=== PATIENT | female | born 1935 | race Caucasian/White ===

== ENCOUNTER → 2017-11-15 18:09 | Outpatient (CLI) | payer MEDICARE, SELFPAY | PROVIDERS: Visit Provider Nurse Practitioner Adult Health | DX: N39.0 Urinary tract infection, site not specified (principal) | CPT/HCPCS: 87086; 87088 ==

== ENCOUNTER → 2017-11-28 16:32 | Outpatient (CLI) | payer MEDICARE, SELFPAY ==
--- NOTE | 2017-11-28 16:32 | DT_ITS ---
This patient was seen during an EMR downtime November 21, 2017 - November 28, 2017. This patient may have a combination of paper and electronic documentation or all paper documentation. All documentation is viewable within the e-chart portion of [facility] for each patient visit.
== END ==
PROVIDERS: Family Provider Internal Medicine; PCP Internal Medicine; Visit Provider Nurse Practitioner Adult Health
DX: R30.0 Dysuria (principal)
CPT/HCPCS: 87077; 87086; 87088; 87186

== ENCOUNTER 2017-12-31 08:44 | Observation (INO) | payer MEDICARE, SELFPAY ==
[2017-12-31] VITALS (10 sets, daily range): BP systolic 133–172; BP diastolic 64–113; PULSE 60–77; RESP 16–18; TEMP 36.5–37.3; O2SAT 89–99; BMI 32.5; BMI 34.0
--- NOTE | 2017-12-31 08:53 | ED.RN ---
TENDERNESS UPON PALPATION OF RUQ.
--- NOTE | 2017-12-31 08:54 | EKG12_ITS ---
Test Reason : ABD PAIN Blood Pressure : / mmHG Vent. Rate : 068 BPM Atrial Rate : 068 BPM P-R Int : 216 ms QRS Dur : 090 ms QT Int : 412 ms P-R-T Axes : 061 067 088 degrees QTc Int : 438 ms Sinus rhythm with 1st degree A-V block with occasional Premature ventricular complexes Otherwise normal ECG Confirmed by JL CEDILLO, ARIK ([id number]), newspaper managing editor RISHABH SCHUSTER ([id number]) on 01/03/2018 1:40:47 PM Referred By: RONI Confirmed By:ARIK PARIKH MD
--- NOTE | 2017-12-31 08:54 | CT_ITS ---
STUDY: CT ABDOMEN AND PELVIS WITH CONTRAST REASON FOR EXAM: Female, 82 years old. Abdominal pain. History of appendectomy RADIATION DOSAGE (If Supplied By Facility): CTDIvol = ( 19.93 ) mGy, DLP = ( 1303.77 ) mGycm TECHNIQUE: Transaxial images were obtained from the dome of the diaphragm to the symphysis pubis with oral contrast. 100ML ml of Isovue 300 contrast was administered. Sagittal and coronal images were reconstructed. Individualized dose optimization techniques were used for this CT. COMPARISON: None. FINDINGS: The visualized lung bases are unremarkable. The visualized portions of the heart are within normal limits. Normal liver. Normal gallbladder and extrahepatic biliary system. Normal spleen. Normal pancreas. Normal bilateral adrenal glands. Bilateral extrarenal pelvis of the kidneys. Otherwise, kidneys are within normal limits. There is a small hiatal hernia. Normal small intestine. There are multiple colonic diverticula consistent with diverticulosis. Postsurgical changes of the sigmoid colon. Status post appendectomy. Normal abdominal aorta. Normal inferior vena cava. Normal retroperitoneum. Normal urinary bladder. There is atrophy of the uterus. Normal abdominal wall. There are diffuse degenerative changes of the visualized lumbar spine. CT/Abdomen/Pelvis WITH Contrast IMPRESSION: No acute findings. Extrarenal pelvis of both kidneys without obstruction. Significant diverticulosis without acute diverticulitis Electronically Signed: Jaret Guevara DO at 11:46 EDT Tel , Service support ,
[2017-12-31 09:26] LABS: Mucous, Urine 0 SEEN /hpf (<or=2+)
[2017-12-31] MEDS: 0.9% Normal Saline 1,000 ML 125 ML IV (09:27)
[2017-12-31 09:28] LABS: Color, Urine Yellow (Yellow); Glucose, Dipstick Normal (Normal); Ketone-Dipstick Negative (Negative); Leukocyte Esterase-Dipstick 25 /ul (Negative); Nitrite-Dipstick Negative (Negative); Occult Blood-Urine 10 /ul (Negative); Protein-Dipstick 100 mg/dl (Negative); Specific Gravity, Urine 1.015 (1.002-1.030); Urine Bilirubin Dipstick Negative (Negative); Urine Clarity Sl. Cloudy (Clear); Urine Urobilinogen Normal (Normal)
[2017-12-31] MEDS: Ondansetron 4 MG/2 ML Vial IV (09:28)
[2017-12-31 09:31] LABS: Absolute Lymphocyte Count 0.93 X10^3/ul (0.83-4.51); Absolute Neutrophil Count 9.5 X10^3/uL (2.0-7.7); Basophil# 0.03 X10^3/uL; Basophil% 0.3 % (0-1); Eosinophil# 0.01 X10^3/uL; Eosinophils% 0.1 % (0-5); Hematocrit 39.8 % (37-47); Hemoglobin 13.1 g/dl (12.0-15.0); Lymphocyte # 0.93 X10^3/ul (4.0); Lymphocyte % 8.6 % (19-41); Mean Corp Hgb Conc 32.9 g/gl (32-36); Mean Corpuscular Hgb 29.4 pg (27.0-32.0); Mean Corpuscular Volume 89.4 fL (81-99); Mean Platelet Vol. 10.3 fl (6.2-12.0); Monocyte# 0.28 X10^3/uL; Monocyte% 2.6 % (0-10); Neutrophil # 9.53 X10^3/uL (2.7-7.7); Neutrophil % 88.1 % (47-70); POSITIVE COUNT NO; POSITIVE DIFFERENTIAL NO; POSITIVE MORPHOLOGY NO; Platelet Count 404 K/mm3 (150-450); RBC Distribution Width CV 14.3 % (11.6-14.6); RBC Distribution Width SD 45.5 fl (35.1-43.9); Red Blood Count 4.45 M/mm3 (4.2-5.4); White Blood Count 10.8 K/mm3 (4.4-11.0)
[2017-12-31 09:34] LABS: Amorphous Sediment 2+; Bacteria 2+ /hpf (None Seen); Red Blood Cells-Urine 0-5 SEEN /hpf (0-5); Squamous Epithelial Cells - UA 0-5 SEEN /hpf (5-10); White Blood Cells 0-5 SEEN /hpf (0-5)
[2017-12-31 09:46] LABS: ALB/GLOB Ratio 0.9 RATIO (0.9-2.4); AST(SGOT) 27 U/L (15-37); Alanine Aminotransfer ALT/SGPT 35 U/L (13-56); Albumin, Serum 3.5 g/dL (3.2-5.0); Alkaline Phosphatase 55 U/L (45-117); Anion Gap 9 (5-15); BUN 20 mg/dL (7-18); BUN/Creat Ratio 25.1 RATIO (10-20); Calcium,Total 8.8 mg/dL (8.5-10.1); Chloride 106 mmol/L (98-107); EST Glomerular Filtration Rate 74 mL/min (>60); Est Glom Filt Rate - Afr Amer 89 mL/min (>60); Estimated Creatinine Clearance 48.43 ml/min; Globulin 3.8 g/dL (2.2-4.2); Glucose 141 mg/dL (74-106); Lipase 172 U/L (73-393); Potassium 3.9 mmol/L (3.5-5.1); Protein, Total 7.3 g/dL (6.4-8.2); Sodium Level 140 mmol/L (136-145)
[2017-12-31 09:49] LABS: Lactic Acid 1.8 mmol/L (0.4-2.0)
[2017-12-31] MEDS: proMETHazine 25 MG/ML Syringe 6.25 MG IV (10:42)
[2017-12-31] MEDS: Morphine 4 MG/ML Syringe IV ×2 (10:43→13:14)
--- NOTE | 2017-12-31 11:49 | US_ITS ---
STUDY: ABDOMINAL ULTRASOUND - RIGHT UPPER QUADRANT REASON FOR VISIT: Female, 82 years old. Right abdominal pain. TECHNIQUE: Ultrasound evaluation of the right upper quadrant was performed with real-time and static eugene-scale imaging. TECHNICAL QUALITY: Adequate. COMPARISON: None. FINDINGS: Liver: The liver measures 16.4 cm. There is normal echogenicity of the liver. The bile ducts are within normal limits. There is hepatic color flow. The direction of portal flow is hepatopetal. There is no demonstrated mass lesion. Gallbladder: Normal distended gallbladder. The gallbladder wall measures 3 mm. There is a negative sonographic Pradhan's sign. There is no pericholecystic fluid. There are no shadowing gallstones. There is echogenic sludge in the gallbladder. Common Bile Duct (C.B.D.): The common bile duct measures 5 mm. Pancreas: Normal size of the head, body and tail of the pancreas. There is normal echogenicity of the pancreas. There is no demonstrated pancreatic mass or cyst. Right Kidney: Normal size of the right kidney. The right kidney measures 11.9 cm. Normal renal cortex. The right cortex measures 1.4 cm. There are parapelvic cysts measuring 1.7 and 2.4 cm. There is no right hydronephrosis. US/Gallbladder IMPRESSION: No gallstones or biliary dilatation. There is sludge in the gallbladder. Electronically Signed: Jb Garza MD at 14:11 EDT , Service support ,
--- NOTE | 2017-12-31 14:52 | PCM.HP.STD ---
Problem List (1) Abdominal pain Status: Acute (2) GERD (gastroesophageal reflux disease) Status: Chronic (3) History of anxiety disorder Status: Chronic (4) Dyslipidemia Status: Chronic History of Present Illness Date of Admission: 12/31/17 Chief Complaint: Abdominal pain The patient is a 82 year old F with past medical history of hypertension, diverticulosis who presents with sudden onset of right upper quadrant pain, dull in nature, that radiates across the abdomen associated with nausea. Denies fever or chills. No vomiting. No diarrhea. Pain does not subside. It has improved with 2 doses of IV 4 mg morphine. Patient's vitals in the ED shows temperature 97.8 F, heart rate of 60, blood pressure 145/64, respiratory rate of 16, saturating 96% on room air. Past Medical History Past Medical History (Chronic Problems): Chronic Problems (Last Reviewed 12/17/17 @ 09:34 by Leslie Lauren) Left arm pain (Chronic) History of GERD (gastroesophageal reflux disease) (Chronic) History of anxiety disorder (Chronic) Dyslipidemia (Chronic) Medical History: Medical History (Last Reviewed 12/17/17 @ 09:34 by Leslie Lauren) Incontinence R32 Shortness of breath R06.02 Hypertension I10 Allergies No Known Allergies Allergy (Verified 12/31/17 08:46) Home Medications: Ambulatory Orders Medication Instructions Recorded amlodipine 2.5 mg tablet 2.5 mg PO DAILY 30 Days #30 09/24/17 cholecalciferol (vitamin D3) 1,000 1,000 unit PO QDAY 09/24/17 unit capsule fluoxetine 20 mg tablet 20 mg PO DAILY 30 Days #30 09/24/17 Calcium Carbonate [Calcium] 500 mg PO DAILY 12/31/17 Fenofibrate Nanocrystallized 48 mg PO DAILY 12/31/17 [Tricor] Surgical History: appendectomy, - - Hemorrhoidectomy 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 Lives: Spouse/ Significant Other Smoking Status: Never smoker Tobacco Use: Non-smoker Alcohol: None Drugs: None - *Family History Maternal History Items: Cancer - Ovarian Paternal History Items: Cancer Review of Systems Constitutional: Denies: Anorexia, Chills, Fever, Malaise, Weakness, Weight Change Eyes: Denies: Blurred vision, Cataracts, Conjunctivae Inflammation, Pain, Redness, Vision Change HEENT: Denies: Difficulty Hearing, Difficulty Swallowing, Head Aches, Hearing Changes, Sinus Congestion, Sinus Drainage Cardiovascular: Denies: Chest Pain, Claudication, Orthopnea, Palpitations Respiratory: Denies: Cough, Hemoptysis, Shortness of breath at rest, Shortness of breath upon exertion, Sputum production Gastrointestinal: Reports: Abdominal Pain, Nausea. Denies: Constipation, Diarrhea, Dyspepsia, Hematemesis, Hematochezia, Melena, Vomiting Genitourinary: Denies: Dysuria, Frequency, Incontinence, Nocturia Musculoskeletal: Denies: Joint Pain, Joint stiffness, Joint swelling, Joint Tenderness Skin: Denies: Pruritis, Rash, Wounds Neurological: Denies: Balance problems, Difficulty swallowing, Focal weakness, Numbness, Tingling Psychiatric: Denies: Anxiety, Depression, Homicidal Ideations, Suicidal Ideations Hematologic/ Lymphatic: Denies: Easy Bruising, Easy Bleeding VTE Information - Inpt Only VTE Present on Admission: No VTE Pharm Prophylaxis ordered?: Yes Patient Problems: Active and Suspected Problems (Last Reviewed 12/17/17 @ 09:34 by Leslie Lauren) Abdominal pain (Acute) - Physical Exam General: Alert, Oriented x3, Cooperative, No apparent distress HEENT: Atraumatic, PERRLA, EOMI, Normocephalic Oral: Moist Mucosa Neck: Supple Lungs: Clear to auscultation, Normal air movement Cardiovascular: Regular rate, Regular Rhythm, Normal S1, Normal S2, No murmurs Abdomen: Bowel Sounds Present, Soft, Non-Distended, No Hepato-splenomegaly, Obese, Tender - RUQ tenderness, with mild guarding on deep palpation and a positive pradhan's sign. Extremities: No edema Skin: No rashes, No breakdown Musculoskeletal: No Tenderness to Palpation of Joints or Extremities Lymphatic: No Cervical, Supraclavicular, or Inguinal Adenopathy Neurological: Cranial nerves II-XII grossly intact, Neuro grossly intact Psych/Mental Status: Normal Affect, Appropriate Vital Signs Temp Pulse Resp BP Pulse Ox 97.8 F 60 16 145/64 H 96 12/31/17 08:45 12/31/17 13:02 12/31/17 13:02 12/31/17 13:02 12/31/17 13:02 Oxygen Delivery Method Room Air Weight: 86.183 kg Body Mass Index (BMI) 32.5 Laboratory Tests Past 24 Hrs 12/31/17 12/31/17 12/31/17 09:00 09:15 09:15 WBC 10.8 RBC 4.45 Hgb 13.1 Hct 39.8 MCV 89.4 MCH 29.4 MCHC 32.9 RDW 14.3 RDW Differential 45.5 H Plt Count 404 MPV 10.3 Immature Gran % (Auto) 0.300 Neut % (Auto) 88.1 H Lymph % (Auto) 8.6 L [place] % (Auto) 2.6 Eos % (Auto) 0.1 Baso % (Auto) 0.3 Absolute Neuts (auto) 9.5 H Absolute Lymphs (auto) 0.93 Total Counted Not Reportable Sodium 140 Potassium 3.9 Chloride 106 Carbon Dioxide 25.0 Anion Gap 9 BUN 20 H Creatinine 0.80 Estim Creat Clear Calc 48.43 Est GFR (MDRD) Af Amer 89 Est GFR (MDRD) Non-Af 74 BUN/Creatinine Ratio 25.1 H Glucose 141 H Lactic Acid Calcium 8.8 Total Bilirubin 0.30 AST 27 ALT 35 Alkaline Phosphatase 55 Troponin I < 0.015 Total Protein 7.3 Albumin 3.5 Globulin 3.8 Albumin/Globulin Ratio 0.9 Lipase 172 Urine Color Yellow Urine Clarity Sl. Cloudy Urine pH 8.0 Ur Specific [place] 1.015 Urine Protein 100 H Urine Glucose (UA) Normal Urine Ketones Negative Urine Occult Blood 10 H Urine Nitrite Negative Urine Bilirubin Negative Urine Urobilinogen Normal Ur Leukocyte Esterase 25 H Urine RBC 0-5 SEEN Urine WBC 0-5 SEEN Ur Squamous Epith Cells 0-5 SEEN Amorphous Sediment 2+ Urine Bacteria 2+ Urine Mucus 0 SEEN 12/31/17 09:15 WBC RBC Hgb Hct MCV MCH MCHC RDW RDW Differential Plt Count MPV Immature Gran % (Auto) Neut % (Auto) Lymph % (Auto) [place] % (Auto) Eos % (Auto) Baso % (Auto) Absolute Neuts (auto) Absolute Lymphs (auto) Total Counted Sodium Potassium Chloride Carbon Dioxide Anion Gap BUN Creatinine Estim Creat Clear Calc Est GFR (MDRD) Af Amer Est GFR (MDRD) Non-Af BUN/Creatinine Ratio Glucose Lactic Acid 1.8 Calcium Total Bilirubin AST ALT Alkaline Phosphatase Troponin I Total Protein Albumin Globulin Albumin/Globulin Ratio Lipase Urine Color Urine Clarity Urine pH Ur Specific [place] Urine Protein Urine Glucose (UA) Urine Ketones Urine Occult Blood Urine Nitrite Urine Bilirubin Urine Urobilinogen Ur Leukocyte Esterase Urine RBC Urine WBC Ur Squamous Epith Cells Amorphous Sediment Urine Bacteria Urine Mucus Assessment/Plan All Active Problems (Last Reviewed 12/17/17 @ 09:34 by Leslie Lauren) Abdominal pain (Acute) 82 year old F with past medical history of hypertension, diverticulosis who presents with sudden onset of right upper quadrant pain, dull in nature, that radiates across the abdomen associated with nausea. 1. Acute right upper quadrant pain, suggestive of biliary colic vs acute cholecystitis. Patient has no fever, no leukocytosis, but positive Pradhan's sign on physical examination. CT scan of the abdomen and pelvis was unremarkable. Gallstone ultrasound shows normal liver, normal distended gallbladder with negative sonographic pradhan's sign and no pericholecystic fluid or shadowing gallstones but there is echogenic sludge in the gallbladder. Plan: Admit to MedSurg floor, pain control with IV morphine, IV fluids, general surgery consult, HIDA scan, PPI bid, labs in a.m. 2. Hypertension, continue on home blood pressure medication 3. Anxiety, continue on home medication 4. DVT prophylaxis with Lovenox SC Code Visit Inpatient E&M: 16775 Init Hosp L2
--- NOTE | 2017-12-31 14:53 | ED.DCSUM_ITS ---
- ER Visit Summary Date of Service: 12/31/17 Chief Complaint: [Abdominal pain] History of Present Illness: The patient is a 82 F [presents to the emergency department with complaint of abdominal pain that started last evening around 9 PM. Patient rates her pain as a 10 out of 10. Patient feels like she is bloated and distended. Patient states her last bowel movement was yesterday and was normal. Patient denies any blood in her stool or black tarry stools. Patient denies any fever. She denies urinary symptoms. Patient has had nausea but no vomiting. Patient has not had abdominal pain like this before.] Physical Examination: [HEENT-PERRLA, EOMI. Cranial nerves II through XII grossly intact. TMs clear. Mucous membranes moist. No adenopathy. Cardiovascular-regular rate and rhythm without murmur or ectopy Lungs-clear to auscultation, chest wall stable without crepitus or subcu emphysema Abdomen-normoactive bowel sounds, soft. Patient has tenderness to the right upper quadrant with guarding. Patient has a positive Pradhan sign. There is no rebound, rigidity, or perineal signs. Extremities-intact ?4, normal range of motion, normal pulses, atraumatic] Test Results: [CBC with differential obtained showed a white count of 10.8, hemoglobin 13, hematocrit 39.8, platelets 404. Chemistries unremarkable. LFTs unremarkable. Urinalysis unremarkable. Troponin is less than 0.05. Lipase was normal. EKG obtained on arrival showed a sinus rhythm with a first-degree AV block and a ventricular rate of [address] scan of the abdomen and pelvis showed essentially nothing acute. Patient did have some diverticulosis but no diverticulitis. Ultrasound of the right upper quadrant obtained showed sludge in the gallbladder no gallstones or biliary dilatation noted. No pericholecystic fluid noted.] Emergency Department Course and Treatment: [Initially was medicated with morphine and Zofran. Patient's pain did return and had to be remedicated with morphine and Phenergan.] Patient case was discussed with Dr. Celena Smith. I was asked to admit the hospitalist group and spoke with Dr. Quintero who will admit patient for intractable abdominal pain. Patient will likely require further evaluation such as possibly HIDA scan to evaluate further. Treatment Plan: [Admit] Disposition: [Admit] Impression: [Abdominal pain Biliary colic] This note was generated with [employer] dictation software. It may contain incorrect words, spelling, and punctuation that were not noted in review of the chart prior to signing ED Disposition - Plan for ED Patient: Chief Complaint: Abd Pain Referrals: Brenda Palmer DO [Primary Care Provider] -
[2017-12-31] MEDS: 0.9% Normal Saline 1,000 ML 75 ML IV (16:26)
[2017-12-31] MEDS: amLODIPine 2.5 MG Tablet PO (20:25)
[2017-12-31] MEDS: Morphine 2 MG/ML Syringe 1 MG IV (21:19)
[2018-01-01 02:31] VITALS: BP 176/73; PULSE 74; RESP 18; TEMP 37.1; O2SAT 93
[2018-01-01 02:33] VITALS: PULSE 75
[2018-01-01] MEDS: 0.9% Normal Saline 1,000 ML 75 ML IV (05:12)
[2018-01-01 05:59] LABS: Absolute Lymphocyte Count 1.94 X10^3/ul (0.83-4.51); Absolute Neutrophil Count 6.9 X10^3/uL (2.0-7.7); Basophil# 0.02 X10^3/uL; Basophil% 0.2 % (0-1); Eosinophil# 0.14 X10^3/uL; Eosinophils% 1.4 % (0-5); Hematocrit 36.6 % (37-47); Hemoglobin 11.7 g/dl (12.0-15.0); Lymphocyte # 1.94 X10^3/ul (4.0); Lymphocyte % 19.3 % (19-41); Mean Corpuscular Volume 90.6 fL (81-99); Mean Platelet Vol. 10.4 fl (6.2-12.0); Monocyte# 1.06 X10^3/uL; Monocyte% 10.5 % (0-10); Neutrophil # 6.89 X10^3/uL (2.7-7.7); Neutrophil % 68.5 % (47-70); Platelet Count 339 K/mm3 (150-450); RBC Distribution Width CV 14.4 % (11.6-14.6); RBC Distribution Width SD 47.2 fl (35.1-43.9); Red Blood Count 4.04 M/mm3 (4.2-5.4); White Blood Count 10.1 K/mm3 (4.4-11.0)
[2018-01-01 06:01] LABS: POSITIVE COUNT NO; POSITIVE DIFFERENTIAL NO; POSITIVE MORPHOLOGY NO
[2018-01-01 06:15] LABS: Anion Gap 8 (5-15); BUN 15 mg/dL (7-18); BUN/Creat Ratio 22.8 RATIO (10-20); Calcium,Total 8.1 mg/dL (8.5-10.1); Chloride 109 mmol/L (98-107); Creatinine, Serum 0.66 mg/dL (0.55-1.02); EST Glomerular Filtration Rate 92 mL/min (>60); Est Glom Filt Rate - Afr Amer 111 mL/min (>60); Estimated Creatinine Clearance 38.75 ml/min; Glucose 117 mg/dL (74-106); Potassium 3.9 mmol/L (3.5-5.1); Sodium Level 144 mmol/L (136-145)
[2018-01-01 07:02] VITALS: PULSE 72
--- NOTE | 2018-01-01 07:32 | PCM.PN.HOSP ---
Patient Problems: Active and Suspected Problems (Last Reviewed 12/17/17 @ 09:34 by Leslie Lauren) Abdominal pain (Acute) Subjective: Patient was seen and examined. Denies any nausea or vomiting. Feels well. Had episode of elevated blood pressure because she did not take her medication yesterday. Denies any dizziness or palpitations or chest pain. Seen by general surgery today and will be discharged. Objective: Physical Exam General: Alert, Oriented x3, Cooperative, No apparent distress HEENT: Atraumatic, PERRLA, EOMI, Normocephalic Oral: Moist Mucosa Neck: Supple Lungs: Clear to auscultation, Normal air movement Cardiovascular: Regular rate, Regular Rhythm, Normal S1, Normal S2, No murmurs Abdomen: Bowel Sounds Present, Soft, Non-Distended, No Hepato-splenomegaly, Obese, Tender - RUQ tenderness, with mild guarding on deep palpation and a positive mariano's sign. Extremities: No edema Skin: No rashes, No breakdown Musculoskeletal: No Tenderness to Palpation of Joints or Extremities Lymphatic: No Cervical, Supraclavicular, or Inguinal Adenopathy Neurological: Cranial nerves II-XII grossly intact, Neuro grossly intact Psych/Mental Status: Normal Affect, Appropriate Vitals/I&O's: Vital Signs Temp Pulse Resp BP Pulse Ox 98.8 F 75 18 176/73 H 93 01/01/18 02:31 01/01/18 02:33 01/01/18 02:31 01/01/18 02:31 01/01/18 02:31 Oxygen Flow Rate (L/min) 2 Oxygen Delivery Method Room Air Weight: 90.1 kg Body Mass Index (BMI) 34.0 Intake and Output for Last 24 Hours 12/30/17 12/31/17 01/01/18 23:59 23:59 23:59 Intake Total 1330 / 1330 407 / 407 Balance 1330 / 1330 407 / 407 Laboratory Results 01/01/18 05:30: WBC 10.1, RBC 4.04 L, Hgb 11.7 L, Hct 36.6 L, MCV 90.6, MCH 29.0, MCHC 32.0, RDW 14.4, RDW Differential 47.2 H, Plt Count 339, MPV 10.4, Immature Gran % (Auto) 0.100, Neut % (Auto) 68.5, Lymph % (Auto) 19.3, [place] % (Auto) 10.5 H, Eos % (Auto) 1.4, Baso % (Auto) 0.2, Absolute Neuts (auto) 6.9, Absolute Lymphs (auto) 1.94, Total Counted Not Reportable 01/01/18 05:30: Sodium 144, Potassium 3.9, Chloride 109 H, Carbon Dioxide 27.0, Anion Gap 8, BUN 15, Creatinine 0.66, Estim Creat Clear Calc 38.75, Est GFR (MDRD) Af Amer 111, Est GFR (MDRD) Non-Af 92, BUN/Creatinine Ratio 22.8 H, Glucose 117 H, Calcium 8.1 L Current Medications Amlodipine Besylate (Norvasc) 2.5 mg PO DAILY [facility] Last Admin: 12/31/17 20:25 Dose: 2.5 mg Bisacodyl (Dulcolax) 5 mg PO DAILY PRN PRN PRN Reason: Constipation [facility]Ge [facility]) [facility] Cholecalciferol (Vitamin D) 1,000 unit PO DAILY [facility] Enoxaparin Sodium (Lovenox) 40 mg SC DAILY@1000 [facility] Fenofibrate (Tricor) 48 mg PO DAILYCM [facility] Fluoxetine HCl (Prozac) 20 mg PO DAILY [facility] Sodium Chloride () 1,000 mls @ 75 mls/hr IV .[id number] [facility] Last Admin: 01/01/18 05:12 Dose: 75 mls/hr Pantoprazole Sodium 40 mg/ (Sodium Chloride) 110 mls @ 330 mls/hr IV Q12 [facility] Last Admin: 12/31/17 21:18 Dose: 330 mls/hr Magnesium Hydroxide (Milk Of Magnesia) 30 ml PO DAILY PRN PRN PRN Reason: Constipation Morphine Sulfate () 1 mg IV Q4H PRN PRN PRN Reason: SEVERE PAIN (6-10/10) Last Admin: 12/31/17 21:19 Dose: 1 mg Ondansetron HCl (Zofran) 4 mg IV Q8H PRN PRN PRN Reason: NAUSEA Psyllium Hydrophilic Mucilloid (Metamucil) 1 packet PO DAILY PRN PRN PRN Reason: CONSTIPATION Sodium Chloride () 5 - 30 ml IV UD PRN PRN Reason: SALINE FLUSH Medical Necessity - Tobacco Use Smoking Status: Never smoker Tobacco Use: Non-smoker Assessment/Plan All Active Problems (Last Reviewed 12/17/17 @ 09:34 by Leslie Lauren) Abdominal pain (Acute) 82 year old F with past medical history of hypertension, diverticulosis who presents with sudden onset of right upper quadrant pain, dull in nature, that radiates across the abdomen associated with nausea. 1. Acute right upper quadrant pain, suggestive of biliary colic vs acute cholecystitis vs GERD, appears improved, will be discharged to follow-up in the outpatient with general surgery 2. Hypertension, uncontrolled secondary to missed medications, will continue with home medications 3. Anxiety, continue on home medication 4. DVT prophylaxis with Lovenox SC
[2018-01-01 08:23] VITALS: BP 176/65; PULSE 75; RESP 18; TEMP 36.5; O2SAT 96
[2018-01-01] MEDS: Calcium (Elemental) 500 MG Tablet PO (08:29)
[2018-01-01] MEDS: Fenofibrate 48 MG Tablet PO (08:29)
[2018-01-01] MEDS: FLUoxetine 20 MG Capsule PO (08:29)
[2018-01-01] MEDS: amLODIPine 2.5 MG Tablet PO (08:29)
[2018-01-01] MEDS: Enoxaparin 40 MG/0.4 ML Syringe SC (08:29)
--- NOTE | 2018-01-01 08:47 | PCM.CONS.GEN ---
Reason for Consult Date of Consultation: 01/01/18 Reason for Consultation: Right upper quadrant, epigastric, left upper quadrant abdominal pain, gallbladder sludge History of Present Illness: The patient is a 82 year old F presented to ER due to RUQ/epigastric/LUQ pain and nausea starting Tuesday at 9pm. Pt last ate at 5PM-hamburger, pt states the pain continue to get worse and was a 10/10 when she came to ER. CT a/p showed no acute findings and U/S showed wall 3mm, CBD 5mm, no pericholecystic fluid and GB sludge. Pt was admitted for pain control and also started on protonix IV. Pt states she has had GERD for years and has been on OTC generic prevacid for about 20 years and denies ever having an EGD. Pt was able to richmond diet yesterday and this AM she was able to eat a 1/2 bagel with cream cheese and denies any abdominal pain or N or V. Pt states her last colonoscopy was by Dr. Grover before sigmoidectomy due to diverticular disease about 8-10 years ago per pt. Past Medical History Past Medical History (Chronic Problems): Chronic Problems (Last Reviewed 12/17/17 @ 09:34 by Leslie Lauren) Left arm pain (Chronic) History of GERD (gastroesophageal reflux disease) (Chronic) History of anxiety disorder (Chronic) Dyslipidemia (Chronic) Medical History: Medical History (Last Reviewed 12/17/17 @ 09:34 by Leslie Lauren) Incontinence R32 Shortness of breath R06.02 Hypertension I10 Allergies No Known Allergies Allergy (Verified 12/31/17 08:46) Home Medications: Ambulatory Orders Medication Instructions Recorded amlodipine 2.5 mg tablet 2.5 mg PO DAILY 30 Days #30 09/24/17 cholecalciferol (vitamin D3) 1,000 1,000 unit PO QDAY 09/24/17 unit capsule fluoxetine 20 mg tablet 20 mg PO DAILY 30 Days #30 09/24/17 Aspirin [Aspirin, Baby] 1 tab PO DAILY 12/31/17 Calcium Carbonate [Calcium] 500 mg PO DAILY 12/31/17 Cephalexin 250 mg PO DAILY 12/31/17 Cetirizine HCl [Zyrtec] 5 mg PO QHS 12/31/17 Fenofibrate Nanocrystallized 48 mg PO DAILY 12/31/17 [Tricor] Pantoprazole Sodium 40 mg PO DAILY #30 tablet. 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 Lives: Spouse/ Significant Other Smoking Status: Never smoker Tobacco Use: Non-smoker Alcohol: None Drugs: None - *Family History Maternal History Items: Cancer - Ovarian Paternal History Items: Cancer Review of Systems Constitutional: Denies: Anorexia, Fever Eyes: Denies: Blurred vision HEENT: Denies: Difficulty Swallowing Cardiovascular: Denies: Chest Pain Respiratory: Denies: Shortness of breath at rest Gastrointestinal: Denies: Abdominal Pain, Nausea, Vomiting Genitourinary: Denies: Dysuria Skin: Denies: Rash Neurological: Denies: Confusion Psychiatric: Denies: Anxiety, Depression Hematologic/ Lymphatic: Denies: Easy Bleeding - Physical Exam General: Alert, Oriented x3, Cooperative, No apparent distress HEENT: Atraumatic Lungs: Normal air movement Cardiovascular: Regular rate Abdomen: Soft, Non Tender, Non-Distended, - - no PS Extremities: No clubbing, No cyanosis, No edema Skin: No rashes Neurological: Cranial nerves II-XII grossly intact Psych/Mental Status: Normal Affect Vital Signs Temp Pulse Resp BP Pulse Ox 97.7 F L 75 18 176/65 H 96 01/01/18 08:23 01/01/18 08:23 01/01/18 08:23 01/01/18 08:23 01/01/18 08:23 Oxygen Flow Rate (L/min) 2 Oxygen Delivery Method Room Air Weight: 198 lb 10.184 oz Body Mass Index (BMI) 34.0 Intake and Output for Last 24 Hours 12/30/17 12/31/17 01/01/18 23:59 23:59 23:59 Intake Total 1330 / 1330 407 / 407 Balance 1330 / 1330 407 / 407 Laboratory Tests Past 24 Hrs 01/01/18 01/01/18 05:30 05:30 WBC 10.1 RBC 4.04 L Hgb 11.7 L Hct 36.6 L MCV 90.6 MCH 29.0 MCHC 32.0 RDW 14.4 RDW Differential 47.2 H Plt Count 339 MPV 10.4 Immature Gran % (Auto) 0.100 Neut % (Auto) 68.5 Lymph % (Auto) 19.3 [place] % (Auto) 10.5 H Eos % (Auto) 1.4 Baso % (Auto) 0.2 Absolute Neuts (auto) 6.9 Absolute Lymphs (auto) 1.94 Total Counted Not Reportable Sodium 144 Potassium 3.9 Chloride 109 H Carbon Dioxide 27.0 Anion Gap 8 BUN 15 Creatinine 0.66 Estim Creat Clear Calc 38.75 Est GFR (MDRD) Af Amer 111 Est GFR (MDRD) Non-Af 92 BUN/Creatinine Ratio 22.8 H Glucose 117 H Calcium 8.1 L Assessment/Plan All Active Problems (Last Reviewed 12/17/17 @ 09:34 by Leslie Lauren) Abdominal pain (Acute) 82-year-old female presented with right upper quadrant/left upper quadrant/epigastric abdominal pain, nausea, ultrasound finding of gallbladder sludge. 1. Patient currently denies any abdominal pain and was able to eat a bagel with cream cheese this morning an hour ago. Patient states that her pain began about 4 hours after eating Tuesday night she states she regularly does have reflux and has been on [id number] generic Prevacid for this and denies ever having an EGD in the past. Patient's symptoms are not typical of gallbladder disease are more typical of gastritis/GERD. Patient has been on Protonix 40 mg IV while in the hospital. Recommend patient continue on Protonix 40 mg p.o. daily and follow-up in office with a plan to get an EGD and colonoscopy if she is due at this time. Reviewed the anatomy as well as her CAT scan and ultrasound findings with the patient and she was agreeable with plan. Okay to DC today per surgery and pt will f/u in office. Celena Smith M.D. Pager: [phone] [facility] [address] [place] [address], Outpatient [place], [address] [place] [address] Office: [phone] Code Visit Inpatient E&M: 79136 Init Hosp L1
--- NOTE | 2018-01-01 08:50 | DCINST_ITS ---
- Discharge Diagnoses Current Active Problems: Current Active and Chronic Problems (Last Reviewed 12/17/17 @ 09:34 by Leslie Lauren) Abdominal pain (Acute) Reason(s) for Visit for Discharge Instructions: Abdominal pain You will use the following diet at home:: Cardiac Your food should be the consistency of: Regular Your liquids should be the consistency of: Regular/Thin Discharge Activity: Return to Normal Activity Additional Instructions: You have been prescribed an increased dose of pantoprazole. You should follow-up wit Dr. Smith in the outpatient. You need to keep a log of your blood pressure and follow-up with your primary care doctor with the readings. Allergies/Adverse Reactions: Allergies No Known Allergies Allergy (Verified 12/31/17 08:46) Medications to take at Discharge amlodipine 2.5 mg tablet 2.5 mg PO DAILY 30 Days #30 09/24/17 cholecalciferol (vitamin D3) 1,000 unit capsule 1,000 unit PO QDAY 09/24/17 fluoxetine 20 mg tablet 20 mg PO DAILY 30 Days #30 09/24/17 Aspirin [Aspirin, Baby] 1 tab PO DAILY 12/31/17 Calcium Carbonate [Calcium] 500 mg PO DAILY 12/31/17 Cephalexin 250 mg PO DAILY 12/31/17 Cetirizine HCl [Zyrtec] 5 mg PO QHS 12/31/17 Fenofibrate Nanocrystallized [Tricor] 48 mg PO DAILY 12/31/17 Pantoprazole Sodium 40 mg PO DAILY #30 tablet. 01/01/18 The following prescriptions were given: Pantoprazole Sodium 40 mg PO DAILY #30 tablet. Primary Care Physician: Brenda Palmer DO [Primary Care Provider] - Please follow up with your Primary Care Physician in: within 1-2 weeks Test Results: Test results from this visit will be discussed in further detail at your follow- up appointment, if applicable. Please Follow Up With: Celena Smith MD When: Call next week for appointment Proposed Discharge Date: 01/01/18
--- NOTE | 2018-01-01 08:50 | CON.PCM_ITS ---
Reason for Consult Date of Consultation: 01/01/18 Reason for Consultation: Right upper quadrant, epigastric, left upper quadrant abdominal pain, gallbladder sludge History of Present Illness: The patient is a 82 year old F presented to ER due to RUQ/epigastric/LUQ pain and nausea starting Tuesday at 9pm. Pt last ate at 5PM-hamburger, pt states the pain continue to get worse and was a 10/10 when she came to ER. CT a/p showed no acute findings and U/S showed wall 3mm, CBD 5mm, no pericholecystic fluid and GB sludge. Pt was admitted for pain control and also started on protonix IV. Pt states she has had GERD for years and has been on OTC generic prevacid for about 20 years and denies ever having an EGD. Pt was able to richmond diet yesterday and this AM she was able to eat a 1/2 bagel with cream cheese and denies any abdominal pain or N or V. Pt states her last colonoscopy was by Dr. Grover before sigmoidectomy due to diverticular disease about 8-10 years ago per pt. Past Medical History Past Medical History (Chronic Problems): Chronic Problems (Last Reviewed 12/17/17 @ 09:34 by Leslie Lauren) Left arm pain (Chronic) History of GERD (gastroesophageal reflux disease) (Chronic) History of anxiety disorder (Chronic) Dyslipidemia (Chronic) Medical History: Medical History (Last Reviewed 12/17/17 @ 09:34 by Leslie Lauren) Incontinence R32 Shortness of breath R06.02 Hypertension I10 Allergies No Known Allergies Allergy (Verified 12/31/17 08:46) Home Medications: Ambulatory Orders Medication Instructions Recorded amlodipine 2.5 mg tablet 2.5 mg PO DAILY 30 Days #30 09/24/17 cholecalciferol (vitamin D3) 1,000 1,000 unit PO QDAY 09/24/17 unit capsule fluoxetine 20 mg tablet 20 mg PO DAILY 30 Days #30 09/24/17 Aspirin [Aspirin, Baby] 1 tab PO DAILY 12/31/17 Calcium Carbonate [Calcium] 500 mg PO DAILY 12/31/17 Cephalexin 250 mg PO DAILY 12/31/17 Cetirizine HCl [Zyrtec] 5 mg PO QHS 12/31/17 Fenofibrate Nanocrystallized 48 mg PO DAILY 12/31/17 [Tricor] Pantoprazole Sodium 40 mg PO DAILY #30 tablet. 01/01/18 Surgical History: appendectomy, - - Hemorrhoidectomy Psychiatric History: Anxiety MANAGER MILITARY History: No pertinent MANAGER MILITARY history Lives: Spouse/ Significant Other Smoking Status: Never smoker Tobacco Use: Non-smoker Alcohol: None Drugs: None - *Family History Maternal History Items: Cancer - Ovarian Paternal History Items: Cancer Review of Systems Constitutional: Denies: Anorexia, Fever Eyes: Denies: Blurred vision HEENT: Denies: Difficulty Swallowing Cardiovascular: Denies: Chest Pain Respiratory: Denies: Shortness of breath at rest Gastrointestinal: Denies: Abdominal Pain, Nausea, Vomiting Genitourinary: Denies: Dysuria Skin: Denies: Rash Neurological: Denies: Confusion Psychiatric: Denies: Anxiety, Depression Hematologic/ Lymphatic: Denies: Easy Bleeding - Physical Exam General: Alert, Oriented x3, Cooperative, No apparent distress HEENT: Atraumatic Lungs: Normal air movement Cardiovascular: Regular rate Abdomen: Soft, Non Tender, Non-Distended, - - no PS Extremities: No clubbing, No cyanosis, No edema Skin: No rashes Neurological: Cranial nerves II-XII grossly intact Psych/Mental Status: Normal Affect Vital Signs Temp Pulse Resp BP Pulse Ox 97.7 F L 75 18 176/65 H 96 01/01/18 08:23 01/01/18 08:23 01/01/18 08:23 01/01/18 08:23 01/01/18 08:23 Oxygen Flow Rate (L/min) 2 Oxygen Delivery Method Room Air Weight: 198 lb 10.184 oz Body Mass Index (BMI) 34.0 Intake and Output for Last 24 Hours 12/30/17 12/31/17 01/01/18 23:59 23:59 23:59 Intake Total 1330 / 1330 407 / 407 Balance 1330 / 1330 407 / 407 Laboratory Tests Past 24 Hrs 01/01/18 01/01/18 05:30 05:30 WBC 10.1 RBC 4.04 L Hgb 11.7 L Hct 36.6 L MCV 90.6 MCH 29.0 MCHC 32.0 RDW 14.4 RDW Differential 47.2 H Plt Count 339 MPV 10.4 Immature Gran % (Auto) 0.100 Neut % (Auto) 68.5 Lymph % (Auto) 19.3 Grimes % (Auto) 10.5 H Eos % (Auto) 1.4 Baso % (Auto) 0.2 Absolute Neuts (auto) 6.9 Absolute Lymphs (auto) 1.94 Total Counted Not Reportable Sodium 144 Potassium 3.9 Chloride 109 H Carbon Dioxide 27.0 Anion Gap 8 BUN 15 Creatinine 0.66 Estim Creat Clear Calc 38.75 Est GFR (MDRD) Af Amer 111 Est GFR (MDRD) Non-Af 92 BUN/Creatinine Ratio 22.8 H Glucose 117 H Calcium 8.1 L Assessment/Plan All Active Problems (Last Reviewed 12/17/17 @ 09:34 by Leslie Lauren) Abdominal pain (Acute) 82-year-old female presented with right upper quadrant/left upper quadrant/ epigastric abdominal pain, nausea, ultrasound finding of gallbladder sludge. 1. Patient currently denies any abdominal pain and was able to eat a bagel with cream cheese this morning an hour ago. Patient states that her pain began about 4 hours after eating Tuesday night she states she regularly does have reflux and has been on [id number] generic Prevacid for this and denies ever having an EGD in the past. Patient's symptoms are not typical of gallbladder disease are more typical of gastritis/GERD. Patient has been on Protonix 40 mg IV while in the hospital. Recommend patient continue on Protonix 40 mg p.o. daily and follow-up in office with a plan to get an EGD and colonoscopy if she is due at this time. Reviewed the anatomy as well as her CAT scan and ultrasound findings with the patient and she was agreeable with plan. Okay to DC today per surgery and pt will f/u in office. Celena Smith M.D. Pager: [phone] [facility] [address] [place] [address], Outpatient [place], [address] [place] [address] Office: [phone] Code Visit Inpatient E&M: 01780 Init Hosp L1
--- NOTE | 2018-01-01 09:22 | DS.PCM_ITS ---
Discharge Date and Diagnosis - Problem List Patient Problems: Active and Suspected Problems (Last Reviewed 12/17/17 @ 09:34 by Leslie Lauren) Abdominal pain (Acute) Date of Admission: 12/31/17 Date of Discharge: 01/01/18 - Primary Discharge Diagnosis Active and Suspected Problems (Last Reviewed 12/17/17 @ 09:34 by Leslie Lauren) Abdominal pain (Acute) Uncontrolled Hypertension - Secondary Discharge Diagnosis Chronic Problems (Last Reviewed 12/17/17 @ 09:34 by Leslie Lauren) Left arm pain (Chronic) History of GERD (gastroesophageal reflux disease) (Chronic) History of anxiety disorder (Chronic) Dyslipidemia (Chronic) Hospital Course and Treatment Imaging Results: Clinical Impression(s) from Imaging Studies Abdomen/Pelvis CT 12/31/17 08:54 IMPRESSION: No acute findings. Extrarenal pelvis of both kidneys without obstruction. Significant diverticulosis without acute diverticulitis Electronically Signed: Jaret Guevara DO at 11:46 EDT Tel , Service support , Gallbladder Ultrasound 12/31/17 11:49 IMPRESSION: No gallstones or biliary dilatation. There is sludge in the gallbladder. Electronically Signed: Jb Garza MD at 14:11 EDT , Service support , General surgery Operations: None Procedures: None Summary of Care Provided: 82 year old F with past medical history of hypertension, diverticulosis who presents with sudden onset of right upper quadrant pain, dull in nature, that radiates across the abdomen associated with nausea. 1. Acute right upper quadrant pain, unclear etiology, suggestive of biliary colic vs acute cholecystitis vs GERD. Pain was controlled overnight. Seen by general surgery and increased PPI recommended, will follow-up in the outpatient with surgeon. 2. Hypertension, uncontrolled secondary to missed medications, resumed on meds , asked her to keep log of BP, follow-up with PCP. 3. Anxiety, continue on home medication Discharge Diet: Low fat/ Low Cholesterol, 2000 mg Sodium Diet Discharge Activity: Return to Normal Activity Home Medications: Medications to take at Discharge amlodipine 2.5 mg tablet 2.5 mg PO DAILY 30 Days #30 09/24/17 cholecalciferol (vitamin D3) 1,000 unit capsule 1,000 unit PO QDAY 09/24/17 fluoxetine 20 mg tablet 20 mg PO DAILY 30 Days #30 09/24/17 Aspirin [Aspirin, Baby] 1 tab PO DAILY 12/31/17 Calcium Carbonate [Calcium] 500 mg PO DAILY 12/31/17 Cephalexin 250 mg PO DAILY 12/31/17 Cetirizine HCl [Zyrtec] 5 mg PO QHS 12/31/17 Fenofibrate Nanocrystallized [Tricor] 48 mg PO DAILY 12/31/17 Pantoprazole Sodium 40 mg PO DAILY #30 tablet. 01/01/18 Following Prescrptions Were Given to Patient: Pantoprazole Sodium 40 mg PO DAILY #30 tablet. Primary Care Physician: Brenda Palmer DO [Primary Care Provider] - Please follow up with your Primary Care Physician in: within 1-2 weeks Please Follow Up With: Celena Smith MD When: Call next week for appointment Disposition: Home Minutes spent on discharge:: 35 Patient Condition:: Stable Medical Necessity - Tobacco Use Smoking Status: Never smoker Tobacco Use: Non-smoker Meaningful Use Info Meaningful Use Diagnoses (Choose all that apply): None applicable Code Visit Inpatient E&M: 96613 Disch Hosp
[2018-01-01 09:23] VITALS: BP 148/68
== END 2018-01-01 09:58 | disposition home or self-care (01) ==
LOC: ED 09:21 → MS3 15:20
PROVIDERS: Admitting Provider Internal Medicine; Emergency Provider Emergency Medicine; Family Provider Internal Medicine; PCP Internal Medicine; Visit Provider Internal Medicine
DX: R10.9 Unspecified abdominal pain (principal); I10 Essential (primary) hypertension; K21.9 Gastro-esophageal reflux disease without esophagitis; E78.5 Hyperlipidemia, unspecified; F41.9 Anxiety disorder, unspecified; Z79.899 Other long term (current) drug therapy; Z79.82 Long term (current) use of aspirin; K57.90 Diverticulosis of intestine, part unspecified, without perforation or abscess without bleeding; I44.0 Atrioventricular block, first degree
CPT/HCPCS: 36415; 74177; 76705; 80048; 80053; 81001; 83605; 83690; 84484; 85025; 87086; 87088; 93005; 96361; 96365; 96372; 96375; 96376; 99218; 99284; J7030; Q9967; A4216; G0378; J2405

== ENCOUNTER 2018-02-01 07:44 | Day surgery (SDC) | payer MEDICARE, SELFPAY ==
[2018-02-01] VITALS (7 sets, daily range): BP systolic 110–154; BP diastolic 60–75; PULSE 73–83; RESP 16–18; TEMP 36.3–36.7; O2SAT 99–100; BMI 30.9
--- NOTE | 2018-02-01 | IMM_PTH ---
PATIENT: JOSE MANUEL REYNA LOC: [facility] U#:[id number] AGE/SX: 82/F ROOM: RE02/01/[address]: Dr. Celena Smith MD : 1935 BED: DIS: 02/01/2018 SPEC #: [id number] RECD: 02/01/18 13:50 STATUS: CANDELARIA REQ #: [id number] PORTIA: 02/01/18 00:[address]: Celena Smith DEPT: IMMUNOHISTOCHEMISTRY RECD BY: Patito Ayala ENTERED: 02/01/18 13:51 SP TYPE: IMMUNO OTHR DR: Dr. Brenda Palmer, Tissues: A - Stomach, NOS Procedures: H Pylori (initial) PHYSICIAN & INSTITUTION [place] [address] SPECIMEN INFORMATION: Tissue Source: A ? Antrum biopsy Clinical Info: GERD, screening for colon CA Specimen Number: [id number] CPT code: 25629 METHODOLOGY: Deparaffinized sections of prefer/formalin-fixed tissue or PAP/DQ stained slides are incubated with monoclonal/polyclonal antibodies/oligonucleotide probes. Localization is made via biotin free immunoperoxidase method. Appropriate controls are performed and reacted as expected. Results on target cell population are indicated in the following table: RESULTS: ANTIBODY / CLONE RESULT Block A H Pylori (polyclonal) negative These tests were developed and their performance characteristics determined by [facility]. They may not have been cleared or approved by the U.S. Food and Drug Administration. The FDA has determined that such clearance or approval is not necessary. INTERPRETATION: A. Antrum, biopsy: Negative for Helicobacter pylori organisms. SJ:citlaly 02/02/18
--- NOTE | 2018-02-01 09:00 | EGD_PTH ---
PATIENT: JOSE MANUEL REYNA LOC: EN U#:[id number] AGE/SX: 82/F ROOM: RE02/01/[address]: Dr. Celena Smith MD : 1935 BED: DIS: 02/01/2018 SPEC #: [id number] RECD: 02/01/18 12:40 STATUS: CANDELARIA IMELDA #: [id number] PORTIA: 02/01/18 09:[address]: Celena Smith DEPT: SURGICAL PATHOLOGY RECD BY: Johan Freitas ENTERED: 02/01/18 13:38 SP TYPE: EGD BIOPSY OT DR: Dr. Brenda Palmer, Tissues: A - Gastric mucous membrane B - Gastric mucous membrane Procedures: Special Stain Group II Surgery Specimen Level IV Alcian Blue/PAS (control) HEADER OPERATION: Colonoscopy, EGD ([facility]) PRE-OP DIAGNOSIS: GERD, screening for colon cancer TISSUE SUBMITTED: A. Antrum biopsy for H. Pylori and path, B. GE junction biopsy MICROSCOPIC DIAGNOSIS A. Antral biopsy: Mild gastritis. B. GE junction, biopsy: A fragment of gastric mucosa with mild chronic inflammation. Intestinal metaplasia (goblet cell metaplasia) is not identified. See comment. SJ:citlaly 02/02/18 COMMENT A. The results of immunohistochemistry for Helicobacter pylori will be reported separately ([id number]). B. Alcian blue/PAS stain with matched control is used in the evaluation of the specimen. MICROSCOPIC DESCRIPTION Slides are reviewed. A. The specimen shows fragments of gastric mucosa with chronic inflammatory cell infiltrates in the lamina propria consisting of lymphocytes and plasma cells, consistent with mild chronic gastritis. GROSS DESCRIPTION A - Received in fixative is one container labeled with the patient's name and designated antrum biopsy. The specimen consists of one irregular fragment of light burkett soft tissue that measures 0.5 x 0.3 x 0.1 cm. The specimen is totally submitted in one cassette. B - Received in fixative is one container labeled with the patient's name and designated GE junction biopsy. The specimen consists of one irregular fragment of light burkett soft tissue that measures 0.3 x 0.2 x 0.1 cm. The specimen is totally submitted in one cassette. / AM:citlaly 02/01/18 TC:3 CPT: 02550 x2, 21882
--- NOTE | 2018-02-01 09:46 | PCM.OPRPT ---
Report of Operation Date of Procedure: 02/01/18 Pre-Operative Diagnosis: GERD, screening for colon cancer Post-Operative Diagnosis: GERD, hiatal hernia, extensive diverticulosis throughout the colon, grade 1 internal hemorrhoid Surgery/Procedure Performed:: EGD with biopsy, colonoscopy for screening Type of Anesthesia:: MAC Anesthesiologist: Judah Leon Specimen's removed: 1. Antral biopsy, 2. GE junction biopsy Estimated Blood Loss (mL): Minimal Description of Procedure: Procedure: EGD with biopsy After obtaining informed consent, the endoscope was passed under direct visualization. Throughout the procedure, patient's blood pressure, pulse, oxygen saturations were monitored continuously by anesthesia. The endoscope was introduced through the mouth and advanced to the 2nd part of the duodenum. The upper GI endoscopy was accomplished without difficulty. Patient tolerated procedure well. Findings: Small hiatal hernia was present. Patch mild erythematous mucosa found gastric antrum. Along with mild mucosal change at the GE junction. Biopsies were taken with cold biopsy for histology. Estimated blood loss was minimal. The duodenum was normal. Impression: 1. Small hiatal hernia 2. Erythematous mucosa in the antrum and mild mucosal change at the GE junction. Biopsied. 3. Normal examined duodenum Recommendations: Continue PPI await biopsies Procedure: Colonoscopy After reviewing the risks benefits, the patient was deemed in satisfactory condition to undergo procedure. After obtaining informed consent, the scope was passed under direct visualization. Throughout the procedure, the patient's blood pressure pulse and position saturations were monitored continuously anesthesia. The colonoscope was introduced through the anus and advanced to the cecum, identified by the appendiceal orifice, IC valve and transillumination. The colonoscopy was performed without difficulty. The patient tolerated procedure well. Quality of bowel prep was good. Findings: The perianal and digital rectal exam revealed small internal hemorrhoids. Extensive diverticulosis noted throughout the colon. The previous colorectal anastomosis is widely patent. Otherwise the colon (entire examined portion) appeared normal. Retroflexed view of the distal rectum and anal verge was normal and showed no anal or rectal abnormalities Impression: 1. Extensive diverticulosis throughout the colon 2. Small internal hemorrhoids Recommendations: Repeat colonoscopy in 10 years for screening purposes - Complications none
== END 2018-02-01 10:30 | disposition home or self-care (01) ==
LOC: EN 07:45
PROVIDERS: Family Provider Internal Medicine; PCP Internal Medicine; Visit Provider Surgery
PROC: 0DJD8ZZ Inspection of Lower Intestinal Tract, Via Natural or Artificial Opening Endoscopic (ICD-10-PCS; CPT 45378; principal; 2018-02-01 08:55)
DX: Z12.11 Encounter for screening for malignant neoplasm of colon (principal); K57.30 Diverticulosis of large intestine without perforation or abscess without bleeding; K64.8 Other hemorrhoids; K63.89 Other specified diseases of intestine; K29.70 Gastritis, unspecified, without bleeding; K44.9 Diaphragmatic hernia without obstruction or gangrene; K21.9 Gastro-esophageal reflux disease without esophagitis; F41.9 Anxiety disorder, unspecified; E78.5 Hyperlipidemia, unspecified; I10 Essential (primary) hypertension; Z78.0 Asymptomatic menopausal state; Z87.448 Personal history of other diseases of urinary system; Z87.19 Personal history of other diseases of the digestive system; Z90.49 Acquired absence of other specified parts of digestive tract; Z79.82 Long term (current) use of aspirin; Z79.899 Other long term (current) drug therapy
CPT/HCPCS: 43239; G0121; 88305; 88313; 88342; J7120

== ENCOUNTER → 2018-02-06 16:19 | Outpatient (CLI) | payer MEDICARE, SELFPAY | PROVIDERS: Family Provider Internal Medicine; PCP Internal Medicine; Visit Provider Nurse Practitioner Adult Health | DX: N30.20 Other chronic cystitis without hematuria (principal) | CPT/HCPCS: 87086; 87088 ==

== ENCOUNTER → 2018-04-27 13:55 | Outpatient (CLI) | payer MEDICARE, SELFPAY | PROVIDERS: Family Provider Internal Medicine; PCP Internal Medicine; Referring Provider Nurse Practitioner Adult Health; Visit Provider Nurse Practitioner Adult Health | DX: R82.998 Other abnormal findings in urine (principal) | CPT/HCPCS: 87086; 87088; 87186 ==

== ENCOUNTER 2018-06-08 11:08 | Emergency (ER) | payer MEDICARE, SELFPAY ==
[2018-06-08 11:09] VITALS: BP 162/86; PULSE 68; RESP 17; TEMP 36.7; O2SAT 97; BMI 32.5
--- NOTE | 2018-06-08 11:20 | RAD_ITS ---
STUDY: X-RAY - RIGHT HIP REASON FOR EXAM: Female, 82 years old. Hip pain. TECHNIQUE: 2 views of the hip. COMPARISON: None. FINDINGS: Normal femoral head, neck, intertrochanteric region and visualized proximal femur. Normal acetabulum. There is mild articular joint space narrowing. Normal visualized superior and inferior pubic rami and ischial tuberosities. RAD/HIP, UNI W/ Pelvis 2-3 Views IMPRESSION: Mild degree of degenerative changes of the right hip joint. Electronically Signed: Ras Leonardo MD at 12:21 EST Tel [phone], Service support ,
[2018-06-08] MEDS: HYDROcodone Bitartrate/Apap 5/325 Tablet PO (11:29)
--- NOTE | 2018-06-08 11:30 | ED.DCSUM_ITS ---
- ER Visit Summary Date of Service: 06/08/18 Chief Complaint: Fall, back pain History of Present Illness: The patient is a 82 F presents to the emergency department after mechanical fall. Patient was in her normal state of health. States that she was walking downstairs with her hands full. She states she missed last step and fell backwards. She states that she landed with her right posterior pelvis against the stair. She struck her head but did not lose consciousness. She states that she is having increasing pain in her back around that area. She states it hurts to move. The pain does not radiate down her legs. She denies headache or vision change. She has not taken anything for pain. Physical Examination: Afebrile, vitals unremarkable. Well-appearing female no acute distress. Head is normocephalic, atraumatic. Pupil's equal round reactive, extraocular muscles intact. Neck supple. Heart regular rate and rhythm. Lungs clear, chest nontender. Abdomen soft, nontender, nondistended. No pulsatile mass. Patient has paraspinal tenderness in the right lumbar area into the SI joint, but no bony tenderness. Straight leg raise is negative bilaterally. 2+ symmetric lower extremity pulses. 2+ reflexes. No clonus. No weakness of dorsiflexion, plantar flexion, or extensor hallucis longus bilaterally. Test Results: [] Emergency Department Course and Treatment: The patient's pain is more over her SI joint into the iliac wing. She has no pain with logroll. She is able to stand and bear weight. She was given oral analgesics and was markedly improved in her comfort. I did obtain plain films which are unremarkable. The patient is resting comfortably. At this time, she will be given a short course of analgesics for acute pain control. She was counseled on concerning symptoms and reasons to return. She will be discharged home. Treatment Plan: [] Disposition: Discharge Impression: Right hip contusion status post fall This note was generated with woohoo mobile marketing dictation software. It may contain incorrect words, spelling, and punctuation that were not noted in review of the chart prior to signing ED Disposition - Plan for ED Patient: Disposition: Home or Assisted Living Chief Complaint: Fall Instructions: ED Contusion Hip Prescriptions: Hydrocodone Bitart/Apap 5-325 [[place] 5MG-325MG] 1 tab PO Q6H PRN PRN 3 Days #8 tab PRN Reason: Pain Referrals: Brenda Palmer DO [Primary Care Provider] -
[2018-06-08 12:22] VITALS: BP 167/72; PULSE 51; RESP 17; O2SAT 95
--- NOTE | 2018-06-08 12:22 | ED.RN ---
DISCHARGE INSTRUCTIONS GIVEN TO AND REVIEWED WITH PATIENT, PATIENT DENIES QUESTIONS OR CONCERNS AND VOICES UNDERSTANDING OF DISCHARGE INSTRUCTIONS. PT AMBULATES OUT OF ROOM WITHOUT ISSUE.
== END 2018-06-08 12:23 | disposition home or self-care (01) ==
LOC: ED 11:49
PROVIDERS: Emergency Provider Emergency Medicine; Family Provider Internal Medicine; PCP Internal Medicine
DX: S70.01XA Contusion of right hip, initial encounter (principal); W10.9XXA Fall (on) (from) unspecified stairs and steps, initial encounter; Y93.01 Activity, walking, marching and hiking; Y92.9 Unspecified place or not applicable; I10 Essential (primary) hypertension; Z79.82 Long term (current) use of aspirin; Z79.899 Other long term (current) drug therapy
CPT/HCPCS: 73502; 99283

== ENCOUNTER 2019-06-04 12:52 | Emergency (ER) | payer MEDICARE, SELFPAY ==
[2019-06-04 12:54] VITALS: BP 159/92; PULSE 56; RESP 17; TEMP 36.7; O2SAT 93; BMI 34.4
--- NOTE | 2019-06-04 12:57 | EKG12_ITS ---
Test Reason : CHEST TIGHTNESS Blood Pressure : / mmHG Vent. Rate : 078 BPM Atrial Rate : 078 BPM P-R Int : 200 ms QRS Dur : 090 ms QT Int : 370 ms P-R-T Axes : 017 071 068 degrees QTc Int : 421 ms Sinus rhythm with marked sinus arrhythmia Poor R-Wave Progression Confirmed by BERKLEY CEDILLO, BESS ([id number]), features editor SHERLYN RICCI ([id number]) on 06/06/2019 11:57:52 AM Referred By: FAISAL Confirmed By:BESS GOODEN MD
[2019-06-04 13:22] LABS: Absolute Lymphocyte Count 0.86 X10^3/uL (0.83-4.51); Basophil# 0.01 X10^3/uL; Basophil% 0.2 % (0-1); Eosinophil# 0.02 X10^3/uL; Eosinophils% 0.4 % (0-5); Hematocrit 41.4 % (37-47); Hemoglobin 13.1 g/dL (12.0-15.0); Lymphocyte # 0.86 X10^3/ul (4.0); Lymphocyte % 15.4 % (19-41); Mean Corp Hgb Conc 31.6 g/dL (32-36); Mean Corpuscular Hgb 28.6 pg (27.0-32.0); Mean Corpuscular Volume 90.4 fL (81-99); Mean Platelet Vol. 10.7 fl (6.2-12.0); Monocyte# 0.67 X10^3/uL; NRBC Flagged by Analyzer 0 % (0-5); Neutrophil # 4.01 X10^3/uL (2.7-7.7); Neutrophil % 71.6 % (47-70); Platelet Count 282 K/mm3 (150-450); RBC Distribution Width CV 13.7 % (11.6-14.6); RBC Distribution Width SD 45.5 fl (35.1-43.9); Red Blood Count 4.58 M/mm3 (4.2-5.4); White Blood Count 5.6 K/mm3 (4.4-11.0)
[2019-06-04 13:26] LABS: International Normalized Ratio 1.1; Prothrombin Time (Protime)PT. 13.7 SECONDS (11.7-14.9)
[2019-06-04 13:40] LABS: Anion Gap 5 (5-15); BUN 22 mg/dL (7-18); BUN/Creat Ratio 24.5 RATIO (10-20); Calcium,Total 8.6 mg/dL (8.5-10.1); Chloride 111 mmol/L (98-107); EST Glomerular Filtration Rate 64 mL/min (>60); Est Glom Filt Rate - Afr Amer 77 mL/min (>60); Estimated Creatinine Clearance 42.33 ml/min; Glucose 143 mg/dL (74-106); Potassium 3.6 mmol/L (3.5-5.1); Sodium Level 142 mmol/L (136-145)
--- NOTE | 2019-06-04 14:09 | ED.VIS.GEN ---
History of Present Illness Chief Complaint: Shortness of Breath Informant: Patient Onset: Yesterday Maximum Severity: Mild Narrative: Patient reports an intermittent sense that she cannot take a deep breath, she declines to call this chest pain, she has had no fever no cough no shortness of breath no abdominal pain no numbness weakness paresthesias She has had this multiple times in the past she is been worked up for it extensively including a cardiac stress test other test that were negative she is been told she has GERD, she had an episode last night that lasted for a very short period of time just the matter of minutes, then she had a second episode again this morning and she came to the hospital as she arrived to the hospital symptoms resolved and she has been a symptomatic since she is been here She has no history of OK PE or DVT no GI history and again she is resting comfortably bed with no symptoms Past Medical History - Allergies and Home Meds Allergies/Adverse Reactions: Allergies codeine Adverse Reaction (Verified 06/04/19 12:54) Vomiting Primary Care Physician: Brenda Palmer DO [Primary Care Provider] - Past Medical History: - - As above includes Surgical History: appendectomy, - - Hemorrhoidectomy Smoking Status: Never smoker - Family History Maternal Family History: Family History (Last Updated 01/05/18 @ 14:36 by Dariana Ibanez) Mother Hypertension Cancer Father Cancer Family History: Reports: Cancer - Ovarian Paternal Family History: Family History (Last Updated 01/05/18 @ 14:36 by Dariana Ibanez) Mother Hypertension Cancer Father Cancer Family History: Reports: Cancer Review of Systems General: Denies: Chills, Fever, Sweats Eyes: Denies: Visual changes - bilaterally, Diplopia ENT: Denies: Rhinorrhea, Sore throat Cardiovascular: Denies: Chest pain, Palpitations Respiratory: Denies: Dyspnea, Cough, Dyspnea on exertion Gastrointestinal: Denies: Abdominal pain, Nausea, Vomiting, Diarrhea, Melena, Hematochezia Genitourinary: Denies: Dysuria, Hematuria, Frequency Musculoskeletal: Denies: Back pain, Extremity Pain Skin: Denies: Rash, Wounds Neurological: Denies: Headache, Weakness, Numbness Physical Exam Vital Signs/Narrative: Vital Signs Temp Pulse Resp BP Pulse Ox 06/04/19 12:54 98.0 F 56 L 17 159/92 H 93 General: Well nourished, Well developed, No Acute Distress Head: Normocephalic, Atraumatic Eyes: Perrl, EOMI ENT: Moist mucous membranes, No rhinorrhea Neck: Supple, Nontender Cardiovascular: Regular rate, Regular rhythm, No murmurs Respiratory: No distress, CTA bilaterally, Chest nontender Abdomen: Soft, Nontender, Nondistended, Normal bowel sounds Back: Nontender, Normal Inspection Extremities: Nontender, No edema Skin: Normal color, No rash Neurological: Alert, Oriented x3, Cranial nerves II-XII grossly intact, Normal Strength, Normal Sensation Psychological: Normal affect, Normal Mood Diagnostic/Tx/Re-eval - Medical Decision Making Patient has no symptoms at this time her EKG shows a sinus rhythm unremarkable labs include troponin are negative chest x-ray is unremarkable I discussed this with her and her she understands the differential including acute OK etc. she discussed admission for further management she declined that saying she want to go home as she has had this multiple times in the past and she is been told is from her GERD, she actually believes that her symptoms resolved after she was able to have a large burp She will follow-up with her outpatient providers and return for change in symptoms Home stable declined admission Impression final shortness of breath resolved ED Disposition - Plan for ED Patient: Diagnosis: Chest pain Instructions: CHEST PAIN, Uncertain Cause Referrals: Brenda Palmer DO [Primary Care Provider] -
[2019-06-04 14:23] VITALS: RESP 16; O2SAT 95
--- NOTE | 2019-06-04 14:25 | RAD_ITS ---
STUDY: X-RAY CHEST REASON FOR EXAM: Female, 83 years old. Chest pain and shortness of breath. TECHNIQUE: Single AP portable view of the chest. COMPARISON: None. FINDINGS: There is elevation of the right hemidiaphragm. There is no demonstrated pleural abnormality. There is mild cardiac enlargement. Normal mediastinum and andre. Normal visualized pulmonary arteries. Normal visualized aortic arch and descending thoracic aorta. There are diffuse degenerative changes of the visualized thoracic spine. Normal visualized ribs, clavicles, and shoulders. There is no demonstrated abnormality of the visualized soft tissue structures of the upper abdomen. RAD/Chest 1 View (Portable) IMPRESSION: Elevation of the right hemidiaphragm. No acute abnormality is seen. Electronically Signed: Ras Leonardo, at 14:42 EST , Service support ,
[2019-06-04 14:29] VITALS: O2SAT 95
== END 2019-06-04 14:57 | disposition home or self-care (01) ==
LOC: ED 14:18
PROVIDERS: Emergency Provider Emergency Medicine; Family Provider Internal Medicine; PCP Internal Medicine
DX: R07.9 Chest pain, unspecified (principal); R06.00 Dyspnea, unspecified; K21.9 Gastro-esophageal reflux disease without esophagitis
CPT/HCPCS: 71045; 80048; 84484; 85025; 85610; 93005; 94760; 99283; A4216

== ENCOUNTER 2019-12-24 13:31 | Emergency (ER) | payer MEDICARE, SELFPAY ==
[2019-12-24 13:33] VITALS: BP 182/81; PULSE 72; RESP 18; TEMP 35.7; O2SAT 93; BMI 33.5
--- NOTE | 2019-12-24 13:58 | RAD_ITS ---
STUDY: X-RAY CHEST REASON FOR EXAM: Female, 84 years old. SOB, NO CHEST PAIN TECHNIQUE: Single AP portable view of the chest. COMPARISON: Comparison is made with prior examination dated June 04, 2019. FINDINGS: EKG electrodes are seen. Stable elevation of the right hemidiaphragm. No acute infiltrate is seen. Normal size heart. Normal mediastinum and andre. Normal visualized pulmonary arteries. There is atherosclerotic tortuosity of the aortic arch and descending thoracic aorta. There are diffuse degenerative changes of the visualized thoracic spine. Normal visualized ribs, clavicles, and shoulders. There is no demonstrated abnormality of the visualized soft tissue structures of the upper abdomen. RAD/Chest 1 View (Portable) IMPRESSION: Elevation of the right hemidiaphragm. No acute abnormality is seen. Electronically Signed: Ras Leonardo, at 14:52 EDT , Service support ,
--- NOTE | 2019-12-24 13:58 | EKG12_ITS ---
Test Reason : SOB Blood Pressure : / mmHG Vent. Rate : 083 BPM Atrial Rate : 083 BPM P-R Int : 244 ms QRS Dur : 088 ms QT Int : 384 ms P-R-T Axes : 071 091 087 degrees QTc Int : 451 ms Sinus rhythm with 1st degree A-V block with Premature atrial complexes Rightward axis Low voltage QRS Poor R- Wave Progression Borderline ECG Confirmed by BERKLEY CEDILLO, BESS ([id number]), fan mail editor ZARINA FAITH ([id number]) on 12/26/2019 10:06:01 AM Referred By: REGAN Confirmed By:BESS GOODEN MD
[2019-12-24 14:34] VITALS: PULSE 81; RESP 22; O2SAT 94; O2SAT 95
[2019-12-24 14:44] LABS: Absolute Lymphocyte Count 1.94 X10^3/uL (0.83-4.51); Absolute Neutrophil Count 6.7 X10^3/uL (2.0-7.7); Basophil# 0.08 X10^3/uL; Basophil% 0.8 % (0-1); Eosinophil# 0.34 X10^3/uL; Eosinophils% 3.4 % (0-5); Hematocrit 41.6 % (37-47); Hemoglobin 12.8 g/dL (12.0-15.0); Lymphocyte # 1.94 X10^3/ul (4.0); Lymphocyte % 19.3 % (19-41); Mean Corp Hgb Conc 30.8 g/dL (32-36); Mean Corpuscular Hgb 28.7 pg (27.0-32.0); Mean Corpuscular Volume 93.3 fL (81-99); Mean Platelet Vol. 10.8 fl (6.2-12.0); Monocyte% 9.9 % (0-10); NRBC Flagged by Analyzer 0 % (0-5); Neutrophil # 6.67 X10^3/uL (2.7-7.7); Neutrophil % 66.3 % (47-70); Platelet Count 330 K/mm3 (150-450); RBC Distribution Width CV 13.9 % (11.6-14.6); RBC Distribution Width SD 46.7 fl (35.1-43.9); Red Blood Count 4.46 M/mm3 (4.2-5.4); White Blood Count 10.1 K/mm3 (4.4-11.0)
[2019-12-24 15:05] LABS: ALB/GLOB Ratio 0.9 RATIO (0.9-2.4); AST(SGOT) 24 U/L (15-37); Alanine Aminotransfer ALT/SGPT 27 U/L (13-56); Albumin, Serum 3.3 g/dL (3.2-5.0); Alkaline Phosphatase 48 U/L (45-117); Anion Gap 7 (5-15); BUN 32 mg/dL (7-18); BUN/Creat Ratio 39.1 RATIO (10-20); Calcium,Total 8.8 mg/dL (8.5-10.1); Chloride 111 mmol/L (98-107); Creatinine, Serum 0.82 mg/dL (0.55-1.02); EST Glomerular Filtration Rate 71 mL/min (>60); Est Glom Filt Rate - Afr Amer 86 mL/min (>60); Estimated Creatinine Clearance 45.68 ml/min; Globulin 3.6 g/dL (2.2-4.2); Glucose 125 mg/dL (74-106); Lipase 178 U/L (73-393); Potassium 3.8 mmol/L (3.5-5.1); Protein, Total 6.9 g/dL (6.4-8.2); Sodium Level 145 mmol/L (136-145)
[2019-12-24] MEDS: Aspirin 81 MG TAB.CHEW 324 MG PO (15:10)
[2019-12-24 15:11] VITALS: BP 142/78; PULSE 90; RESP 21; O2SAT 94
--- NOTE | 2019-12-24 16:22 | ED.VISSUMM ---
- ER Visit Summary Date of Service: 12/24/19 Chief Complaint: Shortness of breath History of Present Illness: The patient is a [address] Ferreira. She reports that at 1:00 this afternoon she had the abrupt onset of shortness of breath while approximately 30 minutes after eating lunch. States that she ate a seafood salad and a protein shake. States this is happened twice in the past and that it was felt to be reflux compounded by anxiety. Patient reports that this is mild currently when severe at worst. It was worsened by lying flat. It was relieved by walking around and Gas-[employer]. She denies any chest pain or change in dyspnea exertion the past month. She is had no orthopnea or PND. Patient denies any fever or chills. No cough, chest pressure/pain/tightness. She denies any jaw, shoulder, or back pain. She denies abdominal pain. No history of fatty food intolerance. Physical Examination: Vitals: Stable. Afebrile. General: Well-nourished and well-developed. Head: Normocephalic atraumatic. Neck: Supple, no lymphadenopathy. No JVD. Nontender. Cardiovascular: Regular rate and rhythm. No murmurs. Respiratory: No respiratory distress. Clear to auscultation bilaterally. Abdominal: Soft, nontender, nondistended, normal bowel sounds. No guarding, rebound, or peritoneal signs. Back: Nontender. Extremities: Nontender, no edema. Skin: Normal color, no rash. Neurologic: Alert and oriented ?3. Cranial nerves II through XII are intact. Normal strength and sensation. Psych: Normal affect. Test Results: EKG is sinus with first-degree AV block rate 83. She does have PACs. Nonspecific ST changes. Troponin is negative. LFTs and lipase are normal. Chem-7 shows a chloride of 111, BUN 32, glucose 125. CBC is normal. Clinical Impression(s) from Imaging Studies Chest X-Ray 12/24/19 13:58 IMPRESSION: Elevation of the right hemidiaphragm. No acute abnormality is seen. Electronically Signed: Ras Leonardo, at 14:52 EDT , Service support , Emergency Department Course and Treatment: Patient is resting comfortably. She refused any pain or nausea medications. I did prolong discussion with her about possible etiologies for this. She denies any fatty food intolerance. It does not seem typical of biliary colic. She reports that she had a stress test a year ago. She denies any other cardiac-like symptoms. Treatment Plan: Patient feels well and would like to go home. She will be discharged instructions follow-up her primary care physician within 1 to 2 days for another exam. Return to the emergency department for any worsening symptoms. Disposition: To home in improved and stable condition. Impression: 1. Dyspnea, uncertain cause. This note was generated with [employer] dictation software. It may contain incorrect words, spelling, and punctuation that were not noted in review of the chart prior to signing ED Disposition - Plan for ED Patient: Disposition: Home or Assisted Living Instructions: ED Dyspnea Referrals: Brenda Palmer, DO [Primary Care Provider] - As soon as possible
[2019-12-24 16:43] VITALS: BP 156/86; PULSE 86; RESP 18
== END 2019-12-24 16:43 | disposition home or self-care (01) ==
LOC: ED 14:10
PROVIDERS: Emergency Provider Emergency Medicine; PCP Internal Medicine
DX: R06.00 Dyspnea, unspecified (principal); I49.1 Atrial premature depolarization; I44.0 Atrioventricular block, first degree; K21.9 Gastro-esophageal reflux disease without esophagitis; I10 Essential (primary) hypertension; E78.00 Pure hypercholesterolemia, unspecified; Z87.19 Personal history of other diseases of the digestive system; Z79.82 Long term (current) use of aspirin; Z79.899 Other long term (current) drug therapy
CPT/HCPCS: 71045; 80053; 83690; 84484; 85025; 93005; 99285; A4216

== ENCOUNTER 2020-04-04 07:54 | Emergency (ER) | payer MEDICARE, SELFPAY ==
[2020-04-04 07:55] VITALS: BP 213/101; PULSE 60; RESP 18; TEMP 36.7; O2SAT 95; BMI 34.3
--- NOTE | 2020-04-04 08:05 | CT_ITS ---
STUDY: CT CERVICAL SPINE WITHOUT CONTRAST REASON FOR EXAM: Female, 84 years old. Injury, fell 2 days ago hitting head, c/o neck pain today. Hx hypertension. RADIATION DOSAGE (If Supplied By Facility): CTDIvol = ( 19.86 ) mGy, DLP = ( 410.31 ) mGycm TECHNIQUE: High resolution transaxial imaging was performed without contrast material. Sagittal and coronal images were reconstructed. Individualized dose optimization techniques were used for this CT. COMPARISON: None FINDINGS: Normal craniovertebral junction. There are degenerative changes of the anterior atlantoaxial articulation. Normal odontoid process. Normal cervical lordosis. Nondisplaced fracture at the base of the dens with extension to the right side of the body of the C2 vertebrae in the right lateral process. The fracture is not displaced. C2-3: Moderate degree of disc space narrowing. Facet joint osteoarthritis and hypertrophy worse on the left side. C3-4: Marked degree of disc space narrowing with spondylosis and uncovertebral arthrosis. Bilateral neural foraminal stenosis to a moderate degree. C4-5: Marked degree of disc space narrowing with spondylosis and uncovertebral arthrosis. There is evidence of moderate degree of bilateral neural foraminal stenosis. C5-6: Marked degree of disc space narrowing with spondylosis and uncovertebral arthrosis. There is a marked degree of neural foraminal stenosis on the right side and moderate degree on the left side. C6-7: Moderate degree of disc space narrowing and spondylosis. Facet joint osteoarthritis. C7-T1: Normal endplates. Normal disc height and morphology. Normal central canal and intervertebral neuroforamina. Mild mucosal thickening of the posterior aspect of the right sphenoid sinus. CT/Spine Cervical without Contras IMPRESSION: Nondisplaced fracture through the base of the dens with extension to the right side of the body of the C2 vertebrae in the right C2 lateral mass. Multilevel degenerative changes, as described above. N.B. : The above information has been verbally conveyed by Ras Leonardo to Nestor Mireles MD, on 04/04/2020 08:36:10 (ET). Electronically Signed: Ras Leonardo, at 8:37 EDT , Service support ,
--- NOTE | 2020-04-04 08:06 | ED.VISSUMM ---
- ER Visit Summary Date of Service: 04/04/20 Chief Complaint: Fall History of Present Illness: The patient is a [address] Palmer. She reports that 2 days ago she tripped over a curb and fell into a car. She denies any blow to the head or loss of consciousness. She not on anticoagulants. She denies any back, shoulder, hip or wrist pain. Patient reports that she has neck pain that is 10-10 with movement she is pain-free at rest. She denies any numbness or weakness. Her review of systems is otherwise negative. Physical Examination: Vitals: Stable. Afebrile. Neck: Moderate tenderness palpation over the right paraspinous musculature and mild tenderness palpation that is diffuse over her C-spine. Back: No vertebral tenderness. General: A&O x 3. NAD. Cardiovascular exam: Regular rate and rhythm, no murmur, rub or gallop. Respiratory exam: Chest nontender. No crepitus. Clear to auscultation bilaterally. No wheezes or stridor. Abdominal exam: Soft, nontender, nondistended, normal bowel sounds. No pain in RUQ or LUQ specifically. No peritoneal signs. Extremity: Atraumatic. No pain with range of motion. Test Results: Clinical Impression(s) from Imaging Studies Cervical Spine CT 04/04/20 08:05 IMPRESSION: Nondisplaced fracture through the base of the dens with extension to the right side of the body of the C2 vertebrae in the right C2 lateral mass. Multilevel degenerative changes, as described above. N.B. : The above information has been verbally conveyed by Ras Leonardo to Nestor Mireles MD, on 04/04/2020 08:36:10 (ET). Electronically Signed: Ras Leonardo, at 8:37 EDT , Service support , ADDENDUM: 04/04/20 0844 IMPRESSION: Nondisplaced fracture through the base of the dens with extension to the right side of the body of the C2 vertebrae in the right C2 lateral mass. Multilevel degenerative changes, as described above. N.B. : The above information has been verbally conveyed by Ras Leonardo to Nestor Mireles MD, on 04/04/2020 08:36:10 (ET). Electronically Signed: Ras Malissa, at 8:37 EDT , Service support , Emergency Department Course and Treatment: Patient was treated with fentanyl IM and Zofran p.o. She is resting more comfortably. Treatment Plan: I tried to get a hold of Dr. Ness without success. The patient is discussed [facility] and will be transferred for further evaluation and treatment. Disposition: Transferred in stable condition. Impression: 1. Fall. 2. C2 fracture. This note was generated with [employer] dictation software. It may contain incorrect words, spelling, and punctuation that were not noted in review of the chart prior to signing ED Disposition - Plan for ED Patient: Referrals: Brenda Palmer DO [Primary Care Provider] -
[2020-04-04] MEDS: Ondansetron ODT 4 MG Tablet PO (08:39)
[2020-04-04] MEDS: fentaNYL 100 MCG/2 ML Ampul 50 MCG IM (08:41)
[2020-04-04 10:33] VITALS: BP 197/79; PULSE 61; RESP 18; O2SAT 96
== END 2020-04-04 10:42 | disposition short-term general hospital (02) ==
PROVIDERS: Emergency Provider Emergency Medicine; PCP Internal Medicine
DX: S12.112A Nondisplaced Type II dens fracture, initial encounter for closed fracture (principal); W10.1XXA Fall (on)(from) sidewalk curb, initial encounter; Y93.9 Activity, unspecified; Y92.9 Unspecified place or not applicable; I10 Essential (primary) hypertension; F32.9 Major depressive disorder, single episode, unspecified; E78.00 Pure hypercholesterolemia, unspecified; Z87.19 Personal history of other diseases of the digestive system; Z90.49 Acquired absence of other specified parts of digestive tract; Z79.82 Long term (current) use of aspirin; Z79.899 Other long term (current) drug therapy
CPT/HCPCS: 72125; 96372; 99283; 99285

== ENCOUNTER → 2020-07-11 08:07 | Outpatient (CLI) | payer MEDICARE, SELFPAY ==
[2020-07-11 08:19] LABS: Mucous, Urine 0 SEEN /hpf (<or=2+)
[2020-07-11 09:43] LABS: Absolute Neutrophil Count 6.6 X10^3/uL (2.0-7.7); Basophil# 0.06 X10^3/uL; Basophil% 0.6 % (0-1); Eosinophil# 0.15 X10^3/uL; Eosinophils% 1.6 % (0-5); Hematocrit 41.2 % (37-47); Hemoglobin 13.1 g/dL (12.0-15.0); Lymphocyte % 20.9 % (19-41); Mean Corp Hgb Conc 31.8 g/dL (32-36); Mean Corpuscular Hgb 30.4 pg (27.0-32.0); Mean Corpuscular Volume 95.6 fL (81-99); Monocyte# 0.79 X10^3/uL; Monocyte% 8.3 % (0-10); NRBC Flagged by Analyzer 0 % (0-5); Neutrophil # 6.55 X10^3/uL (2.7-7.7); Neutrophil % 68.4 % (47-70); Platelet Count 401 K/mm3 (150-450); RBC Distribution Width CV 14.1 % (11.6-14.6); RBC Distribution Width SD 49.6 fl (35.1-43.9); Red Blood Count 4.31 M/mm3 (4.2-5.4); White Blood Count 9.6 K/mm3 (4.4-11.0)
[2020-07-11 09:47] LABS: Color, Urine Yellow (Yellow); Glucose, Dipstick Normal (Normal); Ketone-Dipstick Negative (Negative); Leukocyte Esterase-Dipstick 100 /ul (Negative); Nitrite-Dipstick Negative (Negative); Occult Blood-Urine 10 /ul (Negative); Protein-Dipstick 100 mg/dl (Negative); Urine Bilirubin Dipstick Negative (Negative); Urine Clarity Clear (Clear); Urine Urobilinogen Normal (Normal)
[2020-07-11 09:58] LABS: Vitamin B12 323 pg/mL (211-911); Vitamin D,25 Hydroxy 33.7 ng/mL
[2020-07-11 10:12] LABS: ALB/GLOB Ratio 0.9 RATIO (0.9-2.4); AST(SGOT) 22 U/L (15-37); Alanine Aminotransfer ALT/SGPT 25 U/L (13-56); Albumin, Serum 3.4 g/dL (3.2-5.0); Alkaline Phosphatase 65 U/L (45-117); Anion Gap 6 (5-15); BUN 19 mg/dL (7-18); BUN/Creat Ratio 24.9 RATIO (10-20); Calcium,Total 8.8 mg/dL (8.5-10.1); Chloride 106 mmol/L (98-107); Cholesterol 168 mg/dL (200); Creatinine, Serum 0.76 mg/dL (0.55-1.02); EST Glomerular Filtration Rate 77 mL/min (>60); Est Glom Filt Rate - Afr Amer 93 mL/min (>60); Globulin 3.7 g/dL (2.2-4.2); Glucose 110 mg/dL (74-106); High Density Lipoprotein 57 mg/dL; Potassium 3.6 mmol/L (3.5-5.1); Protein, Total 7.1 g/dL (6.4-8.2); Sodium Level 139 mmol/L (136-145); Thyroid Stim Hormone (TSH) 2.58 uIU/mL (0.358-3.74); Triglycerides 122 mg/dL; Very Low Density Lipoprotein 24 mg/dL (5-40)
[2020-07-11 10:21] LABS: Bacteria 1+ /hpf (None Seen); Red Blood Cells-Urine 0-5 SEEN /hpf (0-5); Squamous Epithelial Cells - UA 0-5 SEEN /hpf (5-10); White Blood Cells 10-25 SEEN /hpf (0-5)
[2020-07-11 10:33] LABS: Microalbumin:Creatinine Ratio 1231.2 mg/g CRE (<30 mg/g CRE)
== END ==
PROVIDERS: PCP Internal Medicine; Referring Provider Internal Medicine; Visit Provider Internal Medicine
DX: Z51.81 Encounter for therapeutic drug level monitoring (principal)
CPT/HCPCS: 36415; 80053; 80061; 81001; 82043; 82306; 82570; 82607; 82746; 84443; 85025

== ENCOUNTER → 2020-09-04 11:52 | Outpatient (CLI) | payer MEDICARE, SELFPAY | PROVIDERS: PCP Internal Medicine; Visit Provider Internal Medicine | DX: I49.9 Cardiac arrhythmia, unspecified (principal) | CPT/HCPCS: 93225; 93226 ==

== ENCOUNTER → 2020-09-30 14:51 | Outpatient (CLI) | payer MEDICARE, SELFPAY ==
--- NOTE | 2020-09-30 14:53 | BI_ITS ---
MAMMOGRAPHY - BILATERAL SCREENING REASON FOR EXAM: Female, 84 years old. Routine annual screening examination. PERTINENT HISTORY: Non-contributory. TECHNIQUE: Digital bilateral breast adelina (3D mammographic acquisition) in the CC and MLO projections. 2-D mediolateral oblique (MLO) and craniocaudad (CC) views of both breasts were obtained. CAD: Full Field Digital Mammography with Computer Added Detection was performed. COMPARISON: Comparison is made with prior study dated 06/29/2016 and 03/28/2014. FINDINGS: Breast Composition: There are scattered areas of fibroglandular density. There are no dominant masses or suspicious calcifications. No other significant abnormalities are identified. There has been no significant change since the prior study. BI/SCRN MAMM (CAD)W/ADELINA BILAT IMPRESSION: Stable bilateral screening mammogram. Yearly follow-up mammogram recommended. (A) ASSESSMENT CATEGORY: BIRADS Category 1: Negative. A letter regarding these results will be sent to the patient by the facility within 30 days. Approximately 10% of breast cancers are not detected by mammography. A normal mammogram should not delay biopsy of a clinically suspicious abnormality. [id number] Electronically Signed: Ras Leonardo MD at 8:33 EDT , Service support ,
--- NOTE | 2020-09-30 14:57 | BD_ITS ---
STUDY: DUAL ENERGY X-RAY ABSORPTIOMETRY / DXA REASON FOR EXAM: Female, 84 years old. [id number]. The patient is postmenopausal. TECHNIQUE: Bone Mineral Density (BMD) measurements of lumbar spine and bilateral hips were obtained. COMPARISON: Comparison is made with prior study dated 03/22/2017. FINDINGS: Lumbar Spine (L1-L4): g/cm2 (1.281) / T-score (1.0) / Z-score (2.8) Findings are suggestive of normal bone density with a low fracture risk. Left Femur Total: g/cm2 (0.905) / T-score (-0.8) / Z-score (1.3) Left Femoral Neck: g/cm2 (0.777) / T-score (-1.9) / Z-score (0.4) Right Femur Total: g/cm2 (0.881) / T-score (-1.0) / Z-score (1.1) Right Femoral Neck: g/cm2 (0.731) / T-score (-2.2) / Z-score (0.1) The T-Scores on the most recent prior examination were: Lumbar Spine (L1-L4): There has been worsening of bone density since the previous examination. Left Femur Total: which represents an improvement of 1%. Right Femur Total: which represents a worsening of 0.8%. BD/Dexa Bone Density Study IMPRESSION: The patient is considered osteopenic as outlined below according to World Jose Organization (WHO) criteria with a high fracture risk. There has been worsening of bone density since the previous examination. Reference Information: The T-score is the number of standard deviations above or below the standard which is normal for young adults at their peak bone mineral density. The World Health Organization (WHO) interprets the T-scores as follows: Above -1 Normal bone density Between -1 and -2.5 Osteopenia Equal to / or below -2.5 Osteoporosis As a practical clinical guideline, osteopenia may be graded as follows: Mild -1 through -1.5 Moderate -1.6 through -2.0 Severe -2.1 through -2.4 The Z-score is the number of standard deviations above or below age-matched controls. A Z-score of less than -1.5 would be considered abnormal. References: 1. NIH Osteoporosis and Related Bone Diseases www osteo.org 2. International Society for Clinical Densitometry www iscd.org 3. National Osteoporosis Foundation www nof.org Electronically Signed: Ras Leonardo MD at 9:38 EDT , Service support ,
== END ==
PROVIDERS: PCP Internal Medicine; Referring Provider Internal Medicine; Visit Provider Internal Medicine
DX: Z12.31 Encounter for screening mammogram for malignant neoplasm of breast (principal); Z78.0 Asymptomatic menopausal state
CPT/HCPCS: 77063; 77067; 77080

== ENCOUNTER → 2020-11-06 13:45 | Outpatient (CLI) | payer MEDICARE, SELFPAY ==
[2020-10-30 12:58] VITALS: BMI 32.6
--- NOTE | 2020-11-06 13:50 | ECHOD_ITS ---
Reason For Study: Arrhythmia Procedure This was a 2D Doppler, Color Flow transthoracic echocardiogram. The exam was of adequate technical quality. Exam performed in department. Left Ventricle Normal LV size. Mild concentric left ventricular hypertrophy. Left ventricular systolic function is normal. The estimated ejection fraction is 65 %. No regional wall motion abnormalities noted. Right Ventricle Normal RV size. Normal systolic function. Atria The left atrium is mildly enlarged. Normal right atrium. No doppler evidence for ASD. Mitral Valve There is mild to moderate mitral annular calcification. Extension the mitral annular calcification on the base of the posterior mitral valve leaflet. Trivial mitral valve insufficiency. Tricuspid Valve Normal tricuspid valve. Trivial tricuspid valve insufficiency. Right ventricular systolic pressure estimated to be 32 mmHg. Aortic Valve Trisinus/trileaflet aortic valve. Mild focal aortic valve calcification. Pulmonic Valve The pulmonic valve is not well visualized. Trivial pulmonic valve insufficiency. Great Vessels Normal sized aortic root. Pericardium/Pleural No pericardial effusion. MMode/2D Measurements & Calculations LVIDd: 3.5 cm IVSd: 1.3 cm Ao root diam: 3.2 cm LVIDs: 1.6 cm LVPWd: 1.3 cm RVDd: 2.7 cm FS: 54.2 % LAV(MOD-bp): 66.8 ml LA A4 area: 21.9 cm2 RA A4 area: 11.0 cm2 LAV(MOD-bp) Indexed: 35.3 ml/m2 LAV(MOD-sp2): 54.1 ml LAV(MOD-sp4): 67.1 ml Doppler Measurements & Calculations MV E max ten: 130.1 cm/sec Lat Peak E' Ten: 6.3 cm/sec Med Peak E' Ten: 6.4 cm/sec MV A max ten: 115.5 cm/sec E/E' lat: 20.7 E/E' med: 20.3 MV E/A: 1.1 Ao V2 max: 145.9 cm/sec LV V1 max: 99.7 cm/sec PA V2 max: 122.9 cm/sec Ao max P.6 mmHg LV V1 max P.0 mmHg TR max ten: 269.3 cm/sec TR max P.3 mmHg ECHO/Echo Complete Interpretation Summary Left ventricular systolic function is normal. The estimated ejection fraction is 65 %. Mild concentric left ventricular hypertrophy. The left atrium is mildly enlarged. There is mild to moderate mitral annular calcification. Extension the mitral annular calcification on the base of the posterior mitral valve leaflet. Trivial mitral valve insufficiency. Trivial tricuspid valve insufficiency. Mild focal aortic valve calcification. Trivial pulmonic valve insufficiency. Right ventricular systolic pressure estimated to be 32 mmHg. Transmitral diastolic flow velocities suggest diastolic dysfunction (pseudonorm al pattern). Ordering Physician: Jr Atkinson Referring Physician: Brenda Palmer M.D. Performed By: Liliana Mcgee RDCS
== END ==
PROVIDERS: PCP Internal Medicine; Referring Provider Internal Medicine Cardiovascular Disease; Visit Provider Internal Medicine Cardiovascular Disease
DX: R06.02 Shortness of breath (principal)
CPT/HCPCS: 93306

== ENCOUNTER 2021-10-01 12:46 | Outpatient (CLI) | payer MEDICARE, SELFPAY ==
--- NOTE | 2021-10-01 12:50 | BI_ITS ---
MAMMOGRAPHY - BILATERAL SCREENING REASON FOR EXAM: Female, 85 years old. Routine annual screening examination. PERTINENT HISTORY: Non-contributory. TECHNIQUE: Digital bilateral breast adelina (3D mammographic acquisition) in the CC and MLO projections. 2-D mediolateral oblique (MLO) and craniocaudad (CC) views of both breasts were obtained. CAD: Full Field Digital Mammography with Computer Added Detection was performed. COMPARISON: Comparison is made with prior study dated 09/30/2020 and 06/29/2016. FINDINGS: Breast Composition: There are scattered areas of fibroglandular density. There are no dominant masses or suspicious calcifications. No other significant abnormalities are identified. There has been no significant change since the prior study. BI/SCRN MAMM (CAD)W/ADELINA BILAT IMPRESSION: Stable bilateral screening mammogram. Yearly follow-up mammogram recommended. (A) ASSESSMENT CATEGORY: BIRADS Category 1: Negative. A letter regarding these results will be sent to the patient by the facility within 30 days. Approximately 10% of breast cancers are not detected by mammography. A normal mammogram should not delay biopsy of a clinically suspicious abnormality. [id number] Electronically Signed: Ras Leonardo MD at 13:59 EDT ,
== END 2021-10-01 23:59 | disposition home or self-care (01) ==
LOC: OPBI 12:46
PROVIDERS: PCP Internal Medicine; Visit Provider Internal Medicine
DX: Z12.31 Encounter for screening mammogram for malignant neoplasm of breast (principal)
CPT/HCPCS: 77063; 77067

== ENCOUNTER 2021-10-12 09:30 | Outpatient (RCR) | payer MEDICARE, SELFPAY ==
--- NOTE | 2021-09-25 09:05 | HP.PTEVAL ---
Patient's Visit Information JOSE MANUEL REYNA is a 85 year old F referred to Physical Therapy by Dr. Brenda Palmer DO with a diagnosis of R sciatica. Date of Evaluation: 09/25/21 Physical Therapist: KAYLIN MarquezT, OCS, CSCS - Visit Plan Frequency: 2-3x /Week Duration: 4-6 Weeks Plan: 2-3x/week for up to 4 weeks... 1. rollout and stretch R piriformis and ITB. 2. mat based core workout, NS emphasis. 3. when feeling better progress to gym based general wellness ex for progression to silver sneakers I. If she is feeling good and I with exercises, may not need full 3-4 weeks. MH as needed. - Subjective R buttock pain and down leg to ankle posterior. back feels good. It started 3 weeks ago after riding in car for 3 hrs sitting 2 hrs then riding another 3 hrs. That is unusual, no history of leg problems. Bad pain in R leg for two weeks and now its slowly improving. Went to doctor and given pain meds which are helping, it is alot better. No pain meds this morning and it is a godd day. Doing some floor ex for LB she learned yrs ago in the form of press ups. Pain last two days 2/10 but 0 right now. Worse if sits too long. Sleeping OK. Basic ADLs are fine just painful at times. Hobbies include reading. Has to get up and move. Not employed. No regular exercises. used to be a [employer] member. 90% better overall. - Pain R leg Pain Intensity (Out of 10): 0 Pain Intensity Range: 0, 2 - Objective Walks back to PT I without antlagia today, says yesterday she was limping tremendously and very painful. transfers bed and chair I without pain except slight R hip with picking hips up in supine. LB AROM ext min limited, flexion min limited, no pain, SB Min limited B without increased pain today. LE AROM WFL, mild tightness HS B and R ITB and piriformis. reflexes 2/3 patella and achilles. Sensation LE WNL to gross light touch. Strength LE symmetrical with no myotomal problems. PA pressure in LB not tender but R piriformis and ITB moderately tender. - slump, - SLR - Balance/Special Test Scores Oswestry Low Back Score: 11 - Goals Goal 1:: patient feel 100% back to normal activity Goal Time Frame: 2-4 Weeks Goal 2:: Pt I in appropriate gym based wellness workout to limit future problems Goal Time Frame: 2-4 Weeks Goal 3:: 2 or better oswestry score. Goal Time Frame: 2-4 Weeks - Rehabilitation Potential Physical Therapy Diagnosis: R sided sciatica with soft tissue tenderness. Rehabilitation Potential: Good - Anticipated Interventions Patient/Client Instruction: Educate patient on: Condition, Plan of Care For the Purpose of:: To decrease pain, To increase ROM, To improve muscle performance and motor function, To increase tolerance to activity/condition/position, To improve ability of physical actions for home/community/work/leisure Therapeutic Exercise to Include: Strength training, Postural training, Passive ROM, Active ROM, Dynamic Lumbar Stabilization For the Purpose of:: To decrease pain, To improve muscle performance and motor function Manual Therapy Techniques to Include: Passive ROM, Soft tissue mobilization For the Purpose of:: To decrease pain, To increase ROM, To improve ability of physical actions for home/community/work/leisure, To improve gait and locomotor functions Thermo therapy (hot pack): Yes For the Purpose of:: To decrease pain Thank you for the opportunity to evaluate your patient. For Medicare and Medicare HMO plans, please review the plan of care and approve it. It will need to be FAXED BACK to us at [phone] for Medicare purposes. For Medicare only, by signing this I certify the plan of care. Please let me know if there are questions or concerns regarding this plan of care. Physician Signature: Date:
--- NOTE | 2021-10-23 09:31 | HP.PTDCSUM ---
It has been my pleasure to treat JOSE MANUEL REYNA referred by Dr. Brenda Palmer DO, with the diagnosis of R sciatica for a total of 7 visit(s). Discharge Date: 10/23/21 Please see the following information for a summary of their discharge status. Subjective: Doing well and ready for d/c. Can do this stuff on her own now. No pain lately. Been a couple weeks. 3x week gym ex and home stretches. 100% better. No f/u with doctor. Sleep is good. R leg Pain Intensity (Out of 10): 0 % Improvement: 100 Objective/Function: AROM L/S WFL and painfree today. Feels stronger and wilma ctivities are tolerated. Walks normal, bends without pain or problems. Goal 1:: patient feel 100% back to normal activity Goal Progress: Goal Met Goal 2:: Pt I in appropriate gym based wellness workout to limit future problems Goal Progress: Goal Met Goal 3:: 2 or better oswestry score. Goal Progress: Goal Met Plan: d/c to gym and HEP. has a list. If there are questions or concerns regarding this patient's physical therapy, please feel free to call me at [phone]. Thank you for the referral of this patient. Sincerely, Itz Zarate, DPT, OCS, CSCS Balance/Gait/Functional tests - Balance/Special Test Scores Oswestry Low Back Score: 1
== END 2021-10-12 19:00 | disposition home or self-care (01) ==
LOC: PT 09:30
PROVIDERS: PCP Internal Medicine; Referring Provider Internal Medicine; Visit Provider Internal Medicine
DX: M54.31 Sciatica, right side (principal)
CPT/HCPCS: 97110; 97161

== ENCOUNTER 2022-10-24 14:08 | Emergency (ER) | payer MEDICARE, SELFPAY ==
[2022-10-24 14:09] VITALS: BP 143/76; PULSE 93; RESP 18; TEMP 36.4; O2SAT 96; BMI 34.7
--- NOTE | 2022-10-24 14:16 | RAD_ITS ---
EXAM: XR RIGHT HIP WITH PELVIS WHEN PERFORMED, 2 OR 3 VIEWS CLINICAL INDICATION: Injury/Pain TECHNIQUE: Two or three views of the right hip with pelvis when performed. COMPARISON: No relevant prior studies available. FINDINGS: BONES/JOINTS: No acute abnormality. SOFT TISSUES: Normal. No soft tissue swelling or gas. RAD/HIP, UNI W/ Pelvis 2-3 Views IMPRESSION: No evidence of displaced pelvic or hip fracture. Electronically Signed: Ravinder Loredo MD at 15:03 EDT ,
--- NOTE | 2022-10-24 14:17 | EDS_ITS ---
HPI HPI - Fall History of Present Illness Chief Complaint: Fall Informant: patient Occured/Mechanism Occurred: Days (2) Mechanism/Context: Yes same level fall Pain/Injury Location: Right hip and buttock Quality of Pain: Sharp Worsened by: Certain movements and weightbearing Relieved by: Nothing Associated Symptoms Associated Symptoms: Negative for Parasthesias, Weakness, Loss of function, Inability to ambulate, Loss of consciousness or Amnesia Narrative Narrative: Patient presents with pain in her right hip and buttock that began after a fall 2 days ago. Patient states she was helping her get out of the car when he lost his balance and fell. Patient states that he fell into her which caused her to fall onto her right buttock area. Patient states the pain is constant. Patient states the pain is worse with certain movements and weightbearing. Patient denies any head injury or loss of consciousness. Patient denies any other injuries. Patient states that she has recently had some dysuria. Patient states that her primary care physician called in an antibiotic for her. Patient states she has been taking this as prescribed but does not feel much better. [facility] Medical History Abdominal pain Dyslipidemia Ectopic cardiac beats Essential (primary) hypertension GERD (gastroesophageal reflux disease) History of anxiety disorder Incontinence Left arm pain Obesity PSVT (paroxysmal supraventricular tachycardia) Tachycardia Ventricular ectopy Home Medications fluoxetine 20 mg tablet 20 mg PO DAILY DEPRESSION 30 days ##30 09/24/17 [History Last Taken 12/30/17] pantoprazole 40 mg tablet,delayed release 40 mg PO DAILY ##30 01/01/18 [Rx Last Taken 02/01/18 07:00] losartan 25 mg tablet 25 mg PO DAILY 10/22/20 [History Last Taken Unknown] rosuvastatin 10 mg tablet 10 mg PO DAILY 10/22/20 [History Last Taken Unknown] acetaminophen 500 mg tablet 500 mg PO Q6H PRN 10/30/20 [History Last Taken Unknown] cholecalciferol (vitamin D3) 25 mcg (1,000 unit) tablet 25 mcg PO DAILY 02/11/21 [History Last Taken Unknown] meloxicam 15 mg tablet (Mobic) 15 mg PO DAILY 02/11/21 [History Last Taken Unknown] vitamin B complex 1 tab PO DAILY 02/11/21 [History Last Taken Unknown] amlodipine 10 mg tablet 10 mg PO DAILY #90 tabs 12/14/21 [Rx Last Taken Unknown] Allergy/AdvReac Type Severity Reaction Status Date / Time codeine AdvReac Vomiting Verified 10/24/22 14:10 Family History Mother Hypertension Cancer Father Cancer Surgical History History of colectomy History of hemorrhoidectomy Social History Smoking Status: Never smoker alcohol intake: never substance use type: does not use caffeine: Yes Type: coffee Number of servings: 3 ROS ROS ED Constitutional Constitutional ED: Denies chills or fever(s) Eyes Eyes: Denies blurry vision or change in vision ENT ENT ED: Denies rhinorrhea or sore throat Cardiovascular Cardiovascular: Denies chest pain or palpitations Respiratory/Chest Respiratory/Chest: Denies cough or dyspnea Gastrointestinal Gastrointestinal: Denies nausea or vomiting Genitourinary Genitourinary ED: Reports dysuria; Denies hematuria Musculoskeletal Musculoskeletal: Denies back pain or neck pain Integumentary Denies abscess or rash Neurologic Neurologic: Denies headache(s) or weakness Allergic/Immunologic Allergic/Immunologic ED: Denies mouth swelling or urticaria EXAM Physical Exam Const Vital Signs: 10/24/22 14:09 10/24/22 14:08 Temperature 97.6 F L Temperature Source Temporal Pulse Rate 93 Respiratory Rate 18 Respiratory Effort Normal Respiratory Depth Normal Respiratory Pattern Normal Blood Pressure 143/76 H Blood Pressure Mean 98 Pulse Ox 96 Oxygen Delivery Method Room Air Room Air Positive well nourished, well developed and obese General Appearance ED: well developed and NAD Nutritional Appearance: obese HEENT atraumatic Neck full ROM and supple Extremity Extremity Narrative: There is tenderness to palpation over the posterior and lateral aspects of the right hip. There is no obvious deformity noted. Patient was able to stand and ambulate. There is no bony crepitance or step-off. Range of motion was slightly limited in all motions of the right hip secondary to pain. Neuro oriented x3, CN's II-XII intact bilaterally, moves all extremities, no focal motor deficits and no sensory deficits noted Chiqui Coma Scale: document GCS findings Spontaneous Obeys Commands Oriented 15 Sensorium / Orientation: alert Motor Exam: strength 5/5 throughout Psych mental status grossly normal MDM MDM MDM Narrative Medical decision making narrative: Differential diagnosis includes contusion, pelvic fracture, and right hip fracture. X-rays of the right hip and pelvis will be obtained to assess for fracture. Patient is also concerned of a urinary tract infection. Because of this, urinalysis will be obtained to assess for urinary tract infection. Lab Data Lab results narrative: Urinalysis was reviewed. Leukocyte esterase was 100. There were 0 white blood cells and 0 bacteria. There were positive nitrites however. Labs: Laboratory Results - last 24 hr 10/24/22 15:01 Urine Color Yellow Urine Clarity Sl. Cloudy Urine pH 5.0 Ur Specific [place] 1.025 Urine Protein 100 H Urine Glucose (UA) Normal Urine Ketones 5 H Urine Occult Blood 10 H Urine Nitrite Positive H Urine Bilirubin 1 H Urine Urobilinogen 4 H Ur Leukocyte Esterase 100 H Urine RBC 0 SEEN Urine WBC 0 SEEN Ur Squamous Epith Cells 0-5 SEEN Urine Bacteria 0 SEEN Urine Mucus 0 SEEN Radiography Diagnostic Testing: Clinical Impression(s) from Imaging Studies Hip/Pelvis X-Ray 10/24/22 14:16 IMPRESSION: No evidence of displaced pelvic or hip fracture. Electronically Signed: Ravinder Loredo MD at 15:03 EDT Reading Location ID and State: [facility] / [place] Tel , Service support , X-rays of the right hip and pelvis were obtained. There are 3 views. On my independent interpretation, there is no acute fracture or dislocation. There is no soft tissue swelling. Radiologist also interpreted the x-rays and agrees. Treatment and Re-Evaluation Narrative: Patient was advised of her findings. Patient was advised that she does appear to have a urinary tract infection. Patient was instructed to continue her antibiotics that were prescribed to her by Dr. Palmer. Patient was instructed to follow-up in 5 to 7 days. Urine culture will be ordered. Patient and family understand and are agreeable with the plan. All questions were answered. Discharge Plan Triage Chief Complaint: Fall ED Provider: Itz English Dx/Rx/DC Orders Clinical Impression: Contusion of right hip, initial encounter, Urinary tract infection Instructions: ED Hip Contusion Prescriptions: No Action fluoxetine 20 mg tablet 20 mg PO DAILY 30 Days Qty: 30 Label Comments: TAKE ONE TABLET BY MOUTH EVERY DAY acetaminophen 500 mg tablet 500 mg PO Q6H PRN meloxicam [Mobic] 15 mg tablet 15 mg PO DAILY vitamin B complex Tablet 1 tab PO DAILY cholecalciferol (vitamin D3) 25 mcg (1,000 unit) tablet 25 mcg PO DAILY pantoprazole 40 MG tablet,delayed release (DR/EC) 40 mg PO DAILY Qty: 30 0RF losartan 25 mg tablet 25 mg PO DAILY rosuvastatin 10 mg tablet 10 mg PO DAILY amlodipine 10 mg tablet 10 mg PO DAILY Qty: 90 4RF Primary Care Provider: Brenda Palmer Referrals: Brenda Palmer DO [Primary Care Provider] - 5-7 Days Activity Restrictions/Additional Instructions: Continue your antibiotic as prescribed. You will be contacted if your prescription needs changed based on the urine culture results. Disposition Disposition: Home, Self Care
[2022-10-24 15:05] LABS: Bacteria 0 SEEN /hpf (None Seen); Mucous, Urine 0 SEEN /hpf (<or=2+); Red Blood Cells-Urine 0 SEEN /hpf (0-5); White Blood Cells 0 SEEN /hpf (0-5)
[2022-10-24 15:06] LABS: Color, Urine Yellow (Yellow); Glucose, Dipstick Normal (Normal); Ketone-Dipstick 5 mg/dl (Negative); Leukocyte Esterase-Dipstick 100 /ul (Negative); Nitrite-Dipstick Positive (Negative); Occult Blood-Urine 10 /ul (Negative); Protein-Dipstick 100 mg/dl (Negative); Specific Gravity, Urine 1.025 (1.002-1.030); Urine Clarity Sl. Cloudy (Clear); Urine Urobilinogen 4 mg/dl (Normal)
[2022-10-24 15:08] LABS: Urine Bilirubin Dipstick 1 mg/dL (Negative)
[2022-10-24 15:13] LABS: Squamous Epithelial Cells - UA 0-5 SEEN /hpf (5-10)
[2022-10-24] MEDS: HYDROcodone Bitartrate/Apap 5/325 Tablet PO (15:42)
[2022-10-24 15:43] VITALS: BP 145/78; PULSE 78; RESP 16; TEMP 36.6; O2SAT 100
== END 2022-10-24 15:44 | disposition home or self-care (01) ==
PROVIDERS: Emergency Provider Emergency Medicine; PCP Internal Medicine; Visit Provider Emergency Medicine
DX: S70.01XA Contusion of right hip, initial encounter (principal); N39.0 Urinary tract infection, site not specified; E78.5 Hyperlipidemia, unspecified; I10 Essential (primary) hypertension; W18.39XA Other fall on same level, initial encounter; Y92.89 Other specified places as the place of occurrence of the external cause; K21.9 Gastro-esophageal reflux disease without esophagitis
CPT/HCPCS: 99283; 73502; 81001; 87086; 87088

== ENCOUNTER 2022-10-27 04:25 | Emergency (ER) | payer MEDICARE, SELFPAY ==
[2022-10-27 04:26] VITALS: BP 141/129; PULSE 102; RESP 15; TEMP 36.6; O2SAT 93; BMI 35.2
--- NOTE | 2022-10-27 04:55 | RAD_ITS ---
INDICATION: pain EXAMINATION/TECHNIQUE: X-RAY - XR Spine Lumbar 2 or 3 Views COMPARISON: None. FINDINGS: VERTEBRAE: Preserved vertebral body height. No fracture. No spondylolisthesis. Preservation of the normal lumbar lordosis. No significant facet arthropathy. DISCS: Severe multilevel spondylosis. INCLUDED ABDOMEN: Included bowel gas pattern is non-obstructive. RAD/Lumbar Spine 2 or 3 Views IMPRESSION: Severe multilevel spondylosis. Electronically Signed: Trista Cleveland MD at 5:52 EDT ,
--- NOTE | 2022-10-27 04:55 | RAD_ITS ---
INDICATION: pain EXAMINATION/TECHNIQUE: X-RAY - XR Spine Thoracic 3 Views COMPARISON: FINDINGS: VERTEBRAE: Preserved vertebral body height. No fracture. There is a 12 degree dextroscoliosis. Preservation of the normal thoracic kyphosis. No significant facet arthropathy. DISCS: Severe multilevel spondylosis. INCLUDED CHEST/ABDOMEN: No acute abnormalities. RAD/Thoracic Spine 3 Views IMPRESSION: There is a 12 degree dextroscoliosis. Severe multilevel spondylosis. Electronically Signed: Trista Cleveland MD at 5:57 EDT ,
[2022-10-27] MEDS: Ondansetron ODT 4 MG Tablet PO (05:06)
[2022-10-27] MEDS: Morphine 4 MG/ML Syringe IM (05:08)
--- NOTE | 2022-10-27 06:19 | EDS_ITS ---
HPI History of Present Illness Chief Complaint: Back Narrative Narrative: Patient is a 86-year-old female with past medical history of hypertension GERD and paroxysmal SVT. She was seen in the ER on October 24 secondary to a fall with hip pain. At that time an x-ray was obtained which was negative. She states she has been trying Tylenol and [id number] Aleve without any symptom improvement. She states that she has noticed that she has had pain in her low back as well but denies any repeat trauma. She states there has been no loss of bowel or bladder control and she denies any IV drug use. She also denies any recent surgery which could have predisposed her to discitis. She states as [id number] medications were not controlling her pain she presents for evaluation [facility] Medical History Abdominal pain Dyslipidemia Ectopic cardiac beats Essential (primary) hypertension GERD (gastroesophageal reflux disease) History of anxiety disorder Incontinence Left arm pain Obesity PSVT (paroxysmal supraventricular tachycardia) Tachycardia Ventricular ectopy Home Medications fluoxetine 20 mg tablet 20 mg PO DAILY DEPRESSION 30 days ##30 09/24/17 [History Last Taken 12/30/17] pantoprazole 40 mg tablet,delayed release 40 mg PO DAILY ##30 01/01/18 [Rx Last Taken 02/01/18 07:00] losartan 25 mg tablet 25 mg PO DAILY 10/22/20 [History Last Taken Unknown] rosuvastatin 10 mg tablet 10 mg PO DAILY 10/22/20 [History Last Taken Unknown] acetaminophen 500 mg tablet 500 mg PO Q6H PRN 10/30/20 [History Last Taken Unknown] cholecalciferol (vitamin D3) 25 mcg (1,000 unit) tablet 25 mcg PO DAILY 02/11/21 [History Last Taken Unknown] meloxicam 15 mg tablet (Mobic) 15 mg PO DAILY 02/11/21 [History Last Taken Unknown] vitamin B complex 1 tab PO DAILY 02/11/21 [History Last Taken Unknown] amlodipine 10 mg tablet 10 mg PO DAILY #90 tabs 12/14/21 [Rx Last Taken Unknown] methocarbamol 500 mg tablet 500 mg PO TID PRN Muscle pain/spasm #30 tabs 10/27/22 [Rx Last Taken Unknown] oxycodone-acetaminophen 5 mg-325 mg tablet (Percocet) 1 tab PO Q6H PRN pain 3 days #12 tabs 10/27/22 [Rx Last Taken Unknown] Allergy/AdvReac Type Severity Reaction Status Date / Time codeine AdvReac Vomiting Verified 10/27/22 04:31 Family History Mother Hypertension Cancer Father Cancer Surgical History History of colectomy History of hemorrhoidectomy Social History Smoking Status: Never smoker alcohol intake: never substance use type: does not use caffeine: Yes Type: coffee Number of servings: 3 ROS ROS ED Constitutional Constitutional ED: Denies chills or fever(s) ENT ENT ED: Denies sore throat Cardiovascular Cardiovascular: Denies chest pain Respiratory/Chest Respiratory/Chest: Denies cough or dyspnea Gastrointestinal Gastrointestinal: Denies abdominal pain, diarrhea, nausea or vomiting Genitourinary Genitourinary ED: Denies dysuria Musculoskeletal Musculoskeletal: Reports back pain Integumentary Denies Abrasions or rash Neurologic Neurologic: Denies headache(s), paresthesias or weakness Hematologic/Lymphatic Hematologic/Lymphatic: Denies easy bleeding or easy bruising EXAM Physical Exam Const Vital Signs: 10/27/22 04:26 10/27/22 06:36 Temperature 97.8 F Temperature Source Temporal Pulse Rate 102 H 101 H Respiratory Rate 15 15 Blood Pressure 141/129 H 152/117 H Blood Pressure Mean 133 Pulse Ox 93 90 Oxygen Delivery Method Room Air Positive well nourished and well developed General Appearance ED: well developed HEENT HEENT Narrative: Normocephalic atraumatic Eyes PERRL and EOMs intact bilaterally Neck supple Resp normal respiratory effort and clear to auscultation bilaterally Cardio regular rate and regular rhythm GI normal to inspection, nondistended, normoactive bowel sounds, non-tender, non- distended and no masses GI Narrative: No voluntary guarding or rigidity no pulsatile mass Auscultation: normoactive bowel sounds Palpation: soft Back/Spine Back/Spine Narrative: No bony deformity or step-off of the thoracic or lumbar spine but there is midline pain with palpation along the lower thoracic and upper lumbar spinous processes. No clonus or Babinski. Negative straight leg raise. No saddle anesthesia. Patellar reflexes are plus 2 out of 4 bilaterally. There is also bilateral paralumbar muscle tension and spasm that worsens with extension and rotation Extremity normal to inspection Neuro oriented x3 and CN's II-XII intact bilaterally Sensorium / Orientation: alert Psych mental status grossly normal Skin no rashes or lesions noted Skin Narrative: No abrasions or ecchymosis noted MDM MDM MDM Narrative Medical decision making narrative: Patient presented to the ER with persistent pain in her back status post fall without report of any new trauma. She had no red flag symptoms for cauda equina or epidural abscess and therefore differential is most consistent with vertebral compression fracture versus spondylolisthesis versus lumbosacral strain. X-rays were obtained of the thoracic and lumbar spine which revealed age-related changes without acute fracture. After morphine patient's pain was much improved and she was able to ambulate. Therefore this time should be given symptomatic care and is otherwise safe for discharge History & Record Review Discussion w/independent historian: Patient and Friend Radiography Diagnostic Testing: Clinical Impression(s) from Imaging Studies Lumbar Spine X-Ray 10/27/22 04:55 IMPRESSION: Severe multilevel spondylosis. Electronically Signed: Trista Cleveland MD at 5:52 EDT , Thoracic Spine X-Ray 10/27/22 04:55 IMPRESSION: There is a 12 degree dextroscoliosis. Severe multilevel spondylosis. Electronically Signed: Trista Cleveland MD at 5:57 EDT , X-rays of the thoracic and lumbar spine as interpreted by the emergency medicine physician display chronic osteoarthritic changes without acute compression fracture or spondylolisthesis Discharge Plan Triage Chief Complaint: Back ED Provider: Rigo Worthington Dx/Rx/DC Orders Clinical Impression: Contusion of lower back, Acute lumbosacral myofascial strain, Essential (primary) hypertension Instructions: ED Back Sprain/Strain, ED Back Contusion Prescriptions: New oxycodone-acetaminophen [Percocet] 5-325 mg tablet 1 tab PO Q6H PRN (Reason: pain) 3 Days Qty: 12 0RF methocarbamol 500 mg tablet 500 mg PO TID PRN (Reason: Muscle pain/spasm) Qty: 30 0RF No Action fluoxetine 20 mg tablet 20 mg PO DAILY 30 Days Qty: 30 Label Comments: TAKE ONE TABLET BY MOUTH EVERY DAY acetaminophen 500 mg tablet 500 mg PO Q6H PRN meloxicam [Mobic] 15 mg tablet 15 mg PO DAILY vitamin B complex Tablet 1 tab PO DAILY cholecalciferol (vitamin D3) 25 mcg (1,000 unit) tablet 25 mcg PO DAILY pantoprazole 40 MG tablet,delayed release (DR/EC) 40 mg PO DAILY Qty: 30 0RF losartan 25 mg tablet 25 mg PO DAILY rosuvastatin 10 mg tablet 10 mg PO DAILY amlodipine 10 mg tablet 10 mg PO DAILY Qty: 90 4RF Primary Care Provider: Brenda Palmer Referrals: Brenda Palmer DO [Primary Care Provider] - Activity Restrictions/Additional Instructions: Your x-rays do not show any fracture or displacement of the bones in your back. Continue to stretch and heat or ice the area to help improve healing and reduce pain. Return to the ER should you have any further concerns Disposition Disposition: Home, Self Care Discharge Date/Time: 10/27/22 06:37
[2022-10-27 06:36] VITALS: BP 152/117; PULSE 101; RESP 15; O2SAT 90
== END 2022-10-27 06:37 | disposition home or self-care (01) ==
PROVIDERS: Emergency Provider Emergency Medicine; PCP Internal Medicine; Visit Provider Emergency Medicine
DX: S30.0XXA Contusion of lower back and pelvis, initial encounter (principal); E78.5 Hyperlipidemia, unspecified; S20.229A Contusion of unspecified back wall of thorax, initial encounter; I10 Essential (primary) hypertension; S39.012A Strain of muscle, fascia and tendon of lower back, initial encounter; W19.XXXA Unspecified fall, initial encounter; K21.9 Gastro-esophageal reflux disease without esophagitis
CPT/HCPCS: 72072; 72100

== ENCOUNTER 2022-10-27 18:30 | Inpatient (IN) | payer MEDICARE, SELFPAY ==
[2022-10-27] VITALS (10 sets, daily range): BP systolic 96–137; BP diastolic 49–82; PULSE 94–110; RESP 18–26; TEMP 36.6–36.7; O2SAT 87–94; BMI 36.1
--- NOTE | 2022-10-27 19:00 | EKG12_ITS ---
Test Reason : DYSRHYTHMIA Blood Pressure : / mmHG Vent. Rate : 112 BPM Atrial Rate : 375 BPM P-R Int : 000 ms QRS Dur : 090 ms QT Int : 320 ms P-R-T Axes : 000 101 -16 degrees QTc Int : 436 ms Atrial fibrillation Low voltage QRS Abnormal ECG Confirmed by JL CEDILLO, ARIK ([id number]), associate editor SHERLYN RICCI ([id number]) on 10/29/2022 8:12:18 AM Referred By: MARCELA Confirmed By:ARIK PARIKH MD
--- NOTE | 2022-10-27 19:00 | CT_ITS ---
STUDY: CT BRAIN WITHOUT CONTRAST REASON FOR EXAM: Female, 86 years old. ams RADIATION DOSAGE (If Supplied By Facility): CTDIvol = ( 44.99 ) mGy, DLP = ( 846.73 ) mGycm TECHNIQUE: Transaxial CT imaging of the brain was performed without administration of intravenous contrast material. Individualized dose optimization techniques were used for this CT. COMPARISON: No relevant priors. FINDINGS: Normal soft tissue structures. Normal calvarium. Normal size ventricles and extra-axial spaces for the patient''s age. Bilateral white matter microangiopathic ischemic changes of the cerebral hemispheres. Calcifications of the basal ganglia. Normal thalami. Normal brainstem. Normal cerebellum. There is no intracranial hemorrhage. There are no findings of an acute ischemic infarction. Normal visualized paranasal sinuses. CT/Brain/Head without Contrast IMPRESSION: Age-related changes of the brain. Electronically Signed: Graeme Amos DO at 20:34 EDT ,
--- NOTE | 2022-10-27 19:14 | RAD_ITS ---
INDICATION: hypoxia EXAMINATION/TECHNIQUE: X-RAY - XR Chest 1 View COMPARISON: December 24, 2019 FINDINGS: LINES/DEVICES: None. LUNGS: No consolidation, edema or effusion. No pneumothorax. MEDIASTINUM AND CARDIOVASCULAR STRUCTURES: Cardiac silhouette not enlarged. Central airways and mediastinal contour are unremarkable. BONES AND SOFT TISSUES: Degenerative vertebral changes. RAD/Chest 1 View (Portable) IMPRESSION: No radiographic evidence of acute cardiopulmonary disease. Electronically Signed: Graeme Amos DO at 19:47 EDT ,
[2022-10-27] MEDS: Naloxone 2 MG/2 ML Syringe IV (19:27)
[2022-10-27 19:31] LABS: BNP,B-Type NATRIURETIC PEPTIDE 589.2 pg/mL (0-100)
[2022-10-27 19:35] LABS: ALB/GLOB Ratio 0.6 RATIO (0.9-2.4); AST(SGOT) 67 U/L (15-37); Alanine Aminotransfer ALT/SGPT 65 U/L (13-56); Albumin, Serum 2.6 g/dL (3.2-5.0); Alkaline Phosphatase 123 U/L (45-117); Anion Gap 10 (5-15); BUN 55 mg/dL (7-18); BUN/Creat Ratio 27.5 RATIO (10-20); Calcium,Total 9.5 mg/dL (8.5-10.1); Chloride 103 mmol/L (98-107); EST Glomerular Filtration Rate 25 mL/min (>60); Est Glom Filt Rate - Afr Amer 31 mL/min (>60); Estimated Creatinine Clearance 18.08 ml/min; Globulin 4.5 g/dL (2.2-4.2); Glucose 174 mg/dL (74-106); Potassium 3.7 mmol/L (3.5-5.1); Protein, Total 7.1 g/dL (6.4-8.2); Sodium Level 135 mmol/L (136-145); Troponin-I HS 28 pg/mL (3.0-54.0)
--- NOTE | 2022-10-27 19:36 | CT_ITS ---
STUDY: CTA CHEST REASON FOR EXAM: Female, 86 years old. hypoxic respiratory failure RADIATION DOSAGE (If Supplied By Facility): CTDIvol = ( 14.74 ) mGy, DLP = ( 456.88 ) mGycm TECHNIQUE: The examination was performed with the intravenous administration of IV 100mL Isovue-370. Post-processing of the angiographic images was performed, with multiplanar reformation and 3D reconstruction. Individualized dose optimization techniques were used for this CT. COMPARISON: FINDINGS: Breathing motion slightly limiting evaluation. Normal enhancement of the main pulmonary artery and right and left pulmonary arteries. Suboptimal opacification of the bilateral peripheral pulmonary arteries. There is no demonstrated pulmonary embolism. Normal thoracic aorta and visualized great vessels. There is no demonstrated aortic dissection. Normal heart and pericardium. Normal mediastinum. Normal hilar regions. Normal visualized trachea and bronchi. The lungs are well expanded. Normal pulmonary parenchyma. Normal pleura. Normal chest wall structures. Degenerative vertebral changes. There is a hiatal hernia. CT/CTA Chest W/WO Contrast IMPRESSION: No demonstrated pulmonary embolism or arterial dissection. Hiatal hernia. Electronically Signed: Graeme Amos DO at 20:52 EDT Reading Location ID and State: [facility] / [place] Tel [phone], Service support ,
[2022-10-27] MEDS: 0.9% Normal Saline 1,000 ML 999 ML IV (19:49)
[2022-10-27 20:02] LABS: Absolute Lymphocyte Count 0.34 X10^3/uL (0.83-4.51); Absolute Neutrophil Count 13.5 X10^3/uL (2.0-7.7); Basophil# 0.02 X10^3/uL; Basophil% 0.1 % (0-1); Hematocrit 35.2 % (37-47); Hemoglobin 11.7 g/dL (12.0-15.0); Lymphocyte # 0.34 X10^3/ul (0.83-4.51); Lymphocyte % 2.1 % (19-41); Mean Corp Hgb Conc 33.2 g/dL (32-36); Mean Corpuscular Hgb 29.3 pg (27.0-32.0); Mean Platelet Vol. 11.2 fl (6.2-12.0); Monocyte# 2.05 X10^3/uL; Monocyte% 12.8 % (0-10); NRBC Flagged by Analyzer 0 % (0-5); Neutrophil # 13.53 X10^3/uL (2.7-7.7); Neutrophil % 84.5 % (47-70); POSITIVE DIFFERENTIAL YES; Platelet Count 265 K/mm3 (150-450); RBC Distribution Width CV 14.4 % (11.6-14.6); RBC Distribution Width SD 46.5 fl (35.1-43.9)
--- NOTE | 2022-10-27 20:04 | EDS_ITS ---
HPI History of Present Illness Chief Complaint: Alt LOC Narrative Narrative: 86-year-old female presenting with confusion. Her daughter found her at home confused. She was seen last night for hip pain and back pain. She had negative images. Patient previous had a fall and had x-rays at that time as well. Patient was given morphine in the emergency room which helped with the pain. Patient ultimately was discharged home with oxycodone and and methocarbamol. Daughter states that when she found her at home she seemed very confused. The patient's was home but her daughter states that he would not really pay attention because he has dementia. The last known time she received oxycodone was about 1230. It is unknown if she took more her last. She was not being watched closely. No signs of trauma. Patient was noted by EMS to be hypoxic. [facility] Medical History Abdominal pain Dyslipidemia Ectopic cardiac beats Essential (primary) hypertension GERD (gastroesophageal reflux disease) History of anxiety disorder Incontinence Left arm pain Obesity PSVT (paroxysmal supraventricular tachycardia) Tachycardia Ventricular ectopy Home Medications fluoxetine 20 mg tablet 20 mg PO DAILY DEPRESSION 30 days ##30 09/24/17 [History Last Taken 12/30/17] pantoprazole 40 mg tablet,delayed release 40 mg PO DAILY ##30 01/01/18 [Rx Last Taken 02/01/18 07:00] losartan 25 mg tablet 25 mg PO DAILY 10/22/20 [History Last Taken Unknown] rosuvastatin 10 mg tablet 10 mg PO DAILY 10/22/20 [History Last Taken Unknown] acetaminophen 500 mg tablet 500 mg PO Q6H PRN Pain 10/30/20 [History Last Taken Unknown] cholecalciferol (vitamin D3) 25 mcg (1,000 unit) tablet 25 mcg PO DAILY 02/11/21 [History Last Taken Unknown] meloxicam 15 mg tablet (Mobic) 15 mg PO DAILY 02/11/21 [History Last Taken Unknown] vitamin B complex 1 tab PO DAILY 02/11/21 [History Last Taken Unknown] amlodipine 10 mg tablet 10 mg PO DAILY #90 tabs 12/14/21 [Rx Last Taken Unknown] bupropion HCl 150 mg 24 hr tablet, extended release 150 mg PO DAILY 10/27/22 [History Last Taken Unknown] fenofibrate 160 mg tablet 160 mg PO DAILY 10/27/22 [History Last Taken Unknown] methocarbamol 500 mg tablet 500 mg PO TID PRN Muscle pain/spasm #30 tabs 10/27/22 [Rx Last Taken Unknown] oxycodone-acetaminophen 5 mg-325 mg tablet (Percocet) 1 tab PO Q6H PRN pain 3 days #12 tabs 10/27/22 [Rx Last Taken Unknown] Allergy/AdvReac Type Severity Reaction Status Date / Time codeine AdvReac Vomiting Verified 10/27/22 18:41 Family History Mother Hypertension Cancer Father Cancer Surgical History History of colectomy History of hemorrhoidectomy Social History Smoking Status: Never smoker alcohol intake: never substance use type: does not use caffeine: Yes Type: coffee Number of servings: 3 ROS ROS ED Review of Systems ROS Unobtainable: due to mental condition and due to mental status EXAM Physical Exam Const Vital Signs: 10/27/22 18:31 10/27/22 18:49 10/27/22 19:31 Temperature 98.1 F Temperature Source Oral Pulse Rate 105 H 106 H 110 H Respiratory Rate 26 H 22 H 19 H Blood Pressure 111/49 L 118/59 L 123/60 H Blood Pressure Mean 69 78 81 Pulse Ox 88 92 94 Oxygen Delivery Method Room Air Nasal Cannula Nasal Cannula Oxygen Flow Rate (L/min) 2 2 10/27/22 20:00 10/27/22 21:00 10/27/22 21:41 Temperature Temperature Source Pulse Rate 95 99 Respiratory Rate 18 20 H Blood Pressure 96/52 L 103/64 Blood Pressure Mean 66 77 Pulse Ox 93 93 93 Oxygen Delivery Method Nasal Cannula Nasal Cannula Room Air Oxygen Flow Rate (L/min) 2 2 10/27/22 21:49 10/27/22 21:49 10/27/22 22:00 Temperature 98 F Temperature Source Oral Pulse Rate 94 Respiratory Rate 21 H Blood Pressure 115/61 Blood Pressure Mean 79 Pulse Ox 87 92 94 Oxygen Delivery Method Room Air Nasal Cannula Nasal Cannula Oxygen Flow Rate (L/min) 2 2 10/27/22 23:00 Temperature Temperature Source Pulse Rate 100 Respiratory Rate 20 H Blood Pressure 137/82 H Blood Pressure Mean 100 Pulse Ox 93 Oxygen Delivery Method Nasal Cannula Oxygen Flow Rate (L/min) 2 Positive unkempt Constitutional Narrative: Confused, hypoxic General Appearance ED: unkempt HEENT Reports dry mucous membranes Mouth ED: Yes dry mucous membranes Mouth: dry mucous membranes Eyes EOMs intact bilaterally Eyes Narrative: Pupils pinpoint. General Eye ED: Negative for pale conjunctiva or scleral icterus Neck no lymphadenopathy Chest Wall inspection of chest normal Resp clear to auscultation bilaterally Resp Narrative: Tachypneic Auscultation: wheezes; Negative for rales or rhonchi Cardio Rate: tachycardic Rhythm: abnormal rhythm irregularly irregular GI normal to inspection, nondistended, normoactive bowel sounds GI Narrative: Not obviously tender Neuro CN's II-XII intact bilaterally Sensorium / Orientation: alert, orientation impaired and stuporous Motor Exam: general weakness Psych Psych Narrative: Confused Appearance: unkempt Skin no rashes or lesions noted MDM MDM MDM Narrative Medical decision making narrative: 86-year-old female presenting with altered mental status from home. Patient started on a new prescription for oxycodone as well as methocarbamol this morning. Last dose of oxycodone was about 12-12:30. Patient found to be hypoxic and confused. Glucose was in the 170s is unknown if she took more or took methocarbamol. On arrival to the ED she has pinpoint pupils and appears confused she is given 2 mg of naloxone. Squad EKG was interpreted to be A-fib but the patient does not have a history of. The heart rate is 120s. EKG in the ED shows atrial fibrillation at a rate of 112. Differential at this point inclu sherrell but is not limited to ACS, PE, CHF, polypharmacy, intracranial hemorrhage, stroke, electrolyte abnormalities CBC to assess white blood cell count, hemoglobin, platelets, differential. CMP to assess liver function, renal function, glucose, anion gap. BNP to assess for heart failure. High- sensitivity troponin and chest x-ray will also be obtained. D-dimer is also obtained. BMP returned with a creatinine of 2.[address] above her baseline. Previously normal. Electrolytes are within normal limits. GFR is 25. Patient was ordered a liter of IV fluids. Chest x-ray on my interpretation shows no acute cardiopulmonary process. The radiologist interprets this and agrees. White blood cell count elevated at 16.06. Given that she is hypoxic, tachypneic, tachycardic with a white blood cell count elevated and I did pursue a septic work-up. Patient pancultured. Lactic acid will be obtained. Lactic acid within normal limits at 1.5. Urinalysis came back concerning for infection . D-dimer was elevated at 3.2. I did get a CTA of the chest which does not show any PE, dissection, pneumonia. Patient is still hypoxic requiring 2 L of oxygen however. She is more awake and alert. CT brain is negative. Patient given a gram of Rocephin. PT/INR normal. Given that she has new onset atrial fibrillation, acute kidney injury, hypoxia and a urinary tract infection I believe she is a good candidate for admission to the hospital. I will discuss with the hospitalist. Impression: 1. Hypoxia 2. New onset atrial fibrillation 3. Acute kidney injury 4. UTI 5. Polypharmacy Lab Data Attestation: I reviewed the patient's lab results. Labs: Laboratory Results - last 24 hr 10/27/22 10/27/22 10/27/22 18:22 18:22 18:22 WBC RBC Hgb Hct MCV MCH MCHC RDW Std Deviation RDW Coeff of Dolores Plt Count MPV Immature Gran % (Auto) Neut % (Auto) Lymph % (Auto) [place] % (Auto) Eos % (Auto) Baso % (Auto) Absolute Neuts (auto) Absolute Lymphs (auto) Nucleated RBC % Differential Comment Diff Path Review PT INR D-Dimer Quant (PE/DVT) 3.20 H* Sodium 135 L Potassium 3.7 Chloride 103 Carbon Dioxide 22.0 Anion Gap 10 BUN 55 H Creatinine 2.00 H Estim Creat Clear Calc 18.08 Est GFR (MDRD) Af Amer 31 L Est GFR (MDRD) Non-Af 25 L BUN/Creatinine Ratio 27.5 H Glucose 174 H Lactic Acid Calcium 9.5 Total Bilirubin 0.60 AST 67 H ALT 65 H Alkaline Phosphatase 123 H Troponin I High Sens 28 B-Natriuretic Peptide 589.2 H Total Protein 7.1 Albumin 2.6 L Globulin 4.5 H Albumin/Globulin Ratio 0.6 L Urine Color Urine Clarity Urine pH Ur Specific [place] Urine Protein Urine Glucose (UA) Urine Ketones Urine Occult Blood Urine Nitrite Urine Bilirubin Urine Urobilinogen Ur Leukocyte Esterase Urine RBC Urine WBC Ur Squamous Epith Cells Urine Bacteria Urine Mucus 10/27/22 10/27/22 10/27/22 19:47 19:47 20:25 WBC 16.0 H RBC 4.00 L Hgb 11.7 L Hct 35.2 L MCV 88.0 MCH 29.3 MCHC 33.2 RDW Std Deviation 46.5 H RDW Coeff of Dolores 14.4 Plt Count 265 MPV 11.2 Immature Gran % (Auto) 0.500 Neut % (Auto) 84.5 H Lymph % (Auto) 2.1 L [place] % (Auto) 12.8 H Eos % (Auto) 0.0 Baso % (Auto) 0.1 Absolute Neuts (auto) 13.5 H Absolute Lymphs (auto) 0.34 L Nucleated RBC % 0 Differential Comment SCANNED Diff Path Review May foll PT 14.0 INR 1.1 D-Dimer Quant (PE/DVT) Sodium Potassium Chloride Carbon Dioxide Anion Gap BUN Creatinine Estim Creat Clear Calc Est GFR (MDRD) Af Amer Est GFR (MDRD) Non-Af BUN/Creatinine Ratio Glucose Lactic Acid 1.5 Calcium Total Bilirubin AST ALT Alkaline Phosphatase Troponin I High Sens B-Natriuretic Peptide Total Protein Albumin Globulin Albumin/Globulin Ratio Urine Color Urine Clarity Urine pH Ur Specific [place] Urine Protein Urine Glucose (UA) Urine Ketones Urine Occult Blood Urine Nitrite Urine Bilirubin Urine Urobilinogen Ur Leukocyte Esterase Urine RBC Urine WBC Ur Squamous Epith Cells Urine Bacteria Urine Mucus 10/27/22 20:45 WBC RBC Hgb Hct MCV MCH MCHC RDW Std Deviation RDW Coeff of Dolores Plt Count MPV Immature Gran % (Auto) Neut % (Auto) Lymph % (Auto) [place] % (Auto) Eos % (Auto) Baso % (Auto) Absolute Neuts (auto) Absolute Lymphs (auto) Nucleated RBC % Differential Comment Diff Path Review PT INR D-Dimer Quant (PE/DVT) Sodium Potassium Chloride Carbon Dioxide Anion Gap BUN Creatinine Estim Creat Clear Calc Est GFR (MDRD) Af Amer Est GFR (MDRD) Non-Af BUN/Creatinine Ratio Glucose Lactic Acid Calcium Total Bilirubin AST ALT Alkaline Phosphatase Troponin I High Sens B-Natriuretic Peptide Total Protein Albumin Globulin Albumin/Globulin Ratio Urine Color Paulette Urine Clarity Clear Urine pH 5.0 Ur Specific [place] 1.020 Urine Protein 30 H Urine Glucose (UA) Normal Urine Ketones 5 H Urine Occult Blood 150 H Urine Nitrite Positive H Urine Bilirubin 3 H Urine Urobilinogen 4 H Ur Leukocyte Esterase 25 H Urine RBC 5-10 SEEN Urine WBC 0-5 SEEN Ur Squamous Epith Cells 0-5 SEEN Urine Bacteria RARE Urine Mucus 0 SEEN Radiography Diagnostic Testing: Clinical Impression(s) from Imaging Studies Brain CT 10/27/22 19:00 IMPRESSION: Age-related changes of the brain. Electronically Signed: Graeme Amos DO at 20:34 EDT , Chest X-Ray 10/27/22 19:14 IMPRESSION: No radiographic evidence of acute cardiopulmonary disease. Electronically Signed: Graeme Amos DO at 19:47 EDT , Chest CTA 10/27/22 19:36 IMPRESSION: No demonstrated pulmonary embolism or arterial dissection. Hiatal hernia. Electronically Signed: Graeme Amos DO at 20:52 EDT , Discharge Plan Triage Chief Complaint: Alt LOC ED Provider: Carlos Rodriguez Dx/Rx/DC Orders Prescriptions: No Action fluoxetine 20 mg tablet 20 mg PO DAILY 30 Days Qty: 30 Label Comments: TAKE ONE TABLET BY MOUTH EVERY DAY acetaminophen 500 mg tablet 500 mg PO Q6H PRN (Reason: Pain) meloxicam [Mobic] 15 mg tablet 15 mg PO DAILY vitamin B complex Tablet 1 tab PO DAILY cholecalciferol (vitamin D3) 25 mcg (1,000 unit) tablet 25 mcg PO DAILY pantoprazole 40 MG tablet,delayed release (DR/EC) 40 mg PO DAILY Qty: 30 0RF oxycodone-acetaminophen [Percocet] 5-325 mg tablet 1 tab PO Q6H PRN (Reason: pain) 3 Days Qty: 12 0RF methocarbamol 500 mg tablet 500 mg PO TID PRN (Reason: Muscle pain/spasm) Qty: 30 0RF bupropion HCl 150 mg tablet extended release 24 hr 150 mg PO DAILY Label Comments: take 1 tablet by mouth once daily fenofibrate 160 mg tablet 160 mg PO DAILY Label Comments: take 1 tablet by mouth once daily losartan 25 mg tablet 25 mg PO DAILY rosuvastatin 10 mg tablet 10 mg PO DAILY amlodipine 10 mg tablet 10 mg PO DAILY Qty: 90 4RF Primary Care Provider: Brenda Palmer Referrals: Brenda Palmer DO [Primary Care Provider] -
[2022-10-27 20:05] LABS: Differential Indicated SCAN CRITERIA MET
[2022-10-27 20:13] LABS: International Normalized Ratio 1.1
[2022-10-27 20:22] LABS: Differential Comment SCANNED
[2022-10-27 20:47] LABS: Mucous, Urine 0 SEEN /hpf (<or=2+)
[2022-10-27 21:01] LABS: Color, Urine Amber (Yellow); Glucose, Dipstick Normal (Normal); Ketone-Dipstick 5 mg/dl (Negative); Leukocyte Esterase-Dipstick 25 /ul (Negative); Nitrite-Dipstick Positive (Negative); Occult Blood-Urine 150 /ul (Negative); Protein-Dipstick 30 mg/dl (Negative); Urine Clarity Clear (Clear); Urine Urobilinogen 4 mg/dl (Normal)
[2022-10-27 21:02] LABS: Urine Bilirubin Dipstick 3 mg/dL (Negative)
[2022-10-27 21:14] LABS: Red Blood Cells-Urine 5-10 SEEN /hpf (0-5); Squamous Epithelial Cells - UA 0-5 SEEN /hpf (5-10); White Blood Cells 0-5 SEEN /hpf (0-5)
[2022-10-27 21:16] LABS: Bacteria RARE /hpf (None Seen)
[2022-10-27 21:17] LABS: Lactic Acid 1.5 mmol/L (0.4-1.9)
[2022-10-27] MEDS: Ceftriaxone 1 GM/50 ML BAG IV (21:38)
--- NOTE | 2022-10-27 23:26 | NURSING ---
SAMU ADILSON THEODORE, AFIB, AMS
--- NOTE | 2022-10-27 23:43 | PCM.HP.STD ---
HPI - General General Date of Admission: 10/27/22 Date of Service: 10/28/22 Chief Complaint: Altered mental status HPI Narrative JOSE MANUEL REYNA, is a 86 F with a significant history of paroxysmal supraventricular tachycardia and hypertension who presents emergency department with altered mental status. History was taken from patient and from her daughter who was at the bedside. Five days prior to presentation patient's who was walking beside patient's but has unsteady gait crossed patient and caused both patient and himself (patient's ) to fall. Patient went to the emergency department and was evaluated with imaging. She was subsequently discharged home. Three days before presentation patient developed excruciating back pain for which reason she came to the emergency department again and had many images taken. She was given morphine and was discharged home with a prescription for methocarbamol and oxycodone. Because she felt that in the past she was allergic to methocarbamol she did not take the methocarbamol. However she took one oxycodone pill. Patient's daughter reports that at some hours after patient had taken the oxycodone patient became very lethargic and could not stay awake to hold a conversation. Patient was subsequently brought to the emergency department. En-route to the emergency department and at the emergency department patient was found to be in A-fib with rapid ventricular rate. Emergency department doctor gave patient Narcan at the ED since patient had miotic pupils. The patient does not recount that she was lethargic. Patient was noted to be hypoxic at the emergency department and required supplemental oxygenation. [facility] Medical History Abdominal pain Dyslipidemia Ectopic cardiac beats Essential (primary) hypertension GERD (gastroesophageal reflux disease) History of anxiety disorder Incontinence Left arm pain Obesity Persistent atrial fibrillation with RVR PSVT (paroxysmal supraventricular tachycardia) Tachycardia Ventricular ectopy Home Medications fluoxetine 20 mg tablet 20 mg PO DAILY DEPRESSION 30 days ##30 09/24/17 [History Last Taken 12/30/17] pantoprazole 40 mg tablet,delayed release 40 mg PO DAILY ##30 01/01/18 [Rx Last Taken 02/01/18 07:00] losartan 25 mg tablet 25 mg PO DAILY 10/22/20 [History Last Taken Unknown] rosuvastatin 10 mg tablet 10 mg PO DAILY 10/22/20 [History Last Taken Unknown] acetaminophen 500 mg tablet 500 mg PO Q6H PRN Pain 10/30/20 [History Last Taken Unknown] cholecalciferol (vitamin D3) 25 mcg (1,000 unit) tablet 25 mcg PO DAILY 02/11/21 [History Last Taken Unknown] meloxicam 15 mg tablet (Mobic) 15 mg PO DAILY 02/11/21 [History Last Taken Unknown] vitamin B complex 1 tab PO DAILY 02/11/21 [History Last Taken Unknown] amlodipine 10 mg tablet 10 mg PO DAILY #90 tabs 12/14/21 [Rx Last Taken Unknown] bupropion HCl 150 mg 24 hr tablet, extended release 150 mg PO DAILY 10/27/22 [History Last Taken Unknown] fenofibrate 160 mg tablet 160 mg PO DAILY 10/27/22 [History Last Taken Unknown] methocarbamol 500 mg tablet 500 mg PO TID PRN Muscle pain/spasm #30 tabs 10/27/22 [Rx Last Taken Unknown] oxycodone-acetaminophen 5 mg-325 mg tablet (Percocet) 1 tab PO Q6H PRN pain 3 days #12 tabs 10/27/22 [Rx Last Taken Unknown] Allergy/AdvReac Type Severity Reaction Status Date / Time codeine AdvReac Vomiting Verified 10/27/22 18:41 Family History Mother Hypertension Cancer Father Cancer Surgical History History of colectomy History of hemorrhoidectomy Social History Smoking Status: Never smoker alcohol intake: never substance use type: does not use caffeine: Yes Type: coffee Number of servings: 3 ROS ROS Narrative Pertinent positives and pertinent negatives as noted in HPI. All other systems were reviewed and are negative Vital Signs Vital Signs Vital Signs: 10/27/22 18:31 10/27/22 18:49 10/27/22 19:31 Temperature 98.1 F Temperature Source Oral Pulse Rate 105 H 106 H 110 H Respiratory Rate 26 H 22 H 19 H Blood Pressure 111/49 L 118/59 L 123/60 H Blood Pressure Mean 69 78 81 Pulse Ox 88 92 94 Oxygen Delivery Method Room Air Nasal Cannula Nasal Cannula Oxygen Flow Rate (L/min) 2 2 10/27/22 20:00 10/27/22 21:00 10/27/22 21:41 Temperature Temperature Source Pulse Rate 95 99 Respiratory Rate 18 20 H Blood Pressure 96/52 L 103/64 Blood Pressure Mean 66 77 Pulse Ox 93 93 93 Oxygen Delivery Method Nasal Cannula Nasal Cannula Room Air Oxygen Flow Rate (L/min) 2 2 10/27/22 21:49 10/27/22 21:49 10/27/22 22:00 Temperature 98 F Temperature Source Oral Pulse Rate 94 Respiratory Rate 21 H Blood Pressure 115/61 Blood Pressure Mean 79 Pulse Ox 87 92 94 Oxygen Delivery Method Room Air Nasal Cannula Nasal Cannula Oxygen Flow Rate (L/min) 2 2 10/27/22 23:00 10/27/22 23:20 Temperature 97.9 F Temperature Source Oral Pulse Rate 100 95 Respiratory Rate 20 H 21 H Blood Pressure 137/82 H 134/61 H Blood Pressure Mean 100 85 Pulse Ox 93 94 Oxygen Delivery Method Nasal Cannula Nasal Cannula Oxygen Flow Rate (L/min) 2 2 Weight Weight: 96 kg Body Mass Index (BMI) 36.1 Physical Exam Narrative Physical exam: General: Well-nourished, well-developed. Head: Normocephalic, atraumatic, no tenderness Eyes: Vision is grossly intact. EOMI ENT, no trauma, dry mucous membranes, no rhinorrhea Neck: Nontender, No thyromegaly. CVS: Irregularly irregular rate and rhythm. S1-S2 present. No murmur, gallop or rub. Respiratory : clear to auscultation bilaterally, chest wall nontender Abdomen: Soft, nontender, nondistended, normal bowel sounds, no masses : Deferred Back: Nontender, no CVA tenderness, no midline spinal tenderness, deformities, step-offs Extremities: Nontender full range of motion, no trauma Skin: Normal color, no trauma, abrasions Neuro: Alert, oriented to place, person, month and year. It was just past midnight and she mentioned the date of the previous day. Cranial nerves II through XII grossly intact. Psychiatry: Normal mood. Normal affect. Not depressed. Not anxious. Results Lab / Micro Data Result Diagrams: 10/27/22 19:47 10/27/22 18:22 Labs: Laboratory Results - last 24 hr 10/27/22 18:22: D-Dimer Quant (PE/DVT) 3.20 H* 10/27/22 18:22: Sodium 135 L, Potassium 3.7, Chloride 103, Carbon Dioxide 22.0, Anion Gap 10, BUN 55 H, Creatinine 2.00 H, Estim Creat Clear Calc 18.08, Est GFR (MDRD) Af Amer 31 L, Est GFR (MDRD) Non-Af 25 L, BUN/Creatinine Ratio 27.5 H, Glucose 174 H, Calcium 9.5, Total Bilirubin 0.60, AST 67 H, ALT 65 H, Alkaline Phosphatase 123 H, Troponin I High Sens 28, Total Protein 7.1, Albumin 2.6 L, Globulin 4.5 H, Albumin/Globulin Ratio 0.6 L 10/27/22 18:22: B-Natriuretic Peptide 589.2 H 10/27/22 19:47: WBC 16.0 H, RBC 4.00 L, Hgb 11.7 L, Hct 35.2 L, MCV 88.0, MCH 29.3, MCHC 33.2, RDW Std Deviation 46.5 H, RDW Coeff of Dolores 14.4, Plt Count 265, MPV 11.2, Immature Gran % (Auto) 0.500, Neut % (Auto) 84.5 H, Lymph % (Auto) 2.1 L, [place] % (Auto) 12.8 H, Eos % (Auto) 0.0, Baso % (Auto) 0.1, Absolute Neuts (auto) 13.5 H, Absolute Lymphs (auto) 0.34 L, Nucleated RBC % 0, Differential Comment SCANNED, Diff Path Review October10/27/22 19:47: PT 14.0, INR 1.1 10/27/22 20:25: Lactic Acid 1.5 10/27/22 20:45: Urine Color Paulette, Urine Clarity Clear, Urine pH 5.0, Ur Specific [place] 1.020, Urine Protein 30 H, Urine Glucose (UA) Normal, Urine Ketones 5 H, Urine Occult Blood 150 H, Urine Nitrite Positive H, Urine Bilirubin 3 H, Urine Urobilinogen 4 H, Ur Leukocyte Esterase 25 H, Urine RBC 5-10 SEEN, Urine WBC 0-5 SEEN, Ur Squamous Epith Cells 0-5 SEEN, Urine Bacteria RARE, Urine Mucus 0 SEEN Radiology Impression Brain CT 10/27/22 19:00 IMPRESSION: Age-related changes of the brain. Electronically Signed: Graeme Amos DO at 20:34 EDT , Chest X-Ray 10/27/22 19:14 IMPRESSION: No radiographic evidence of acute cardiopulmonary disease. Electronically Signed: Graeme Amos at 19:47 EDT , Chest CTA 10/27/22 19:36 IMPRESSION: No demonstrated pulmonary embolism or arterial dissection. Hiatal hernia. Electronically Signed: Graeme Amos at 20:52 EDT , Assessment & Plan Assessment/Plan (1) Hypoxia: (2) Paroxysmal atrial fibrillation with RVR: (3) THEODORE (acute kidney injury): (4) Encephalopathy acute: PLAN: Plan Acute encephalopathy Likely secondary to acute uremia and hypoxia. Resolved. Urinalysis showed rare bacteria and 0-5 of white blood cells. Received Rocephin in the emergency department. Would hold off further antibiotics at this time. Urine culture and blood cultures pending. THEODORE on CKD stage II Creatinine on presentation was 2.0. Last creatinine on file was in 2020 and at that time it was 0.76. BUN is 55. BUN over creatinine is 27.5. Likely prerenal. Gentle IV hydration. Avoid nephrotoxins. Atrial fibrillation with RVR. Potassium is 3.7, replaced. Check magnesium. Echocardiogram on showed normal ejection fraction. Mildly enlarged left atrium. Mild to moderate mitral valve calcification. Right ventricular systolic pressure was 32 mmHg. High [id number] 2 score. Therapeutic Lovenox adjusted for creatinine clearance ordered. Continue telemetry. Check TSH. Leukocytosis Review of labs showed white count of 16,000. Etiology unclear. Trend CBC. Hypoxia Required supplemental oxygen at the emergency department. D-dimer is elevated. Chest CTA is unrevealing. Continue oxygen supplementation as necessary. DVT prophylaxis: Therapeutic Lovenox for A-fib as above. Charges/Coding Visit Charges Inpatient E&M: 20439 Init Hosp L3
[2022-10-27 23:46] LABS: CPK Total, Creatine Kinase 45 U/L (26-192)
[2022-10-28] VITALS (24 sets, daily range): BP systolic 112–190; BP diastolic 51–100; PULSE 86–125; RESP 12–39; TEMP 36.5–38; O2SAT 91–99; BMI 34.9
--- NOTE | 2022-10-28 01:51 | ECHOCS_ITS ---
Reason For Study: Afib/Flutter Procedure This was a 2D Doppler, Color Flow transthoracic echocardiogram. The study was technically difficult. Contrast injection was performed. Exam performed portable in patient room. Left Ventricle Normal LV size. The estimated ejection fraction is 70 %. Unable to assess diastolic dysfunction. No regional wall motion abnormalities noted. Right Ventricle Normal RV size. Normal systolic function. Atria The left atrium is moderately enlarged. Normal right atrium. No doppler evidence for ASD. Mitral Valve There is moderate mitral annular calcification. There is no mitral valve stenosis. No mitral valve insufficiency. Tricuspid Valve There is no tricuspid stenosis. Trivial tricuspid valve insufficiency. Pulmonary artery systolic pressure is 45 mmHg. Aortic Valve Trisinus/trileaflet aortic valve. There is no aortic stenosis. No aortic valve insufficiency. Pulmonic Valve There is no pulmonic valvular stenosis. No pulmonic valve insufficiency. Great Vessels Normal aortic root. Pericardium/Pleural No pericardial effusion. Medication Diluted definity 1.5ml given slow IV push to enhance endocardial definition. MMode/2D Measurements & Calculations LVIDd: 4.1 cm IVSd: 1.2 cm Ao root diam: 2.9 cm LVIDs: 2.6 cm LVPWd: 1.1 cm LA dimension: 4.0 cm FS: 36.6 % LAV(MOD-bp): 65.6 ml LA A4 area: 26.4 cm2 RA A4 area: 13.4 cm2 LAV(MOD-bp) Indexed: 33.2 ml/m2 LAV(MOD-sp2): 38.5 ml LAV(MOD-sp4): 88.8 ml Doppler Measurements & Calculations MV E max cathy: 143.3 cm/sec MV V2 max: 176.9 cm/sec Ao V2 max: 164.9 cm/sec MV max P.6 mmHg Ao max P.9 mmHg MV V2 mean: 88.9 cm/sec MV mean P.1 mmHg MV V2 VTI: 31.6 cm LV V1 max: 112.6 cm/sec PA V2 max: 141.8 cm/sec TR max cathy: 318.4 cm/sec LV V1 max P.1 mmHg PA V2 mean: 108.8 cm/sec TR max P.5 mmHg ECHO/Echo Complete W/ Contrast Interpretation Summary The estimated ejection fraction is 70 %. Unable to assess diastolic dysfunction. The left atrium is moderately enlarged. Ordering Physician: Sam Newsome Referring Physician: Brenda Palmer M.D. Performed By: Antony Kothari RCS
[2022-10-28] MEDS: 0.9% Normal Saline 1,000 ML 75 ML IV (04:28)
[2022-10-28] MEDS: Potassium Chloride Oral Tablet 20 MEQ 40 MEQ PO (05:37)
[2022-10-28 06:32] LABS: Absolute Neutrophil Count 10.6 X10^3/uL (2.0-7.7); Basophil# 0.03 X10^3/uL; Basophil% 0.2 % (0-1); Eosinophil# 0.01 X10^3/uL; Eosinophils% 0.1 % (0-5); Hematocrit 35.6 % (37-47); Hemoglobin 11.2 g/dL (12.0-15.0); Lymphocyte % 4.6 % (19-41); Mean Corp Hgb Conc 31.5 g/dL (32-36); Mean Corpuscular Hgb 28.9 pg (27.0-32.0); Mean Corpuscular Volume 91.8 fL (81-99); Monocyte% 12.4 % (0-10); NRBC Flagged by Analyzer 0 % (0-5); Neutrophil # 10.59 X10^3/uL (2.7-7.7); Neutrophil % 82.1 % (47-70); POSITIVE DIFFERENTIAL YES; Platelet Count 249 K/mm3 (150-450); RBC Distribution Width CV 14.5 % (11.6-14.6); RBC Distribution Width SD 48.6 fl (35.1-43.9); Red Blood Count 3.88 M/mm3 (4.2-5.4); White Blood Count 12.9 K/mm3 (4.4-11.0)
[2022-10-28 06:58] LABS: Differential Indicated SCAN CRITERIA MET
[2022-10-28 07:04] LABS: Magnesium 2.4 mg/dL (1.6-2.6)
[2022-10-28 07:16] LABS: ALB/GLOB Ratio 0.5 RATIO (0.9-2.4); AST(SGOT) 56 U/L (15-37); Alanine Aminotransfer ALT/SGPT 54 U/L (13-56); Albumin, Serum 2.2 g/dL (3.2-5.0); Alkaline Phosphatase 95 U/L (45-117); Anion Gap 10 (5-15); BUN 58 mg/dL (7-18); BUN/Creat Ratio 34.9 RATIO (10-20); Calcium,Total 8.7 mg/dL (8.5-10.1); Chloride 106 mmol/L (98-107); Creatinine, Serum 1.66 mg/dL (0.55-1.02); EST Glomerular Filtration Rate 31 mL/min (>60); Est Glom Filt Rate - Afr Amer 38 mL/min (>60); Estimated Creatinine Clearance 21.78 ml/min; Globulin 4.2 g/dL (2.2-4.2); Glucose 131 mg/dL (74-106); Protein, Total 6.4 g/dL (6.4-8.2); Sodium Level 136 mmol/L (136-145); Thyroid Stim Hormone (TSH) 1.15 uIU/mL (0.358-3.74)
[2022-10-28 07:33] LABS: Differential Comment SCANNED
[2022-10-28] MEDS: amLODIPine 10 MG Tablet PO (08:57)
[2022-10-28] MEDS: FLUoxetine 20 MG Capsule PO (08:57)
[2022-10-28] MEDS: Cholecalciferol (VIT D3) 25 MCG TABLET (1,000 UNITS) PO (08:57)
[2022-10-28] MEDS: Fenofibrate 145 MG Tablet PO (08:57)
[2022-10-28] MEDS: buPROPion (XL) 150 MG TABLET.XL PO (08:57)
[2022-10-28] MEDS: Enoxaparin 100 MG/ML Syringe 90 MG SC (09:00)
--- NOTE | 2022-10-28 09:26 | PN.HOSP_ITS ---
Hospitalist Note 86-year-old female with a history of A-fib, GERD, hypertension, PSVT presented 10/27 with altered mental status. She had a fall 5 days prior to admission when she was trying to help her and they both fell and she is evaluated the imaging but discharged home. 3 days before presentation she developed back pain and came to the ED and was given oxycodone and discharged home. She became very lethargic and had difficulty staying awake. In the ED she is noted to be in A- fib with RVR and also hypoxic. Evaluated this a.m. patient denied any complaints aside from the lower back pain after the fall and she was curious as to when she could go home. Discussed monitoring today and getting additional labs etc. Notified around 1130 that she went back in RVR and she was given 5 of IV Lopressor and additionally notified at 1130 lab called that she had 2 out of 2 blood cultures positive for gram- positive cocci in chains. She was having some wheezing around that time so broad-spectrum antibiotics and ipratropium nebs ordered, avoided albuterol due to her tachycardia. Evaluated her at bedside and discussed with her and her daughter, did seem that she was breathing harder but denied any shortness of breath and there is concern may be she did become acidotic and was hyperventilating to blow off CO2 to compensate, given the positive blood cultures and low-grade tachycardia after the RVR resolved suspected this was due to infection and she was given some additional fluids. Notified at 140 that she had become tachypneic and further labs ordered including ABG as well as chest x- ray. Respiratory rate went up further however and they are having difficulty getting read on her O2 and had increased tachycardia. Went to bedside to evaluate, chest x-ray showed right lower lobe possible infiltrate and appeared somewhat more congested than previous and her systolic blood pressure spiked up to 190 and she was having wheezing and respiratory distress. RT came to bedside and placed her on BiPAP and we gave her Lasix and hydralazine which improved her blood pressure and BiPAP began to help her work of breathing though she is very anxious. Hesitant to give her benzodiazepines so she was given very low-dose Haldol to help her anxiety and help her tolerate BiPAP better which was helpful. #Hypertensive emergency -Systolic blood pressure in the 190s and chest x-ray appears more congested patient is tachycardic, she was placed on BiPAP and given hydralazine and a dose of IV Lasix -If BP elevated again would favor nitro drip or paste to reduce afterload however echocardiogram demonstrated good EF but unable to determine diastolic function and did not note any severe valve abnormalities -Blood pressure improved significantly with current measures -Continue BiPAP -ABG prior to BiPAP showed bicarb of 18.7 with a PCO2 of 30.7 and an O2 sat of 90/PO2 of 57 on 4 L nasal cannula -Lactic acid within normal limits -CBC and BMP unrevealing #Gram-positive bacteremia -Due to blood cultures positive for gram-positive cocci in chains -Antibiotic started pending sensitivities -Trend ESR and CRP which were elevated -Continue to monitor cultures #A-fib with RVR -Admitted to telemetry -Echo 11/06/2020 with normal EF, mildly enlarged left atrium, mild to moderate mitral valve calcification, RVSP 32 -Started on therapeutic Lovenox -TSH 1.15 -10/28: Repeat echo with EF of 70%, left atrium moderately enlarged, unable to assess diastolic dysfunction. Heart rate had been controlled without any rate control but went back into RVR which seemed to have started cascade above. Hesitant to give her beta-harrison or calcium channel harrison as to avoid negative inotropic effect given current clinical picture. Heart rate presently 90s to low 100s, if any further elevation or concern would benefit from amiodarone bolus and drip #Hypoxia -Required supplemental O2 in the ED and had elevated D-dimer but CTA unrevealing -CTA no acute process -Given new A-fib with RVR as well as hypoxia we will check COVID and respiratory panel -BNP was 589 with no previous baseline, given new onset A-fib with last echo 2 years ago we will repeat echocardiogram -10/28: Had been doing well until she became tachypneic. Repeat x-ray with right lower lobe infiltrate suspected but did appear more congested overall. Received 1 dose of IV Lasix. Ipratropium nebs. ABG prior to BiPAP today w/ tachycardia showed bicarb of 18.7 with a PCO2 of 30.7 and an O2 sat of 90/PO2 of 57 on 4 L nasal cannula #THEODORE on CKD stage II -Initial creatinine 2 with last 1 2020 0.76 -Seem to be prerenal and she was given gentle hydration -10/28: Improving #Acute encephalopathy, toxic versus metabolic -Was in her usual health until day of admission -She was uremic as well as hypoxic but also mental status worsened after taking oxycodone -Likely was multifactorial -Resolved with discontinuation of oxycodone and improvement in oxygenation and BUN -CT brain was negative
--- NOTE | 2022-10-28 11:36 | EKG12_ITS ---
Test Reason : Blood Pressure : / mmHG Vent. Rate : 137 BPM Atrial Rate : 000 BPM P-R Int : 000 ms QRS Dur : 086 ms QT Int : 260 ms P-R-T Axes : 000 090 028 degrees QTc Int : 392 ms Atrial fibrillation with rapid ventricular response with premature ventricular or aberrantly conducte d complexes Rightward axis Low voltage QRS Abnormal ECG When compared with ECG of 27-OCT-2022 18:52, MANUAL COMPARISON REQUIRED, DATA IS UNCONFIRMED Confirmed by JL CEDILLO, ARIK ([id number]), dictionary editor SHERLYN RICCI ([id number]) on 10/29/2022 8:43:58 AM Referred By: GARRISON Confirmed By:ARIK PARIKH MD
[2022-10-28] MEDS: 0.9% Saline Lock 10 ML Syringe IV ×5 (11:53→22:45)
[2022-10-28] MEDS: Metoprolol Tartrate 5 MG/5 ML Vial IV (11:53)
[2022-10-28] MEDS: Ipratropium 0.5 MG/2.5 ML SOLUTION INHALATION ×3 (12:00→19:37)
[2022-10-28] MEDS: 0.9% Normal Saline 1,000 ML 999 ML IV (12:15)
--- NOTE | 2022-10-28 13:19 | PCM.RX.CS ---
Consult Pharmacy has been consulted to manage selected antiobiotic: Vancomycin Type of Consult: New start Prior Doses of Antibiotics Received/Current Regimen: Medications Vancomycin HCl 2,000 mg/ (Sodium Chloride) 540 mls @ 250 mls/hr IV X1 ONE Stop: 10/28/22 14:39 Last Admin: 10/28/22 13:00 Dose: 250 mls/hr Labs: Sodium 136 mmol/L (136-145) 10/28/22 05:12 Potassium 4.0 mmol/L (3.5-5.1) 10/28/22 05:12 Chloride 106 mmol/L (98-107) 10/28/22 05:12 Carbon Dioxide 20.0 mmol/L (21.0-32.0) L 10/28/22 05:12 Anion Gap 10 (5-15) 10/28/22 05:12 BUN 58 mg/dL (7-18) H 10/28/22 05:12 Creatinine 1.66 mg/dL (0.55-1.02) H 10/28/22 05:12 Est GFR (MDRD) Af Amer 38 mL/min (>60) L 10/28/22 05:12 Est GFR (MDRD) Non-Af 31 mL/min (>60) L 10/28/22 05:12 BUN/Creatinine Ratio 34.9 RATIO (10-20) H 10/28/22 05:12 Glucose 131 mg/dL (74-106) H 10/28/22 05:12 Microbiology: Microbiology 10/28/22 10:45 Nasal Secretion SARS-CoV-2 & FLU Antigen (Rapid) - Final 10/27/22 20:45 Urine, Catheterized Urine Culture - Preliminary Culture exhibits no growth. 10/27/22 20:25 Blood Culture (Wb) - Right Forearm Blood Culture - Preliminary 10/27/22 19:47 Blood Culture (Wb) - Anticubital Left Blood Culture - Preliminary Weight used for dosin kg Estimated Creatinine Clearance: 22 mL/min Pharmacy Plan for Drug Dosinmg IV x1, 750mg IV q24h with trough prior to 3rd dose per policy. Pharmacy Service will continue to monitor and adjust dosing as required. Follow-Up Labs: Trough Vancomycin - 10/30 @ 1230
--- NOTE | 2022-10-28 13:55 | RAD_ITS ---
STUDY: X-RAY CHEST REASON FOR EXAM: Female, 86 years old. Shortness of breath. TECHNIQUE: Single frontal view of the chest. COMPARISON: October 27, 2022. FINDINGS: Patchy opacity at the right base representing atelectasis or early/developing pneumonia. Follow-up chest imaging to resolution recommended. There is no demonstrated pleural abnormality. Stable cardiomegaly. Normal mediastinum and andre. Normal visualized pulmonary arteries. Aortic tortuosity unchanged. Stable thoracic spondylosis. Normal visualized ribs, clavicles, and shoulders. There is no demonstrated abnormality of the visualized soft tissue structures of the upper abdomen. RAD/Chest 1 View (Portable) IMPRESSION: Cardiomegaly with new patchy opacity at the right base. See discussion above. Follow-up chest imaging to resolution recommended. Electronically Signed: Matthew Alas, at 14:17 EDT ,
[2022-10-28 13:56] LABS: Lactic Acid 0.9 mmol/L (0.4-1.9)
[2022-10-28 14:23] LABS: Absolute Lymphocyte Count 0.37 X10^3/uL (0.83-4.51); Absolute Neutrophil Count 10.4 X10^3/uL (2.0-7.7); Basophil# 0.04 X10^3/uL; Basophil% 0.3 % (0-1); Hematocrit 39.9 % (37-47); Hemoglobin 11.8 g/dL (12.0-15.0); Lymphocyte # 0.37 X10^3/ul (0.83-4.51); Lymphocyte % 3.1 % (19-41); Mean Corp Hgb Conc 29.6 g/dL (32-36); Mean Corpuscular Hgb 28.5 pg (27.0-32.0); Mean Corpuscular Volume 96.4 fL (81-99); Monocyte# 1.13 X10^3/uL; Monocyte% 9.4 % (0-10); NRBC Flagged by Analyzer 0 % (0-5); Neutrophil # 10.38 X10^3/uL (2.7-7.7); Neutrophil % 86.5 % (47-70); POSITIVE DIFFERENTIAL YES; Platelet Count 220 K/mm3 (150-450); RBC Distribution Width CV 14.6 % (11.6-14.6); RBC Distribution Width SD 51.6 fl (35.1-43.9); Red Blood Count 4.14 M/mm3 (4.2-5.4)
[2022-10-28 14:26] LABS: Differential Indicated SCAN CRITERIA MET
[2022-10-28 14:40] LABS: Allen Test Positive; Base Excess -6 mmol/L (-2 to +2); Bicarbonate 18.7 mmol/L (22-26); Blood Gas Specimen Type ART; O2 Delivery Device Cannula; PO2 57 mmHG (75-100); SITE L Radial; SO2 90 % (95-99); Total Carbon Dioxide 20 mmol/L; pCO2 30.7 mmHg (35-45); pH 7.39 (7.35-7.45)
[2022-10-28] MEDS: hydrALAZINE 20 MG/ML Vial 10 MG IV (14:49)
[2022-10-28] MEDS: Furosemide 20 MG/2 ML VIAL IV (14:49)
[2022-10-28 14:52] LABS: Erythrocyte Sedimentation Rate 81 mm/hr (0-30)
[2022-10-28 14:55] LABS: ALB/GLOB Ratio 0.5 RATIO (0.9-2.4); AST(SGOT) 59 U/L (15-37); Alanine Aminotransfer ALT/SGPT 55 U/L (13-56); Albumin, Serum 2.2 g/dL (3.2-5.0); Alkaline Phosphatase 113 U/L (45-117); Anion Gap 8 (5-15); BUN 58 mg/dL (7-18); Calcium,Total 8.6 mg/dL (8.5-10.1); Chloride 110 mmol/L (98-107); Creatinine, Serum 1.29 mg/dL (0.55-1.02); EST Glomerular Filtration Rate 42 mL/min (>60); Est Glom Filt Rate - Afr Amer 51 mL/min (>60); Estimated Creatinine Clearance 28.03 ml/min; Globulin 4.6 g/dL (2.2-4.2); Glucose 156 mg/dL (74-106); Potassium 4.3 mmol/L (3.5-5.1); Protein, Total 6.8 g/dL (6.4-8.2); Sodium Level 136 mmol/L (136-145)
[2022-10-28 14:56] LABS: Procalcitonin 3.16 ng/mL (0.00-0.09)
[2022-10-28 15:09] LABS: BNP,B-Type NATRIURETIC PEPTIDE 384.3 pg/mL (0-100)
[2022-10-28] MEDS: Haloperidol Lactate 5 MG/ML Vial IV ×2 (15:33→17:57)
--- NOTE | 2022-10-28 16:51 | CASEMGMT ---
RN STEVIE NOTE: To room to complete assessment. Pt currently on BIPAP. No family present at this time. SHAKEEL HUBBARD to complete assess at a later time. Dari JOHNSONN SHAKEEL CM
[2022-10-28 16:52] LABS: Magnesium 2.2 mg/dL (1.6-2.6)
--- NOTE | 2022-10-28 17:45 | CASEMGMT ---
Addendum entered by Raffaele Samayoa 10/29/22 10:35: ROSALIE Osborne, made aware family asking for pt to complete AD when pt is able. Original Note: RN?CM?ASSESSMENT Pt on BIPAP. Pt's son, Marquis, and dtr, Theresa, in to see pt. SHAKEEL CM met w/them in [facility]. Introduced self and role. ?They voice understanding and consent to?assessment?at this time.?? Care providers, pharmacy, and demographics verified/updated at this time. PCP: Dr Palmer Specialists:[facility]/Cardiology Preferred Pharmacy: [facility] Insurance: MMO MCR Prescription Benefit:?Yes Living Will/HPOA:? Gustavo think pt may have completed these in the past, but they are not sure. They feel it would be best for pt to complete them while @ [facility]. Will notify SW. LNOK: , Néstor. Son, Marquis. Dtr, Theresa Living Arrangements: Lives w/, who Gustavo state thinks he may have dementia, but he has not been diagnosed w/this yet. They live in a split-level home w/3 steps to enter. Many steps b/w the different levels, stating 5-6 to bedroom and approx 12 steps to lower level where shower is. Pt does well w/the steps @ her baseline. Pt is indep w/ADL's and IADL's, manages her own medications, and helps to take care of her . Transportation:?Pt drives. does not drive. DME: Pt does not use any DME. HHC/SNF: No hx of either. Gustavo state they were in the process of having pt and her moved to an Independent Living facility and were going to sign the lease on Tuesday. They now feel [facility] would be more appropriate, have already checked on availability, and were informed there is an opening. They were made aware therapy evals are pending and CM or SW would f/u with them once the evals are completed to discuss any recommendations. They voice understanding. PLAN:??TBD. Pt currently on BIPAP. PT/OT evals pending. Dari BSN?RN?STEVIE
[2022-10-28 17:55] LABS: Bedside Glucose 144 mg/dL (74-106)
[2022-10-28 21:21] LABS: Ammonia < 10.0 umol/L (11-32)
[2022-10-29] VITALS (10 sets, daily range): BP systolic 129–170; BP diastolic 71–84; PULSE 89–102; RESP 18–24; TEMP 36.4–36.6; O2SAT 94–97; BMI 34.4
[2022-10-29] MEDS: Acetaminophen 500 MG Tablet PO ×4 (03:03→21:53)
[2022-10-29 06:37] LABS: Absolute Neutrophil Count 9.1 X10^3/uL (2.0-7.7); Basophil# 0.03 X10^3/uL; Basophil% 0.2 % (0-1); Eosinophil# 0.04 X10^3/uL; Eosinophils% 0.3 % (0-5); Hematocrit 32.4 % (37-47); Hemoglobin 10.2 g/dL (12.0-15.0); Lymphocyte % 7.2 % (19-41); Mean Corp Hgb Conc 31.5 g/dL (32-36); Mean Corpuscular Hgb 28.5 pg (27.0-32.0); Mean Corpuscular Volume 90.5 fL (81-99); Mean Platelet Vol. 11.4 fl (6.2-12.0); Monocyte% 18.5 % (0-10); NRBC Flagged by Analyzer 0 % (0-5); Neutrophil # 9.11 X10^3/uL (2.7-7.7); Neutrophil % 73.2 % (47-70); POSITIVE DIFFERENTIAL YES; Platelet Count 266 K/mm3 (150-450); RBC Distribution Width CV 14.4 % (11.6-14.6); RBC Distribution Width SD 47.9 fl (35.1-43.9); Red Blood Count 3.58 M/mm3 (4.2-5.4); White Blood Count 12.5 K/mm3 (4.4-11.0)
[2022-10-29 06:38] LABS: Differential Indicated SCAN CRITERIA MET
[2022-10-29] MEDS: 0.9% Saline Lock 10 ML Syringe IV ×2 (06:41→11:41)
[2022-10-29 06:46] LABS: Erythrocyte Sedimentation Rate 109 mm/hr (0-30)
[2022-10-29 07:00] LABS: Differential Comment SCANNED
[2022-10-29 07:03] LABS: Pathologist Review May foll
[2022-10-29 07:22] LABS: ALB/GLOB Ratio 0.5 RATIO (0.9-2.4); AST(SGOT) 50 U/L (15-37); Alanine Aminotransfer ALT/SGPT 48 U/L (13-56); Albumin, Serum 2.1 g/dL (3.2-5.0); Alkaline Phosphatase 103 U/L (45-117); Anion Gap 7 (5-15); BUN 62 mg/dL (7-18); BUN/Creat Ratio 60.8 RATIO (10-20); Calcium,Total 8.8 mg/dL (8.5-10.1); Chloride 114 mmol/L (98-107); Creatinine, Serum 1.02 mg/dL (0.55-1.02); EST Glomerular Filtration Rate 55 mL/min (>60); Est Glom Filt Rate - Afr Amer 66 mL/min (>60); Estimated Creatinine Clearance 35.45 ml/min; Globulin 4.2 g/dL (2.2-4.2); Glucose 123 mg/dL (74-106); Protein, Total 6.3 g/dL (6.4-8.2); Sodium Level 141 mmol/L (136-145)
[2022-10-29] MEDS: Ipratropium 0.5 MG/2.5 ML SOLUTION INHALATION ×3 (07:26→19:37)
[2022-10-29] MEDS: amLODIPine 10 MG Tablet PO (08:40)
[2022-10-29] MEDS: FLUoxetine 20 MG Capsule PO (08:40)
[2022-10-29] MEDS: buPROPion (XL) 150 MG TABLET.XL PO (08:40)
[2022-10-29] MEDS: Cholecalciferol (VIT D3) 25 MCG TABLET (1,000 UNITS) PO (08:40)
[2022-10-29] MEDS: Fenofibrate 145 MG Tablet PO (08:40)
[2022-10-29] MEDS: Enoxaparin 100 MG/ML Syringe 90 MG SC (08:42)
--- NOTE | 2022-10-29 09:32 | PN.HOSP_ITS ---
Reason for Visit Reason for Visit: Diagnoses Encephalopathy, unspecified (10/27/22) Paroxysmal atrial fibrillation (10/27/22) Acute kidney failure, unspecified (10/27/22) Hypoxemia (10/27/22) Subjective Subjective Significantly improved today, on nasal cannula and tolerating this, vitally improved, feels tired but better overall Objective Data Objective Data Vital Signs: Vital Signs Temp Pulse Resp BP Pulse Ox O2 Del Method O2 Flow Rate 97.6 F L 91 22 H 142/71 H 96 Nasal Cannula 5 10/29/22 08:30 10/29/22 08:30 10/29/22 08:30 10/29/22 08:30 10/29/22 08:30 10/29/22 08:46 10/29/22 08:46 FiO2 40 10/28/22 18:00 Oxygen Flow Rate (L/min) 5 Oxygen Delivery Method Nasal Cannula Weight: 91.5 kg Body Mass Index (BMI) 34.4 Intake & Output: Intake and Output for Last 24 Hours 10/27/22 10/28/22 10/29/22 23:59 23:59 23:59 Intake Total 1050 / 1050 3217.25 / 3217.25 270 / 270 Output Total 400 / 400 Balance 1050 / 1050 3217.25 / 3217.25 -130 / -130 Lab / Micro Data Result Diagrams: 10/29/22 06:10 10/29/22 06:10 Labs: Laboratory Results - last 24 hr 10/28/22 13:17: Lactic Acid 0.9 10/28/22 14:15: WBC 12.0 H, RBC 4.14 L, Hgb 11.8 L, Hct 39.9, MCV 96.4 D, MCH 28.5, MCHC 29.6 L D, RDW Std Deviation 51.6 H, RDW Coeff of Dolores 14.6, Plt Count 220, MPV 12.0, Immature Gran % (Auto) 0.700, Neut % (Auto) 86.5 H, Lymph % (Auto) 3.1 L, [place] % (Auto) 9.4, Eos % (Auto) 0.0, Baso % (Auto) 0.3, Absolute Neuts (auto) 10.4 H, Absolute Lymphs (auto) 0.37 L, Nucleated RBC % 0, Differential Comment COMMENT, ESR 81 H 10/28/22 14:15: Sodium 136, Potassium 4.3, Chloride 110 H, Carbon Dioxide 18.0 L , Anion Gap 8, BUN 58 H, Creatinine 1.29 H, Estim Creat Clear Calc 28.03, Est GFR (MDRD) Af Amer 51 L, Est GFR (MDRD) Non-Af 42 L, BUN/Creatinine Ratio 45.0 H , Glucose 156 H, Calcium 8.6, Total Bilirubin 0.60, AST 59 H, ALT 55, Alkaline Phosphatase 113, C-React Prot Ext Range 269.00 H, Total Protein 6.8, Albumin 2.2 L, Globulin 4.6 H, Albumin/Globulin Ratio 0.5 L 10/28/22 14:15: B-Natriuretic Peptide 384.3 H 10/28/22 14:15: Procalcitonin 3.16 H 10/28/22 14:15: Magnesium 2.2 10/28/22 17:38: POC Glucose 144 H 10/28/22 20:17: Ammonia < 10.0 L 10/29/22 06:10: WBC 12.5 H, RBC 3.58 L, Hgb 10.2 L, Hct 32.4 L, MCV 90.5 D, MCH 28.5, MCHC 31.5 L D, RDW Std Deviation 47.9 H, RDW Coeff of Dolores 14.4, Plt Count 266, MPV 11.4, Immature Gran % (Auto) 0.600, Neut % (Auto) 73.2 H, Lymph % (Au to) 7.2 L, [place] % (Auto) 18.5 H, Eos % (Auto) 0.3, Baso % (Auto) 0.2, Absolute Neuts (auto) 9.1 H, Absolute Lymphs (auto) 0.90, Nucleated RBC % 0, Differential Comment SCANNED, Diff Path Review October, ESR 109 H 10/29/22 06:10: Sodium 141, Potassium 4.0, Chloride 114 H, Carbon Dioxide 20.0 L , Anion Gap 7, BUN 62 H, Creatinine 1.02, Estim Creat Clear Calc 35.45, Est GFR (MDRD) Af Amer 66, Est GFR (MDRD) Non-Af 55 L, BUN/Creatinine Ratio 60.8 H, Glucose 123 H, Calcium 8.8, Total Bilirubin 0.50, AST 50 H, ALT 48, Alkaline Phosphatase 103, C-React Prot Ext Range 267.00 H, Total Protein 6.3 L, Albumin 2.1 L, Globulin 4.2, Albumin/Globulin Ratio 0.5 L Micro: Microbiology 10/28/22 10:20 Mucosa - Nasopharyngeal Respiratory Panel (PCR) - Final 10/27/22 20:25 Blood Culture (Wb) - Right Forearm Bacteria Detection (PCR) - Final 10/27/22 20:25 Blood Culture (Wb) - Right Forearm Blood Culture - Preliminary 10/28/22 10:45 Nasal Secretion SARS-CoV-2 & FLU Antigen (Rapid) - Final 10/27/22 20:45 Urine, Catheterized Urine Culture - Preliminary Culture exhibits no growth. 10/27/22 19:47 Blood Culture (Wb) - Anticubital Left Blood Culture - Preliminary ABG Data ABG results: ABG 10/28/22 14:34 Specimen Type ART Sample Site L Radial pH 7.39 Bicarbonate Actual 18.7 L Total CO2 20 Base Excess -6 L O2 Saturation 90 L ABG pCO2 30.7 L ABG pO2 57 L Ernesto Test Positive O2 Delivery Device Cannula Liter Flow 4.0 Radiography Diagnostic Testing: Radiology Impression Echocardiogram 10/28/22 01:51 Interpretation Summary The estimated ejection fraction is 70 %. Unable to assess diastolic dysfunction. The left atrium is moderately enlarged. Ordering Physician: Sam Newsome Referring Physician: Brenda Palmer M.D. Performed By: Antony Kothari RCS Chest X-Ray 10/28/22 13:55 IMPRESSION: Cardiomegaly with new patchy opacity at the right base. See discussion above. Follow-up chest imaging to resolution recommended. Electronically Signed: Matthew Alas, at 14:17 EDT , Physical Exam Narrative General: Alert, oriented, no apparent distress HEENT: Atraumatic, normocephalic Eyes: Anicteric, normal conjunctiva, extraocular movements grossly intact Neck: Supple Respiratory: Improved respiratory effort, no wheezes or rhonchi, slightly diminished at the bases Cardiovascular: Regular rate GI: Soft, nontender, nondistended Extremities: 1+ lower extremity edema Musculoskeletal: Moving all extremities Neuro: No overt focal neurological deficits Skin: No rashes appreciated Psych: Cooperative Assessment & Plan Assessment/Plan (1) Hypoxia: (2) Paroxysmal atrial fibrillation with RVR: (3) THEODORE (acute kidney injury): (4) Encephalopathy acute: PLAN: Plan 86-year-old female with a history of A-fib, GERD, hypertension, PSVT presented 10/27 with altered mental status.? She had a fall 5 days prior to admission when she was trying to help her and they both fell and she is evaluated the imaging but discharged home.? 3 days before presentation she developed back pain and came to the ED and was given oxycodone and discharged home.? She became very lethargic and had difficulty staying awake.? In the ED she is noted to be in A- fib with RVR and also hypoxic. #Gram-positive bacteremia -Due to blood cultures positive for gram-positive cocci in chains -Antibiotic started pending sensitivities -Trend ESR and CRP which were elevated -Continue to monitor cultures -10/29: Improving on current antibiotics, continue to follow cultures, await speciation and sensitivity #A-fib with RVR -Admitted to telemetry -Echo 11/06/2020 with normal EF, mildly enlarged left atrium, mild to moderate mitral valve calcification, RVSP 32 -Started on therapeutic Lovenox -TSH 1.15 -10/28: Repeat echo with EF of 70%, left atrium moderately enlarged, unable to assess diastolic dysfunction.? Heart rate had been controlled without any rate control but went back into RVR which seemed to have started cascade above.? Hesitant to give her beta-harrison or calcium channel harrison as to avoid negative inotropic effect given current clinical picture.? Heart rate presently 90s to low 100s, if any further elevation or concern would benefit from amiodarone bolus and drip -10/29: Heart rate improved today. If continues to do well we will schedule rate control agent, again hesitant to give negative inotrope if not needed #Hypoxia -Required supplemental O2 in the ED and had elevated D-dimer but CTA unrevealing -CTA no acute process -Given new A-fib with RVR as well as hypoxia we will check COVID and respiratory panel -BNP was 589 with no previous baseline, given new onset A-fib with last echo 2 years ago we will repeat echocardiogram -10/28: Had been doing well until she became tachypneic.? Repeat x-ray with right lower lobe infiltrate suspected but did appear more congested overall.? Received 1 dose of IV Lasix.? Ipratropium nebs. ABG prior to BiPAP today w/ tachycardia showed bicarb of 18.7 with a PCO2 of 30.7 and an O2 sat of 90/PO2 of 57 on 4 L nasal cannula -10/29: On 5 L of O2 but now satting 96% and tachypnea much improved as is blood pressure. Continue current management, low threshold to give another dose of Lasix however with improvement hesitant to do so as she also has the bacteremia/infection. Monitor cultures and respiratory status #Hypertensive emergency?resolved -Systolic blood pressure in the 190s and chest x-ray appears more congested patient is tachycardic, she was placed on BiPAP and given hydralazine and a dose of IV Lasix -If BP elevated again would favor nitro drip or paste to reduce afterload however echocardiogram demonstrated good EF but unable to determine diastolic function and did not note any severe valve abnormalities -Blood pressure improved significantly with current measures -Continue BiPAP -ABG prior to BiPAP showed bicarb of 18.7 with a PCO2 of 30.7 and an O2 sat of 90/PO2 of 57 on 4 L nasal cannula -Lactic acid within normal limits -CBC and BMP unrevealing -10/29: Resolved #THEODORE on CKD stage II -Initial creatinine 2 with last 1 in 2020 0.76 -Seem to be prerenal and she was given gentle hydration -10/28: Improving #Acute encephalopathy, toxic versus metabolic -Was in her usual health until day of admission -She was uremic as well as hypoxic but also mental status worsened after taking oxycodone -Likely was multifactorial -Resolved with discontinuation of oxycodone and improvement in oxygenation and BUN -CT brain was negative -10/29: Does seem to be doing better today #DVT ppx: Full dose Lovenox subcu Hallie Herbert MD Time spent in the patient's overall evaluation,decision-making process, review of diagnostic data, adjustment of management, discussion with other providers, nursing nursing and ancillary staff involved in patient's care documentation, 30 minutes Charges/Coding Visit Charges Inpatient E&M: 51736 Subs Hosp L2
--- NOTE | 2022-10-29 09:32 | PCM.RX.CS ---
Consult Pharmacy has been consulted to manage selected antiobiotic: Vancomycin Type of Consult: Follow-up Prior Doses of Antibiotics Received/Current Regimen: Vancomycin 2gm iv x 1 as LD, then 750mg iv q24h. Labs: Sodium 141 mmol/L (136-145) 10/29/22 06:10 Potassium 4.0 mmol/L (3.5-5.1) 10/29/22 06:10 Chloride 114 mmol/L (98-107) H 10/29/22 06:10 Carbon Dioxide 20.0 mmol/L (21.0-32.0) L 10/29/22 06:10 Anion Gap 7 (5-15) 10/29/22 06:10 BUN 62 mg/dL (7-18) H 10/29/22 06:10 Creatinine 1.02 mg/dL (0.55-1.02) 10/29/22 06:10 Est GFR (MDRD) Af Amer 66 mL/min (>60) 10/29/22 06:10 Est GFR (MDRD) Non-Af 55 mL/min (>60) L 10/29/22 06:10 BUN/Creatinine Ratio 60.8 RATIO (10-20) H 10/29/22 06:10 Glucose 123 mg/dL (74-106) H 10/29/22 06:10 Microbiology: Microbiology 10/28/22 10:20 Mucosa - Nasopharyngeal Respiratory Panel (PCR) - Final 10/27/22 20:25 Blood Culture (Wb) - Right Forearm Bacteria Detection (PCR) - Final 10/27/22 20:25 Blood Culture (Wb) - Right Forearm Blood Culture - Preliminary 10/28/22 10:45 Nasal Secretion SARS-CoV-2 & FLU Antigen (Rapid) - Final 10/27/22 20:45 Urine, Catheterized Urine Culture - Preliminary Culture exhibits no growth. 10/27/22 19:47 Blood Culture (Wb) - Anticubital Left Blood Culture - Preliminary Weight used for dosin.5 kg Estimated Creatinine Clearance: 45 ml/min Goal Trough: 15-20 mcg/mL Pharmacy Plan for Drug Dosing: Renal improved today from Cr 1.66 to 1.04. New CrCl calculated using adjusted body weight to be ~45 ml/min. Changing dose to 750mg iv q12h based on this. Trough level ordered for tomorrow. Pharmacy Service will continue to monitor and adjust dosing as required. Follow-Up Labs: Trough Vancomycin - 5.13.23 @1230 before 1300 dose
[2022-10-29] MEDS: Senna/Docusate Sodium 1 Tablet 2 TABLET PO ×2 (11:40→21:11)
[2022-10-29] MEDS: Lidocaine 5% Patch 1 PATCH TOPICAL (13:35)
--- NOTE | 2022-10-29 14:22 | CASEMGMT ---
Per RN CM patient's family wanted to complete a Healthcare Power of Angle Roll Operator. Family was also concerned with current living situation as patient has been caring for her and they feel like they need assisted living. ROSALIE met with patient and her daughter. SW introduced self and role at [facility]. SW asked about Healthcare Power of Angle Roll Operator. Patient's daughter said she found the documents so they do not need to complete document. SW asked if the plan was to go to assisted living at d/c. Patient's daughter said that patient and her are going to be moving into [place], but they are deciding if they will move into independent living or assisted living. SW let them know if Brenda needs any information regarding her stay at [facility] while she is here SW can send them information. They thanked ROSALIE for checking in. [place] MORA
--- NOTE | 2022-10-29 21:18 | CPS ---
Patient refused PAP therapy for the night.
[2022-10-29] MEDS: Haloperidol Lactate 5 MG/ML Vial IV (23:24)
[2022-10-30] VITALS (11 sets, daily range): BP systolic 142–174; BP diastolic 70–85; PULSE 86–111; RESP 16–28; TEMP 36.6–37.1; O2SAT 94–96; BMI 35.0
[2022-10-30] MEDS: Labetalol (Prefilled) 20 MG/4 ML 10 MG IV (03:28)
[2022-10-30] MEDS: Acetaminophen 500 MG Tablet PO ×3 (04:25→20:53)
[2022-10-30] MEDS: Ipratropium 0.5 MG/2.5 ML SOLUTION INHALATION ×3 (07:37→19:19)
[2022-10-30 08:11] LABS: Absolute Lymphocyte Count 1.11 X10^3/uL (0.83-4.51); Absolute Neutrophil Count 12.1 X10^3/uL (2.0-7.7); Basophil# 0.05 X10^3/uL; Basophil% 0.3 % (0-1); Eosinophil# 0.06 X10^3/uL; Eosinophils% 0.4 % (0-5); Hematocrit 33.1 % (37-47); Hemoglobin 10.7 g/dL (12.0-15.0); Lymphocyte # 1.11 X10^3/ul (0.83-4.51); Lymphocyte % 7.1 % (19-41); Mean Corp Hgb Conc 32.3 g/dL (32-36); Mean Corpuscular Hgb 28.5 pg (27.0-32.0); Mean Corpuscular Volume 88.3 fL (81-99); Mean Platelet Vol. 11.3 fl (6.2-12.0); Monocyte# 2.07 X10^3/uL; Monocyte% 13.3 % (0-10); NRBC Flagged by Analyzer 0 % (0-5); Neutrophil # 12.11 X10^3/uL (2.7-7.7); Neutrophil % 77.6 % (47-70); POSITIVE DIFFERENTIAL YES; POSITIVE MORPHOLOGY YES; Platelet Count 309 K/mm3 (150-450); RBC Distribution Width CV 14.5 % (11.6-14.6); RBC Distribution Width SD 46.7 fl (35.1-43.9); Red Blood Count 3.75 M/mm3 (4.2-5.4); White Blood Count 15.6 K/mm3 (4.4-11.0)
[2022-10-30 08:15] LABS: Differential Indicated SCAN CRITERIA MET
[2022-10-30 08:25] LABS: ALB/GLOB Ratio 0.5 RATIO (0.9-2.4); AST(SGOT) 48 U/L (15-37); Alanine Aminotransfer ALT/SGPT 44 U/L (13-56); Albumin, Serum 2.1 g/dL (3.2-5.0); Alkaline Phosphatase 114 U/L (45-117); Anion Gap 5 (5-15); BUN 39 mg/dL (7-18); Calcium,Total 9.5 mg/dL (8.5-10.1); Chloride 116 mmol/L (98-107); EST Glomerular Filtration Rate 85 mL/min (>60); Est Glom Filt Rate - Afr Amer 103 mL/min (>60); Estimated Creatinine Clearance 36.16 ml/min; Globulin 4.5 g/dL (2.2-4.2); Glucose 171 mg/dL (74-106); Potassium 4.2 mmol/L (3.5-5.1); Protein, Total 6.6 g/dL (6.4-8.2); Sodium Level 144 mmol/L (136-145)
--- NOTE | 2022-10-30 08:42 | PN.HOSP_ITS ---
Reason for Visit Reason for Visit: Diagnoses Encephalopathy, unspecified (10/27/22) Paroxysmal atrial fibrillation (10/27/22) Acute kidney failure, unspecified (10/27/22) Hypoxemia (10/27/22) Subjective Subjective Laying in bed, reports this morning not having as much back pain, does not feel short of breath but still appears working harder to breathe Objective Data Objective Data Vital Signs: Vital Signs Temp Pulse Resp BP Pulse Ox O2 Del Method O2 Flow Rate 98.0 F 86 20 H 142/72 H 96 Nasal Cannula 3 10/30/22 03:18 10/30/22 03:18 10/30/22 03:18 10/30/22 06:48 10/30/22 03:18 10/30/22 03:18 10/30/22 03:18 FiO2 94 10/29/22 16:55 Oxygen Flow Rate (L/min) 3 Oxygen Delivery Method Nasal Cannula Weight: 93.1 kg Body Mass Index (BMI) 35.0 Intake & Output: Intake and Output for Last 24 Hours 10/28/22 10/29/22 10/30/22 23:59 23:59 23:59 Intake Total 3217.25 / 3217.25 635 / 635 315 / 315 Output Total 950 / 950 Balance 3217.25 / 3217.25 -315 / -315 315 / 315 Lab / Micro Data Result Diagrams: 10/30/22 07:11 10/30/22 07:11 Labs: Laboratory Results - last 24 hr 10/30/22 07:11: WBC 15.6 H, RBC 3.75 L, Hgb 10.7 L, Hct 33.1 L, MCV 88.3, MCH 28.5, MCHC 32.3, RDW Std Deviation 46.7 H, RDW Coeff of Dolores 14.5, Plt Count 309, MPV 11.3, Immature Gran % (Auto) 1.300 H, Neut % (Auto) 77.6 H, Lymph % (Auto) 7.1 L, [place] % (Auto) 13.3 H, Eos % (Auto) 0.4, Baso % (Auto) 0.3, Absolute Neuts (auto) 12.1 H, Absolute Lymphs (auto) 1.11, Nucleated RBC % 0 10/30/22 07:11: Sodium 144, Potassium 4.2, Chloride 116 H, Carbon Dioxide 23.0, Anion Gap 5, BUN 39 H, Creatinine 0.70, Estim Creat Clear Calc 36.16, Est GFR (MDRD) Af Amer 103, Est GFR (MDRD) Non-Af 85, BUN/Creatinine Ratio 56.0 H, Glucose 171 H, Calcium 9.5, Total Bilirubin 0.60, AST 48 H, ALT 44, Alkaline Phosphatase 114, Total Protein 6.6, Albumin 2.1 L, Globulin 4.5 H, Albumin/Globulin Ratio 0.5 L Micro: Microbiology 10/27/22 19:47 Blood Culture (Wb) - Anticubital Left Blood Culture - Final Alpha Hemolytic Streptococcus 10/27/22 20:25 Blood Culture (Wb) - Right Forearm Bacteria Detection (PCR) - Final 10/27/22 20:25 Blood Culture (Wb) - Right Forearm Blood Culture - Final Streptococcus mitis 10/27/22 20:45 Urine, Catheterized Urine Culture - Final Culture exhibits no growth. 10/28/22 10:20 Mucosa - Nasopharyngeal Respiratory Panel (PCR) - Final 10/28/22 10:45 Nasal Secretion SARS-CoV-2 & FLU Antigen (Rapid) - Final Physical Exam Narrative General: Alert, oriented, no apparent distress HEENT: Atraumatic, normocephalic Eyes: Anicteric, normal conjunctiva, extraocular movements grossly intact Neck: Supple Respiratory: Improved respiratory effort, no wheezes or rhonchi, slightly diminished at the bases Cardiovascular: Regular rate GI: Soft, nontender, nondistended Extremities: 1+ lower extremity edema Musculoskeletal: Moving all extremities Neuro: No overt focal neurological deficits Skin: No rashes appreciated Psych: Cooperative Assessment & Plan Assessment/Plan (1) Hypoxia: (2) Paroxysmal atrial fibrillation with RVR: (3) THEODORE (acute kidney injury): (4) Encephalopathy acute: PLAN: Plan 86-year-old female with a history of A-fib, GERD, hypertension, PSVT presented 10/27 with altered mental status.? She had a fall 5 days prior to admission when she was trying to help her and they both fell and she is evaluated the imaging but discharged home.? 3 days before presentation she developed back pain and came to the ED and was given oxycodone and discharged home.? She became very lethargic and had difficulty staying awake.? In the ED she is noted to be in A- fib with RVR and also hypoxic. #Gram-positive bacteremia-strep mitis bacteremia -Due to blood cultures positive for gram-positive cocci in chains -Antibiotic started pending sensitivities -Trend ESR and CRP which were elevated -Continue to monitor cultures -10/29: Improving on current antibiotics, continue to follow cultures, await speciation and sensitivity -10/30: 2/2 bld cx + with 1 out of 2 cultures speciated to strep mitis and the other still listed as alphahemolytic strep though suspect this is the same organism. 2/2 blood cultures positive, on chest x-ray on 10/27 did show right lower lobe infiltrate, query if patient may have aspirated oral contents prior to when she came in due to her altered mental status, however unclear. She had TTE 10/27 as well which did not show any valve abnormalities however given propensity for endocarditis we will repeat blood cultures with low threshold for HIMANSHU if any concerns. Also has been having fairly significant lumbar pain and well no neurological or warning signs or symptoms MRI was obtained of her lumbar spine to rule out abscess given the strep mitis bacteremia especially given her elevated ESR and CRP and MRI showed possible acute osteomyelitis versus discitis at T11-T12 and an incompletely imaged small dorsal epidural fluid collection at T12-L1 possibly small epidural hematoma or epidural abscess. Call Dr. Ness with orthospine who reviewed the images and agreed that with the history that the area at T11-12 was suspicious for discitis and he recommended dedicated thoracic MRI as well as ID consult and that he would see her in consult tomorrow. Will continue abx at this time #A-fib with RVR -Admitted to telemetry -Echo 11/06/2020 with normal EF, mildly enlarged left atrium, mild to moderate mitral valve calcification, RVSP 32 -Started on therapeutic Lovenox -TSH 1.15 -10/28: Repeat echo with EF of 70%, left atrium moderately enlarged, unable to assess diastolic dysfunction.? Heart rate had been controlled without any rate control but went back into RVR which seemed to have started cascade above.? Hesitant to give her beta-harrison or calcium channel harrison as to avoid negati ve inotropic effect given current clinical picture.? Heart rate presently 90s to low 100s, if any further elevation or concern would benefit from amiodarone bolus and drip -10/29: Heart rate improved today. If continues to do well we will schedule rate control agent, again hesitant to give negative inotrope if not needed -10/30: Doing better with treatment of underlying infection #Hypoxia-possible aspiration pneumonia -Required supplemental O2 in the ED and had elevated D-dimer but CTA unrevealing -CTA no acute process -Given new A-fib with RVR as well as hypoxia we will check COVID and respiratory panel -BNP was 589 with no previous baseline, given new onset A-fib with last echo 2 years ago we will repeat echocardiogram -10/28: Had been doing well until she became tachypneic.? Repeat x-ray with right lower lobe infiltrate suspected but did appear more congested overall.? Received 1 dose of IV Lasix.? Ipratropium nebs. ABG prior to BiPAP today w/ tachycardia showed bicarb of 18.7 with a PCO2 of 30.7 and an O2 sat of 90/PO2 of 57 on 4 L nasal cannula -10/29: On 5 L of O2 but now satting 96% and tachypnea much improved as is blood pressure. Continue current management, low threshold to give another dose of Lasix however with improvement hesitant to do so as she also has the bacterem ia/infection. Monitor cultures and respiratory status -10/30: Still on O2, somewhat improving, possible aspiration pneumonia given right lower lobe infiltrate after coming in with altered mental status and having strep mitis bacteremia. #Hypertensive emergency?resolved -Systolic blood pressure in the 190s and chest x-ray appears more congested patient is tachycardic, she was placed on BiPAP and given hydralazine and a dose of IV Lasix -If BP elevated again would favor nitro drip or paste to reduce afterload however echocardiogram demonstrated good EF but unable to determine diastolic function and did not note any severe valve abnormalities -Blood pressure improved significantly with current measures -Continue BiPAP -ABG prior to BiPAP showed bicarb of 18.7 with a PCO2 of 30.7 and an O2 sat of 90/PO2 of 57 on 4 L nasal cannula -Lactic acid within normal limits -CBC and BMP unrevealing -10/29: Resolved #THEODORE on CKD stage II -Initial creatinine 2 with last 1 in 2020 0.76 -Seem to be prerenal and she was given gentle hydration -10/28: Improving #Acute encephalopathy, toxic versus metabolic -Was in her usual health until day of admission -She was uremic as well as hypoxic but also mental status worsened after taking oxycodone -Likely was multifactorial -Resolved with discontinuation of oxycodone and improvement in oxygenation and BUN -CT brain was negative -10/29: Does seem to be doing better today #DVT ppx: Full dose Lovenox subcu Hallie Herbert MD Time spent in the patient's overall evaluation,decision-making process, review of diagnostic data, adjustment of management, discussion with other providers, nursing nursing and ancillary staff involved in patient's care documentation, 30 minutes Charges/Coding Visit Charges Inpatient E&M: 15597 Subs Hosp L2
--- NOTE | 2022-10-30 09:01 | MRI_ITS ---
HISTORY: strep mitis bacteremia, lumbar pain, r/o infxn, FALL 1 WEEK AGO TECHNIQUE: Multiplanar and multisequence MR images of the lumbar spine were obtained before and after the intravenous administration of 19 cc Clariscan. 228 images. COMPARISON: XR 10/27/2022. FINDINGS: VERTEBRAE: Vertebral body heights maintained. Mild endplate bone marrow edema and fluid signal in the intervertebral disc of T11-12 without endplate destruction or significant intervertebral disc enhancement. Mild enhancement of the Mild degenerative endplate changes of the lumbar spine. ALIGNMENT: No anterior or posterior subluxation. SPINAL CANAL: Normal morphology and position of the conus medullaris at L1-2. 3 x 18 mm peripherally enhancing T2 hyperintense dorsal epidural collection at the T12-L1 level mildly narrowing the thecal sac, incompletely imaged on the axials. INTERVERTEBRAL DISCS: Posterior disc bulge osteophyte complexes at multiple levels. T11-12: Minimal narrowing of the thecal sac and bilateral foramina based on the sagittal images. T12-L1: Minimal narrowing of the thecal sac based on the sagittal images. L1-2: No significant central canal stenosis or foraminal narrowing. L2-3: Left extruded component with inferior migration resulting in left L3 nerve root impingement, mild central canal stenosis, and moderate bilateral foraminal narrowing with right L2 nerve root abutment. L3-4: Moderate-severe central canal stenosis with moderate bilateral foraminal narrowing abutting the left L3 nerve root. L4-5: Mild central canal stenosis and bilateral foraminal narrowing. L5-S1: No significant central canal stenosis. Left foraminal narrowing with probable impingement of the left L5 nerve root. SOFT TISSUES: Mild posterior intramuscular and subcutaneous edema. No paraspinal fluid collection. Small renal cysts bilaterally. MRI/Spine Lumbar W/WO Contrast IMPRESSION: Incompletely imaged bone marrow endplate edema and mild fluid signal in the intervertebral disc at T11-12 without endplate destruction or significant intervertebral disc enhancement, favoring degenerative exchange teller acute osteomyelitis-discitis. Incompletely imaged small dorsal epidural fluid collection at the T12-L1 level, possible small epidural hematoma or epidural abscess. Consider follow-up dedicated imaging at that level. Alignment multilevel degenerative disc disease of the lumbar spine with spinal canal stenosis, foraminal narrowing, and nerve root impingement as above. Electronically Signed: Silvia Barclay MD at 12:49 EDT ,
[2022-10-30 09:18] LABS: Procalcitonin 2.75 ng/mL (0.00-0.09)
[2022-10-30] MEDS: Lidocaine 5% Patch 1 PATCH TOPICAL (09:35)
[2022-10-30] MEDS: Cholecalciferol (VIT D3) 25 MCG TABLET (1,000 UNITS) PO (09:35)
[2022-10-30] MEDS: FLUoxetine 20 MG Capsule PO (09:35)
[2022-10-30] MEDS: amLODIPine 10 MG Tablet PO (09:35)
[2022-10-30] MEDS: Fenofibrate 145 MG Tablet PO (09:35)
[2022-10-30 09:36] LABS: Erythrocyte Sedimentation Rate 117 mm/hr (0-30)
[2022-10-30] MEDS: Enoxaparin 100 MG/ML Syringe 90 MG SC (09:38)
[2022-10-30 11:51] LABS: Differential Comment SCANNED
[2022-10-30] MEDS: 0.9% Saline Lock 10 ML Syringe IV ×2 (13:09→15:47)
[2022-10-30 13:18] LABS: Vancomycin, Trough Level 9.4 ug/mL (5.0-15.0)
--- NOTE | 2022-10-30 15:20 | PCM.RX.CS ---
Consult Pharmacy has been consulted to manage selected antiobiotic: Vancomycin Type of Consult: Follow-up Prior Doses of Antibiotics Received/Current Regimen: Medications Vancomycin HCl 750 mg/ Sodium (Chloride) 265 mls @ 250 mls/hr IV Q12H JADE Last Admin: 10/30/22 13:09 Dose: 250 mls/hr Labs: Sodium 144 mmol/L (136-145) 10/30/22 07:11 Potassium 4.2 mmol/L (3.5-5.1) 10/30/22 07:11 Chloride 116 mmol/L (98-107) H 10/30/22 07:11 Carbon Dioxide 23.0 mmol/L (21.0-32.0) 10/30/22 07:11 Anion Gap 5 (5-15) 10/30/22 07:11 BUN 39 mg/dL (7-18) H 10/30/22 07:11 Creatinine 0.70 mg/dL (0.55-1.02) 10/30/22 07:11 Est GFR (MDRD) Af Amer 103 mL/min (>60) 10/30/22 07:11 Est GFR (MDRD) Non-Af 85 mL/min (>60) 10/30/22 07:11 BUN/Creatinine Ratio 56.0 RATIO (10-20) H 10/30/22 07:11 Glucose 171 mg/dL (74-106) H 10/30/22 07:11 Vancomycin Trough 9.4 ug/mL (5.0-15.0) 10/30/22 12:30 Microbiology: Microbiology 10/27/22 19:47 Blood Culture (Wb) - Anticubital Left Blood Culture - Final Alpha Hemolytic Streptococcus 10/27/22 20:25 Blood Culture (Wb) - Right Forearm Bacteria Detection (PCR) - Final 10/27/22 20:25 Blood Culture (Wb) - Right Forearm Blood Culture - Final Streptococcus mitis 10/27/22 20:45 Urine, Catheterized Urine Culture - Final Culture exhibits no growth. 10/28/22 10:20 Mucosa - Nasopharyngeal Respiratory Panel (PCR) - Final 10/28/22 10:45 Nasal Secretion SARS-CoV-2 & FLU Antigen (Rapid) - Final Weight used for dosin kg Goal Trough: 15-20 mcg/mL Pharmacy Plan for Drug Dosing: Trough below goal, increase to 1000mg IV q12h. Pharmacy Service will continue to monitor and adjust dosing as required. Follow-Up Labs: Trough Vancomycin - 11/01 @ 0930
--- NOTE | 2022-10-30 18:45 | RAD_ITS ---
STUDY: XR Chest 1 View 10/30/2022 6:32 PM REASON FOR EXAM: Female, 86 years old. CHEST PAIN tachypnea COMPARISON: Two days ago. TECHNIQUE: XR Chest 1 View FINDINGS: There are bilateral pleural effusions. There are bilateral infiltrates. Enlarged heart size. Normal mediastinum. Normal andre. Prominent appearing increased interstitial lung markings. Normal visualized pulmonary arteries. There is atherosclerotic calcification of the aortic arch with tortuosity. There are diffuse degenerative changes of the visualized thoracic spine. There is degenerative osteoarthritis of the bilateral shoulders. There is no demonstrated abnormality of the visualized soft tissue structures of the upper abdomen. RAD/Chest 1 View (Portable) IMPRESSION: Pulmonary findings appear worse. Electronically Signed: Myron Burden MD at 19:37 EDT ,
[2022-10-30] MEDS: Losartan Potassium 25 MG Tablet PO (19:02)
[2022-10-30 19:57] LABS: Anion Gap 8 (5-15); BUN 32 mg/dL (7-18); Calcium,Total 9.8 mg/dL (8.5-10.1); Chloride 114 mmol/L (98-107); Creatinine, Serum 0.76 mg/dL (0.55-1.02); EST Glomerular Filtration Rate 77 mL/min (>60); Est Glom Filt Rate - Afr Amer 93 mL/min (>60); Estimated Creatinine Clearance 36.16 ml/min; Glucose 155 mg/dL (74-106); Potassium 4.2 mmol/L (3.5-5.1); Sodium Level 145 mmol/L (136-145)
[2022-10-30 20:40] LABS: Lactic Acid 1.4 mmol/L (0.4-1.9)
[2022-10-30] MEDS: Furosemide 40 MG/4 ML Vial IV (20:46)
[2022-10-30] MEDS: Polyethylene Glycol 3350 17 GM PACKET PO (20:47)
[2022-10-30] MEDS: Metoprolol Tartrate 25 MG Tablet 12.5 MG PO (20:49)
[2022-10-30] MEDS: Vancomycin IV 1,000 MG/200 ML BAG 200 MG IV (21:06)
[2022-10-31] VITALS (11 sets, daily range): BP systolic 140–168; BP diastolic 76–90; PULSE 90–105; RESP 12–30; TEMP 36.4–36.6; O2SAT 93–98; BMI 34.8
--- NOTE | 2022-10-31 00:25 | CPS ---
Pt confused but tachypneic, encouraged pt to wear bipap. Pt took bipap off after less than 15 min. RN aware
[2022-10-31] MEDS: Acetaminophen 500 MG Tablet PO ×3 (02:58→18:53)
[2022-10-31 06:29] LABS: Absolute Neutrophil Count 12.6 X10^3/uL (2.0-7.7); Basophil# 0.14 X10^3/uL; Basophil% 0.8 % (0-1); Eosinophil# 0.16 X10^3/uL; Eosinophils% 0.9 % (0-5); Hematocrit 35.1 % (37-47); Lymphocyte % 11.6 % (19-41); Mean Corp Hgb Conc 31.3 g/dL (32-36); Mean Corpuscular Hgb 28.1 pg (27.0-32.0); Mean Corpuscular Volume 89.8 fL (81-99); Mean Platelet Vol. 11.2 fl (6.2-12.0); Monocyte# 1.92 X10^3/uL; Monocyte% 11.1 % (0-10); NRBC Flagged by Analyzer 0 % (0-5); Neutrophil # 12.63 X10^3/uL (2.7-7.7); Neutrophil % 73.2 % (47-70); POSITIVE DIFFERENTIAL YES; POSITIVE MORPHOLOGY YES; Platelet Count 362 K/mm3 (150-450); RBC Distribution Width CV 14.6 % (11.6-14.6); RBC Distribution Width SD 47.8 fl (35.1-43.9); Red Blood Count 3.91 M/mm3 (4.2-5.4); White Blood Count 17.3 K/mm3 (4.4-11.0)
[2022-10-31 06:33] LABS: Differential Indicated SCAN CRITERIA MET
[2022-10-31 07:00] LABS: Atypical Lymphocyte 1+ %; Differential Comment SCANNED
[2022-10-31] MEDS: Ipratropium 0.5 MG/2.5 ML SOLUTION INHALATION ×3 (07:07→19:58)
[2022-10-31 07:17] LABS: ALB/GLOB Ratio 0.5 RATIO (0.9-2.4); AST(SGOT) 46 U/L (15-37); Alanine Aminotransfer ALT/SGPT 39 U/L (13-56); Albumin, Serum 2.1 g/dL (3.2-5.0); Alkaline Phosphatase 124 U/L (45-117); Anion Gap 8 (5-15); BUN 26 mg/dL (7-18); Calcium,Total 9.3 mg/dL (8.5-10.1); Chloride 112 mmol/L (98-107); Creatinine, Serum 0.63 mg/dL (0.55-1.02); EST Glomerular Filtration Rate 95 mL/min (>60); Est Glom Filt Rate - Afr Amer 115 mL/min (>60); Estimated Creatinine Clearance 36.16 ml/min; Globulin 4.6 g/dL (2.2-4.2); Glucose 138 mg/dL (74-106); Potassium 3.7 mmol/L (3.5-5.1); Protein, Total 6.7 g/dL (6.4-8.2); Sodium Level 144 mmol/L (136-145)
[2022-10-31] MEDS: Vancomycin IV 1,000 MG/200 ML BAG 200 MG IV ×2 (10:25→20:27)
[2022-10-31] MEDS: Cholecalciferol (VIT D3) 25 MCG TABLET (1,000 UNITS) PO (10:27)
[2022-10-31] MEDS: amLODIPine 10 MG Tablet PO (10:27)
[2022-10-31] MEDS: Fenofibrate 145 MG Tablet PO (10:27)
[2022-10-31] MEDS: 0.9% Saline Lock 10 ML Syringe IV ×4 (10:27→20:27)
[2022-10-31] MEDS: FLUoxetine 20 MG Capsule PO (10:27)
[2022-10-31] MEDS: Metoprolol Tartrate 25 MG Tablet 12.5 MG PO (10:28)
[2022-10-31] MEDS: Losartan Potassium 25 MG Tablet PO (10:28)
[2022-10-31] MEDS: Enoxaparin 100 MG/ML Syringe 90 MG SC (10:29)
[2022-10-31] MEDS: Polyethylene Glycol 3350 17 GM PACKET PO (10:30)
[2022-10-31] MEDS: Lidocaine 5% Patch 1 PATCH TOPICAL (10:31)
--- NOTE | 2022-10-31 11:11 | PN.HOSP_ITS ---
Reason for Visit Reason for Visit: Diagnoses Encephalopathy, unspecified (10/27/22) Paroxysmal atrial fibrillation (10/27/22) Acute kidney failure, unspecified (10/27/22) Hypoxemia (10/27/22) Subjective Subjective Reports having some lower back and side pain but no other complaints today Objective Data Objective Data Vital Signs: Vital Signs Temp Pulse Resp BP Pulse Ox O2 Del Method O2 Flow Rate 97.7 F L 98 19 H 143/76 H 94 Nasal Cannula 2 10/31/22 10:15 10/31/22 10:28 10/31/22 10:15 10/31/22 10:15 10/31/22 10:15 10/31/22 10:15 10/31/22 10:22 FiO2 40 10/31/22 00:03 Oxygen Flow Rate (L/min) 2 Oxygen Delivery Method Nasal Cannula Weight: 92.5 kg Body Mass Index (BMI) 34.8 Intake & Output: Intake and Output for Last 24 Hours 10/29/22 10/30/22 10/31/22 23:59 23:59 23:59 Intake Total 635 / 635 1897.75 / 1897.75 310.5 / 310.5 Output Total 950 / 950 850 / 850 300 / 300 Balance -315 / -315 1047.75 / 1047.75 10.5 / 10.5 Lab / Micro Data Result Diagrams: 10/31/22 05:35 10/31/22 05:35 Labs: Laboratory Results - last 24 hr 10/30/22 07:11: Differential Comment SCANNED, Diff Path Review October10/30/22 12:30: Vancomycin Trough 9.4 10/30/22 18:55: Sodium 145, Potassium 4.2, Chloride 114 H, Carbon Dioxide 23.0, Anion Gap 8, BUN 32 H, Creatinine 0.76, Estim Creat Clear Calc 36.16, Est GFR (MDRD) Af Amer 93, Est GFR (MDRD) Non-Af 77, BUN/Creatinine Ratio 42.0 H, Glucose 155 H, Calcium 9.8 10/30/22 18:55: Lactic Acid 1.4 10/31/22 05:35: WBC 17.3 H, RBC 3.91 L, Hgb 11.0 L, Hct 35.1 L, MCV 89.8, MCH 28.1, MCHC 31.3 L, RDW Std Deviation 47.8 H, RDW Coeff of Dolores 14.6, Plt Count 362, MPV 11.2, Immature Gran % (Auto) 2.400 H, Neut % (Auto) 73.2 H, Lymph % (Auto) 11.6 L, [place] % (Auto) 11.1 H, Eos % (Auto) 0.9, Baso % (Auto) 0.8, Absolute Neuts (auto) 12.6 H, Absolute Lymphs (auto) 2.00, Nucleated RBC % 0, Differential Comment SCANNED, Diff Path Review May foll, Atypical Lymphocytes 1+ 10/31/22 05:35: Sodium 144, Potassium 3.7, Chloride 112 H, Carbon Dioxide 24.0, Anion Gap 8, BUN 26 H, Creatinine 0.63, Estim Creat Clear Calc 36.16, Est GFR (MDRD) Af Amer 115, Est GFR (MDRD) Non-Af 95, BUN/Creatinine Ratio 41.0 H, Glucose 138 H, Calcium 9.3, Total Bilirubin 0.80, AST 46 H, ALT 39, Alkaline Ph osphatase 124 H, Total Protein 6.7, Albumin 2.1 L, Globulin 4.6 H, Albumin/Globulin Ratio 0.5 L Micro: Microbiology 10/27/22 19:47 Blood Culture (Wb) - Anticubital Left Blood Culture - Final Alpha Hemolytic Streptococcus 10/27/22 20:25 Blood Culture (Wb) - Right Forearm Bacteria Detection (PCR) - Final 10/27/22 20:25 Blood Culture (Wb) - Right Forearm Blood Culture - Final Streptococcus mitis 10/27/22 20:45 Urine, Catheterized Urine Culture - Final Culture exhibits no growth. 10/28/22 10:20 Mucosa - Nasopharyngeal Respiratory Panel (PCR) - Final 10/28/22 10:45 Nasal Secretion SARS-CoV-2 & FLU Antigen (Rapid) - Final Radiography Diagnostic Testing: Radiology Impression Lumbar Spine MRI 10/30/22 09:01 IMPRESSION: Incompletely imaged bone marrow endplate edema and mild fluid signal in the intervertebral disc at T11-12 without endplate destruction or significant intervertebral disc enhancement, favoring degenerative blade changer acute osteomyelitis-discitis. Incompletely imaged small dorsal epidural fluid collection at the T12-L1 level, possible small epidural hematoma or epidural abscess. Consider follow-up dedicated imaging at that level. Alignment multilevel degenerative disc disease of the lumbar spine with spinal canal stenosis, foraminal narrowing, and nerve root impingement as above. Electronically Signed: Silvia Barclay MD at 12:49 EDT , Chest X-Ray 10/30/22 18:45 IMPRESSION: Pulmonary findings appear worse. Electronically Signed: Myron Burden MD at 19:37 EDT , Physical Exam Narrative General: Alert, oriented, no apparent distress HEENT: Atraumatic, normocephalic Eyes: Anicteric, normal conjunctiva, extraocular movements grossly intact Neck: Supple Respiratory: Variable respiratory effort, somewhat diminished airflow at the bases, tachypneic at times Cardiovascular: Regular rate GI: Soft, nontender, nondistended Extremities: 1+ lower extremity edema Musculoskeletal: Moving all extremities Neuro: No overt focal neurological deficits Skin: No rashes appreciated Psych: Cooperative Assessment & Plan Assessment/Plan (1) Hypoxia: (2) Paroxysmal atrial fibrillation with RVR: (3) THEODORE (acute kidney injury): (4) Encephalopathy acute: PLAN: Plan 86-year-old female with a history of A-fib, GERD, hypertension, PSVT presented 10/27 with altered mental status.? She had a fall 5 days prior to admission when she was trying to help her and they both fell and she is evaluated the imaging but discharged home.? 3 days before presentation she developed back pain and came to the ED and was given oxycodone and discharged home.? She became very lethargic and had difficulty staying awake.? In the ED she is noted to be in A- fib with RVR and also hypoxic. #Gram-positive bacteremia-strep mitis bacteremia/possible discitis at T11-T12 on MRI -Due to blood cultures positive for gram-positive cocci in chains -Antibiotic started pending sensitivities -Trend ESR and CRP which were elevated -Continue to monitor cultures -10/29: Improving on current antibiotics, continue to follow cultures, await speciation and sensitivity -10/30: 2/2 bld cx + with 1 out of 2 cultures speciated to strep mitis and the other still listed as alpha hemolytic strep though suspect this is the same organism. 2/2 blood cultures positive, on chest x-ray on 10/27 did show right lower lobe infiltrate, query if patient may have aspirated oral contents prior to when she came in due to her altered mental status, however unclear. She had TTE 10/27 as well which did not show any valve abnormalities however given propensity for endocarditis we will repeat blood cultures with low threshold for HIMANSHU if any concerns. Also has been having fairly significant lumbar pain and well no neurological or warning signs or symptoms MRI was obtained of her lumbar spine to rule out abscess given the strep mitis bacteremia especially given her elevated ESR and CRP and MRI showed possible acute osteomyelitis versus discitis at T11-T12 and an incompletely imaged small dorsal epidural fluid collection at T12-L1 possibly small epidural hematoma or epidural abscess. Call Dr. Ness with orthospine who reviewed the images and agreed that with the history that the area at T11-12 was suspicious for discitis and he recommended dedicated thoracic MRI as well as ID consult and that he would see her in consult tomorrow. Will continue abx at this time -10/31: Thoracic MRI ordered. WBC count increased today with further left shift, afebrile, ESR and CRP pending. Dr. Ness with orthospine to see today, ID consulted. Repeat cultures pending. If patient needs any kind of procedure will need to hold full dose Lovenox #A-fib with RVR -Admitted to telemetry -Echo 11/06/2020 with normal EF, mildly enlarged left atrium, mild to moderate mitral valve calcification, RVSP 32 -Started on therapeutic Lovenox -TSH 1.15 -10/28: Repeat echo with EF of 70%, left atrium moderately enlarged, unable to assess diastolic dysfunction.? Heart rate had been controlled without any rate control but went back into RVR which seemed to have started cascade above.? Hesitant to give her beta-harrison or calcium channel harrison as to avoid negative inotropic effect given current clinical picture.? Heart rate presently 90s to low 100s, if any further elevation or concern would benefit from amiodarone bolus and drip -10/29: Heart rate improved today. If continues to do well we will schedule rate control agent, again hesitant to give negative inotrope if not needed -10/30: Doing better with treatment of underlying infection. Remains on full dose Lovenox #Hypoxia-possible aspiration pneumonia -Required supplemental O2 in the ED and had elevated D-dimer but CTA unrevealing -CTA no acute process -Given new A-fib with RVR as well as hypoxia we will check COVID and respiratory panel -BNP was 589 with no previous baseline, given new onset A-fib with last echo 2 years ago we will repeat echocardiogram -10/28: Had been doing well until she became tachypneic.? Repeat x-ray with right lower lobe infiltrate suspected but did appear more congested overall.? Received 1 dose of IV Lasix.? Ipratropium nebs. ABG prior to BiPAP today w/ tachycardia showed bicarb of 18.7 with a PCO2 of 30.7 and an O2 sat of 90/PO2 of 57 on 4 L nasal cannula -10/29: On 5 L of O2 but now satting 96% and tachypnea much improved as is blood pressure. Continue current management, low threshold to give another dose of Lasix however with improvement hesitant to do so as she also has the bacterem ia/infection. Monitor cultures and respiratory status -10/30: Still on O2, somewhat improving, possible aspiration pneumonia given right lower lobe infiltrate after coming in with altered mental status and having strep mitis bacteremia. #Hypertensive emergency?resolved -Systolic blood pressure in the 190s and chest x-ray appears more congested patient is tachycardic, she was placed on BiPAP and given hydralazine and a dose of IV Lasix -If BP elevated again would favor nitro drip or paste to reduce afterload however echocardiogram demonstrated good EF but unable to determine diastolic function and did not note any severe valve abnormalities -Blood pressure improved significantly with current measures -Continue BiPAP -ABG prior to BiPAP showed bicarb of 18.7 with a PCO2 of 30.7 and an O2 sat of 90/PO2 of 57 on 4 L nasal cannula -Lactic acid within normal limits -CBC and BMP unrevealing -10/29: Resolved #THEODORE on CKD stage II -Initial creatinine 2 with last 1 in 2020 0.76 -Seem to be prerenal and she was given gentle hydration -10/28: Improving #Acute encephalopathy, toxic versus metabolic -Was in her usual health until day of admission -She was uremic as well as hypoxic but also mental status worsened after taking oxycodone -Likely was multifactorial -Resolved with discontinuation of oxycodone and improvement in oxygenation and BUN -CT brain was negative -10/29: Does seem to be doing better today #DVT ppx: Full dose Lovenox subcu Hallie Herbert MD Time spent in the patient's overall evaluation,decision-making process, review of diagnostic data, adjustment of management, discussion with other providers, nursing nursing and ancillary staff involved in patient's care documentation, 45 minutes Charges/Coding Visit Charges Inpatient E&M: 77437 Subs Hosp L3
[2022-10-31] MEDS: Furosemide 20 MG/2 ML VIAL IV (11:54)
[2022-10-31 12:06] LABS: Erythrocyte Sedimentation Rate 107 mm/hr (0-30)
--- NOTE | 2022-10-31 12:24 | MRI_ITS ---
We are attempting to reach an attending provider to discuss findings. An addendum with communication details will be sent when the communication is complete. STUDY: MRI THORACIC SPINE WITH AND WITHOUT CONTRAST REASON FOR EXAM: Female, 86 years old. discitis vs osteomy and possible epidural abscess, F/U ABNORMAL FINDINGS ON PRIOR mri OF LUMBAR TECHNIQUE: w and w/o of 19 cc clariscan was administered intravenously for the contrast portion of the examination. COMPARISON: mri 10.30.22. FINDINGS: Normal kyphosis of the thoracic spine. There is no substantial scoliosis. T1-2, T2-3, T3-4, T4-5, T5-6, T6-7, T7-8, T8-9, T9-10, T10-11: Loss of intervertebral disc height. There is endplate spondylosis of the vertebral body. Normal central canal and intervertebral neural foramina at the corresponding levels. Disc dessication. Normal visualized thoracic cord. Normal conus medullaris that terminates at the L1 level. T12-L1: 30 x 9 x 17mm posterior epidural fluid collection. It has increased T2 signal. This is causing moderate spinal stenosis. Narrowing of the right lateral recess. Peripherally enhancing T2 hyperintense dorsal epidural collection at the T12-L1 level with compression of the thecal sac. Perivertebral soft tissue mass. T11-12: Vertebral body heights maintained. Mild endplate bone marrow edema and fluid signal in the intervertebral disc of T11-12 without endplate destruction or significant intervertebral disc enhancement. Mild enhancement of the T12 vertebral body. Mild degenerative endplate changes of the lumbar spine. Loss of intervertebral disc height. Disc dessication. Moderate spinal stenosis. MRI/Spine Thoracic W/WO Contrast IMPRESSION: T11-12: T11 osteomyelitis with discitis with a Perivertebral soft tissue mass. Resultant dorsal epidural abscess at T12-L1 as previously described has enlarged. Currently, the abscess is 30mm in greatest dimension causing moderate spinal stenosis. Critical finding called and case discussed. Electronically Signed: Myron Burden MD at 15:08 EDT ,
--- NOTE | 2022-10-31 15:40 | PCM.CONS.B ---
Consult Date of Consult: 10/31/[address] Ness dictating a consultation on Miriam Dillon. I am seeing the patient at the request of Dr. Herbert and with the patient's permission. Her history is well-documented in the chart. Apparently on or about the of this month she developed severe low back pain. This was perhaps 3 days after the fall that she encountered when she was trying to help her they both fell as he lost his balance. The days later she presented with a severe pain she was seen in the emergency room given some pain medicine and sent home and she came back on the because of continued low back pain. In addition she had a altered mental state at that time according to previous notes. She also has history of paroxysmal supraventricular tachycardia and high blood pressure. I discussed the case with Dr. Herbert yesterday and I looked at her MRI scan of her lumbar spine. At T11-12 there was a suspicious area with increased fluid within the disc. In addition there is a questionable abscess at T12 and L1. Currently the patient states that she really is not in very much pain as she lies in bed. She does hurt quite a bit though when they do stand her up. She feels that overall it is better than it was when she first got here. Dr. Herbert has been treating her with vancomycin. On examination she is neurologically intact. She has no long tract signs. Clonus is absent and Babinski's are downgoing. She has good motor strength of all the major muscle groups of both lower extremities. She has no specific atrophy. She has no dysesthesias in her lower extremities. Review of her thoracic MRI scan that was done earlier today demonstrates increased size of the potential abscess increased edema seen at the T11 vertebral body. The neuroradiologist felt that it was consistent with discitis osteomyelitis at T11-T12. Noted that her CRP that started in the 200s is now 238. Her sed rate however has gone up to 107. Her white count has also gone up a little bit. Dr. Beverly I will probably see the patient tomorrow and we will await his recommendations regarding antibiotic therapy. It appears we will continue the vancomycin for now. This is the end of the consultation on Miriam Dlilon. This is Dr. Ness dictating.
[2022-10-31] MEDS: MELATONIN 3 MG TABLET PO (20:24)
[2022-10-31] MEDS: Metoprolol Tartrate 25 MG Tablet PO (20:25)
[2022-11-01] VITALS (11 sets, daily range): BP systolic 132–174; BP diastolic 68–94; PULSE 87–95; RESP 18–20; TEMP 36.2–36.9; O2SAT 92–97; BMI 35.3
[2022-11-01] MEDS: Acetaminophen 500 MG Tablet PO ×3 (01:14→13:45)
--- NOTE | 2022-11-01 02:03 | CPS ---
pt refuses to wear bipap
[2022-11-01] MEDS: hydrALAZINE 20 MG/ML Vial 5 MG IV (03:27)
[2022-11-01] MEDS: 0.9% Saline Lock 10 ML Syringe IV (03:27)
[2022-11-01 05:34] LABS: Absolute Lymphocyte Count 2.15 X10^3/uL (0.83-4.51); Absolute Neutrophil Count 12.1 X10^3/uL (2.0-7.7); Basophil# 0.13 X10^3/uL; Basophil% 0.8 % (0-1); Eosinophil# 0.29 X10^3/uL; Eosinophils% 1.7 % (0-5); Hematocrit 33.4 % (37-47); Hemoglobin 10.7 g/dL (12.0-15.0); Lymphocyte # 2.15 X10^3/ul (0.83-4.51); Lymphocyte % 12.4 % (19-41); Mean Corpuscular Hgb 28.7 pg (27.0-32.0); Mean Corpuscular Volume 89.5 fL (81-99); Mean Platelet Vol. 11.3 fl (6.2-12.0); Monocyte# 2.09 X10^3/uL; Monocyte% 12.1 % (0-10); NRBC Flagged by Analyzer 0 % (0-5); Neutrophil # 12.14 X10^3/uL (2.7-7.7); Neutrophil % 70.1 % (47-70); POSITIVE DIFFERENTIAL YES; POSITIVE MORPHOLOGY YES; Platelet Count 412 K/mm3 (150-450); RBC Distribution Width CV 14.6 % (11.6-14.6); RBC Distribution Width SD 47.5 fl (35.1-43.9); Red Blood Count 3.73 M/mm3 (4.2-5.4); White Blood Count 17.3 K/mm3 (4.4-11.0)
[2022-11-01 05:47] LABS: Differential Indicated SCAN CRITERIA MET
[2022-11-01 06:31] LABS: Erythrocyte Sedimentation Rate 94 mm/hr (0-30)
[2022-11-01 06:42] LABS: ALB/GLOB Ratio 0.4 RATIO (0.9-2.4); AST(SGOT) 41 U/L (15-37); Alanine Aminotransfer ALT/SGPT 38 U/L (13-56); Alkaline Phosphatase 125 U/L (45-117); Anion Gap 7 (5-15); BUN 25 mg/dL (7-18); BUN/Creat Ratio 39.1 RATIO (10-20); Calcium,Total 9.1 mg/dL (8.5-10.1); Chloride 110 mmol/L (98-107); Creatinine, Serum 0.64 mg/dL (0.55-1.02); EST Glomerular Filtration Rate 94 mL/min (>60); Est Glom Filt Rate - Afr Amer 114 mL/min (>60); Estimated Creatinine Clearance 35.52 ml/min; Globulin 4.6 g/dL (2.2-4.2); Glucose 134 mg/dL (74-106); Potassium 3.7 mmol/L (3.5-5.1); Protein, Total 6.6 g/dL (6.4-8.2); Sodium Level 143 mmol/L (136-145)
[2022-11-01] MEDS: Ipratropium 0.5 MG/2.5 ML SOLUTION INHALATION ×2 (07:12→13:02)
[2022-11-01] MEDS: Losartan Potassium 25 MG Tablet PO (07:34)
[2022-11-01] MEDS: Enoxaparin 100 MG/ML Syringe 90 MG SC (07:35)
[2022-11-01] MEDS: Metoprolol Tartrate 25 MG Tablet PO ×2 (07:35→20:22)
[2022-11-01] MEDS: amLODIPine 10 MG Tablet PO (07:36)
[2022-11-01] MEDS: Lidocaine 5% Patch 1 PATCH TOPICAL (07:36)
[2022-11-01] MEDS: FLUoxetine 20 MG Capsule PO (07:37)
[2022-11-01] MEDS: Cholecalciferol (VIT D3) 25 MCG TABLET (1,000 UNITS) PO (07:37)
[2022-11-01] MEDS: Fenofibrate 145 MG Tablet PO (07:37)
--- NOTE | 2022-11-01 08:30 | PCM.PN.HOSP ---
Reason for Visit Reason for Visit: Diagnoses Encephalopathy, unspecified (10/27/22) Paroxysmal atrial fibrillation (10/27/22) Acute kidney failure, unspecified (10/27/22) Hypoxemia (10/27/22) Subjective Subjective had some abdominal distress after eating daily (known lactose intolerance). Objective Data Objective Data Vital Signs: Vital Signs Temp Pulse Resp BP Pulse Ox O2 Del Method O2 Flow Rate 36.7 C 93 18 145/94 H 97 Room Air 2 11/01/22 07:31 11/01/22 07:35 11/01/22 07:31 11/01/22 07:35 11/01/22 07:39 11/01/22 07:39 11/01/22 07:31 FiO2 40 10/31/22 00:03 Oxygen Flow Rate (L/min) 2 Oxygen Delivery Method Room Air Weight: 93.9 kg Body Mass Index (BMI) 35.3 Intake & Output: Intake and Output for Last 24 Hours 10/30/22 10/31/22 11/01/22 23:59 23:59 23:59 Intake Total 1897.75 / 1897.75 1614.0 / 1714.0 100 / 100 Output Total 850 / 850 300 / 300 Balance 1047.75 / 1047.75 1314.0 / 1414.0 100 / 100 Lab / Micro Data Result Diagrams: 11/01/22 04:32 11/01/22 04:32 Labs: Laboratory Results - last 24 hr 10/31/22 05:35: ESR 107 H 10/31/22 05:35: C-React Prot Ext Range 138.00 H 11/01/22 04:32: WBC 17.3 H, RBC 3.73 L, Hgb 10.7 L, Hct 33.4 L, MCV 89.5, MCH 28.7, MCHC 32.0, RDW Std Deviation 47.5 H, RDW Coeff of Dolores 14.6, Plt Count 412, MPV 11.3, Immature Gran % (Auto) 2.900 H, Neut % (Auto) 70.1 H, Lymph % (Auto) 12.4 L, [place] % (Auto) 12.1 H, Eos % (Auto) 1.7, Baso % (Auto) 0.8, Absolute Neuts (auto) 12.1 H, Absolute Lymphs (auto) 2.15, Nucleated RBC % 0, Diff Path Review October, ESR 94 H 11/01/22 04:32: Sodium 143, Potassium 3.7, Chloride 110 H, Carbon Dioxide 26.0, Anion Gap 7, BUN 25 H, Creatinine 0.64, Estim Creat Clear Calc 35.52, Est GFR (MDRD) Af Amer 114, Est GFR (MDRD) Non-Af 94, BUN/Creatinine Ratio 39.1 H, Glucose 134 H, Calcium 9.1, Total Bilirubin 0.90, AST 41 H, ALT 38, Alkaline Phosphatase 125 H, C-React Prot Ext Range 95.50 H, Total Protein 6.6, Albumin 2.0 L, Globulin 4.6 H, Albumin/Globulin Ratio 0.4 L Micro: Microbiology 10/27/22 19:47 Blood Culture (Wb) - Anticubital Left Blood Culture - Final Alpha Hemolytic Streptococcus 10/27/22 20:25 Blood Culture (Wb) - Right Forearm Bacteria Detection (PCR) - Final 10/27/22 20:25 Blood Culture (Wb) - Right Forearm Blood Culture - Final Streptococcus mitis 10/27/22 20:45 Urine, Catheterized Urine Culture - Final Culture exhibits no growth. 10/28/22 10:20 Mucosa - Nasopharyngeal Respiratory Panel (PCR) - Final 10/28/22 10:45 Nasal Secretion SARS-CoV-2 & FLU Antigen (Rapid) - Final Radiography Diagnostic Testing: Radiology Impression Thoracic Spine MRI 10/31/22 12:24 IMPRESSION: T11-12: T11 osteomyelitis with discitis with a Perivertebral soft tissue mass. Resultant dorsal epidural abscess at T12-L1 as previously described has enlarged. Currently, the abscess is 30mm in greatest dimension causing moderate spinal stenosis. Critical finding called and case discussed. Electronically Signed: Myron Burden MD at 15:08 EDT , ADDENDUM: 10/31/22 [id number] IMPRESSION: T11-12: T11 osteomyelitis with discitis with a Perivertebral soft tissue mass. Resultant dorsal epidural abscess at T12-L1 as previously described has enlarged. Currently, the abscess is 30mm in greatest dimension causing moderate spinal stenosis. Critical finding called and case discussed. N.B. : The above Results were Read Back by Myron Burden MD to Conor Turner RN, and understanding confirmed on 10/31/2022 15:59:10 (ET). Electronically Signed: Myron Burden MD at 15:08 EDT , Physical Exam Const alert and no apparent distress HEENT head/scalp atraumatic and moist oral mucous membranes Resp normal respiratory effort, no retractions, no use of accessory muscles and clear to auscultation bilaterally Cardio regular rate, regular rhythm, S1 normal heart sound and S2 normal heart sound GI normal to inspection, nondistended, normoactive bowel sounds, soft to palpation, non-tender and non-distended Assessment & Plan Assessment/Plan (1) Bacteremia: PLAN: #Gram-positive bacteremia-strep mitis bacteremia/possible discitis at T11-T12 on MRI -Due to blood cultures positive for gram-positive cocci in chains -10/29: Improving on current antibiotics, continue to follow cultures, await speciation and sensitivity -10/30: 2/2 bld cx + with 1 out of 2 cultures speciated to strep mitis and the other still listed as alpha hemolytic strep though suspect this is the same organism. 2/2 blood cultures positive, on chest x-ray on 10/27 did show right lower lobe infiltrate, query if patient may have aspirated oral contents prior to when she came in due to her altered mental status, however unclear. She had TTE 10/27 as well which did not show any valve abnormalities however given propensity for endocarditis we will repeat blood cultures with low threshold for HIMANSHU if any concerns. Also has been having fairly significant lumbar pain and well no neurological or warning signs or symptoms MRI was obtained of her lumbar spine to rule out abscess given the strep mitis bacteremia especially given her elevated ESR and CRP and MRI showed possible acute osteomyelitis versus discitis at T11-T12 and an incompletely imaged small dorsal epidural fluid collection at T12-L1 possibly small epidural hematoma or epidural abscess. Call Dr. Ness with orthospine who reviewed the images and agreed that with the history that the area at T11-12 was suspicious for discitis and he recommended dedicated thoracic MRI as well as ID consult and that he would see her in consult tomorrow. Will continue abx at this time -10/31: Thoracic MRI ordered. WBC count increased today with further left shift, afebrile, ESR and CRP pending. Dr. Ness with orthospine to see today, ID consulted. Repeat cultures pending. If patient needs any kind of procedure will need to hold full dose Lovenox 11/01: MRI T11 osteomyelitis. Epidural abscess at T12 to L1. DW Dr. Leonardo of IR, he does not do drainage of epidural abscesses. Page out to Dr. Ness. (2) Diskitis: PLAN: MRI shows T11-12 osteomyeltisi w discitis. Epidural abscess at T12-L1 (30mm) with moderate spinal stenosis Spine surgery on consult (3) Hypoxia: PLAN: #Hypoxia-possible aspiration pneumonia -Required supplemental O2 in the ED and had elevated D-dimer but CTA unrevealing -CTA no acute process -Given new A-fib with RVR as well as hypoxia we will check COVID and respiratory panel -BNP was 589 with no previous baseline, given new onset A-fib with last echo 2 years ago we will repeat echocardiogram -10/28: Had been doing well until she became tachypneic.? Repeat x-ray with right lower lobe infiltrate suspected but did appear more congested overall.? Received 1 dose of IV Lasix.? Ipratropium nebs. ABG prior to BiPAP today w/ tachycardia showed bicarb of 18.7 with a PCO2 of 30.7 and an O2 sat of 90/PO2 of 57 on 4 L nasal cannula -10/29: On 5 L of O2 but now satting 96% and tachypnea much improved as is blood pressure. Continue current management, low threshold to give another dose of Lasix however with improvement hesitant to do so as she also has the bacteremia/infection. Monitor cultures and respiratory status -10/30: Still on O2, somewhat improving, possible aspiration pneumonia given right lower lobe infiltrate after coming in with altered mental status and having strep mitis bacteremia. (4) Paroxysmal atrial fibrillation with RVR: PLAN: -Admitted to telemetry -Echo 11/06/2020 with normal EF, mildly enlarged left atrium, mild to moderate mitral valve calcification, RVSP 32 -Started on therapeutic Lovenox -TSH 1.15 -10/28: Repeat echo with EF of 70%, left atrium moderately enlarged, unable to assess diastolic dysfunction.? Heart rate had been controlled without any rate control but went back into RVR which seemed to have started cascade above.? Hesitant to give her beta-harrison or calcium channel harrison as to avoid negative inotropic effect given current clinical picture.? Heart rate presently 90s to low 100s, if any further elevation or concern would benefit from amiodarone bolus and drip -10/29: Heart rate improved today. If continues to do well we will schedule rate control agent, again hesitant to give negative inotrope if not needed -10/30: Doing better with treatment of underlying infection. Remains on full dose Lovenox (5) THEODORE (acute kidney injury): PLAN: #THEODORE on CKD stage II -Initial creatinine 2 with last 1 in 2020 0.76 -Seem to be prerenal and she was given gentle hydration -10/28: Improving (6) Encephalopathy acute: PLAN: #Acute encephalopathy, toxic versus metabolic -Was in her usual health until day of admission -She was uremic as well as hypoxic but also mental status worsened after taking oxycodone -Likely was multifactorial -Resolved with discontinuation of oxycodone and improvement in oxygenation and BUN -CT brain was negative -10/29: Does seem to be doing better today (7) Hypertensive urgency: PLAN: Hypertensive emergency ruled out -Systolic blood pressure in the 190s and chest x-ray appears more congested patient is tachycardic, she was placed on BiPAP and given hydralazine and a dose of IV Lasix -If BP elevated again would favor nitro drip or paste to reduce afterload however echocardiogram demonstrated good EF but unable to determine diastolic function and did not note any severe valve abnormalities -Blood pressure improved significantly with current measures -Continue BiPAP -ABG prior to BiPAP showed bicarb of 18.7 with a PCO2 of 30.7 and an O2 sat of 90/PO2 of 57 on 4 L nasal cannula -Lactic acid within normal limits -CBC and BMP unrevealing -10/29: Resolved PLAN: Plan Lactose intolerance. Pt states she takes Lactaid normally with daily, which helps. She does not follow a dairy-free diet. DVT ppx: Full dose Lovenox subcu Charges/Coding Visit Charges Inpatient E&M: 82399 Subs Hosp L2
[2022-11-01 09:00] LABS: Pathologist Review Reviewed
[2022-11-01 09:02] LABS: Pathologist Review Reviewed
[2022-11-01] MEDS: Vancomycin IV 1,000 MG/200 ML BAG 200 MG IV (09:02)
[2022-11-01 10:24] LABS: Vancomycin, Trough Level 39.1 ug/mL (5.0-15.0)
--- NOTE | 2022-11-01 10:36 | CON.PCM.ID_ITS ---
Assessment & Plan Assessment/Plan (1) Diskitis: PLAN: strep mitis bacteremia with T11-12 osteo/diskitis and T12-L1 epidural abscess seen on MRI. TTE showed no veg. Will narrow vanc to ceftriaxone. Recommend IR aspiration of abscess, send fluid for aerobic/anaerobic culture. Dr. Ness following. Will follow, thank you, d/w Dr. Walton (2) Bacteremia: HPI Consult Data Date of Consult: 11/01/22 HPI Narrative Reason for Consultation: bacteremia HPI Narrative: JOSE MANUEL REYNA, is a 87 F with h/o htn, presented 10/27 to ED with several days confusion, severe mid-spine back pain, difficulty walking. Denies fever or chills. No recent dental procedures. Came to ED, admitted on vanc/zosyn. MRI showed osteo-discitis and epidural abscess. Bcx x2 with strep. Zosyn stopped. Seen by spine surgery. Feeling fine this AM, no fever, no back pain. Full ROS performed and neg except as noted above. [facility] Medical History Abdominal pain Dyslipidemia Ectopic cardiac beats Essential (primary) hypertension GERD (gastroesophageal reflux disease) History of anxiety disorder Incontinence Left arm pain Obesity Persistent atrial fibrillation with RVR PSVT (paroxysmal supraventricular tachycardia) Tachycardia Ventricular ectopy Home Medications fluoxetine 20 mg tablet 20 mg PO DAILY DEPRESSION 30 days ##30 09/24/17 [History Last Taken 12/30/17] pantoprazole 40 mg tablet,delayed release 40 mg PO DAILY ##30 01/01/18 [Rx Last Taken 02/01/18 07:00] losartan 25 mg tablet 25 mg PO DAILY 10/22/20 [History Last Taken Unknown] rosuvastatin 10 mg tablet 10 mg PO DAILY 10/22/20 [History Last Taken Unknown] acetaminophen 500 mg tablet 500 mg PO Q6H PRN Pain 10/30/20 [History Last Taken Unknown] cholecalciferol (vitamin D3) 25 mcg (1,000 unit) tablet 25 mcg PO DAILY 02/11/21 [History Last Taken Unknown] meloxicam 15 mg tablet (Mobic) 15 mg PO DAILY 02/11/21 [History Last Taken Unknown] vitamin B complex 1 tab PO DAILY 02/11/21 [History Last Taken Unknown] amlodipine 10 mg tablet 10 mg PO DAILY #90 tabs 12/14/21 [Rx Last Taken Unknown] bupropion HCl 150 mg 24 hr tablet, extended release 150 mg PO DAILY 10/27/22 [History Last Taken Unknown] fenofibrate 160 mg tablet 160 mg PO DAILY 10/27/22 [History Last Taken Unknown] methocarbamol 500 mg tablet 500 mg PO TID PRN Muscle pain/spasm #30 tabs [Rx Last Taken Unknown] oxycodone-acetaminophen 5 mg-325 mg tablet (Percocet) 1 tab PO Q6H PRN pain 3 days #12 tabs 10/27/22 [Rx Last Taken Unknown] Allergy/AdvReac Type Severity Reaction Status Date / Time codeine AdvReac Vomiting Verified 10/27/22 18:41 lactose [lactose intolerant] AdvReac Abd Verified 10/31/22 14:30 cramps/diarrhea Family History Mother Hypertension Cancer Father Cancer Surgical History History of colectomy History of hemorrhoidectomy Social History Smoking Status: Never smoker alcohol intake: never substance use type: does not use caffeine: Yes Type: coffee Number of servings: 3 Physical Exam Const alert, oriented x3 and no apparent distress General Appearance: cooperative HEENT normocephalic and head/scalp atraumatic Eyes PERRL and EOMs intact bilaterally Neck supple and No nodes Resp normal air movement and clear to auscultation bilaterally Cardio regular rate and regular rhythm GI soft to palpation, non-tender and non-distended Extremity Extremity Narrative: No spine tenderness on exam General Extremity: edema Skin no rashes or lesions noted Neuro CN's II-XII intact bilaterally Lab / Micro Data Attestation: I reviewed the patient's lab results. Result Diagrams: 11/01/22 04:32 11/01/22 04:32 Labs: Laboratory Results - last 24 hr 10/27/22 19:47: Diff Path Review Reviewed 10/28/22 05:12: Diff Path Review Reviewed 10/31/22 05:35: ESR 107 H 10/31/22 05:35: C-React Prot Ext Range 138.00 H 11/01/22 04:32: WBC 17.3 H, RBC 3.73 L, Hgb 10.7 L, Hct 33.4 L, MCV 89.5, MCH 28.7, MCHC 32.0, RDW Std Deviation 47.5 H, RDW Coeff of Dolores 14.6, Plt Count 412, MPV 11.3, Immature Gran % (Auto) 2.900 H, Neut % (Auto) 70.1 H, Lymph % (Auto) 12.4 L, [place] % (Auto) 12.1 H, Eos % (Auto) 1.7, Baso % (Auto) 0.8, Absolute Neuts (auto) 12.1 H, Absolute Lymphs (auto) 2.15, Nucleated RBC % 0, Diff Path Review October, ESR 94 H 11/01/22 04:32: Sodium 143, Potassium 3.7, Chloride 110 H, Carbon Dioxide 26.0, Anion Gap 7, BUN 25 H, Creatinine 0.64, Estim Creat Clear Calc 35.52, Est GFR (MDRD) Af Amer 114, Est GFR (MDRD) Non-Af 94, BUN/Creatinine Ratio 39.1 H, Glucose 134 H, Calcium 9.1, Total Bilirubin 0.90, AST 41 H, ALT 38, Alkaline Phosphatase 125 H, C-React Prot Ext Range 95.50 H, Total Protein 6.6, Albumin 2.0 L, Globulin 4.6 H, Albumin/Globulin Ratio 0.4 L 11/01/22 09:45: Vancomycin Trough 39.1 H Radiology Impression Thoracic Spine MRI 10/31/22 12:24 IMPRESSION: T11-12: T11 osteomyelitis with discitis with a Perivertebral soft tissue mass. Resultant dorsal epidural abscess at T12-L1 as previously described has enlarged. Currently, the abscess is 30mm in greatest dimension causing moderate spinal stenosis. Critical finding called and case discussed. Electronically Signed: Myron Burden MD at 15:08 EDT , ADDENDUM: 10/31/22 [id number] IMPRESSION: T11-12: T11 osteomyelitis with discitis with a Perivertebral soft tissue mass. Resultant dorsal epidural abscess at T12-L1 as previously described has enlarged. Currently, the abscess is 30mm in greatest dimension causing moderate spinal stenosis. Critical finding called and case discussed. N.B. : The above Results were Read Back by Myron Burden MD to Conor Turner RN, and understanding confirmed on 10/31/2022 15:59:10 (ET). Electronically Signed: Myron Burden MD at 15:08 EDT ,
--- NOTE | 2022-11-01 11:32 | CASEMGMT ---
Tertiary facilities in-network with patient's insurance: [facility], [facility], [facility], , [facility], [facility]
[2022-11-01 12:40] LABS: Pathologist Review Reviewed
[2022-11-01 12:42] LABS: Pathologist Review Reviewed
--- NOTE | 2022-11-01 16:21 | NURSING ---
Upon patient transfer to [facility] Patients daughter would like to be called instead of patients , Patient is agreeable to this request and agrees the daughter should be called.
--- NOTE | 2022-11-01 16:57 | PCM.DC.SUM ---
Providers Date of Admission: 10/27/22 Primary Care Physician: Dr. Brenda Palmer, Consultations 10/30/22 16:37 Consult: Infectious Disease Routine Consulting Provider: Gian Beverly Reason for Consult: strep mitis bacteremia, discitis vs osteo EMERGENT Consult: No Notified: Yes Date Notified: 10/30/22 Time Notified: 06:54 Method of Notification: Text Consult: Orthopedics Routine Consulting Provider: Thor Ness Reason for Consult: T11-T12 discitis w/ initial CRP 269 and strep mitis bacteremia 2/2 bld cx EMERGENT Consult: No Notified: Yes Date Notified: 10/30/22 Time Notified: 16:38 Method of Notification: Verbal Reason For Visit: ACUTE ENCEPHALOPATHY; A-FIB WITH RVR; THEODORE Diagnosis Discharge Diagnosis (1) Bacteremia: Status: Acute Code(s): R78.81 - Bacteremia Plan: #Gram-positive bacteremia-strep mitis bacteremia/possible discitis at T11-T12 on MRI -Due to blood cultures positive for gram-positive cocci in chains -10/29: Improving on current antibiotics, continue to follow cultures, await speciation and sensitivity -10/30: 2/2 bld cx + with 1 out of 2 cultures speciated to strep mitis and the other still listed as alpha hemolytic strep though suspect this is the same organism. 2/2 blood cultures positive, on chest x-ray on 10/27 did show right lower lobe infiltrate, query if patient may have aspirated oral contents prior to when she came in due to her altered mental status, however unclear. She had TTE 10/27 as well which did not show any valve abnormalities however given propensity for endocarditis we will repeat blood cultures with low threshold for HIMANSHU if any concerns. Also has been having fairly significant lumbar pain and well no neurological or warning signs or symptoms MRI was obtained of her lumbar spine to rule out abscess given the strep mitis bacteremia especially given her elevated ESR and CRP and MRI showed possible acute osteomyelitis versus discitis at T11-T12 and an incompletely imaged small dorsal epidural fluid collection at T12-L1 possibly small epidural hematoma or epidural abscess. Call Dr. Ness with orthospine who reviewed the images and agreed that with the history that the area at T11-12 was suspicious for discitis and he recommended dedicated thoracic MRI as well as ID consult and that he would see her in consult tomorrow. Will continue abx at this time -10/31: Thoracic MRI ordered. WBC count increased today with further left shift, afebrile, ESR and CRP pending. Dr. Ness with orthospine to see today, ID consulted. Repeat cultures pending. If patient needs any kind of procedure will need to hold full dose Lovenox 11/01: MRI T11 osteomyelitis. Epidural abscess at T12 to L1. DW Dr. Leonardo of , he does not do drainage of epidural abscesses. I spoke with Dr. Ness and he said that he will be out of town this week and recommend transfer to facility with neurosurgery or spine coverage. Discussed with patient and she preferred [facility] as she has been there before. Patient has been accepted by Dr. Cleveland [facility] and will be seen by neursurgery. Abx have been change to CTX by ID. 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 Repeat x-ray with right lower lobe infiltrate suspected but did appear more congested overall.? Received 1 dose of IV Lasix.? Ipratropium nebs. ABG prior to BiPAP today w/ tachycardia showed bicarb of 18.7 with a PCO2 of 30.7 and an O2 sat of 90/PO2 of 57 on 4 L nasal cannula -10/29: On 5 L of O2 but now satting 96% and tachypnea much improved as is blood pressure. Continue current management, low threshold to give another dose of Lasix however with improvement hesitant to do so as she also has the bacteremia/infection. Monitor cultures and respiratory status -10/30: Still on O2, somewhat improving, possible aspiration pneumonia given right lower lobe infiltrate after coming in with altered mental status and having strep mitis bacteremia. (4) Paroxysmal atrial fibrillation with RVR: Status: Acute Code(s): I48.0 - Paroxysmal atrial fibrillation Plan: -Admitted to telemetry -Echo 11/06/2020 with normal EF, mildly enlarged left atrium, mild to moderate mitral valve calcification, RVSP 32 -Started on therapeutic Lovenox -TSH 1.15 -10/28: Repeat echo with EF of 70%, left atrium moderately enlarged, unable to assess diastolic dysfunction.? Heart rate had been controlled without any rate control but went back into RVR which seemed to have started cascade above.? Hesitant to give her beta-harrison or calcium channel harrison as to avoid negative inotropic effect given current clinical picture.? Heart rate presently 90s to low 100s, if any further elevation or concern would benefit from amiodarone bolus and drip -10/29: Heart rate improved today. If continues to do well we will schedule rate control agent, again hesitant to give negative inotrope if not needed -10/30: Doing better with treatment of underlying infection. Remains on full dose Lovenox (5) THEODORE (acute kidney injury): Status: Acute Code(s): N17.9 - Acute kidney failure, unspecified Plan: #THEODORE on CKD stage II -Initial creatinine 2 with last 1 in 2020 0.76 -Seem to be prerenal and she was given gentle hydration -10/28: Improving (6) Encephalopathy acute: Status: Acute Code(s): G93.40 - Encephalopathy, unspecified Plan: -Was in her usual health until day of admission -She was uremic as well as hypoxic but also mental status worsened after taking oxycodone -Likely was multifactorial -Resolved with discontinuation of oxycodone and improvement in oxygenation and BUN -CT brain was negative -10/29: Does seem to be doing better today (7) Hypertensive urgency: Status: Acute Code(s): I16.0 - Hypertensive urgency Plan: Hypertensive emergency ruled out -Systolic blood pressure in the 190s and chest x-ray appears more congested patient is tachycardic, she was placed on BiPAP and given hydralazine and a dose of IV Lasix -If BP elevated again would favor nitro drip or paste to reduce afterload however echocardiogram demonstrated good EF but unable to determine diastolic function and did not note any severe valve abnormalities -Blood pressure improved significantly with current measures -Continue BiPAP -ABG prior to BiPAP showed bicarb of 18.7 with a PCO2 of 30.7 and an O2 sat of 90/PO2 of 57 on 4 L nasal cannula -Lactic acid within normal limits -CBC and BMP unrevealing -10/29: Resolved Plan Lactose intolerance. Pt states she takes Lactaid normally with daily, which helps. She does not follow a dairy-free diet. DVT ppx: Full dose Lovenox subcu Medications at Discharge Home Medications fluoxetine 20 mg tablet 20 mg PO DAILY DEPRESSION 30 days ##30 09/24/17 pantoprazole 40 mg tablet,delayed release 40 mg PO DAILY ##30 01/01/18 losartan 25 mg tablet 25 mg PO DAILY 10/22/20 rosuvastatin 10 mg tablet 10 mg PO DAILY 10/22/20 acetaminophen 500 mg tablet 500 mg PO Q6H PRN Pain 10/30/20 cholecalciferol (vitamin D3) 25 mcg (1,000 unit) tablet 25 mcg PO DAILY 02/11/21 meloxicam 15 mg tablet (Mobic) 15 mg PO DAILY 02/11/21 vitamin B complex 1 tab PO DAILY 02/11/21 amlodipine 10 mg tablet 10 mg PO DAILY #90 tabs 12/14/21 bupropion HCl 150 mg 24 hr tablet, extended release 150 mg PO DAILY 10/27/22 fenofibrate 160 mg tablet 160 mg PO DAILY 10/27/22 methocarbamol 500 mg tablet 500 mg PO TID PRN Muscle pain/spasm #30 tabs 10/27/22 oxycodone-acetaminophen 5 mg-325 mg tablet (Percocet) 1 tab PO Q6H PRN pain 3 days #12 tabs 10/27/22 Hospital Course Operations None Procedures None Summary of Care Provided Minutes Spent on Discharge: 60 Hospital Course: This is a 87-year-old female presents with confusion. Patient was found to have strep mitis bacteremia and underwent a work-up for that. Patient did have imaging of her lumbar and thoracic spine with x-rays that were unremarkable. She did undergo an MRI of her lumbar spine on the that showed incompletely imaged small dorsal epidural fluid collection at T12-L1 level with a possible small epidural hematoma or epidural abscess. On the , patient underwent a MRI of the thoracic spine that showed T11 osteomyelitis with discitis and paravertebral soft tissue mass. Resultant dorsal epidural abscess at T12-L1 appear to be bigger than the image from the measuring around 30 mm. Causing moderate spinal stenosis. Patient had no neurologic deficits. Patient was seen by Dr. Ness, of spine surgery. I spoke with him today and he recommended transfer to a tertiary facility as he will be out of town later this week. I did also verify with Dr. Leonardo, of our interventional radiology, and he would not be able to address his epidural abscess. I discussed with the hospitalist team at [facility] and the patient was excepted over there. Tried to report the images over to [facility] for the neurosurgeon to evaluate but was not ported over in time but was called back by [facility] and that they are going to accept the patient. Patient remained stable. Patient was seen by infectious disease and changed antibiotics from Pipracil/tazobactam and vancomycin to ceftriaxone for the strep mitis infection. Weight / BMI Weight Weight: 93.9 kg Body Mass Index (BMI) 35.3 ABG / Lab / Microbiology Data Result Diagrams: 11/01/22 04:32 11/01/22 04:32 Laboratory: Laboratory Results - last 24 hr 10/27/22 19:47: Diff Path Review Reviewed 10/28/22 05:12: Diff Path Review Reviewed 10/30/22 07:11: Diff Path Review Reviewed 10/31/22 05:35: Diff Path Review Reviewed 11/01/22 04:32: WBC 17.3 H, RBC 3.73 L, Hgb 10.7 L, Hct 33.4 L, MCV 89.5, MCH 28.7, MCHC 32.0, RDW Std Deviation 47.5 H, RDW Coeff of Dolores 14.6, Plt Count 412, MPV 11.3, Immature Gran % (Auto) 2.900 H, Neut % (Auto) 70.1 H, Lymph % (Auto) 12.4 L, [place] % (Auto) 12.1 H, Eos % (Auto) 1.7, Baso % (Auto) 0.8, Absolute Neuts (auto) 12.1 H, Absolute Lymphs (auto) 2.15, Nucleated RBC % 0, Diff Path Review October foll, ESR 94 H 11/01/22 04:32: Sodium 143, Potassium 3.7, Chloride 110 H, Carbon Dioxide 26.0, Anion Gap 7, BUN 25 H, Creatinine 0.64, Estim Creat Clear Calc 35.52, Est GFR (MDRD) Af Amer 114, Est GFR (MDRD) Non-Af 94, BUN/Creatinine Ratio 39.1 H, Glucose 134 H, Calcium 9.1, Total Bilirubin 0.90, AST 41 H, ALT 38, Alkaline Phosphatase 125 H, C-React Prot Ext Range 95.50 H, Total Protein 6.6, Albumin 2.0 L, Globulin 4.6 H, Albumin/Globulin Ratio 0.4 L 11/01/22 09:45: Vancomycin Trough 39.1 H Microbiology: Microbiology 10/30/22 09:42 Blood Culture (Wb) - Left Wrist Blood Culture - Preliminary No growth in 48 hours. 10/30/22 09:36 Blood Culture (Wb) - Left Hand Blood Culture - Preliminary No growth in 48 hours. 10/27/22 19:47 Blood Culture (Wb) - Anticubital Left Blood Culture - Final Alpha Hemolytic Streptococcus 10/27/22 20:25 Blood Culture (Wb) - Right Forearm Bacteria Detection (PCR) - Final 10/27/22 20:25 Blood Culture (Wb) - Right Forearm Blood Culture - Final Streptococcus mitis 10/27/22 20:45 Urine, Catheterized Urine Culture - Final Culture exhibits no growth. 10/28/22 10:20 Mucosa - Nasopharyngeal Respiratory Panel (PCR) - Final 10/28/22 10:45 Nasal Secretion SARS-CoV-2 & FLU Antigen (Rapid) - Final Meaningful Use Info Meaningful Use Diagnoses (Choose all that apply): None applicable Discharge Plan Admission Admit Date/Time: 10/27/22 23:27 Primary Reason for Your Visit: Bacteremia. Epidural abscess. Attending Provider: Itz Walton Primary Care Provider: Brenda Palmer Consulting Providers: Sam Newsome ; Thor Ness ; Hallie Herbert ; Gian Beverly Discharge Orders/Prescriptions Prescriptions: No Action fluoxetine 20 mg tablet 20 mg PO DAILY 30 Days Qty: 30 Label Comments: TAKE ONE TABLET BY MOUTH EVERY DAY acetaminophen 500 mg tablet 500 mg PO Q6H PRN (Reason: Pain) meloxicam [Mobic] 15 mg tablet 15 mg PO DAILY vitamin B complex Tablet 1 tab PO DAILY cholecalciferol (vitamin D3) 25 mcg (1,000 unit) tablet 25 mcg PO DAILY pantoprazole 40 MG tablet,delayed release (DR/EC) 40 mg PO DAILY Qty: 30 0RF oxycodone-acetaminophen [Percocet] 5-325 mg tablet 1 tab PO Q6H PRN (Reason: pain) 3 Days Qty: 12 0RF methocarbamol 500 mg tablet 500 mg PO TID PRN (Reason: Muscle pain/spasm) Qty: 30 0RF bupropion HCl 150 mg tablet extended release 24 hr 150 mg PO DAILY Label Comments: take 1 tablet by mouth once daily fenofibrate 160 mg tablet 160 mg PO DAILY Label Comments: take 1 tablet by mouth once daily losartan 25 mg tablet 25 mg PO DAILY rosuvastatin 10 mg tablet 10 mg PO DAILY amlodipine 10 mg tablet 10 mg PO DAILY Qty: 90 4RF Referrals / Follow Up: Brenda Palmer DO [Primary Care Provider] - Within 2 Weeks Disposition Disposition (needs filled in before D/C Order can be placed): Acute Care Hospital Charges/Coding Visit Charges Inpatient E&M: 49343 Disch Hosp >30min
[2022-11-01] MEDS: oxyCODONE 5 MG Tablet PO (18:47)
[2022-11-01] MEDS: Acetaminophen 500 MG Tablet 1000 MG PO (20:24)
--- NOTE | 2022-11-01 20:45 | NURSING ---
pt assisted on to cot. report provided. Pt and belongings to exit with [facility].
--- NOTE | 2022-11-01 21:27 | CPS ---
Patient refused PAP therapy for the night. On RA.
[2022-11-02 14:42] LABS: Pathologist Review Reviewed
== END 2022-11-01 21:05 | disposition short-term general hospital (02) | DRG 308 ==
LOC: ED 19:43 → PCU 10-28 02:40
PROVIDERS: Internal Medicine; Admitting Provider Hospitalist; Emergency Provider Student in an Organized Health Care Education/Training Program; PCP Internal Medicine
DX: I48.0 Paroxysmal atrial fibrillation (principal); G93.41 Metabolic encephalopathy; J69.0 Pneumonitis due to inhalation of food and vomit; R78.81 Bacteremia; N17.9 Acute kidney failure, unspecified; M46.36 Infection of intervertebral disc (pyogenic), lumbar region; M46.26 Osteomyelitis of vertebra, lumbar region; M46.24 Osteomyelitis of vertebra, thoracic region; F03.90 Unspecified dementia, unspecified severity, without behavioral disturbance, psychotic disturbance, mood disturbance, and anxiety; E78.5 Hyperlipidemia, unspecified; I12.9 Hypertensive chronic kidney disease with stage 1 through stage 4 chronic kidney disease, or unspecified chronic kidney disease; N18.2 Chronic kidney disease, stage 2 (mild); M46.44 Discitis, unspecified, thoracic region; M48.00 Spinal stenosis, site unspecified; E73.9 Lactose intolerance, unspecified; I16.0 Hypertensive urgency; R09.02 Hypoxemia; B96.89 Other specified bacterial agents as the cause of diseases classified elsewhere; Z79.891 Long term (current) use of opiate analgesic; B95.5 Unspecified streptococcus as the cause of diseases classified elsewhere
CPT/HCPCS: 36415; 36600; 70450; 71045; 71275; 72072; 72100; 72157; 72158; 73502; 80048; 80053; 80202; 81001; 82140; 82550; 82803; 82962; 83605; 83735; 83880; 84145; 84443; 84484; 85025; 85379; 85610; 85652; 86140; 87040; 87077; 87086; 87088; 87149; 87186; 87428; 87633; 93005; 93306; 94002; 94003; 94640; 94668; 96372; 97110; 97162; 97166; 97530; 97535; 97802; 99252; 99283; 99284; 99285; A9575; J7030; J7040; J7050; Q9957; Q9967; A4216; C8929; G0463; J0696; J1940

== ENCOUNTER 2023-01-14 14:00 | Outpatient (RCR) | payer MEDICARE, SELFPAY ==
--- NOTE | 2022-12-31 16:19 | HP.PTEVAL_ITS ---
Patient's Visit Information Visit Information Visit Information: JOSE MANUEL REYNA is a 87 year old F referred to Physical Therapy by Dr. Brenda Palmer DO with a diagnosis of PHYSICAL DISABLITY AFTER ILLNESS. Date of Evaluation: 12/31/22 Physical Therapist: Celestine Abrams, PT, Cert MDT, OCS Visit Plan Frequency: 1x/Week Duration: 4 Weeks Plan: PT INTERVTIONS BLE STRENGTHNEING ,GAIT TRAINING ,BALANCE TRAINING ,FUNCTIONAL STRENGTHENING AND CORE STRENGTHENING Subjective Subjective: This 87 y/o female presents to physical therapy with physical disa bility and decrease gait. Patient assisted fell backwards on patient October 22 . Patient went to ER to pain in back but founded blood infection then was transferred to [facility] and was hospitalized November 06. Patient currently staying at [facility]. Patient daughter will bringing patient. Patient walk in with grab rails. Patient is able to cook and dress/bath. Pain lumbar spine . Patient uses rollator since fall. Patient denies paresthesia/tingling. Patient Aggravating factors standing 5 mins ,walking ,. Alleviating sitting. Patient is unable to lay in bed . Patient sleeps in recliner lift chair. Nom recent falls. Patient diagnostics in hospital MRI lumbar and back. No medication. Bowel/bladder-.Coughing/sneezing -.Patient pain function and ADLS . Patient pain affects ability to sleep. Patient goals to walk better . SOCIAL: VOCATION: retired Pain Bilateral Back: Pain Intensity (Out of 10): 7 Pain Intensity Range: 10 Objective Objective: POSTURE: mild forward posture ,hips/knees flexed ,trunk flexed GAIT: ambulates with rollator hips/knees flexed slow nakul BALANCE: fair+ with fww MMT: peak force quads 14.3 left ,right 18.0 ,hamstrings right 16,7 ,left 12.8 ,hip flexion 12.9 left ,right 16.1 LUMBAR ROM: flexion mod loss extension severe loss ,side glides mod loss FLEXABLITY: hamstrings mod tight AROM: supine knee flexion 5-120 degrees HIP IR: 10 degrees Special Tests L/S Slump test left side: Negative L/S Slump test right side: Negative L/S Left Straight Leg Raise: Negative L/S Right Straight Leg Raise: Negative Balance/Special Test Scores Functional Gait Assessment Score: 4 % Disability: 86.6700 CATSIB Score (Max score 120 seconds): 50 Lower Extremity Functional Score: 11 Goals Goal 1:: I with HEP for strengthening Goal Time Frame: 4-6 Weeks Goal 2:: Patient to improve peak force of quads/hams/hip by 5 -10 # strength to improve gait Goal Time Frame: 4-6 Weeks Goal 3:: Patient to demonstrate 50% improvement function and less pain Goal Time Frame: 4-6 Weeks Goal 4:: Patient to improve CATSIB by 5 points to improve balance Goal Time Frame: 4-6 Weeks Goal 5:: Patient to improve LFES score by 5-10 points to improve QOL and function Goal Time Frame: 4-6 Weeks Goal 6:: Patient to improve LFES score by 5 points to improve gait Goal Time Frame: 4-6 Weeks Rehabilitation Potential Physical Therapy Diagnosis: Patient was in hospital after founding blood infect ion after falling thus was hospitalized ,patient has decrease gait and balance and weakness along with back pain thus benefit from skilled PT Rehabilitation Potential: Good Anticipated Interventions Patient/Client Instruction: Educate patient on: Condition and Plan of Care For the Purpose of:: To decrease pain, To increase ROM, To improve muscle performance and motor function, To improve ability to perform ADL's, To increase tolerance to activity/condition/position, To improve ability of physical actions for home/community/work/leisure, To improve gait and locomotor functions, To increase flexibility/ROM, To improve endurance, To improve balance, To improve safety with gait and To improve tolerance to ADL's Therapeutic Exercise to Include: Strength training, Power training, Endurance training, Balance training, Postural training, Flexibilty training, Gait and locomotor training and Dynamic Lumbar Stabilization Comment: BLE For the Purpose of:: To decrease pain, To improve muscle performance and motor function, To improve ability to perform ADL's, To increase tolerance to activity/condition/position, To improve performance and independence with ADL's, To improve gait and locomotor functions, To increase flexibility/ROM, To improve endurance, To improve balance, To assume or resume ADL's and To improve tolerance to ADL's Text: Thank you for the opportunity to evaluate your patient. For Medicare and Medicare HMO plans, please review the plan of care and approve it. It will need to be FAXED BACK to us at [phone] for Medicare purposes. For Medicare only, by signing this I certify the plan of care. Please let me know if there are questions or concerns regarding this plan of care. Physician Signature: Date:
== END 2023-01-14 19:00 | disposition home or self-care (01) ==
LOC: PT 14:00
PROVIDERS: PCP Internal Medicine; Referring Provider Internal Medicine; Visit Provider Internal Medicine
DX: M54.50 Low back pain, unspecified (principal)
CPT/HCPCS: 97110; 97162

== ENCOUNTER → 2023-01-17 | Outpatient (CLI) | payer MEDICARE, SELFPAY ==
[2023-01-17 15:04] LABS: Hematocrit 38.5 % (37-47); Hemoglobin 11.5 g/dL (12.0-15.0); Mean Corp Hgb Conc 29.9 g/dL (32-36); Mean Corpuscular Hgb 28.1 pg (27.0-32.0); Mean Corpuscular Volume 94.1 fL (81-99); Mean Platelet Vol. 11.6 fl (6.2-12.0); Platelet Count 384 K/mm3 (150-450); RBC Distribution Width CV 14.6 % (11.6-14.6); RBC Distribution Width SD 49.9 fl (35.1-43.9); Red Blood Count 4.09 M/mm3 (4.2-5.4); White Blood Count 9.3 K/mm3 (4.4-11.0)
[2023-01-17 15:19] LABS: Anion Gap 3 (5-15); BUN 17 mg/dL (7-18); BUN/Creat Ratio 18.4 RATIO (10-20); Calcium,Total 8.9 mg/dL (8.5-10.1); Chloride 111 mmol/L (98-107); Creatinine, Serum 0.92 mg/dL (0.55-1.02); EST Glomerular Filtration Rate 62 mL/min (>60); Est Glom Filt Rate - Afr Amer 74 mL/min (>60); Glucose 128 mg/dL (74-106); Potassium 3.3 mmol/L (3.5-5.1); Sodium Level 145 mmol/L (136-145)
[2023-01-17 15:27] LABS: BNP,B-Type NATRIURETIC PEPTIDE 373.8 pg/mL (0-100)
== END | disposition home or self-care (01) ==
LOC: MTLAB 13:17
PROVIDERS: PCP Internal Medicine; Referring Provider Physician Assistant Medical; Visit Provider Physician Assistant Medical
DX: R60.0 Localized edema (principal); R06.02 Shortness of breath; R78.81 Bacteremia
CPT/HCPCS: 36415; 80048; 83880; 85027

== ENCOUNTER 2023-01-19 05:26 | Inpatient (IN) | payer MEDICARE, SELFPAY ==
[2023-01-19] VITALS (14 sets, daily range): BP systolic 154–200; BP diastolic 69–99; PULSE 79–85; RESP 16–24; TEMP 36.1–36.9; O2SAT 92–98; BMI 33.0; BMI 32.3
--- NOTE | 2023-01-19 05:37 | EDS_ITS ---
HPI History of Present Illness Chief Complaint: Weakness [facility] Medical History Abdominal pain Dyslipidemia Ectopic cardiac beats Essential (primary) hypertension GERD (gastroesophageal reflux disease) History of anxiety disorder Incontinence Left arm pain Obesity Persistent atrial fibrillation with RVR PSVT (paroxysmal supraventricular tachycardia) Tachycardia Ventricular ectopy Home Medications fluoxetine 20 mg tablet 20 mg PO DAILY DEPRESSION 30 days ##30 09/24/17 [History Last Taken 12/30/17] pantoprazole 40 mg tablet,delayed release 40 mg PO DAILY ##30 01/01/18 [Rx Last Taken 02/01/18 07:00] rosuvastatin 10 mg tablet 10 mg PO DAILY 10/22/20 [History Last Taken Unknown] acetaminophen 500 mg tablet 500 mg PO Q6H PRN Pain 10/30/20 [History Last Taken Unknown] cholecalciferol (vitamin D3) 25 mcg (1,000 unit) tablet 25 mcg PO DAILY 02/11/21 [History Last Taken Unknown] bupropion HCl 150 mg 24 hr tablet, extended release 150 mg PO DAILY 10/27/22 [History Last Taken Unknown] apixaban 5 mg tablet (Eliquis) 5 mg PO BID #60 tabs 12/08/22 [Rx Last Taken Unknown] calcium carbonate 500 mg calcium (1,250 mg) tablet 500 mg PO DAILY 12/08/22 [History Last Taken Unknown] fenofibrate 160 mg tablet 145 mg PO DAILY 12/08/22 [History Last Taken Unknown] losartan 25 mg tablet 100 mg PO DAILY 12/08/22 [History Last Taken Unknown] metoprolol tartrate 25 mg tablet 12.5 mg PO BID 12/08/22 [History Last Taken Unknown] amlodipine 5 mg tablet 5 mg PO DAILY 12/13/22 [History Last Taken Unknown] doxazosin 2 mg tablet 2 mg PO QHS #30 tabs 12/23/22 [Rx Last Taken Unknown] spironolactone 25 mg tablet 25 mg PO DAILY #90 tabs 01/17/23 [Rx Last Taken Unknown] Allergy/AdvReac Type Severity Reaction Status Date / Time codeine AdvReac Vomiting Verified 01/19/23 05:35 lactose [lactose intolerant] AdvReac Abd Verified 01/19/23 05:35 cramps/diarrhea Family History Mother Hypertension Cancer Father Cancer Surgical History History of colectomy History of hemorrhoidectomy Social History Smoking Status: Never smoker alcohol intake: never substance use type: does not use caffeine: Yes Type: coffee Number of servings: 3 EXAM Physical Exam Const Vital Signs: 01/19/23 05:30 01/19/23 05:35 Temperature 97 F L Temperature Source Temporal Pulse Rate 80 Respiratory Rate 24 H Blood Pressure 170/99 H Blood Pressure Mean 122 Pulse Ox 96 MDM MDM MDM Narrative Medical decision making narrative: HISTORY OF PRESENT ILLNESS: 87-year-old female here with many complaints including shortness of breath, lower extremity edema that started approximately 3 days ago. Also notes she ate dairy containing products and has been experiencing diarrhea. She notes tonight she had sudden onset of nausea which prompted her visit she further states her shortness of breath is worse with exertion. The patient denies recent surgery in the last 4 weeks or immobilization in the last 3 days, denies previous diagnosis of DVT or PE, hemoptysis, unilateral leg swelling or malignancy with treatment the last 6 months. No estrogen use noted. Denies chest pain. She notes has been vaccine against COVID and also notes loss of taste or smell. No sick contacts. REVIEW OF SYSTEMS: Pertinent positives: Shortness of breath, lower extremity edema, nausea, diarrhea Pertinent negatives: New focal weakness PHYSICAL EXAM: Nursing triage notes reviewed, Vital signs reviewed Constitutional: please see mdm HENT: MMM Eyes: Pupils equal round and reactive to light, Extraocular muscles intact Neck: No stridor, no JVD, full neck ROM Lungs: Conversational dyspnea, diminished breath sounds, rales in bilateral lung Heart: Regular rate and rhythm, No murmurs, No rubs and No gallops, 2+ distal pulses (radial, femoral, posterior tibial) in all extremities Abdomen: Soft, there is no tenderness, rigidity, rebound or guarding, no obvious peritoneal signs, no palpable pulsatile abdominal masses, no auscultated abdominal bruit : No CVAT Extremities: 2+ lower extremity edema Neuro: No focal neurological deficits, cranial nerves II through XII intact, 5/5 strength in all extremities. Intact sensation to light touch in all extremities, 2+ reflexes bilateral patella tendons. Normal gait. No ataxia. Skin: No rash or lesions noted MEDICAL DECISION MAKING: Chief Complaint: Shortness of breath, lower extremity edema, nausea, diarrhea External records reviewed: Echocardiogram from 2020 shows ejection fraction 65% Factors affecting care: Atrial fibrillation on Eliquis, hyperlipidemia, GERD Social determinants of health: Elderly History obtained from others: The patient's daughter Consults: none ALL IMAGES (IF OBTAINED) HAVE BEEN PERSONALLY REVIEWED AND INTERPRETED BY MYSELF. EKG rate controlled atrial fibrillation, normal axis, normal intervals, no obvious STEMI MDM Narrative: Patient was hemodynamically stable, afebrile, nontoxic-appearing. Exam with signs of volume overload. Lungs with rales. I considered the following differential diagnosis: CHF exacerbation, pneumonia, anemia, ACS, arrhythmia, electrolyte abnormality Chest x-ray read interpreted myself shows evidence of pulmonary edema however the radiologist read it as negative given the patient's clinical presentation, signs of volume overload I suspect she is heart failure. She was ambulated with significant hypoxia. Given hypoxia advanced age and signs of heart failure we will give 40 mg IV Lasix and admit for further diuresis. The patient and/or family, caregivers express understanding. The patient and/or family, caregivers agrees with the plan. Shared decision making: I will have a discussion with the patient and or visitors regarding risk/benefits of further testing or admission. They will be made aware of of the risk/benefits inherent in this decision they will be given the opportunity to voice understanding. Total critical care time today provided was at least 0 [] minutes. This excludes separately billable procedures. Critical care time (if documented) is secondary to the patient having high probability of clinically significant/life threatening deterioration in the patient's condition which required my urgent intervention. Lab Data Attestation: I reviewed the patient's lab results. Lab results narrative: Troponin is negative, no evidence of myocardial ischemia CBC with no leukocytosis, mild anemia, no thrombocytopenia BMP without significant electrolyte abnormalities, there is mild hypokalemia, there is no anion gap, there is no [place] Radiography Chest X-Ray - ED: Read by ED Physician and Right Infiltrate Diagnostic Testing: Chest x-ray by my read shows evidence of right lower lobe infiltrate Discharge Plan Triage Chief Complaint: Weakness ED Provider: Ebenezer Ashby Dx/Rx/DC Orders Clinical Impression: Bilateral leg edema, Acute exacerbation of congestive heart failure, Hypoxia Prescriptions: No Action fluoxetine 20 mg tablet 20 mg PO DAILY 30 Days Qty: 30 Patient Comments: TAKE ONE TABLET BY MOUTH EVERY DAY acetaminophen 500 mg tablet 500 mg PO Q6H PRN (Reason: Pain) cholecalciferol (vitamin D3) 25 mcg (1,000 unit) tablet 25 mcg PO DAILY calcium carbonate 500 mg calcium (1,250 mg) tablet 500 mg PO DAILY Eliquis 5 mg tablet 5 mg PO BID Qty: 60 11RF metoprolol tartrate 25 mg tablet 12.5 mg PO BID pantoprazole 40 MG tablet,delayed release (DR/EC) 40 mg PO DAILY Qty: 30 0RF bupropion HCl 150 mg tablet extended release 24 hr 150 mg PO DAILY Patient Comments: take 1 tablet by mouth once daily fenofibrate 160 mg tablet 145 mg PO DAILY Patient Comments: take 1 tablet by mouth once daily rosuvastatin 10 mg tablet 10 mg PO DAILY losartan 25 mg tablet 100 mg PO DAILY amlodipine 5 mg tablet 5 mg PO DAILY doxazosin 2 mg tablet 2 mg PO QHS Qty: 30 11RF spironolactone 25 mg tablet 25 mg PO DAILY Qty: 90 3RF Primary Care Provider: Brenda Palmer Referrals: Brenda Palmer DO [Primary Care Provider] -
--- NOTE | 2023-01-19 06:03 | RAD_ITS ---
EXAM: XR CHEST, 1 VIEW CLINICAL INDICATION: chest pain TECHNIQUE: Frontal view of the chest. COMPARISON: No relevant prior studies available. FINDINGS: LUNGS AND PLEURAL SPACES: Unremarkable. No pneumothorax. No effusion. No change interstitial opacities in the lower lungs bilaterally. HEART: Unremarkable. Normal heart size. MEDIASTINUM: Central airways and mediastinal contour are unremarkable. BONES/JOINTS: Unremarkable. SOFT TISSUES: Unremarkable. RAD/Chest 1 View (Portable) IMPRESSION: 1. No change interstitial opacities in the lower lungs bilaterally. 2. Normal heart size. Electronically Signed: Christo Cantu MD at 6:34 EDT ,
--- NOTE | 2023-01-19 06:15 | EKG12_ITS ---
Test Reason : Blood Pressure : / mmHG Vent. Rate : 087 BPM Atrial Rate : 000 BPM P-R Int : 000 ms QRS Dur : 090 ms QT Int : 374 ms P-R-T Axes : 000 084 037 degrees QTc Int : 450 ms Atrial fibrillation Low voltage QRS Cannot rule out Anterior infarct , age undetermined Abnormal ECG Confirmed by SHAKILA CEDILLO, VIV ([id number]), staff editor SHERLYN RICCI ([id number]) on 01/21/2023 1:06:34 PM Referred By: EDGARDO Confirmed By:CELESTINO JHAVERI MD
[2023-01-19 06:32] LABS: Absolute Lymphocyte Count 1.09 X10^3/uL (0.83-4.51); Absolute Neutrophil Count 6.5 X10^3/uL (2.0-7.7); Basophil# 0.04 X10^3/uL; Basophil% 0.5 % (0-1); Eosinophil# 0.08 X10^3/uL; Eosinophils% 0.9 % (0-5); Hematocrit 37.5 % (37-47); Hemoglobin 11.6 g/dL (12.0-15.0); Lymphocyte # 1.09 X10^3/ul (0.83-4.51); Lymphocyte % 12.9 % (19-41); Mean Corp Hgb Conc 30.9 g/dL (32-36); Mean Corpuscular Hgb 28.3 pg (27.0-32.0); Mean Corpuscular Volume 91.5 fL (81-99); Mean Platelet Vol. 10.8 fl (6.2-12.0); Monocyte# 0.67 X10^3/uL; Monocyte% 7.9 % (0-10); NRBC Flagged by Analyzer 0 % (0-5); Neutrophil # 6.53 X10^3/uL (2.7-7.7); Neutrophil % 77.4 % (47-70); Platelet Count 353 K/mm3 (150-450); RBC Distribution Width CV 14.5 % (11.6-14.6); RBC Distribution Width SD 48.5 fl (35.1-43.9); White Blood Count 8.4 K/mm3 (4.4-11.0)
[2023-01-19 06:57] LABS: Anion Gap 6 (5-15); BUN 13 mg/dL (7-18); BUN/Creat Ratio 19.1 RATIO (10-20); Calcium,Total 8.8 mg/dL (8.5-10.1); Chloride 111 mmol/L (98-107); Creatinine, Serum 0.68 mg/dL (0.55-1.02); EST Glomerular Filtration Rate 88 mL/min (>60); Est Glom Filt Rate - Afr Amer 106 mL/min (>60); Estimated Creatinine Clearance 35.52 ml/min; Glucose 131 mg/dL (74-106); Potassium 3.2 mmol/L (3.5-5.1); Sodium Level 144 mmol/L (136-145); Troponin-I HS (w/2H Reflex) 15 pg/mL (3.0-54.0)
--- NOTE | 2023-01-19 07:16 | ED.RN ---
Patient kristian,e very SOB with ambulation. Covid swab obtained and sent to lab. Admission in progress.
[2023-01-19] MEDS: Furosemide 40 MG/4 ML Vial IV ×2 (07:23→18:21)
[2023-01-19 07:26] LABS: BNP,B-Type NATRIURETIC PEPTIDE 382.1 pg/mL (0-100)
--- NOTE | 2023-01-19 07:52 | PCM.HP.STD ---
HPI - General General Date of Admission: 01/19/23 Date of Service: 01/19/23 Chief Complaint: SOB and gen weakness HPI Narrative JOSE MANUEL REYNA, is a 87 F hx of afib on eliquis, spinal abscess s/p 8 weeks IV abx finished in November 2022, HTN, depression who presented to [facility] 01/19/23 w/ increasing weakness and shortness of breath for 1 week but started somewhat suddenly and has continued to worsen. No cough or chest pain. She was evaluated by physician yesterday and started on spironolactone as she is also been having increased swelling in her extremities however this did not help so she presented to the ED. In the ED she was noted to be tachypneic with respiratory rate of 24 and some conversational dyspnea. Chest x-ray independently reviewed by ED physician felt to be consistent with fluid overload and BNP of 382. She was ambulated and desaturated to 85% on room air per physician so she was given 40 IV Lasix and hospitalist consulted for admission. Patient evaluated at bedside with family member present. She does endorse the increasing shortness of breath especially on exertion and generalized weakness for this past 1 week. No fevers chills, no cough, no chest pain, feeling slightly nauseous this morning has had a bit of a headache over the past 2 weeks. Usually is constipated but ate some lactose and had a little bit of diarrhea but nothing outside of her normal. Has had some increased swelling/pitting edema in lower extremities. Denies any other positive ROS. [facility] Medical History Abdominal pain Dyslipidemia Ectopic cardiac beats Essential (primary) hypertension GERD (gastroesophageal reflux disease) History of anxiety disorder Incontinence Left arm pain Obesity Persistent atrial fibrillation with RVR PSVT (paroxysmal supraventricular tachycardia) Tachycardia Ventricular ectopy Home Medications fluoxetine 20 mg tablet 20 mg PO DAILY DEPRESSION 30 days ##30 09/24/17 [History Last Taken 12/30/17] pantoprazole 40 mg tablet,delayed release 40 mg PO DAILY ##30 01/01/18 [Rx Last Taken 02/01/18 07:00] rosuvastatin 10 mg tablet 10 mg PO DAILY 10/22/20 [History Last Taken Unknown] acetaminophen 500 mg tablet 500 mg PO Q6H PRN Pain 10/30/20 [History Last Taken Unknown] cholecalciferol (vitamin D3) 25 mcg (1,000 unit) tablet 25 mcg PO DAILY 02/11/21 [History Last Taken Unknown] bupropion HCl 150 mg 24 hr tablet, extended release 150 mg PO DAILY 10/27/22 [History Last Taken Unknown] apixaban 5 mg tablet (Eliquis) 5 mg PO BID #60 tabs 12/08/22 [Rx Last Taken Unknown] calcium carbonate 500 mg calcium (1,250 mg) tablet 500 mg PO DAILY 12/08/22 [History Last Taken Unknown] fenofibrate 160 mg tablet 145 mg PO DAILY 12/08/22 [History Last Taken Unknown] losartan 25 mg tablet 100 mg PO DAILY 12/08/22 [History Last Taken Unknown] metoprolol tartrate 25 mg tablet 12.5 mg PO BID 12/08/22 [History Last Taken Unknown] amlodipine 5 mg tablet 5 mg PO DAILY 12/13/22 [History Last Taken Unknown] doxazosin 2 mg tablet 2 mg PO QHS #30 tabs 12/23/22 [Rx Last Taken Unknown] spironolactone 25 mg tablet 25 mg PO DAILY #90 tabs 01/17/23 [Rx Last Taken Unknown] Allergy/AdvReac Type Severity Reaction Status Date / Time codeine AdvReac Vomiting Verified 01/19/23 05:35 lactose [lactose intolerant] AdvReac Abd Verified 01/19/23 05:35 cramps/diarrhea Family History Mother Hypertension Cancer Father Cancer Surgical History History of colectomy History of hemorrhoidectomy Social History Smoking Status: Never smoker alcohol intake: never substance use type: does not use caffeine: Yes Type: coffee Number of servings: 3 ROS ROS Narrative General: Denies fever/chills HENT: Slight headaches over the past 2 weeks, denies stuffy nose, denies sore throat EYES: Denies changes in vision Resp: Denies cough, increasing shortness of breath Cardiac: Denies chest pain GI: Denies abdominal pain, alternates constipation and diarrhea, slight nausea this morning : Denies changes in urination Extremity: Lower extremity swelling MSK: Generalized weakness Neuro: Denies any numbness/tingling Heme: Denies any bleeding or bruising Skin: Denies rashes Psychiatric: No complaints voiced Vital Signs Vital Signs Vital Signs: 01/19/23 05:30 01/19/23 05:35 01/19/23 06:06 Temperature 97 F L Temperature Source Temporal Pulse Rate 80 Respiratory Rate 24 H Blood Pressure 170/99 H Blood Pressure Mean 122 Pulse Ox 96 Oxygen Delivery Method Room Air Weight Weight: 87.2 kg Body Mass Index (BMI) 33.0 Physical Exam Narrative General: Alert, oriented, no apparent distress HEENT: Atraumatic, normocephalic Eyes: Anicteric, normal conjunctiva, extraocular movements grossly intact Neck: Supple Respiratory: Scattered expiratory wheezes with some crackles at the bases, mild increase in respiratory effort Cardiovascular: Regular rate GI: Soft, nontender, nondistended Extremities: 1-2+ bilateral lower extremity pitting edema Musculoskeletal: Moving all extremities Neuro: No overt focal neurological deficits Skin: No rashes appreciated Psych: Cooperative Results Lab / Micro Data 01/19/23 06:20 01/19/23 06:20 Labs: Laboratory Results - last 24 hr 01/19/23 06:20: WBC 8.4, RBC 4.10 L, Hgb 11.6 L, Hct 37.5, MCV 91.5, MCH 28.3, MCHC 30.9 L, RDW Std Deviation 48.5 H, RDW Coeff of [place] 14.5, Plt Count 353, MPV 10.8, Immature Gran % (Auto) 0.400, Neut % (Auto) 77.4 H, Lymph % (Auto) 12.9 L, [place] % (Auto) 7.9, Eos % (Auto) 0.9, Baso % (Auto) 0.5, Absolute Neuts (auto) 6.5, Absolute Lymphs (auto) 1.09, Nucleated RBC % 0, Sodium 144, Potassium 3.2 L, Chloride 111 H, Carbon Dioxide 27.0, Anion Gap 6, BUN 13, Creatinine 0.68, Estim Creat Clear Calc 35.52, Est GFR (MDRD) Af Amer 106, Est GFR (MDRD) Non-Af 88, BUN/Creatinine Ratio 19.1, Glucose 131 H, Calcium 8.8, Troponin I High Sens 15, B-Natriuretic Peptide 382.1 H Micro: Microbiology 01/19/23 07:12 Nasal Secretion SARS-CoV-2 & FLU Antigen (Rapid) - Final Radiology Impression Chest X-Ray 01/19/23 06:03 IMPRESSION: 1. No change interstitial opacities in the lower lungs bilaterally. 2. Normal heart size. Electronically Signed: Christo Cantu MD at 6:34 EDT , Assessment & Plan Assessment/Plan (1) Hypoxia: (2) Paroxysmal A-fib: (3) GERD (gastroesophageal reflux disease): (4) Essential (primary) hypertension: PLAN: Plan #Hypoxia secondary to fluid overload -Patient presented with tachypnea and O2 sat that dropped to 85% on room air with ambulation when she has no baseline hypoxia -Chest x-ray independently reviewed and agree with the independent review of ED physician that it appears congested and consistent with fluid overload -BNP 382 appears to remain elevated -Last echocardiogram October 2022 with an EF of 70% but unable to assess for diastolic function, PASP 45 mmHg -Patient given 40 IV Lasix, will continue 40 IV Lasix twice daily -Daily weights, I's and O's -Fluid restriction -Repeat limited echo to assess EF as picture is consistent with fluid overload but patient has no known heart failure, given her chronic hypertension cannot rule out heart failure with preserved ejection fraction so hopefully will be able to assess for any diastolic dysfunction as well #HTN w/ hypertensive urgency -BP in ED increased to 200/69 -Patient reports she runs high but usually is not this high -She has not taken her home medications today, will give home medicines -Additionally will add as needed blood pressure medication with goal of lowering by 20 to 30 mmHg then slowly over the next 1 to 2 days -Patient was short of breath on arrival and her symptoms did not seem to mirror changes in her blood pressure so do not think that this is necessarily hypertensive emergency at this time but will monitor closely #Hypokalemia -Replace, daily BMP given concurrent Lasix administration #Atrial fibrillation -Continue beta-harrison and Eliquis #Depression -Continue Wellbutrin and fluoxetine #GERD -Continue Protonix #DVT ppx: Eliquis Hallie Herbert, MD Time spent in the patient's overall evaluation,decision-making process, review of diagnostic data, adjustment of management, discussion with other providers, nursing nursing and ancillary staff involved in patient's care documentation, 60 minutes Charges/Coding Visit Charges Inpatient E&M: 73003 Init Hosp L2
--- NOTE | 2023-01-19 07:57 | ECHOL_ITS ---
Reason For Study: CHF Procedure This was a limited 2D transthoracic echocardiogram. Exam performed portable in patient room. Left Ventricle Normal LV size. The estimated ejection fraction is 70 %. No regional wall motion abnormalities noted. Right Ventricle Normal RV size. Normal systolic function. Atria The left atrium is moderately enlarged. The right atrium is mildly enlarged. Mitral Valve There is moderate mitral annular calcification. There is no mitral valve stenosis. Tricuspid Valve There is no tricuspid stenosis. Aortic Valve Trisinus/trileaflet aortic valve. There is no aortic stenosis. Great Vessels Normal aortic root. Pericardium/Pleural No pericardial effusion. MMode/2D Measurements & Calculations LVIDd: 4.6 cm IVSd: 0.90 cm Ao root diam: 2.8 cm LVIDs: 3.1 cm LVPWd: 1.0 cm FS: 32.2 % LAV(MOD-bp): 86.5 ml LVAd ap4: 18.4 cm2 SV(MOD-sp4): 30.4 ml LAV(MOD-bp) Indexed: 45.0 ml/m2 LVLd ap4: 7.2 cm LAV(MOD-sp2): 70.0 ml EDV(MOD-sp4): 39.2 ml LAV(MOD-sp4): 84.1 ml EDV(sp4-el): 39.8 ml LVAs ap4: 7.5 cm2 LVLs ap4: 5.4 cm ESV(MOD-sp4): 8.8 ml ESV(sp4-el): 9.0 ml EF(MOD-sp4): 77.5 % EF(sp4-el): 77.4 % SV(sp4-el): 30.8 ml LA A4 area: 26.7 cm2 RA A4 area: 20.5 cm2 ECHO/Echo, Limited Study Interpretation Summary Limited study. The estimated ejection fraction is 70 %. The left atrium is moderately enlarged. The right atrium is mildly enlarged. Ordering Physician: Hallie Herbert Referring Physician: Brenda Palmer M.D. Performed By: Joann Hall RCS
--- NOTE | 2023-01-19 07:59 | ED.RN ---
Purewick catheter placed following lasix administration
[2023-01-19 08:26] LABS: Reflex Troponin-HS? (from REC) Y
[2023-01-19 09:33] LABS: Troponin-I HS 14 pg/mL (3.0-54.0)
[2023-01-19] MEDS: amLODIPine 5 MG Tablet PO (10:10)
[2023-01-19] MEDS: buPROPion (XL) 150 MG TABLET.XL PO (10:10)
[2023-01-19] MEDS: Fenofibrate 145 MG Tablet PO (10:10)
[2023-01-19] MEDS: APIXABAN 5 MG TABLET PO ×2 (10:10→22:33)
[2023-01-19] MEDS: FLUoxetine 20 MG Capsule PO (10:10)
[2023-01-19] MEDS: Losartan Potassium 100 MG Tablet PO (10:11)
[2023-01-19] MEDS: Metoprolol Tartrate 25 MG Tablet 12.5 MG PO ×2 (10:11→22:34)
[2023-01-19] MEDS: Pantoprazole Sodium 40 MG Tablet PO (10:11)
[2023-01-19] MEDS: Potassium Chloride Oral Soln 20 MEQ/15 ML UDC 80 MEQ PO (10:12)
[2023-01-19] MEDS: hydrALAZINE 20 MG/ML Vial 5 MG IV (12:17)
[2023-01-19] MEDS: 0.9% Saline Lock 10 ML Syringe IV ×2 (12:19→18:20)
[2023-01-19] MEDS: hydrOXYzine 10 MG Tablet PO (13:42)
--- NOTE | 2023-01-19 19:33 | NURSING ---
Reviewed charting with Bao Gallagher RN
[2023-01-19] MEDS: Doxazosin 1 MG Tablet 2 MG PO (22:33)
[2023-01-19] MEDS: Atorvastatin Calcium 20 MG Tablet PO (22:34)
[2023-01-20] VITALS (7 sets, daily range): BP systolic 142–158; BP diastolic 68–97; PULSE 74–90; RESP 16–18; TEMP 36.2–36.7; O2SAT 94–96; BMI 30.8
[2023-01-20 05:46] LABS: Absolute Lymphocyte Count 1.25 X10^3/uL (0.83-4.51); Absolute Neutrophil Count 6.2 X10^3/uL (2.0-7.7); Basophil# 0.04 X10^3/uL; Basophil% 0.5 % (0-1); Eosinophils% 1.2 % (0-5); Hematocrit 37.8 % (37-47); Hemoglobin 11.7 g/dL (12.0-15.0); Lymphocyte # 1.25 X10^3/ul (0.83-4.51); Lymphocyte % 14.7 % (19-41); Mean Corpuscular Hgb 28.1 pg (27.0-32.0); Mean Corpuscular Volume 90.6 fL (81-99); Mean Platelet Vol. 10.9 fl (6.2-12.0); Monocyte# 0.88 X10^3/uL; Monocyte% 10.3 % (0-10); NRBC Flagged by Analyzer 0 % (0-5); Neutrophil # 6.22 X10^3/uL (2.7-7.7); Neutrophil % 73.1 % (47-70); Platelet Count 342 K/mm3 (150-450); RBC Distribution Width CV 14.6 % (11.6-14.6); RBC Distribution Width SD 48.1 fl (35.1-43.9); Red Blood Count 4.17 M/mm3 (4.2-5.4); White Blood Count 8.5 K/mm3 (4.4-11.0)
[2023-01-20 06:31] LABS: Anion Gap 4 (5-15); BUN 12 mg/dL (7-18); BUN/Creat Ratio 18.2 RATIO (10-20); Calcium,Total 8.6 mg/dL (8.5-10.1); Chloride 109 mmol/L (98-107); Creatinine, Serum 0.66 mg/dL (0.55-1.02); EST Glomerular Filtration Rate 91 mL/min (>60); Est Glom Filt Rate - Afr Amer 110 mL/min (>60); Estimated Creatinine Clearance 35.52 ml/min; Glucose 112 mg/dL (74-106); Magnesium 1.9 mg/dL (1.6-2.6); Potassium 3.1 mmol/L (3.5-5.1); Sodium Level 143 mmol/L (136-145); Thyroid Stim Hormone (TSH) 2.25 uIU/mL (0.358-3.74)
[2023-01-20] MEDS: APIXABAN 5 MG TABLET PO ×2 (09:16→21:13)
[2023-01-20] MEDS: FLUoxetine 20 MG Capsule PO (09:16)
[2023-01-20] MEDS: Losartan Potassium 100 MG Tablet PO (09:16)
[2023-01-20] MEDS: Metoprolol Tartrate 25 MG Tablet 12.5 MG PO ×2 (09:16→21:13)
[2023-01-20] MEDS: buPROPion (XL) 150 MG TABLET.XL PO (09:17)
--- NOTE | 2023-01-20 09:17 | PN.HOSP_ITS ---
Reason for Visit Reason for Visit: Diagnoses Essential (primary) hypertension (01/19/23) Paroxysmal atrial fibrillation (01/19/23) Gastro-esophageal reflux disease without esophagitis (01/19/23) Hypoxemia (01/19/23) Subjective Subjective Still feels a little short of breath but much better than yesterday, feels legs are starting to go down as well Objective Data Objective Data Vital Signs: Vital Signs Temp Pulse Resp BP Pulse Ox O2 Del Method 97.1 F L 82 16 151/97 H 94 Room Air 01/20/23 06:00 01/20/23 06:00 01/20/23 06:00 01/20/23 06:00 01/20/23 06:00 01/20/23 08:42 Oxygen Delivery Method Room Air Weight: 81.4 kg Body Mass Index (BMI) 30.8 Intake & Output: Intake and Output for Last 24 Hours 01/18/23 01/19/23 01/20/23 23:59 23:59 23:59 Intake Total 640 / 640 Output Total 3700 / 3700 0 / 0 Balance -3060 / -3060 0 / 0 Lab / Micro Data 01/20/23 05:10 01/20/23 05:10 Labs: Laboratory Results - last 24 hr 01/19/23 09:04: Troponin I High Sens 14 01/20/23 05:10: WBC 8.5, RBC 4.17 L, Hgb 11.7 L, Hct 37.8, MCV 90.6, MCH 28.1, MCHC 31.0 L, RDW Std Deviation 48.1 H, RDW Coeff of [place] 14.6, Plt Count 342, MPV 10.9, Immature Gran % (Auto) 0.200, Neut % (Auto) 73.1 H, Lymph % (Auto) 14.7 L, [place] % (Auto) 10.3 H, Eos % (Auto) 1.2, Baso % (Auto) 0.5, Absolute Neuts (auto) 6.2, Absolute Lymphs (auto) 1.25, Nucleated RBC % 0, Sodium 143, Potassium 3.1 L , Chloride 109 H, Carbon Dioxide 30.0, Anion Gap 4 L, BUN 12, Creatinine 0.66, Estim Creat Clear Calc 35.52, Est GFR (MDRD) Af Amer 110, Est GFR (MDRD) Non-Af 91, BUN/Creatinine Ratio 18.2, Glucose 112 H, Calcium 8.6, Magnesium 1.9, TSH 2.25 Micro: Microbiology 01/19/23 07:12 Nasal Secretion SARS-CoV-2 & FLU Antigen (Rapid) - Final Radiography Diagnostic Testing: Radiology Impression Echocardiogram 01/19/23 07:57 Interpretation Summary Limited study. The estimated ejection fraction is 70 %. The left atrium is moderately enlarged. The right atrium is mildly enlarged. Ordering Physician: Hallie Herbert Referring Physician: Brenda Palmer M.D. Performed By: Joann Hall RCS Physical Exam Narrative General: Alert, oriented, no apparent distress HEENT: Atraumatic, normocephalic Eyes: Anicteric, normal conjunctiva, extraocular movements grossly intact Neck: Supple Respiratory: Clear to auscultation bilaterally, normal respiratory effort Cardiovascular: Regular rate and rhythm GI: Soft, nontender, nondistended Extremities: 1+ edema, beginning to get wrinkles Musculoskeletal: Moving all extremities Neuro: No overt focal neurological deficits Skin: No rashes appreciated Psych: Cooperative Assessment & Plan Assessment/Plan (1) Hypoxia: (2) Paroxysmal A-fib: (3) GERD (gastroesophageal reflux disease): (4) Essential (primary) hypertension: PLAN: Plan #Hypoxia secondary to fluid overload -Patient presented with tachypnea and O2 sat that dropped to 85% on room air with ambulation when she has no baseline hypoxia -Chest x-ray independently reviewed and agree with the independent review of ED physician that it appears congested and consistent with fluid overload -BNP 382 appears to remain elevated -Last echocardiogram October 2022 with an EF of 70% but unable to assess for diastolic function, PASP 45 mmHg -Patient given 40 IV Lasix, will continue 40 IV Lasix twice daily -Daily weights, I's and O's -Fluid restriction -Repeat limited echo to assess EF as picture is consistent with fluid overload but patient has no known heart failure, given her chronic hypertension cannot rule out heart failure with preserved ejection fraction so hopefully will be able to assess for any diastolic dysfunction as well -01/20: Limited echo with normal EF, did not comment on diastolic dysfunction, with her chronic hypertension suspect that she probably does have component of heart failure with preserved ejection fraction given presentation and work-up as well as response to Lasix. She diuresed 6 kg with the IV Lasix, patient switched to oral Lasix today and if she does well will go home tomorrow on scheduled Lasix. #HTN w/ hypertensive urgency -BP in ED increased to 200/69 -Patient reports she runs high but usually is not this high -She has not taken her home medications today, will give home medicines -Additionally will add as needed blood pressure medication with goal of lowering by 20 to 30 mmHg then slowly over the next 1 to 2 days -Patient was short of breath on arrival and her symptoms did not seem to mirror changes in her blood pressure so do not think that this is necessarily hypertensive emergency at this time but will monitor closely -01/20: We will need to control closely over time to prevent any worsening of any possible underlying ventricular hypertrophy or heart failure, increased amlodipine, continue to monitor and adjust medications #Hypokalemia -Replace, daily BMP given concurrent Lasix administration -01/20: Replaced #Atrial fibrillation -Continue beta-harrison and Eliquis #Depression -Continue Wellbutrin and fluoxetine #GERD -Continue Protonix #DVT ppx: Sarahquis Hallie Herbert MD Time spent in the patient's overall evaluation,decision-making process, review of diagnostic data, adjustment of management, discussion with other providers, nursing nursing and ancillary staff involved in patient's care documentation, 38 minutes Charges/Coding Visit Charges Inpatient E&M: 45436 Subs Hosp L2
[2023-01-20] MEDS: Fenofibrate 145 MG Tablet PO (09:18)
[2023-01-20] MEDS: Pantoprazole Sodium 40 MG Tablet PO (09:18)
[2023-01-20] MEDS: Potassium Chloride Oral Soln 20 MEQ/15 ML UDC 60 MEQ PO (09:22)
[2023-01-20] MEDS: amLODIPine 10 MG Tablet PO (09:22)
[2023-01-20] MEDS: Furosemide 40 MG Tablet PO (09:22)
--- NOTE | 2023-01-20 10:51 | CASEMGMT ---
Addendum entered by Raffaele Samayoa 01/20/23 12:16: Call received from [facility]. They are able to accept pt w/SOC slated for Wednesday 01/24. Pt made aware and states this SOC is okay. Original Note: RN?CM?ASSESSMENT PCP: Dr Palmer Specialists:[facility]/Cardiology Preferred Pharmacy: [facility] Insurance: MMO MCR Prescription Benefit:?Yes Living Will/HPOA:? Has both LW and HCPOA, who is her dtr, Theresa. LNOK: Dtr, Theresa. SonMarquis Living Arrangements: Lives @ [facility], one-leve, no steps. Pt is indep w/ADL's and IADL's, and manages her own medications. Pt states her dtr is getting her groceries today. Transportation:?Pt drives and denies having transportation concerns. Dtr will take her home @ d/c. DME: Pt has shower chair, RTS, walker, rollator, grab bars. She does not have home o2 or pulse ox. Recommended to get a pulse ox and pt states it is affordable for her to buy one. Discussed DME companies in pt's area, she was made aware [employer] is affiliated /[facility], and she chose [employer] as her 1st choice. Discussed Home o2 set up process and questions answered. HHC/SNF: No hx of SNF. Just recently had HHC for IV atb's. Pt states she does not remember the name of the agency, as it was out of [place]. Discussed d/c planning. Pt wishes to return back to [facility]. Discussed HHC for SN and therapy and pt states would like this set up. She states feels she will be home-bound for the 1st couple of weeks after returning home. Pt states wants [facility] HHC and declines wanting list of other HHC options. Call to [facility] and referral made. Awaiting response. Pt was going to [facility] for OP therapy. She has cx'd those appts. She is aware she will not be able to do both OP therapy and HHC at the same time. She voices understanding. She plans to resume OP therapy once she has been discharged from [facility]. She was made aware she may need another script for the OP therapy. She states she will f/u with Dr Palmer for that, if needed. Pt wishes to return home and states has no concerns with going home at time of discharge.? CM?to follow for home oxygen needs and any further discharge planning/needs.? Pt voices no further concerns/needs at this time.? Advised pt to ask for?CM?if any further questions/concerns/needs arise.? Voices understanding. PLAN:? Home w/HHC. Follow for possible Home O2 Dari JOHNSONN?RN?CM
[2023-01-20] MEDS: hydrOXYzine 10 MG Tablet PO (11:13)
--- NOTE | 2023-01-20 13:17 | CASEMGMT ---
Patient has a Healthcare Power of Silk Washing Machine Operator and a Healthcare Living Will. Patient's daughter Theresa is patient's Healthcare Power of Silk Washing Machine Operator. They are aware documents are not on file at [facility]. [place] MORA
[2023-01-20] MEDS: Atorvastatin Calcium 20 MG Tablet PO (21:13)
[2023-01-20] MEDS: Doxazosin 1 MG Tablet 2 MG PO (21:13)
[2023-01-21] VITALS (7 sets, daily range): BP systolic 141–144; BP diastolic 65–80; PULSE 74–91; RESP 18; TEMP 36.6–36.7; O2SAT 90–95; BMI 30.9
[2023-01-21 07:11] LABS: Anion Gap 4 (5-15); BUN 18 mg/dL (7-18); BUN/Creat Ratio 22.2 RATIO (10-20); Calcium,Total 8.7 mg/dL (8.5-10.1); Chloride 110 mmol/L (98-107); Creatinine, Serum 0.81 mg/dL (0.55-1.02); EST Glomerular Filtration Rate 71 mL/min (>60); Est Glom Filt Rate - Afr Amer 86 mL/min (>60); Estimated Creatinine Clearance 43.85 ml/min; Glucose 118 mg/dL (74-106); Potassium 3.6 mmol/L (3.5-5.1); Sodium Level 142 mmol/L (136-145)
[2023-01-21] MEDS: Metoprolol Tartrate 25 MG Tablet 12.5 MG PO (09:14)
[2023-01-21] MEDS: FLUoxetine 20 MG Capsule PO (09:15)
[2023-01-21] MEDS: Fenofibrate 145 MG Tablet PO (09:15)
[2023-01-21] MEDS: APIXABAN 5 MG TABLET PO (09:15)
[2023-01-21] MEDS: Pantoprazole Sodium 40 MG Tablet PO (09:15)
[2023-01-21] MEDS: amLODIPine 10 MG Tablet PO (09:16)
[2023-01-21] MEDS: Furosemide 40 MG Tablet PO (09:16)
[2023-01-21] MEDS: Losartan Potassium 100 MG Tablet PO (09:16)
[2023-01-21] MEDS: buPROPion (XL) 150 MG TABLET.XL PO (09:16)
--- NOTE | 2023-01-21 10:30 | DCINST_ITS ---
Discharge Instructions Diet Discharge Diet: - (-DASH diet, 3000 mg sodium restriction, 2 L fluid restriction) Activity Discharge Activity: Return to Normal Activity Follow Up Care Test Results: Test results from this visit will be discussed in further detail at your follow- up appointment, if applicable. Discharge Plan Admission Admit Date/Time: 01/19/23 07:52 Primary Reason for Your Visit: Shortness of breath Attending Provider: Hallie Herbert Primary Care Provider: Brenda Palmer Instructions Patient Instructions: DASH Plan Eat Heart Healthy Food, Heart Failure Make Changes Diet, ED Peripheral Edema, Bilateral Additional Instructions / Restrictions: DISCHARGE INSTRUCTIONS PLEASE READ *Please take this with you to your next doctors appointment* -You will be discharged on 40 mg of Lasix daily, continue other home medications -You will be sent in a short-term prescription for hydroxyzine 10 mg to take only as needed. As we discussed if you have to take this daily or more than once a day please discuss with your primary care physician as increasing your fluoxetine may also help with overall anxiety -Please follow-up with cardiology upon discharge. Please call their office to schedule an appointment upon discharge. -Would recommend lab work (BMP) to check your potassium and kidney function in 2 to 3 days through your primary care physician's office. Please call their office upon discharge to obtain order for lab work. -Check your blood pressure daily and log it and take this with your primary care physician. If the top number of your blood pressure is over 170-180 please contact your physician for further instructions -Weigh yourself every day. A sudden weight gain can mean you are retaining fluid. Weigh yourself at the same time of day and in the same kind of clothes. Ideally, weigh yourself first thing in the morning after you empty your bladder, but before you eat breakfast. -Please call your physician if your weight goes up by more than 2 pounds in 1 day or 5 pounds in 1 week. This can be a sign that you are retaining more fluid than you should be. Clues to weight gain include checking your ankles for swelling, or noticing you are short of breath when you lie down -Please limit your sodium intake to less than 3 g/day. Here are tips: Limit canned, dried, packaged, and fast foods. Don't add salt to your food at the table. Season foods with herbs instead of salt when you cook. When you eat out, ask that the enlisted aircrew/aerial observer/gunner not add any salt to your dish. Don't eat fried or greasy foods. Be careful of bottled beverages. They can contain a lot of salt -Call 911 right away if you have: -Severe shortness of breath, such that you can't catch your breath even while resting -Severe chest pain that does not resolve with rest or nitroglycerin -[place], foamy mucus with cough and shortness of breath -An ongoing rapid or irregular heartbeat -Passing out or fainting -Stroke symptoms such as sudden numbness or weakness on one side of your face, arm, or leg or sudden confusion, trouble speaking or vision changes -Please call your primary care provider's office upon discharge to schedule a hospital follow up within 1 week. -For any concerning signs or symptoms please call 911 or proceed to the nearest emergency department Discharge Orders/Prescriptions Prescriptions: New furosemide 40 mg Tablet 40 mg PO DAILY 30 Days Qty: 30 0RF hydroxyzine HCl 10 mg Tablet 10 mg PO TID PRN PRN (Reason: severe anxiety) 14 Days Qty: 30 0RF Continued fluoxetine 20 mg tablet 20 mg PO DAILY 30 Days Qty: 30 Patient Comments: TAKE ONE TABLET BY MOUTH EVERY DAY acetaminophen 500 mg tablet 500 mg PO Q6H PRN (Reason: Pain) cholecalciferol (vitamin D3) 25 mcg (1,000 unit) tablet 25 mcg PO DAILY calcium carbonate 500 mg calcium (1,250 mg) tablet 500 mg PO DAILY Eliquis 5 mg tablet 5 mg PO BID Qty: 60 11RF metoprolol tartrate 25 mg tablet 12.5 mg PO BID pantoprazole 40 MG tablet,delayed release (DR/EC) 40 mg PO DAILY Qty: 30 0RF bupropion HCl 150 mg tablet extended release 24 hr 150 mg PO DAILY Patient Comments: take 1 tablet by mouth once daily fenofibrate 160 mg tablet 145 mg PO DAILY Patient Comments: take 1 tablet by mouth once daily rosuvastatin 10 mg tablet 10 mg PO DAILY losartan 25 mg tablet 100 mg PO DAILY amlodipine 5 mg tablet 5 mg PO DAILY doxazosin 2 mg tablet 2 mg PO QHS Qty: 30 11RF spironolactone 25 mg tablet 25 mg PO DAILY Qty: 90 3RF Referrals / Follow Up: Brenda Palmer DO [Primary Care Provider] - Within 1 Week Laxmi Garrett, PA [Med Staff - Adv Practice Prof] - (-Please follow-up with cardiology upon discharge. Please call their office to schedule an appointment upon discharge. ) Disposition Disposition (needs filled in before D/C Order can be placed): Home Health Service
--- NOTE | 2023-01-21 10:37 | DS.PCM_ITS ---
Providers Date of Admission: 01/19/23 Date of Discharge: 01/21/23 Primary Care Physician: Dr. Brenda Palmer DO Reason For Visit: FLUID OVERLOAD, HYPOXIA, RESP DISTRESS Diagnosis Discharge Diagnosis (1) Hypoxia: Status: Acute Code(s): R09.02 - Hypoxemia (2) Paroxysmal A-fib: Status: Acute Code(s): I48.0 - Paroxysmal atrial fibrillation (3) GERD (gastroesophageal reflux disease): Status: Chronic Code(s): K21.9 - Gastro-esophageal reflux disease without esophagitis (4) Essential (primary) hypertension: Status: Chronic Code(s): I10 - Essential (primary) hypertension (5) Fluid overload: Status: Acute Code(s): E87.70 - Fluid overload, unspecified (6) Anxiety: Status: Acute Code(s): F41.9 - Anxiety disorder, unspecified Plan #Hypoxia secondary to fluid overload #HTN w/ hypertensive urgency #Hypokalemia #Atrial fibrillation #Depression and anxiety #GERD Medications at Discharge Home Medications fluoxetine 20 mg tablet 20 mg PO DAILY DEPRESSION 30 days ##30 09/24/17 pantoprazole 40 mg tablet,delayed release 40 mg PO DAILY ##30 01/01/18 rosuvastatin 10 mg tablet 10 mg PO DAILY Cholesterol 10/22/20 acetaminophen 500 mg tablet 500 mg PO Q6H PRN Pain 10/30/20 cholecalciferol (vitamin D3) 25 mcg (1,000 unit) tablet 25 mcg PO DAILY Vit D 02/11/21 bupropion HCl 150 mg 24 hr tablet, extended release 150 mg PO DAILY Anxiety 10/27/22 apixaban 5 mg tablet (Eliquis) 5 mg PO BID #60 tabs 12/08/22 calcium carbonate 500 mg calcium (1,250 mg) tablet 500 mg PO DAILY Reflux 12/08/22 fenofibrate 160 mg tablet 145 mg PO DAILY Triglycerides 12/08/22 losartan 25 mg tablet 100 mg PO DAILY BP 12/08/22 metoprolol tartrate 25 mg tablet 12.5 mg PO BID HR 12/08/22 amlodipine 5 mg tablet 5 mg PO DAILY BP 12/13/22 doxazosin 2 mg tablet 2 mg PO QHS #30 tabs 12/23/22 spironolactone 25 mg tablet 25 mg PO DAILY diuretic #90 tabs 07/31/23 furosemide 40 mg tablet 40 mg PO DAILY 30 days #30 tabs 01/21/23 hydroxyzine HCl 10 mg tablet 10 mg PO TID PRN PRN severe anxiety 14 days #30 tabs 01/21/23 Hospital Course Summary of Care Provided Minutes Spent on Discharge: 36 Hospital Course: JOSE MANUEL REYNA, is a 87 F hx of afib on eliquis, spinal abscess s/p 8 weeks IV abx finished in November 2022, HTN, depression who presented to [facility] 01/19/23 w/ increasing weakness and shortness of breath for 1 week but started somewhat suddenly and has continued to worsen. In the ED she was noted to have a BNP of 382, independent review of chest x-ray appeared fluid overloaded, was conversationally dyspneic, and had an O2 sat of 85% on room air with ambulation. She was given 40 IV Lasix and hospitalist consulted for admission for fluid overload. Patient responded very well and very quickly to IV Lasix, repeat limited echo, limited performed she had a full echo and recently, showed EF 70% and no regional wall motion abnormalities, no comment on any diastolic function. Given her clinical picture consistent with fluid overload/CHF and she responded to Lasix suspect she has heart failure with preserved ejection fraction and that this was an exacerbation of that however cannot say this definitively given lack of noted diastolic dysfunction. Will need to follow-up with cardiology on outpatient basis. Patient doing much better on day of discharge, daughter at bedside and both given verbal instructions. They verbalized their understanding. D/c instructions as followed: -You will be discharged on 40 mg of Lasix daily, continue other home medications -You will be sent in a short-term prescription for hydroxyzine 10 mg to take only as needed. As we discussed if you have to take this daily or more than once a day please discuss with your primary care physician as increasing your fluoxetine may also help with overall anxiety -Please follow-up with cardiology upon discharge. Please call their office to schedule an appointment upon discharge. -Would recommend lab work (BMP) to check your potassium and kidney function in 2 to 3 days through your primary care physician's office. Please call their office upon discharge to obtain order for lab work. -Check your blood pressure daily and log it and take this with your primary care physician. If the top number of your blood pressure is over 170-180 please contact your physician for further instructions -Weigh yourself every day. A sudden weight gain can mean you are retaining fluid. Weigh yourself at the same time of day and in the same kind of clothes. Ideally, weigh yourself first thing in the morning after you empty your bladder, but before you eat breakfast. -Please call your physician if your weight goes up by more than 2 pounds in 1 day or 5 pounds in 1 week. This can be a sign that you are retaining more fluid than you should be. Clues to weight gain include checking your ankles for swelling, or noticing you are short of breath when you lie down -Please limit your sodium intake to less than 3 g/day. Here are tips: Limit canned, dried, packaged, and fast foods. Don't add salt to your food at the table. Season foods with herbs instead of salt when you cook. When you eat out, ask that the chefs not add any salt to your dish. Don't eat fried or greasy foods. Be careful of bottled beverages. They can contain a lot of salt -Call 911 right away if you have: -Severe shortness of breath, such that you can't catch your breath even while resting -Severe chest pain that does not resolve with rest or nitroglycerin -[place], foamy mucus with cough and shortness of breath -An ongoing rapid or irregular heartbeat -Passing out or fainting -Stroke symptoms such as sudden numbness or weakness on one side of your face, arm, or leg or sudden confusion, trouble speaking or vision changes -Please call your primary care provider's office upon discharge to schedule a hospital follow up within 1 week. -For any concerning signs or symptoms please call 911 or proceed to the nearest emergency department Physical Exam Narrative General: Alert, oriented, no apparent distress HEENT: Atraumatic, normocephalic Eyes: Anicteric, normal conjunctiva, extraocular movements grossly intact Neck: Supple Respiratory: Clear to auscultation bilaterally, normal respiratory effort Cardiovascular: Regular rate and rhythm GI: Soft, nontender, nondistended Extremities: 1+ edema, beginning to get wrinkles Musculoskeletal: Moving all extremities Neuro: No overt focal neurological deficits Skin: No rashes appreciated Psych: Cooperative Weight / BMI Weight Weight: 81.9 kg Body Mass Index (BMI) 30.9 ABG / Lab / Microbiology Data 01/20/23 05:10 01/21/23 05:27 Laboratory: Laboratory Results - last 24 hr 01/21/23 05:27: Sodium 142, Potassium 3.6, Chloride 110 H, Carbon Dioxide 28.0, Anion Gap 4 L, BUN 18, Creatinine 0.81, Estim Creat Clear Calc 43.85, Est GFR (MDRD) Af Amer 86, Est GFR (MDRD) Non-Af 71, BUN/Creatinine Ratio 22.2 H, Glucose 118 H, Calcium 8.7 Microbiology: Microbiology 01/19/23 07:12 Nasal Secretion SARS-CoV-2 & FLU Antigen (Rapid) - Final D/C Instructions Discharge Diet: - (-DASH diet, 3000 mg sodium restriction, 2 L fluid restricti on) Meaningful Use Info Meaningful Use Diagnoses (Choose all that apply): None applicable Discharge Plan Admission Admit Date/Time: 01/19/23 07:52 Primary Reason for Your Visit: Shortness of breath Attending Provider: Hallie Herbert Primary Care Provider: Brenda Palmer Instructions Patient Instructions: DASH Plan Eat Heart Healthy Food, Heart Failure Make Changes Diet, ED Peripheral Edema, Bilateral Additional Instructions / Restrictions: DISCHARGE INSTRUCTIONS PLEASE READ *Please take this with you to your next doctors appointment* -You will be discharged on 40 mg of Lasix daily, continue other home medications -You will be sent in a short-term prescription for hydroxyzine 10 mg to take onl y as needed. As we discussed if you have to take this daily or more than once a day please discuss with your primary care physician as increasing your fluoxetine may also help with overall anxiety -Please follow-up with cardiology upon discharge. Please call their office to schedule an appointment upon discharge. -Would recommend lab work (BMP) to check your potassium and kidney function in 2 to 3 days through your primary care physician's office. Please call their office upon discharge to obtain order for lab work. -Check your blood pressure daily and log it and take this with your primary care physician. If the top number of your blood pressure is over 170-180 please contact your physician for further instructions -Weigh yourself every day. A sudden weight gain can mean you are retaining fluid. Weigh yourself at the same time of day and in the same kind of clothes. Ideally, weigh yourself first thing in the morning after you empty your bladder, but before you eat breakfast. -Please call your physician if your weight goes up by more than 2 pounds in 1 day or 5 pounds in 1 week. This can be a sign that you are retaining more fluid than you should be. Clues to weight gain include checking your ankles for swelling, or noticing you are short of breath when you lie down -Please limit your sodium intake to less than 3 g/day. Here are tips: Limit canned, dried, packaged, and fast foods. Don't add salt to your food at the table. Season foods with herbs instead of salt when you cook. When you eat out, ask that the chefs not add any salt to your dish. Don't eat fried or greasy foods. Be careful of bottled beverages. They can contain a lot of salt -Call 911 right away if you have: -Severe shortness of breath, such that you can't catch your breath even while resting -Severe chest pain that does not resolve with rest or nitroglycerin -[place], foamy mucus with cough and shortness of breath -An ongoing rapid or irregular heartbeat -Passing out or fainting -Stroke symptoms such as sudden numbness or weakness on one side of your face, arm, or leg or sudden confusion, trouble speaking or vision changes -Please call your primary care provider's office upon discharge to schedule a hospital follow up within 1 week. -For any concerning signs or symptoms please call 911 or proceed to the nearest emergency department Discharge Orders/Prescriptions Prescriptions: New furosemide 40 mg Tablet 40 mg PO DAILY 30 Days Qty: 30 0RF hydroxyzine HCl 10 mg Tablet 10 mg PO TID PRN PRN (Reason: severe anxiety) 14 Days Qty: 30 0RF Continued fluoxetine 20 mg tablet 20 mg PO DAILY 30 Days Qty: 30 Patient Comments: TAKE ONE TABLET BY MOUTH EVERY DAY acetaminophen 500 mg tablet 500 mg PO Q6H PRN (Reason: Pain) cholecalciferol (vitamin D3) 25 mcg (1,000 unit) tablet 25 mcg PO DAILY calcium carbonate 500 mg calcium (1,250 mg) tablet 500 mg PO DAILY Eliquis 5 mg tablet 5 mg PO BID Qty: 60 11RF metoprolol tartrate 25 mg tablet 12.5 mg PO BID pantoprazole 40 MG tablet,delayed release (DR/EC) 40 mg PO DAILY Qty: 30 0RF bupropion HCl 150 mg tablet extended release 24 hr 150 mg PO DAILY Patient Comments: take 1 tablet by mouth once daily fenofibrate 160 mg tablet 145 mg PO DAILY Patient Comments: take 1 tablet by mouth once daily rosuvastatin 10 mg tablet 10 mg PO DAILY losartan 25 mg tablet 100 mg PO DAILY amlodipine 5 mg tablet 5 mg PO DAILY doxazosin 2 mg tablet 2 mg PO QHS Qty: 30 11RF spironolactone 25 mg tablet 25 mg PO DAILY Qty: 90 3RF Referrals / Follow Up: Brenda Palmer DO [Primary Care Provider] - Within 1 Week Laxmi Garrett PA [Med Staff - Adv Practice Prof] - (-Please follow-up with cardiology upon discharge. Please call their office to schedule an appointment upon discharge. ) Disposition Disposition (needs filled in before D/C Order can be placed): Home Health S ervice Charges/Coding Visit Charges Inpatient E&M: 34495 Disch Hosp >30min
--- NOTE | 2023-01-21 11:46 | CASEMGMT ---
Patient has order for discharge. [facility] is setup for start of care Tuesday. RN CM in to discuss discharge needs with patient and daughter. Patient denied additional needs at discharge and aware of [facility] start of care for Tuesday. Patient and daughter had no further questions or concerns at this time.
[2023-01-21] MEDS: hydrOXYzine 10 MG Tablet PO (11:53)
== END 2023-01-21 12:30 | disposition home health service (06) | DRG 640 ==
LOC: ED 05:58 → PCU 08:04
PROVIDERS: Admitting Provider Internal Medicine; Emergency Provider Emergency Medicine; PCP Internal Medicine; Visit Provider Internal Medicine
DX: E87.70 Fluid overload, unspecified (principal); I50.31 Acute diastolic (congestive) heart failure; I11.0 Hypertensive heart disease with heart failure; I48.0 Paroxysmal atrial fibrillation; E78.5 Hyperlipidemia, unspecified; K21.9 Gastro-esophageal reflux disease without esophagitis; E87.6 Hypokalemia; I16.0 Hypertensive urgency; F32.A Depression, unspecified; F41.9 Anxiety disorder, unspecified; Z79.01 Long term (current) use of anticoagulants; R60.0 Localized edema; R09.02 Hypoxemia
CPT/HCPCS: 36415; 71045; 80048; 83735; 83880; 84443; 84484; 85025; 87428; 93005; 93308; 94668; 97162; 97166; 97530; 97803; 99252; 99285; Q9957; A4216; G0463; J1940

== ENCOUNTER → 2023-06-30 | Outpatient (CLI) | payer MEDICARE, SELFPAY ==
--- NOTE | 2023-06-30 09:15 | BI_ITS ---
MAMMOGRAPHY - BILATERAL SCREENING REASON FOR EXAM: Female, 87 years old. Routine annual screening examination. PERTINENT HISTORY: Non-contributory. TECHNIQUE: Digital bilateral breast adelina (3D mammographic acquisition) in the CC and MLO projections. 2-D mediolateral oblique (MLO) and craniocaudad (CC) views of both breasts were obtained. CAD: Full Field Digital Mammography with Computer Added Detection was performed. COMPARISON: Comparison is made with prior study dated October 01, 2021 and September 30, 2020. FINDINGS: Breast Composition: There are scattered areas of fibroglandular density. There are no dominant masses or suspicious calcifications. No other significant abnormalities are identified. There has been no significant change since the prior study. BI/SCRN MAMM (CAD)W/ADELINA BILAT IMPRESSION: Stable bilateral screening mammogram. Yearly follow-up mammogram recommended. (A) ASSESSMENT CATEGORY: BIRADS Category 1: Negative. A letter regarding these results will be sent to the patient by the facility within 30 days. Approximately 10% of breast cancers are not detected by mammography. A normal mammogram should not delay biopsy of a clinically suspicious abnormality. [id number] Electronically Signed: Ras Leonardo MD at 10:41 EST ,
--- NOTE | 2023-06-30 09:32 | BD_ITS ---
STUDY: DUAL ENERGY X-RAY ABSORPTIOMETRY / DXA REASON FOR EXAM: Female, 87 years old. M85.89 TECHNIQUE: Bone Mineral Density (BMD) measurements of lumbar spine and bilateral hips were obtained. COMPARISON: Comparison is made with prior study dated September 30, 2020. FINDINGS: Lumbar Spine (L1-L4): g/cm2 (1.213) / T-score (1.5) / Z-score (4.4) Findings are suggestive of normal bone density with a low fracture risk. Left Femur Total: g/cm2 (0.825) / T-score (-1.0) / Z-score (1.4) Left Femoral Neck: g/cm2 (0.665) / T-score (-1.7) / Z-score (0.9) Right Femur Total: g/cm2 (0.805) / T-score (-1.1) / Z-score (1.2) Right Femoral Neck: g/cm2 (0.565) / T-score (-2.6) / Z-score (0.0) The T-Scores on the most recent prior examination were: Lumbar Spine (L1-L4): There has been worsening of bone density since the previous examination. Left Femur Total: which represents a worsening of 2%. Right Femur Total: which represents a worsening of 1.6%. BD/Dexa Bone Density Study IMPRESSION: The patient is considered osteoporotic as outlined below according to World Jose Organization (WHO) criteria with a high fracture risk. There has been worsening of bone density since the previous examination. Reference Information: The T-score is the number of standard deviations above or below the standard which is normal for young adults at their peak bone mineral density. The World Health Organization (WHO) interprets the T-scores as follows: Above -1 Normal bone density Between -1 and -2.5 Osteopenia Equal to / or below -2.5 Osteoporosis As a practical clinical guideline, osteopenia may be graded as follows: Mild -1 through -1.5 Moderate -1.6 through -2.0 Severe -2.1 through -2.4 The Z-score is the number of standard deviations above or below age-matched controls. A Z-score of less than -1.5 would be considered abnormal. References: 1. NIH Osteoporosis and Related Bone Diseases www osteo.org 2. International Society for Clinical Densitometry www iscd.org 3. National Osteoporosis Foundation www nof.org Electronically Signed: Ras Leonardo MD at 15:30 EST ,
== END | disposition home or self-care (01) ==
LOC: OPBD 09:14
PROVIDERS: PCP Internal Medicine; Referring Provider Internal Medicine; Visit Provider Internal Medicine
DX: Z12.31 Encounter for screening mammogram for malignant neoplasm of breast (principal); M85.89 Other specified disorders of bone density and structure, multiple sites
CPT/HCPCS: 77063; 77067; 77080

== ENCOUNTER 2023-07-07 13:48 | Emergency (ER) | payer MEDICARE, SELFPAY ==
[2023-07-07 13:49] VITALS: BP 94/83; PULSE 65; RESP 18; TEMP 36.8; O2SAT 100
--- NOTE | 2023-07-07 14:52 | ED.VIS.FALL ---
HPI HPI - Fall History of Present Illness Chief Complaint: Fall Informant: patient Occured/Mechanism Occurred: Today Mechanism/Context: Yes same level fall and Yes trip Pain/Injury Location: Nose and face Pain Location: head and face Quality of Pain: Aching Worsened by: Nothing Relieved by: Nothing Associated Symptoms Associated Symptoms: Negative for Parasthesias, Weakness, Loss of function, Inability to ambulate, Loss of consciousness or Amnesia Length of loss of consciousness: Few seconds Narrative Narrative: Patient presents after a fall that occurred today. Patient states she tripped over a curb and fell forward. Patient states she hit her nose on the pavement. Patient thinks she may have had a brief loss of consciousness for just a few seconds. Friends that were with her noted that she was sitting up and talking normally when they got to the patient after she fell. Patient admits to some mild pain in her neck and left knee. Patient denies any paresthesias or weakness. Patient denies any other injuries. [facility] Medical History Abdominal pain Dyslipidemia Ectopic cardiac beats Essential (primary) hypertension GERD (gastroesophageal reflux disease) History of anxiety disorder Incontinence Left arm pain Obesity Persistent atrial fibrillation with RVR PSVT (paroxysmal supraventricular tachycardia) Tachycardia Ventricular ectopy Home Medications fluoxetine 20 mg tablet 20 mg PO DAILY DEPRESSION 30 days ##30 09/24/17 [History Last Taken 01/18/23] pantoprazole 40 mg tablet,delayed release 40 mg PO DAILY reflux ##30 01/01/18 [Rx Last Taken 01/18/23 08:00] rosuvastatin 10 mg tablet 10 mg PO DAILY Cholesterol 10/22/20 [History Last Taken 01/18/23] acetaminophen 500 mg tablet 500 mg PO Q6H PRN Pain 10/30/20 [History Last Taken 01/18/23 19:00] cholecalciferol (vitamin D3) 25 mcg (1,000 unit) tablet 25 mcg PO DAILY Vit D 02/11/21 [History Last Taken 01/18/23] bupropion HCl 150 mg 24 hr tablet, extended release 150 mg PO DAILY Anxiety 10/27/22 [History Last Taken 01/18/23] apixaban 5 mg tablet (Eliquis) 5 mg PO BID blood thinner #60 tabs 12/08/22 [Rx Last Taken 01/18/23] calcium carbonate 500 mg calcium (1,250 mg) tablet 500 mg PO DAILY Reflux 12/08/22 [History Last Taken 01/18/23] fenofibrate 160 mg tablet 145 mg PO DAILY Triglycerides 12/08/22 [History Last Taken 01/18/23] metoprolol tartrate 25 mg tablet 12.5 mg PO BID HR 12/08/22 [History Last Taken 01/18/23 19:00] doxazosin 2 mg tablet 2 mg PO QHS blood pressure #30 tabs 12/23/22 [Rx Last Taken 01/18/23] hydroxyzine HCl 10 mg tablet 10 mg PO TID PRN PRN severe anxiety 14 days #30 tabs 01/21/23 [Rx Last Taken Unknown] furosemide 40 mg tablet 40 mg PO DAILY #90 tabs 02/14/23 [Rx Last Taken Unknown] amlodipine 5 mg tablet 5 mg PO DAILY BP #90 tabs 02/28/23 [Rx Last Taken Unknown] handicap placard #1 ea 04/21/23 [Rx Last Taken Unknown] losartan 100 mg tablet 100 mg PO DAILY 04/21/23 [History Last Taken Unknown] Allergy/AdvReac Type Severity Reaction Status Date / Time codeine AdvReac Vomiting Verified 07/07/23 13:51 lactose [lactose intolerant] AdvReac Abd Verified 07/07/23 13:51 cramps/diarrhea Family History Mother Hypertension Cancer Father Cancer Surgical History History of colectomy History of hemorrhoidectomy Social History Smoking Status: Never smoker alcohol intake: never substance use type: does not use caffeine: Yes Type: coffee Number of servings: 3 ROS ROS ED Constitutional Constitutional ED: Denies chills or fever(s) Eyes Eyes: Denies blurry vision or change in vision ENT ENT ED: Denies rhinorrhea or sore throat Cardiovascular Cardiovascular: Denies chest pain or palpitations Respiratory/Chest Respiratory/Chest: Denies cough or dyspnea Gastrointestinal Gastrointestinal: Denies nausea or vomiting Genitourinary Genitourinary ED: Denies dysuria or hematuria Musculoskeletal Musculoskeletal: Reports neck pain; Denies back pain Integumentary Reports Abrasions; Denies abscess or rash Neurologic Neurologic: Reports headache(s); Denies weakness Allergic/Immunologic Allergic/Immunologic ED: Denies mouth swelling or urticaria EXAM Physical Exam Const Vital Signs: 07/07/23 13:49 Temperature 98.2 F Temperature Source Temporal Pulse Rate 65 Respiratory Rate 18 Blood Pressure 94/83 H Blood Pressure Mean 86 Pulse Ox 100 Oxygen Delivery Method Room Air Positive well nourished and well developed General Appearance ED: well developed and NAD HEENT HEENT Narrative: There is abrasion over the tip of the nose and superficial laceration at the bridge of the nose. There is no active bleeding noted. There is no septal deviation or septal hematoma noted. There is no bony crepitance or step-off noted. Eyes PERRL and EOMs intact bilaterally Neck full ROM and supple Resp normal respiratory effort and clear to auscultation bilaterally Cardio regular rate Rhythm: abnormal rhythm irregularly irregular GI non-tender and non-distended Palpation: soft Neuro oriented x3, CN's II-XII intact bilaterally, moves all extremities, no focal motor deficits and no sensory deficits noted [place] Coma Scale: document GCS findings Spontaneous Obeys Commands Oriented 15 Sensorium / Orientation: alert Motor Exam: strength 5/5 throughout Psych mental status grossly normal and thought process normal MDM MDM MDM Narrative Medical decision making narrative: Differential diagnosis includes intracranial bleeding, nasal fracture, cervical spine fracture, contusion, and cervical strain. CT scan of the brain will be obtained to assess for intracranial bleeding. CT scan of the facial bones will be obtained to assess for nasal fracture and facial fractures. CT scan of the cervical spine will be obtained to assess for cervical spine fracture. Radiography Diagnostic Testing: Clinical Impression(s) from Imaging Studies Facial/Sinus 07/07/23 14:53 IMPRESSION: 1. Mild soft tissue/scalp swelling is present across the frontal bones. There are mildly depressed fractures of the anterior superior aspect of the left nasal bone and is junction with the right nasal bone with swelling. No pneumocephalus or subdural hemorrhage or midline shift is present. No additional facial bony fractures are present. Electronically Signed: Forrest Quezada MD at 15:46 EST , Brain CT 07/07/23 14:54 IMPRESSION: 1. Mild soft tissue/scalp swelling is present across the frontal bones. There are mildly depressed fractures of the anterior superior aspect of the left nasal bone and is junction with the right nasal bone with swelling. No pneumocephalus or subdural hemorrhage or midline shift is present Electronically Signed: Forrest Quezada MD at 15:44 EST , Cervical Spine CT 07/07/23 14:54 IMPRESSION: Multilevel degenerative changes, as described above. Electronically Signed: Forrest Quezada MD at 15:47 EST , CT scan of the brain was obtained. There is no acute intracranial abnormality. There are mildly depressed fractures of the nasal bones. This was interpreted by the radiologist and was also independently reviewed by myself. CT scan of the facial bones was obtained. There are mildly depressed fractures of the nasal bones. There is no other fracture noted. This was interpreted by the radiologist and was also independently reviewed by myself. CT scan of the cervical spine was obtained. There are some degenerative changes. There is no acute fracture. This was interpreted by the radiologist and was also independently reviewed by myself. Treatment and Re-Evaluation Narrative: Patient was advised of her findings. The laceration was cleaned and closed with Dermabond skin adhesive. Patient tolerated the procedure well. Patient was instructed to keep the area clean. Patient was instructed to avoid Neosporin, bacitracin, and triple antibiotic ointment. Patient was instructed to follow-up with her primary care physician in 5 to 7 days. Patient was given head injury instructions. Patient understood and was agreeable with the plan. All questions were answered. Discharge Plan Triage Chief Complaint: Fall ED Provider: Itz English Dx/Rx/DC Orders Clinical Impression: Head injury, Fall, Fracture, nasal bone, open Instructions: ED Nose Fracture, with X-Ray, ED Head Injury (Adult) Prescriptions: No Action fluoxetine 20 mg tablet 20 mg PO DAILY 30 Days Qty: 30 Patient Comments: TAKE ONE TABLET BY MOUTH EVERY DAY acetaminophen 500 mg tablet 500 mg PO Q6H PRN (Reason: Pain) cholecalciferol (vitamin D3) 25 mcg (1,000 unit) tablet 25 mcg PO DAILY calcium carbonate 500 mg calcium (1,250 mg) tablet 500 mg PO DAILY Eliquis 5 mg tablet 5 mg PO BID Qty: 60 11RF metoprolol tartrate 25 mg tablet 12.5 mg PO BID furosemide 40 mg tablet 40 mg PO DAILY Qty: 90 3RF losartan 100 mg tablet 100 mg PO DAILY Patient Comments: take 1 tablet by mouth once daily (DME) handicap placard See Rx Instructions .Route .MEDSUPPLY Qty: 1 0RF Rx Instructions: dx: Debility Expiration date: 04/2028 pantoprazole 40 MG tablet,delayed release (DR/EC) 40 mg PO DAILY Qty: 30 0RF bupropion HCl 150 mg tablet extended release 24 hr 150 mg PO DAILY Patient Comments: take 1 tablet by mouth once daily fenofibrate 160 mg tablet 145 mg PO DAILY Patient Comments: take 1 tablet by mouth once daily hydroxyzine HCl 10 mg Tablet 10 mg PO TID PRN PRN (Reason: severe anxiety) 14 Days Qty: 30 0RF rosuvastatin 10 mg tablet 10 mg PO DAILY doxazosin 2 mg tablet 2 mg PO QHS Qty: 30 11RF amlodipine 5 mg tablet 5 mg PO DAILY Qty: 90 3RF Primary Care Provider: Brenda Palmer Referrals: Brenda Palmer, [Primary Care Provider] - [facility] appointment Disposition Disposition: Home, Self Care Capacity Legal Environmental Air Specialist Reflex Medical hold order details:: IF a medical hold is selected below, a suggested order for a MEDICAL HOLD will reflex upon signing the document. Next of kin: [place] law dictates a PRIORITY LIST for identifying legal decision-maker/legal next of kin in the following order (LNOK): 1st: The patient?s legal guardian, if any 2nd: The patient's spouse (if status is questionable, consult Risk Management) 3rd: The patient?s adult child(flo) (majority, if multiple children) 4th: The patient?s parents 5th: The patient?s adult siblings (majority, if multiple children siblings)
--- NOTE | 2023-07-07 14:53 | CT_ITS ---
STUDY: CT FACIAL BONES WITHOUT CONTRAST REASON FOR EXAM: Female, 87 years old. RADIATION DOSAGE (If Supplied By Facility): CTDIvol = ( 29.38 ) mGy, DLP = ( 1772.80 ) mGycm TECHNIQUE: Axial CT images of the facial bones were obtained with multiplanar reconstruction. The protocol utilizes one or more of the following dose reduction techniques: automated exposure control, adjustment of the mA and/or KV according to the patient size, and/or use of iterative reconstruction techniques. Individualized dose optimization techniques were used for this CT. COMPARISON: No relevant priors. FINDINGS: Facial Bones: Mild soft tissue/scalp swelling is present across the frontal bones. There are mildly depressed fractures of the anterior superior aspect of the left nasal bone and is junction with the right nasal bone with swelling. No pneumocephalus or subdural hemorrhage or midline shift is present. No additional facial bony fractures are present. Mandible/TMJ: Normal. Orbital Contents: Normal globes, extraocular muscles, optic nerves, intraconal and extraconal spaces. Normal lamina papyracea. Visualized Paranasal Sinuses: Normal. Visualized Mastoid Air Cells: Normal. CT/Sinus/Facial Bone IMPRESSION: 1. Mild soft tissue/scalp swelling is present across the frontal bones. There are mildly depressed fractures of the anterior superior aspect of the left nasal bone and is junction with the right nasal bone with swelling. No pneumocephalus or subdural hemorrhage or midline shift is present. No additional facial bony fractures are present. Electronically Signed: Forrest Quezada MD at 15:46 EST ,
--- NOTE | 2023-07-07 14:54 | CT_ITS ---
STUDY: CT BRAIN WITHOUT CONTRAST REASON FOR EXAM: Female, 87 years old. fall, lac to nose, hx htn RADIATION DOSAGE (If Supplied By Facility): CTDIvol = ( 44.99 ) mGy, DLP = ( 1772.80 ) mGycm TECHNIQUE: Transaxial CT imaging of the brain was performed without administration of intravenous contrast material. Individualized dose optimization techniques were used for this CT. COMPARISON: Head CT dated October 27, 2022 FINDINGS: Mild soft tissue/scalp swelling is present across the frontal bones. There are mildly depressed fractures of the anterior superior aspect of the left nasal bone and is junction with the right nasal bone with swelling. No pneumocephalus or subdural hemorrhage or midline shift is present. Normal calvarium. There is moderate cerebral atrophy with widening of the extra-axial spaces and ventricular dilatation. There are areas of decreased attenuation within the white matter tracts of the supratentorial brain, consistent with microvascular disease changes. There are small punctate calcifications of the basal ganglia which are seen in the aging brain as a normal variant. Normal brainstem. Normal cerebellum. There is no intracranial hemorrhage. There are no findings of an acute ischemic infarction. Normal visualized paranasal sinuses. CT/Brain/Head without Contrast IMPRESSION: 1. Mild soft tissue/scalp swelling is present across the frontal bones. There are mildly depressed fractures of the anterior superior aspect of the left nasal bone and is junction with the right nasal bone with swelling. No pneumocephalus or subdural hemorrhage or midline shift is present Electronically Signed: Forrest Quezada MD at 15:44 EST ,
--- NOTE | 2023-07-07 14:54 | CT_ITS ---
STUDY: CT CERVICAL SPINE WITHOUT CONTRAST REASON FOR EXAM: Female, 87 years old. Injury/Pain RADIATION DOSAGE (If Supplied By Facility): CTDIvol = ( 18.86 ) mGy, DLP = ( 1772.80 ) mGycm TECHNIQUE: High resolution transaxial imaging was performed without contrast material. Sagittal and coronal images were reconstructed. Individualized dose optimization techniques were used for this CT. COMPARISON: None FINDINGS: Normal craniovertebral junction. Normal anterior atlantoaxial articulation. Normal odontoid process. Normal cervical lordosis. No visualized fracture or compression deformity or jumped facets. Multilevel moderate to severe degenerative changes are present. Mild central canal stenosis is present at several levels. Normal visualized soft tissue structures. CT/Spine Cervical without Contras IMPRESSION: Multilevel degenerative changes, as described above. Electronically Signed: Forrest Quezada MD at 15:47 EST ,
[2023-07-07 15:01] VITALS: BMI 31.5
[2023-07-07 17:16] VITALS: BP 187/86; PULSE 81; RESP 20; O2SAT 98
== END 2023-07-07 17:16 | disposition home or self-care (01) ==
PROVIDERS: Emergency Provider Emergency Medicine; PCP Internal Medicine; Visit Provider Emergency Medicine
DX: S02.2XXA Fracture of nasal bones, initial encounter for closed fracture (principal); I48.19 Other persistent atrial fibrillation; S09.90XA Unspecified injury of head, initial encounter; W01.198A Fall on same level from slipping, tripping and stumbling with subsequent striking against other object, initial encounter; E78.5 Hyperlipidemia, unspecified; I10 Essential (primary) hypertension; K21.9 Gastro-esophageal reflux disease without esophagitis; Z79.899 Other long term (current) drug therapy; F41.9 Anxiety disorder, unspecified; Z79.01 Long term (current) use of anticoagulants; Z90.49 Acquired absence of other specified parts of digestive tract
CPT/HCPCS: 12011; 70450; 70486; 72125; 99282; A4216

== ENCOUNTER → 2023-11-15 | Outpatient (CLI) | payer MEDICARE, SELFPAY ==
[2023-11-15 14:08] LABS: Anion Gap 5 (5-15); BUN 29 mg/dL (7-18); BUN/Creat Ratio 27.1 RATIO (10-20); Calcium,Total 9.1 mg/dL (8.5-10.1); Chloride 110 mmol/L (98-107); Creatinine, Serum 1.07 mg/dL (0.55-1.02); EST Glomerular Filtration Rate 52 mL/min (>60); Est Glom Filt Rate - Afr Amer 63 mL/min (>60); Glucose 84 mg/dL (74-106); Potassium 3.8 mmol/L (3.5-5.1); Sodium Level 142 mmol/L (136-145)
[2023-11-15 14:09] LABS: BNP,B-Type NATRIURETIC PEPTIDE 432.7 pg/mL (0-100)
== END | disposition home or self-care (01) ==
LOC: LAB 12:36
PROVIDERS: PCP Internal Medicine; Referring Provider Physician Assistant Medical; Visit Provider Physician Assistant Medical
DX: R60.0 Localized edema (principal); R06.02 Shortness of breath; R63.5 Abnormal weight gain
CPT/HCPCS: 36415; 80048; 83880

== ENCOUNTER → 2023-11-21 | Outpatient (CLI) | payer MEDICARE, SELFPAY ==
[2023-11-21 14:19] LABS: Anion Gap 7 (5-15); BUN 29 mg/dL (7-18); BUN/Creat Ratio 24.6 RATIO (10-20); Calcium,Total 9.2 mg/dL (8.5-10.1); Chloride 109 mmol/L (98-107); Creatinine, Serum 1.18 mg/dL (0.55-1.02); EST Glomerular Filtration Rate 46 mL/min (>60); Est Glom Filt Rate - Afr Amer 56 mL/min (>60); Glucose 89 mg/dL (74-106); Potassium 3.8 mmol/L (3.5-5.1); Sodium Level 142 mmol/L (136-145)
== END | disposition home or self-care (01) ==
LOC: LAB 11:50
PROVIDERS: PCP Internal Medicine; Visit Provider Physician Assistant Medical
DX: R42 Dizziness and giddiness (principal); Z51.81 Encounter for therapeutic drug level monitoring; Z79.899 Other long term (current) drug therapy
CPT/HCPCS: 36415; 80048

== ENCOUNTER → 2023-12-06 | Outpatient (CLI) | payer MEDICARE, SELFPAY ==
--- NOTE | 2023-12-06 08:52 | CDU_ITS ---
Reason For Study: DIZZINESS Rt. Velocities/BP Lt. Velocities/BP Prox CCA 74.4/9.3 cm/sec. Prox CCA 65.5/10.6 cm/sec. Mid CCA 69.5/9.3 cm/sec. Mid CCA 68.8/10.6 cm/sec. Dist CCA 67.0/3.2 cm/sec. Dist CCA 55.6/11.7 cm/sec. Prox ICA 40.2/8.4 cm/sec. Prox ICA 52.3/8.4 cm/sec. Mid ICA 72.6/16.1 cm/sec. Mid ICA 61.1/18.2 cm/sec. Dist ICA 92.4/16.5 cm/sec. Dist ICA 63.6/17.9 cm/sec. Rt. ICA/CCA = 1.33. Lt. ICA/CCA = 0.93. Prox ECA 115.5/0 cm/sec. Prox ECA 89.1/9.3 cm/sec. Rt. Vert. 55.6/0 cm/sec. Lt. Vert. 52.0/10.1 cm/sec. Right Extracranial There is intimal thickening but no significant atherosclerotic plaque noted in the right common carotid artery. There is intimal thickening but no significant atherosclerotic plaque noted in the right internal carotid artery. There is intimal thickening but no significant atherosclerotic plaque noted in the right external carotid artery. Antegrade flow is noted in the right vertebral artery. Left Extracranial There is heterogeneous, irregular atherosclerotic plaque noted in the left common carotid artery. There is intimal thickening but no significant atherosclerotic plaque noted in the left internal carotid artery. There is intimal thickening but no significant atherosclerotic plaque noted in the left external carotid artery. Antegrade flow is noted in the left vertebral artery. Procedure Carotid Duplex [id number]. This is a Carotid Duplex examination using B-mode, color flow and specral Doppler. Exam performed in department. VL/Carotid Duplex Ultrasound Interpretation Summary Normal right extracranial internal carotid. Normal left extracranial internal carotid. Patent and antegrade vertebrals bilaterally. Ordering Physician: Laxmi Garrett Referring Physician: Brenda Palmer M.D. Performed By: Birdie Smith RVT and Student
== END | disposition home or self-care (01) ==
LOC: CVS 08:48
PROVIDERS: PCP Internal Medicine; Referring Provider Physician Assistant Medical; Visit Provider Physician Assistant Medical
DX: R42 Dizziness and giddiness (principal); I48.0 Paroxysmal atrial fibrillation; E78.5 Hyperlipidemia, unspecified; I47.10 Supraventricular tachycardia, unspecified
CPT/HCPCS: 93880

== ENCOUNTER 2024-02-12 15:19 | Emergency (ER) | payer MEDICARE, SELFPAY ==
[2024-02-12 15:22] VITALS: BP 161/73; PULSE 81; RESP 18; TEMP 36.2; O2SAT 95; BMI 35.2
--- NOTE | 2024-02-12 15:55 | EKG12_ITS ---
Test Reason : Blood Pressure : / mmHG Vent. Rate : 076 BPM Atrial Rate : 000 BPM P-R Int : 000 ms QRS Dur : 098 ms QT Int : 382 ms P-R-T Axes : 000 087 034 degrees QTc Int : 429 ms Atrial fibrillation Low voltage QRS Abnormal ECG Confirmed by Christo Prescott ([id number]), school photograph editor SHERLYN RICCI ([id number]) on 02/13/2024 11:01:11 AM Referred By: Confirmed By:Christo Prescott
--- NOTE | 2024-02-12 16:10 | RAD_ITS ---
STUDY: X-RAY CHEST REASON FOR EXAM: Female, 88 years old. sob TECHNIQUE: Single frontal view of the chest. COMPARISON: January 19, 2023 FINDINGS: Bibasilar interstitial infiltrates improved. There is no demonstrated pleural abnormality. Normal size heart. Normal mediastinum and andre. Normal visualized pulmonary arteries. Normal visualized aortic arch and descending thoracic aorta. Compression fractures T12 and L1, age indeterminate. Normal visualized ribs, clavicles, and shoulders. There is no demonstrated abnormality of the visualized soft tissue structures of the upper abdomen. RAD/Chest PA and Lateral IMPRESSION: Bibasilar interstitial infiltrates improved Electronically Signed: Edmond Fajardo MD at 16:27 EDT ,
[2024-02-12 16:11] LABS: Absolute Lymphocyte Count 0.91 X10^3/uL (0.83-4.51); Basophil# 0.05 X10^3/uL; Basophil% 0.6 % (0-1); Eosinophil# 0.11 X10^3/uL; Eosinophils% 1.4 % (0-5); Hematocrit 36.1 % (37-47); Lymphocyte # 0.91 X10^3/ul (0.83-4.51); Lymphocyte % 11.5 % (19-41); Mean Corp Hgb Conc 30.5 g/dL (32-36); Mean Corpuscular Hgb 27.3 pg (27.0-32.0); Mean Corpuscular Volume 89.6 fL (81-99); Mean Platelet Vol. 10.6 fl (6.2-12.0); Monocyte# 0.75 X10^3/uL; Monocyte% 9.5 % (0-10); NRBC Flagged by Analyzer 0 % (0-5); Neutrophil # 6.04 X10^3/uL (2.7-7.7); Neutrophil % 76.7 % (47-70); Platelet Count 310 K/mm3 (150-450); RBC Distribution Width CV 14.6 % (11.6-14.6); RBC Distribution Width SD 47.6 fl (35.1-43.9); Red Blood Count 4.03 M/mm3 (4.2-5.4); White Blood Count 7.9 K/mm3 (4.4-11.0)
[2024-02-12 16:26] LABS: Anion Gap 4 (5-15); BUN 26 mg/dL (7-18); BUN/Creat Ratio 25.5 RATIO (10-20); Calcium,Total 8.9 mg/dL (8.5-10.1); Chloride 110 mmol/L (98-107); Creatinine, Serum 1.02 mg/dL (0.55-1.02); EST Glomerular Filtration Rate 55 mL/min (>60); Est Glom Filt Rate - Afr Amer 66 mL/min (>60); Estimated Creatinine Clearance 42.16 ml/min; Glucose 140 mg/dL (74-106); Potassium 3.6 mmol/L (3.5-5.1); Sodium Level 145 mmol/L (136-145)
[2024-02-12 16:35] LABS: BNP,B-Type NATRIURETIC PEPTIDE 439.6 pg/mL (0-100)
--- NOTE | 2024-02-12 17:00 | EDS_ITS ---
HPI History of Present Illness Chief Complaint: Anxiety Informant: patient and family Narrative Narrative: Patient here with daughter for evaluation of sudden increase anxiety symptoms after bahai. Overwhelming symptoms that subsided on arrival to the ED. She h as had similar symptoms years ago. She states she is anxious due to having a 25 pound weight gain over a month. History of heart failure and atrial fibrillation. She is on a diuretic and has been compliant with her medications. Also on Eliquis twice a day. She states she feels swelling throughout. She sleeps on a bed recliner chronically states has not had to increase the incline. No cough. No chest pains or tightness. Prior similar symptoms: Yes PFSH PFSH Medical History Persistent atrial fibrillation with RVR PSVT (paroxysmal supraventricular tachycardia) Ectopic cardiac beats Tachycardia Ventricular ectopy Obesity Essential (primary) hypertension Abdominal pain Incontinence Left arm pain GERD (gastroesophageal reflux disease) History of anxiety disorder Dyslipidemia Home Medications ?Medication ?Instructions ?Recorded ?Last Taken ?Type fluoxetine 20 mg tablet 20 mg PO DAILY DEPRESSION 30 days 09/24/17 01/18/23 History ##30 pantoprazole 40 mg tablet,delayed 40 mg PO DAILY reflux ##30 01/01/18 01/18/23 08:00 Rx release rosuvastatin 10 mg tablet 10 mg PO DAILY Cholesterol 10/22/20 01/18/23 History acetaminophen 500 mg tablet 500 mg PO Q6H PRN Pain 10/30/20 01/18/23 19:00 History cholecalciferol (vitamin D3) 25 25 mcg PO DAILY Vit D 02/11/21 01/18/23 History mcg (1,000 unit) tablet bupropion HCl 150 mg 24 hr tablet, 150 mg PO DAILY Anxiety 10/27/22 01/18/23 History extended release calcium carbonate 500 mg PO DAILY Reflux 12/08/22 01/18/23 History fenofibrate 160 mg tablet 145 mg PO DAILY Triglycerides 12/08/22 01/18/23 History metoprolol tartrate 25 mg tablet 12.5 mg PO BID HR 12/08/22 01/18/23 19:00 History hydroxyzine HCl 10 mg tablet 10 mg PO TID PRN PRN severe 01/21/23 Unknown Rx anxiety 14 days #30 tabs furosemide 40 mg tablet 40 mg PO DAILY #90 tabs 02/14/23 Unknown Rx amlodipine 5 mg tablet 5 mg PO DAILY BP #90 tabs 02/28/23 Unknown Rx handicap placard #1 ea 04/21/23 Unknown Rx losartan 100 mg tablet 100 mg PO DAILY 04/21/23 Unknown History apixaban 5 mg tablet (Eliquis) 5 mg PO BID blood thinner #60 tabs 09/28/23 Unknown Rx doxazosin 2 mg tablet 2 mg PO QHS #90 tabs 12/02/23 Unknown Rx Allergy/AdvReac Type Severity Reaction Status Date / Time codeine AdvReac Vomiting Verified 02/12/24 15:21 lactose (lactose intolerant) AdvReac Abd Verified 02/12/24 15:21 cramps/diarrhea Family History Mother Hypertension Cancer Father Cancer Surgical History History of hemorrhoidectomy History of colectomy Social History Smoking Status: Never smoker alcohol intake: never substance use type: does not use caffeine: Yes Type: coffee Number of servings: 3 ROS ROS ED Constitutional Constitutional ED: Reports other Details: Weight gain ; Denies chills, fever(s) or sweats Eyes Eyes: Denies change in vision ENT ENT ED: Denies dysphagia or sore throat Cardiovascular Cardiovascular: Denies chest pain, leg edema, palpitations or racing heartbeat Respiratory/Chest Respiratory/Chest: Denies cough, dyspnea or dyspnea on exertion Gastrointestinal Gastrointestinal: Denies abdominal pain, diarrhea, nausea or vomiting Genitourinary Genitourinary ED: Denies dysuria, hematuria or urinary frequency Musculoskeletal Musculoskeletal: Denies back pain, extremity pain or neck pain Integumentary Denies rash or wounds Neurologic Neurologic: Denies headache(s), paresthesias or weakness Psychiatric Psychiatric: Reports anxiety EXAM Physical Exam Const Vital Signs: 02/12/24 15:22 02/12/24 17:20 02/12/24 17:36 Temperature 97.1 F L 97.6 F L Temperature Source Temporal Pulse Rate 81 79 79 Respiratory Rate 18 20 H 20 H Blood Pressure 161/73 H 154/77 H 163/85 H Blood Pressure Mean 102 102 111 Pulse Ox 95 95 95 Oxygen Delivery Method Room Air Room Air Positive well nourished and well developed General Appearance ED: well developed and NAD HEENT Reports moist mucous membranes normocephalic and atraumatic Eyes EOMs intact bilaterally and conjunctivae normal General Eye ED: Yes normal appearance of both eyes Neck no lymphadenopathy and supple General: Negative for tenderness Chest Wall Chest: Negative for tenderness Resp normal respiratory effort and normal air movement Effort and Inspection: symmetric chest movement; Negative for respiratory distress Cardio regular rate and no murmurs Rhythm: abnormal rhythm Peripheral Pulses: pulses 2+ throughout GI normal to inspection, nondistended, normoactive bowel sounds and non-tender Palpation: Negative for guarding or rebound tenderness present Back/Spine no CVA tenderness and no thoracic nor lumbar tenderness Extremity normal to inspection General Extremety ED: Negative for edema or tenderness General Extremity: Negative for edema Neuro oriented x3 and no sensory deficits noted Sensorium / Orientation: awake and alert Skin no rashes or lesions noted and no wounds MDM MDM MDM Narrative Medical decision making narrative: Interventions / MDM: Differential diagnosis: Anxiety, CHF, A-fib Diagnosis considered but do not suspect: Pulmonary embolism however chronically on Eliquis with no missed doses. My EKG interpretation: Rate controlled A-fib at 76, no ST or T wave changes. Imaging independently reviewed and interpreted by myself: 2 view chest x-ray: No pleural effusion noted. External documents reviewed: Patient note from January 2023 weight of approximate 81 kg. ED visit June 2019 for weight of 80.9 kg. Test considered but not ordered:N/A ED course: Patient anxiety symptoms resolved. She reports 25 pound weight gain however vital stable no respiratory distress with a normal pulse ox. Will check labs chest x-ray with her concerns. EKG confirms A-fib however rate controlled. Labs are stable chest x-ray negative. BNP slightly elevated 439. Reviewing records she has had approximate 20 pound weight gain since June. I discussed multiple stabilities including water does not clinically being shown. There is creatinine 1.02. patient without respiratory distress or hypoxia. Discussed with patient and daughter we will increase her Lasix to twice a day for next 7 days she will monitor her weight. She will keep a log. She will follow-up with her cardiology team for outpatient reevaluation. All questions were answered. Re-evaluation: stable Disposition discussed with patient/family/significant other: Patient and daught er Case discussed with consulting clinician: N/A This note was generated with [email or web address] dictation software. It may contain incorrect words, spelling, and punctuation that were not noted in checking the note before signing. Lab Data Attestation: I reviewed the patient's lab results. Labs: Laboratory Results - last 24 hr 02/12/24 16:00 WBC 7.9 RBC 4.03 L Hgb 11.0 L Hct 36.1 L MCV 89.6 MCH 27.3 MCHC 30.5 L RDW Std Deviation 47.6 H RDW Coeff of Dolores 14.6 Plt Count 310 MPV 10.6 Immature Gran % (Auto) 0.300 Neut % (Auto) 76.7 H Lymph % (Auto) 11.5 L [place] % (Auto) 9.5 Eos % (Auto) 1.4 Baso % (Auto) 0.6 Absolute Neuts (auto) 6.0 Absolute Lymphs (auto) 0.91 Nucleated RBC % 0 Sodium 145 Potassium 3.6 Chloride 110 H Carbon Dioxide 31.0 Anion Gap 4 L BUN 26 H Creatinine 1.02 Estim Creat Clear Calc 42.16 Est GFR (MDRD) Af Amer 66 Est GFR (MDRD) Non-Af 55 L BUN/Creatinine Ratio 25.5 H Glucose 140 H Calcium 8.9 B-Natriuretic Peptide 439.6 H Radiography Diagnostic Testing: Clinical Impression(s) from Imaging Studies Chest X-Ray 02/12/24 16:10 IMPRESSION: Bibasilar interstitial infiltrates improved Electronically Signed: Edmond Fajardo MD at 16:27 EDT , Discharge Plan Triage Chief Complaint: Anxiety ED Provider: Neto Johnson Dx/Rx/DC Orders Clinical Impression: Anxiety, Rapid weight gain, History of heart failure, Atrial fibrillation Instructions: Heart Failure Make Changes Diet, ED Anxiety Reaction Prescriptions: No Action fluoxetine 20 mg tablet 20 mg PO DAILY 30 Days Qty: 30 Patient Comments: TAKE ONE TABLET BY MOUTH EVERY DAY acetaminophen 500 mg tablet 500 mg PO Q6H PRN (Reason: Pain) cholecalciferol (vitamin D3) 25 mcg (1,000 unit) tablet 25 mcg PO DAILY calcium carbonate 500 mg calcium (1,250 mg) tablet 500 mg PO DAILY metoprolol tartrate 25 mg tablet 12.5 mg PO BID furosemide 40 mg tablet 40 mg PO DAILY Qty: 90 3RF losartan 100 mg tablet 100 mg PO DAILY Patient Comments: take 1 tablet by mouth once daily (DME) handicap jillian See Rx Instructions .Route .MEDSUPPLY Qty: 1 0RF Rx Instructions: dx: Debility Expiration date: 04/2028 pantoprazole 40 MG tablet,delayed release (DR/EC) 40 mg PO DAILY Qty: 30 0RF bupropion HCl 150 mg tablet extended release 24 hr 150 mg PO DAILY Patient Comments: take 1 tablet by mouth once daily fenofibrate 160 mg tablet 145 mg PO DAILY Patient Comments: take 1 tablet by mouth once daily hydroxyzine HCl 10 mg Tablet 10 mg PO TID PRN PRN (Reason: severe anxiety) 14 Days Qty: 30 0RF rosuvastatin 10 mg tablet 10 mg PO DAILY amlodipine 5 mg tablet 5 mg PO DAILY Qty: 90 3RF Eliquis 5 mg tablet 5 mg PO BID Qty: 60 11RF doxazosin 2 mg tablet 2 mg PO QHS Qty: 90 3RF Primary Care Provider: Brenda Palmer Referrals: Brenda Palmer DO [Primary Care Provider] - Laxmi Garrett PA [Med Staff - [facility]] - 1 Week Activity Restrictions/Additional Instructions: No fluid overload on chest x-ray. Labs stable creatinine 1.02. BNP 439. Today's weight 90 kg. Reviewing records in June of this year you are 81 kg. Approximately 20 pound weight difference. Increase your water pill to twice a day for the next 7 days then go back to once a day. Monitor your weight daily and write down. Follow-up with your cardiology team for adjustments of medications as needed. You develop respiratory symptoms especially with ambulation, return to the ED for reevaluation. Print Language: Tajik Disposition Disposition: Home, Self Care Discharge Date/Time: 02/12/24 17:37
[2024-02-12 17:20] VITALS: BP 154/77; PULSE 79; RESP 20; O2SAT 95
[2024-02-12] MEDS: Furosemide 40 MG Tablet PO (17:31)
[2024-02-12 17:36] VITALS: BP 163/85; PULSE 79; RESP 20; TEMP 36.4; O2SAT 95
== END 2024-02-12 17:37 | disposition home or self-care (01) ==
PROVIDERS: Emergency Provider Emergency Medicine; PCP Internal Medicine; Visit Provider Emergency Medicine
DX: F41.9 Anxiety disorder, unspecified (principal); I11.0 Hypertensive heart disease with heart failure; I50.9 Heart failure, unspecified; I48.19 Other persistent atrial fibrillation; Z79.01 Long term (current) use of anticoagulants; E78.5 Hyperlipidemia, unspecified; K21.9 Gastro-esophageal reflux disease without esophagitis; Z79.899 Other long term (current) drug therapy; Z90.49 Acquired absence of other specified parts of digestive tract; R63.5 Abnormal weight gain
CPT/HCPCS: 71046; 80048; 83880; 85025; 93005; 99284

== ENCOUNTER → 2024-03-06 | Outpatient (CLI) | payer MEDICARE, SELFPAY ==
[2024-03-06 13:00] LABS: Anion Gap 8 (5-15); BUN 28 mg/dL (7-18); BUN/Creat Ratio 23.7 RATIO (10-20); Calcium,Total 9.6 mg/dL (8.5-10.1); Chloride 106 mmol/L (98-107); Creatinine, Serum 1.18 mg/dL (0.55-1.02); EST Glomerular Filtration Rate 46 mL/min (>60); Est Glom Filt Rate - Afr Amer 56 mL/min (>60); Glucose 125 mg/dL (74-106); Potassium 4.2 mmol/L (3.5-5.1); Sodium Level 139 mmol/L (136-145)
== END | disposition home or self-care (01) ==
LOC: MTLAB 10:02
PROVIDERS: PCP Internal Medicine; Referring Provider Physician Assistant Medical; Visit Provider Physician Assistant Medical
DX: R06.09 Other forms of dyspnea (principal)
CPT/HCPCS: 36415; 80048

== ENCOUNTER → 2024-07-09 | Outpatient (CLI) | payer MEDICARE, SELFPAY ==
--- NOTE | 2024-07-09 16:54 | STRESSREP ---
Stress Test Report Pharmacologic myocardial perfusion stress test. 88-year-old lady with a history of dyspnea on exertion Resting EKG demonstrates atrial fibrillation with a rate of 67 bpm. Resting blood pressure is 142/78 mmHg. 0.4 mg of regadenoson was infused per usual protocol followed by rapid intravenous saline flush injection. Continuous EKG monitoring was performed. The maximum heart rate was 90 bpm which was 67% of max impacted heart rate the maximum workload was 1 metabolic equivalent. At rest there were no ST or T wave changes noted to suggest ischemia and at peak infusion nonspecific ST changes were noted which did not meet the criteria for ischemia. No clinical angina is noted. The final blood pressure was 132/70 mmHg. Myocardial perfusion protocol. 15 mCi of technetium 99m sestamibi was injected at rest. 0.4 mg of regadenoson was infused per usual protocol. At peak infusion 45 mCi of technetium 99m sestamibi was injected stress images were obtained stress and rest images were reconstructed and compared in the short axis vertical long and horizontal long axis. Gated images were also obtained. Perfusion SPECT analysis: Review of the stress images demonstrate normal uptake of tracer noted in all areas of the myocardium. The resting images similar demonstrated normal uptake of tracer noted in all areas of the myocardium. No areas of reversibility are noted to suggest ischemia and no previous infarct is noted. Gated SPECT analysis: The gated ejection fraction is 87%. Conclusion: Normal pharmacologic myocardial perfusion stress test. Preserved ejection fraction. Atrial fibrillation present
== END | disposition home or self-care (01) ==
PROVIDERS: PCP Internal Medicine; Referring Provider Physician Assistant Medical; Visit Provider Physician Assistant Medical
DX: R06.09 Other forms of dyspnea (principal)
CPT/HCPCS: 78452; 93017; A9500; A4216; J2785

== ENCOUNTER 2024-08-31 10:04 | Inpatient (IN) | payer MEDICARE, SELFPAY ==
[2024-08-31] VITALS (7 sets, daily range): BP systolic 135–157; BP diastolic 62–110; PULSE 64–79; RESP 17–22; TEMP 36.1–36.6; O2SAT 94–97; BMI 34.9; BMI 34.5
[2024-08-31] MEDS: 0.9% Normal Saline (1000mL) 1,000 ML 999 ML IV (10:24)
--- NOTE | 2024-08-31 10:30 | CT_ITS ---
PROCEDURE: ABDOMEN/PELVIS W IV CONT ONLY REASON FOR EXAM: GI BLEED TECHNIQUE: Abdomen and pelvis CT with intravenous contrast. No oral contrast. IV CONTRAST: 95 cc of Isovue-300. COMPARISON: Comparison is made with prior study dated December 31, 2017. FINDINGS: Coronary artery calcification. Lung bases: Stable mild increased markings at the lung bases suggestive of scarring. Liver: Diffuse fatty infiltration. Gallbladder: Unremarkable. Spleen: Unremarkable. Pancreas: Unremarkable. Adrenals: Unremarkable. Kidneys: Unremarkable. Bladder: Unremarkable. Reproductive Organs: Mildly calcified fibroid uterus. Bowel: Colonic diverticulosis without diverticulitis. There is evidence of diverticulosis of the right hemicolon. Surgical anastomosis is seen at the rectosigmoid junction.. Moderate-sized hiatal hernia. Appendix: Status post appendectomy. Lymph nodes: No suspicious lymph node enlargement. Vasculature: Mild diffuse atherosclerotic calcifications of the abdominal aorta and its major visceral branches are noted. Peritoneum / Retroperitoneum: No ascites. No free air. Bones: Degenerative changes of the spine.. Loss of height of the T11 and T12 vertebrae with subchondral sclerosis. CT/Abdomen/Pelvis W IV Cont ONLY IMPRESSION: Sigmoid diverticulosis as well as diverticula seen in the right hemicolon. Fatty infiltration of the liver. Moderate-sized hiatal hernia. One or more dose reduction techniques were used (e.g., Automated exposure contr ol, adjustment of the mA and/or kV according to patient size, use of iterative reconstruction technique). Reading Location: [place] [id number]
[2024-08-31 10:42] LABS: Absolute Lymphocyte Count 1.56 X10^3/uL (0.83-4.51); Absolute Neutrophil Count 4.6 X10^3/uL (2.0-7.7); Basophil# 0.02 X10^3/uL; Basophil% 0.3 % (0-1); Eosinophil# 0.09 X10^3/uL; Eosinophils% 1.3 % (0-5); Hematocrit 39.3 % (37-47); Hemoglobin 12.6 g/dL (12.0-15.0); Lymphocyte # 1.56 X10^3/ul (0.83-4.51); Lymphocyte % 22.4 % (19-41); Mean Corp Hgb Conc 32.1 g/dL (32-36); Mean Corpuscular Hgb 29.2 pg (27.0-32.0); Mean Corpuscular Volume 91.2 fL (81-99); Mean Platelet Vol. 10.6 fl (6.2-12.0); Monocyte# 0.64 X10^3/uL; Monocyte% 9.2 % (0-10); NRBC Flagged by Analyzer 0 % (0-5); Neutrophil # 4.62 X10^3/uL (2.7-7.7); Neutrophil % 66.2 % (47-70); Platelet Count 380 K/mm3 (150-450); RBC Distribution Width CV 14.2 % (11.6-14.6); RBC Distribution Width SD 47.4 fl (35.1-43.9); Red Blood Count 4.31 M/mm3 (4.2-5.4)
--- NOTE | 2024-08-31 10:53 | EX.ED.DYSGE1 ---
HPI History of Present Illness Chief Complaint: GI Bleed Narrative Narrative: Chief complaint and HPI: Lower GI bleed. 88-year-old female with past medical history diverticulitis status post bowel resection, hemorrhoids s/p repair, atrial fibrillation on Eliquis, HTN, HLD presents for evaluation of bright red blood per rectum. Patient states that she was diagnosed with influenza last Tuesday. She states since then she has been having decreased p.o. intake. She states her viral symptoms are improving however yesterday evening she had a bowel movement that was bright red. She states the blood was on the toilet paper as well as in the bowl. She denies any constipation. She states she had another episode this morning which is why she presents. She denies any current fever, chest pain, shortness of breath, abdominal pain, nausea, vomiting. Her last colonoscopy was approximately 10 years ago. Review of systems: See HPI Medications: As listed on the chart Allergies: As listed on the chart PFSH: Per chart Vital signs: As listed on the chart. Reviewed. Physical exam: Gen: A&O x3, NAD Head: Normocephalic, atraumatic Eyes: No sclera icterus, conjunctiva clear ENT: Moist mucous membranes Neck: Trachea midline, No JVD CV: RRR, no murmurs, no peripheral edema Resp: Lungs CTA BL, no w/r/c GI: Abd soft, non-distended, non-tender, no r/r/g Rectal: Normal external examination. No evidence of hemorrhoids or fissures. Normal tone and sensation. No masses, fluctuance, or tenderness. No pain out of proportion. Bright red blood on gloved finger. Musc: Full ROM, no deformity Skin: Warm, dry Neuro: Alert, oriented, grossly intact, sensation intact Psych: Cooperative, appropriate mood and affect [facility] Medical History Persistent atrial fibrillation with RVR PSVT (paroxysmal supraventricular tachycardia) Ectopic cardiac beats Tachycardia Ventricular ectopy Obesity Essential (primary) hypertension Abdominal pain Incontinence Left arm pain GERD (gastroesophageal reflux disease) History of anxiety disorder Dyslipidemia Home Medications ?Medication ?Instructions ?Recorded ?Last Taken ?Type fluoxetine 20 mg tablet 20 mg PO DAILY DEPRESSION 30 days 09/24/17 01/18/23 History ##30 rosuvastatin 10 mg tablet 10 mg PO DAILY Cholesterol 10/22/20 01/18/23 History acetaminophen 500 mg tablet 500 mg PO Q6H PRN Pain 10/30/20 01/18/23 19:00 History cholecalciferol (vitamin D3) 25 25 mcg PO DAILY Vit D 02/11/21 01/18/23 History mcg (1,000 unit) tablet calcium carbonate 500 mg PO DAILY Reflux 12/08/22 01/18/23 History fenofibrate 160 mg tablet 145 mg PO DAILY Triglycerides 12/08/22 01/18/23 History metoprolol tartrate 25 mg tablet 12.5 mg PO BID HR 12/08/22 01/18/23 19:00 History hydroxyzine HCl 10 mg tablet 10 mg PO TID PRN PRN severe 01/21/23 Unknown Rx anxiety 14 days #30 tabs handicap placard #1 ea 04/21/23 Unknown Rx apixaban 5 mg tablet (Eliquis) 5 mg PO BID blood thinner #60 tabs 09/28/23 Unknown Rx doxazosin 2 mg tablet 4 mg (2 x 2 mg) PO QHS #90 tabs 03/06/24 Unknown Rx furosemide 40 mg tablet 40 mg PO DAILY #90 tabs 03/30/24 Unknown Rx losartan 100 mg tablet 100 mg PO DAILY 05/15/24 Unknown History amlodipine 5 mg tablet 5 mg PO DAILY BP #90 tabs 06/18/24 Unknown Rx bupropion HCl 150 mg 24 hr tablet, 150 mg PO DAILY 08/31/24 Unknown History extended release pantoprazole 40 mg tablet,delayed 40 mg PO DAILY 08/31/24 Unknown History release spironolactone 25 mg tablet 25 mg PO DAILY 08/31/24 Unknown History Allergy/AdvReac Type Severity Reaction Status Date / Time codeine AdvReac Vomiting Verified 08/31/24 10:08 lactose (lactose intolerant) AdvReac Abd Verified 08/31/24 10:08 cramps/diarrhea Family History Mother Hypertension Cancer Father Cancer Surgical History History of hemorrhoidectomy History of colectomy Social History Smoking Status: Never smoker alcohol intake: never substance use type: does not use caffeine: Yes Type: coffee Number of servings: 3 EXAM Physical Exam Narrative Exam Narrative: 88-year-old female with past medical history diverticulitis status post bowel resection, hemorrhoids s/p repair, atrial fibrillation on Eliquis, HTN, HLD presents for evaluation of bright red blood per rectum. Differential diagnosis includes but is not limited to diverticulosis, hemorrhoids, colon cancer, anemia, electrolyte abnormality. Patient is not having any abdominal pain however given that she has not had a colonoscopy in 10 years with history of diverticulosis/diverticulitis with resection will get CT abdomen pelvis to assess for possible mass. Laboratory workup ordered. Patient's vitals are stable other than some mild hypertension. CBC without leukocytosis. No anemia. CMP relatively unremarkable except for baseline renal insufficiency. Stool occult negative. Given that on physical exam I had bright red blood on the glove, I asked lab to repeat stool occult and again negative. This does not correspond with clinical exam. CT abdomen shows sigmoid diverticulosis as well as diverticuli in the right hemicolon. Fatty infiltration of the liver. Moderate size hiatal hernia. On reevaluation, patient is stable. Has not had a bowel movement here in the emergency department. However given that she is on Eliquis, GI was consulted and patient was discussed with Dr. Chand. He agrees with admission for observation. Patient was discussed with hospitalist. Hospitalist would like to evaluate the patient. During examination patient had another bloody bowel movement. Patient was accepted for admission. Impression: 1. Bright red blood per rectum suspect diverticulosis bleed 2. Renal insufficiency Const Vital Signs: 08/31/24 10:05 08/31/24 10:06 08/31/24 11:49 Temperature 96.9 F L 96.9 F L 96.9 F L Temperature Source Temporal Temporal Temporal Pulse Rate 71 71 64 Respiratory Rate 18 18 18 Blood Pressure 135/110 H 135/110 H 157/67 H Blood Pressure Mean 118 118 97 Pulse Ox 94 96 96 Oxygen Delivery Method Room Air Room Air Room Air 08/31/24 12:45 Temperature 97.6 F L Temperature Source Pulse Rate 69 Respiratory Rate 22 H Blood Pressure 156/72 H Blood Pressure Mean 100 Pulse Ox 96 Oxygen Delivery Method [facility] Lab Data Labs: Laboratory Results - last 24 hr 08/31/24 10:20 WBC 7.0 RBC 4.31 Hgb 12.6 Hct 39.3 MCV 91.2 MCH 29.2 MCHC 32.1 RDW Std Deviation 47.4 H RDW Coeff of Dolores 14.2 Plt Count 380 MPV 10.6 Immature Gran % (Auto) 0.600 Neut % (Auto) 66.2 Lymph % (Auto) 22.4 [place] % (Auto) 9.2 Eos % (Auto) 1.3 Baso % (Auto) 0.3 Absolute Neuts (auto) 4.6 Absolute Lymphs (auto) 1.56 Nucleated RBC % 0 Sodium 143 Potassium 3.9 Chloride 106 Carbon Dioxide 24.3 Anion Gap 12 BUN 25 H Creatinine 1.22 H Estim Creat Clear Calc 35.15 L Est GFR (MDRD) Non-Af 43 L BUN/Creatinine Ratio 20.2 H Glucose 131 H Lactic Acid 1.4 Calcium 9.2 Total Bilirubin 0.66 AST 36 H ALT 18 Alkaline Phosphatase 43 Total Protein 6.8 Albumin 3.6 Globulin 3.2 Albumin/Globulin Ratio 1.1 Radiography Diagnostic Testing: Clinical Impression(s) from Imaging Studies Abdomen/Pelvis CT 08/31/24 10:30 IMPRESSION: Sigmoid diverticulosis as well as diverticula seen in the right hemicolon. Fatty infiltration of the liver. Moderate-sized hiatal hernia. One or more dose reduction techniques were used (e.g., Automated exposure control, adjustment of the mA and/or kV according to patient size, use of iterative reconstruction technique). Reading Location: [facility] Discharge Plan Disposition Disposition: Acute Care Hospital [facility] Discharge Date/Time: 08/31/24 15:15
[2024-08-31 11:05] LABS: Lactic Acid 1.4 mmol/L (0.0-2.0)
[2024-08-31 11:15] LABS: ALB/GLOB Ratio 1.1 RATIO (0.9-2.4); AST(SGOT) 36 U/L (<=31); Alanine Aminotransfer ALT/SGPT 18 U/L (<=34); Albumin, Serum 3.6 g/dL (3.4-4.8); Alkaline Phosphatase 43 U/L (35-104); Anion Gap 12 (5-15); BUN 25 mg/dL (4-19); BUN/Creat Ratio 20.2 RATIO (10-20); Calcium,Total 9.2 mg/dL (7.6-11.0); Carbon Dioxide 24.3 mmol/L (21.0-32.0); Chloride 106 mmol/L (98-108); Creatinine, Serum 1.22 mg/dL (0.70-1.20); EST Glomerular Filtration Rate 43 (>60); Estimated Creatinine Clearance 35.15 ml/min (50-250); Globulin 3.2 g/dL (2.2-4.2); Glucose 131 mg/dL (70-99); Potassium 3.9 mmol/L (3.3-5.1); Protein, Total 6.8 g/dL (5.9-8.4); Sodium Level 143 mmol/L (133-145); Total Bilirubin 0.66 mg/dL (0.00-1.30)
--- NOTE | 2024-08-31 13:07 | PCM.HP.STD ---
[facility] - General General Date of Service: 08/31/24 Chief Complaint: GI bleed. HPI Narrative JOSE MANUEL REYNA, is a 88 F who presents with hematochezia. Began last night and then had another bout this morning presented to the emergency room. Denies any abdominal pain. Last week contracted influenza and has just been feeling rundown since then. Never had hematochezia before. She underwent a CT scan with IV contrast that showed sigmoid diverticulosis as well as diverticula seen in the right hemicolon. Fatty infiltration of the liver. When he saw the patient she has just had a bowel movement which turned out to be hematochezia. [facility] Medical History Persistent atrial fibrillation with RVR PSVT (paroxysmal supraventricular tachycardia) Ectopic cardiac beats Tachycardia Ventricular ectopy Obesity Essential (primary) hypertension Abdominal pain Incontinence Left arm pain GERD (gastroesophageal reflux disease) History of anxiety disorder Dyslipidemia Home Medications ?Medication ?Instructions ?Recorded ?Last Taken ?Type fluoxetine 20 mg tablet 20 mg PO DAILY DEPRESSION 30 days 09/24/17 01/18/23 History ##30 rosuvastatin 10 mg tablet 10 mg PO DAILY Cholesterol 10/22/20 01/18/23 History acetaminophen 500 mg tablet 500 mg PO Q6H PRN Pain 10/30/20 01/18/23 19:00 History cholecalciferol (vitamin D3) 25 25 mcg PO DAILY Vit D 02/11/21 01/18/23 History mcg (1,000 unit) tablet calcium carbonate 500 mg PO DAILY Reflux 12/08/22 01/18/23 History fenofibrate 160 mg tablet 145 mg PO DAILY Triglycerides 12/08/22 01/18/23 History metoprolol tartrate 25 mg tablet 12.5 mg PO BID HR 12/08/22 01/18/23 19:00 History hydroxyzine HCl 10 mg tablet 10 mg PO TID PRN PRN severe 01/21/23 Unknown Rx anxiety 14 days #30 tabs handicap placard #1 ea 04/21/23 Unknown Rx apixaban 5 mg tablet (Eliquis) 5 mg PO BID blood thinner #60 tabs 09/28/23 Unknown Rx doxazosin 2 mg tablet 4 mg (2 x 2 mg) PO QHS #90 tabs 03/06/24 Unknown Rx furosemide 40 mg tablet 40 mg PO DAILY #90 tabs 10/11/24 Unknown Rx losartan 100 mg tablet 100 mg PO DAILY 05/15/24 Unknown History amlodipine 5 mg tablet 5 mg PO DAILY BP #90 tabs 06/18/24 Unknown Rx bupropion HCl 150 mg 24 hr tablet, 150 mg PO DAILY 08/31/24 Unknown History extended release pantoprazole 40 mg tablet,delayed 40 mg PO DAILY 08/31/24 Unknown History release spironolactone 25 mg tablet 25 mg PO DAILY 08/31/24 Unknown History Allergy/AdvReac Type Severity Reaction Status Date / Time codeine AdvReac Vomiting Verified 08/31/24 10:08 lactose (lactose intolerant) AdvReac Abd Verified 08/31/24 10:08 cramps/diarrhea Family History Mother Hypertension Cancer Father Cancer Surgical History History of hemorrhoidectomy History of colectomy Social History Smoking Status: Never smoker alcohol intake: never substance use type: does not use caffeine: Yes Type: coffee Number of servings: 3 ROS ROS Narrative All review of systems were negative except as mentioned above in the history of present illness and the other review of systems. Vital Signs Vital Signs Vital Signs: 08/31/24 10:05 08/31/24 10:06 08/31/24 11:49 Temperature 36.1 C L 36.1 C L 36.1 C L Temperature Source Temporal Temporal Temporal Pulse Rate 71 71 64 Respiratory Rate 18 18 18 Blood Pressure 135/110 H 135/110 H 157/67 H Blood Pressure Mean 118 118 97 Pulse Ox 94 96 96 Oxygen Delivery Method Room Air Room Air Room Air 08/31/24 12:45 Temperature 36.4 C L Temperature Source Pulse Rate 69 Respiratory Rate 22 H Blood Pressure 156/72 H Blood Pressure Mean 100 Pulse Ox 96 Oxygen Delivery Method Weight Weight: 89.584 kg Body Mass Index (BMI) 34.9 Physical Exam Narrative - Physical Exam General: Alert, Oriented x3, Cooperative HEENT: Atraumatic, PERRLA, EOMI, Normocephalic Oral: Moist Mucosa, No Gingival or Mucosal Lesions/ Ulcerations Neck: Supple, No JVD, Negative Carotid Bruits Lungs: Clear to auscultation, Normal air movement Cardiovascular: Regular rate, Normal S1, Normal S2, No murmurs Abdomen: Bowel Sounds Present, Soft, Non Tender, Non-Distended, No Hepato-splenomegaly. Patient with obvious head Temi with clots. Extremities: No clubbing, No cyanosis, No edema, Capillary Refill Less than 3 Seconds Skin: No rashes, No breakdown Musculoskeletal: No Tenderness to Palpation of Joints or Extremities Neurological: Neuro grossly intact Psych/Mental Status: Normal Affect, Appropriate Results Lab / Micro Data Attestation: I reviewed the patient's lab results. 08/31/24 10:20 08/31/24 10:20 Labs: Laboratory Results - last 24 hr 08/31/24 10:20: WBC 7.0, RBC 4.31, Hgb 12.6, Hct 39.3, MCV 91.2, MCH 29.2, MCHC 32.1, RDW Std Deviation 47.4 H, RDW Coeff of Dolores 14.2, Plt Count 380, MPV 10.6, Immature Gran % (Auto) 0.600, Neut % (Auto) 66.2, Lymph % (Auto) 22.4, [place] % (Auto) 9.2, Eos % (Auto) 1.3, Baso % (Auto) 0.3, Absolute Neuts (auto) 4.6, Absolute Lymphs (auto) 1.56, Nucleated RBC % 0, Sodium 143, Potassium 3.9, Chloride 106, Carbon Dioxide 24.3, Anion Gap 12, BUN 25 H, Creatinine 1.22 H, Estim Creat Clear Calc 35.15 L, Est GFR (MDRD) Non-Af 43 L, BUN/Creatinine Ratio 20.2 H, Glucose 131 H, Lactic Acid 1.4, Calcium 9.2, Total Bilirubin 0.66, AST 36 H, ALT 18, Alkaline Phosphatase 43, Total Protein 6.8, Albumin 3.6, Globulin 3.2, Albumin/Globulin Ratio 1.1 Micro: Microbiology 08/31/24 10:20 Stool Stool Occult Blood (DUSTIN) - Final Imaging Radiology Impression Abdomen/Pelvis CT 08/31/24 10:30 IMPRESSION: Sigmoid diverticulosis as well as diverticula seen in the right hemicolon. Fatty infiltration of the liver. Moderate-sized hiatal hernia. One or more dose reduction techniques were used (e.g., Automated exposure control, adjustment of the mA and/or kV according to patient size, use of iterative reconstruction technique). Reading Location: [id number] Assessment & Plan Assessment/Plan (1) GI bleed: PLAN: Suspect diverticular versus hemorrhoids complicated by being on apixaban. Hemoglobin currently stable. Will continue to monitor hemoglobin 4 times. No need to transfuse at this time. If continues to worsen continues to have naresh hematochezia, patient will need a CT angiogram to evaluate for source of bleeding. Hold apixaban PLAN: Plan Chronic conditions Paroxysmal atrial fibrillation: Hold apixaban. Continue with metoprolol Hypertension: Hold losartan for now. VTE prophylaxis: SCDs. Charges/Coding Visit Charges Inpatient E&M: 50428 Init Hosp L3
[2024-08-31] MEDS: 0.9% Normal Saline (1000mL) 1,000 ML 150 ML IV (15:41)
[2024-08-31 15:48] LABS: Hematocrit 36.5 % (37-47); Hemoglobin 11.4 g/dL (12.0-15.0)
[2024-08-31 21:03] LABS: Hematocrit 33.2 % (37-47); Hemoglobin 10.4 g/dL (12.0-15.0)
[2024-08-31] MEDS: Metoprolol Tartrate 25 MG Tablet 12.5 MG PO (21:25)
[2024-08-31] MEDS: Doxazosin 4 MG Tablet PO (21:26)
[2024-08-31] MEDS: guaiFENesin Dm 10 ML UDC 5 ML PO (21:26)
[2024-08-31] MEDS: Atorvastatin Calcium 20 MG Tablet PO (21:26)
[2024-09-01 01:15] VITALS: BP 138/62; PULSE 65; RESP 16; TEMP 36.6; O2SAT 96
[2024-09-01 04:41] LABS: Absolute Lymphocyte Count 1.62 X10^3/uL (0.83-4.51); Absolute Neutrophil Count 5.4 X10^3/uL (2.0-7.7); Basophil# 0.02 X10^3/uL; Basophil% 0.2 % (0-1); Eosinophil# 0.21 X10^3/uL; Eosinophils% 2.6 % (0-5); Hematocrit 30.6 % (37-47); Lymphocyte # 1.62 X10^3/ul (0.83-4.51); Lymphocyte % 20.1 % (19-41); Mean Corp Hgb Conc 32.7 g/dL (32-36); Mean Corpuscular Hgb 29.4 pg (27.0-32.0); Monocyte# 0.72 X10^3/uL; NRBC Flagged by Analyzer 0 % (0-5); Neutrophil # 5.44 X10^3/uL (2.7-7.7); Neutrophil % 67.7 % (47-70); Platelet Count 320 K/mm3 (150-450); RBC Distribution Width CV 14.5 % (11.6-14.6); RBC Distribution Width SD 47.1 fl (35.1-43.9)
[2024-09-01 05:02] LABS: Anion Gap 12 (5-15); BUN 25 mg/dL (4-19); BUN/Creat Ratio 22.7 RATIO (10-20); Calcium,Total 8.3 mg/dL (7.6-11.0); Carbon Dioxide 21.5 mmol/L (21.0-32.0); Chloride 110 mmol/L (98-108); Creatinine, Serum 1.08 mg/dL (0.70-1.20); EST Glomerular Filtration Rate 50 (>60); Estimated Creatinine Clearance 39.46 ml/min (50-250); Glucose 107 mg/dL (70-99); Potassium 3.5 mmol/L (3.3-5.1); Sodium Level 143 mmol/L (133-145)
[2024-09-01 06:40] VITALS: BP 134/74; PULSE 72; RESP 16; TEMP 36.6; O2SAT 93
--- NOTE | 2024-09-01 08:16 | PCM.PN.HOSP ---
Reason for Visit Reason for Visit: Diagnoses Gastrointestinal hemorrhage, unspecified (08/31/24) Subjective Subjective Some minimal blood with last BM, but primarily stool. Objective Data Objective Data Vital Signs: Vital Signs Temp Pulse Resp BP Pulse Ox O2 Del Method 36.6 C 72 16 134/74 H 93 Room Air 09/01/24 06:40 09/01/24 06:40 09/01/24 06:40 09/01/24 06:40 09/01/24 06:40 09/01/24 06:40 Oxygen Delivery Method Room Air Weight: 88.536 kg Body Mass Index (BMI) 34.5 Intake & Output: Intake and Output for Last 24 Hours 08/30/24 08/31/24 09/01/24 23:59 23:59 23:59 Intake Total 2300 / 2300 300 / 300 Balance 2300 / 2300 300 / 300 Lab / Micro Data 09/01/24 08:55 09/01/24 03:24 Labs: Laboratory Results - last 24 hr 08/31/24 10:20: WBC 7.0, RBC 4.31, Hgb 12.6, Hct 39.3, MCV 91.2, MCH 29.2, MCHC 32.1, RDW Std Deviation 47.4 H, RDW Coeff of Dolores 14.2, Plt Count 380, MPV 10.6, Immature Gran % (Auto) 0.600, Neut % (Auto) 66.2, Lymph % (Auto) 22.4, [place] % (Auto) 9.2, Eos % (Auto) 1.3, Baso % (Auto) 0.3, Absolute Neuts (auto) 4.6, Absolute Lymphs (auto) 1.56, Nucleated RBC % 0, Sodium 143, Potassium 3.9, Chloride 106, Carbon Dioxide 24.3, Anion Gap 12, BUN 25 H, Creatinine 1.22 H, Estim Creat Clear Calc 35.15 L, Est GFR (MDRD) Non-Af 43 L, BUN/Creatinine Ratio 20.2 H, Glucose 131 H, Lactic Acid 1.4, Calcium 9.2, Total Bilirubin 0.66, AST 36 H, ALT 18, Alkaline Phosphatase 43, Total Protein 6.8, Albumin 3.6, Globulin 3.2, Albumin/Globulin Ratio 1.1 08/31/24 15:43: Hgb 11.4 L, Hct 36.5 L 08/31/24 20:50: Hgb 10.4 L, Hct 33.2 L 09/01/24 03:24: WBC 8.0, RBC 3.40 L, Hgb 10.0 L, Hct 30.6 L, MCV 90.0, MCH 29.4, MCHC 32.7, RDW Std Deviation 47.1 H, RDW Coeff of Dolores 14.5, Plt Count 320, MPV 11.0, Immature Gran % (Auto) 0.400, Neut % (Auto) 67.7, Lymph % (Auto) 20.1, [place] % (Auto) 9.0, Eos % (Auto) 2.6, Baso % (Auto) 0.2, Absolute Neuts (auto) 5.4, Absolute Lymphs (auto) 1.62, Nucleated RBC % 0, Sodium 143, Potassium 3.5, Chloride 110 H, Carbon Dioxide 21.5, Anion Gap 12, BUN 25 H, Creatinine 1.08, Estim Creat Clear Calc 39.46 L, Est GFR (MDRD) Non-Af 50 L, BUN/Creatinine Ratio 22.7 H, Glucose 107 H, Calcium 8.3 Micro: Microbiology 08/31/24 10:20 Stool Stool Occult Blood (DUTSIN) - Final Radiography Diagnostic Testing: Radiology Impression Abdomen/Pelvis CT 08/31/24 10:30 IMPRESSION: Sigmoid diverticulosis as well as diverticula seen in the right hemicolon. Fatty infiltration of the liver. Moderate-sized hiatal hernia. One or more dose reduction techniques were used (e.g., Automated exposure control, adjustment of the mA and/or kV according to patient size, use of iterative reconstruction technique). Reading Location: [facility] Physical Exam Const alert and no apparent distress HEENT head/scalp atraumatic and moist oral mucous membranes Assessment & Plan Assessment/Plan (1) GI bleed: PLAN: Improved. Suspect diverticular versus hemorrhoids complicated by being on apixaban. Hemoglobin currently stable. Will continue to monitor hemoglobin 4 times. No need to transfuse at this time. If continues to worsen continues to have naresh hematochezia, patient will need a CT angiogram to evaluate for source of bleeding. Hold apixaban for 4 days. Patient advised to return if recurrs. CT on 08/31: sigmoid diverticulosis. (2) Acute blood loss anemia: PLAN: Hg 12.6 on 08/31, down to 10.4. 2/ to GI bleed. However, blood has remained stable. No need for transfusion. PLAN: Plan Chronic conditions Paroxysmal atrial fibrillation: Hold apixaban. Continue with metoprolol Hypertension: Hold losartan for now. VTE prophylaxis: SCDs.
[2024-09-01 09:13] LABS: Hematocrit 33.1 % (37-47); Hemoglobin 10.4 g/dL (12.0-15.0)
[2024-09-01] MEDS: buPROPion (XL) 150 MG TABLET.XL PO (09:16)
[2024-09-01] MEDS: Pantoprazole Sodium 40 MG Tablet PO (09:16)
[2024-09-01] MEDS: Fenofibrate 145 MG Tablet PO (09:16)
[2024-09-01 09:18] VITALS: PULSE 81
[2024-09-01] MEDS: Metoprolol Tartrate 25 MG Tablet 12.5 MG PO (09:18)
[2024-09-01] MEDS: amLODIPine 5 MG Tablet PO (09:18)
[2024-09-01] MEDS: FLUoxetine 20 MG Capsule PO (09:18)
--- NOTE | 2024-09-01 10:15 | DS.PCM_ITS ---
Providers Date of Admission: 08/31/24 Primary Care Physician: Dr. Brenda Palmer DO Reason For Visit: GI BLEED Diagnosis Discharge Diagnosis (1) GI bleed: Status: Acute Code(s): K92.2 - Gastrointestinal hemorrhage, unspecified Plan: Improved. Suspect diverticular versus hemorrhoids complicated by being on apixaban. Hemoglobin currently stable. Will continue to monitor hemoglobin 4 times. No need to transfuse at this time. If continues to worsen continues to have naresh hematochezia, patient will need a CT angiogram to evaluate for source of bleeding. Hold apixaban for 4 days. Patient advised to return if recurrs. CT on 08/31: sigmoid diverticulosis. (2) Acute blood loss anemia: Status: Acute Code(s): D62 - Acute posthemorrhagic anemia Plan: Hg 12.6 on 08/31, down to 10.4. 2/2 to GI bleed. However, blood has remained stable. No need for transfusion. Plan Chronic conditions * Paroxysmal atrial fibrillation: Hold apixaban. Continue with metoprolol * Hypertension: Hold losartan for now. VTE prophylaxis: SCDs. Medications at Discharge Home Medications fluoxetine 20 mg tablet 20 mg PO DAILY DEPRESSION 30 days ##30 09/24/17 rosuvastatin 10 mg tablet 10 mg PO DAILY Cholesterol 10/22/20 acetaminophen 500 mg tablet 500 mg PO Q6H PRN Pain 10/30/20 cholecalciferol (vitamin D3) 25 mcg (1,000 unit) tablet 25 mcg PO DAILY Vit D 02/11/21 calcium carbonate 500 mg PO DAILY Reflux 12/08/22 fenofibrate 160 mg tablet 145 mg PO DAILY Triglycerides 12/08/22 metoprolol tartrate 25 mg tablet 12.5 mg PO BID HR 12/08/22 hydroxyzine HCl 10 mg tablet 10 mg PO TID PRN PRN severe anxiety 14 days #30 tabs 01/21/23 handicap placard #1 ea 04/21/23 apixaban 5 mg tablet (Eliquis) 5 mg PO BID blood thinner #60 tabs 09/28/23 Held on 09/01/24. Instructions: Resume on 09/05/24. doxazosin 2 mg tablet 4 mg (2 x 2 mg) PO QHS #90 tabs 03/06/24 furosemide 40 mg tablet 40 mg PO DAILY #90 tabs 03/30/24 losartan 100 mg tablet 100 mg PO DAILY 05/15/24 amlodipine 5 mg tablet 5 mg PO DAILY BP #90 tabs 06/18/24 bupropion HCl 150 mg 24 hr tablet, extended release 150 mg PO DAILY 08/31/24 pantoprazole 40 mg tablet,delayed release 40 mg PO DAILY 08/31/24 spironolactone 25 mg tablet 25 mg PO DAILY 08/31/24 dextromethorphan-guaifenesin 10 mg-100 mg/5 mL oral syrup 5 ml PO Q4H PRN Cough #0 mL 09/01/24 Hospital Course Operations None Procedures None Summary of Care Provided Minutes Spent on Discharge: 32 Hospital Course: Patient presents with naresh hematochezia. Patient's hemoglobin dropped from 12.6-10 but then remained stable on subsequent hemoglobin is 10.4. Bleeding was most likely due to sigmoid diverticulosis complicated by being on apixaban. Patient has remained stable and has had very faint blood today which is much improved from yesterday where she was having naresh blood plus clots. Discussed with the patient that I feel that she is safe to go home but she will need to hold off on her apixaban for the next 4 days and then to resume. Patient advised to return if she has worsening bleeding in the future as it may not resolve spontaneously like it at this time. Weight / BMI Weight Weight: 88.536 kg Body Mass Index (BMI) 34.5 ABG / Lab / Microbiology Data 09/01/24 08:55 09/01/24 03:24 Laboratory: Laboratory Results - last 24 hr 08/31/24 10:20: WBC 7.0, RBC 4.31, Hgb 12.6, Hct 39.3, MCV 91.2, MCH 29.2, MCHC 32.1, RDW Std Deviation 47.4 H, RDW Coeff of Dolores 14.2, Plt Count 380, MPV 10.6, Immature Gran % (Auto) 0.600, Neut % (Auto) 66.2, Lymph % (Auto) 22.4, [place] % (Auto) 9.2, Eos % (Auto) 1.3, Baso % (Auto) 0.3, Absolute Neuts (auto) 4.6, Absolute Lymphs (auto) 1.56, Nucleated RBC % 0, Sodium 143, Potassium 3.9, Chloride 106, Carbon Dioxide 24.3, Anion Gap 12, BUN 25 H, Creatinine 1.22 H, E stim Creat Clear Calc 35.15 L, Est GFR (MDRD) Non-Af 43 L, BUN/Creatinine Ratio 20.2 H, Glucose 131 H, Lactic Acid 1.4, Calcium 9.2, Total Bilirubin 0.66, AST 36 H, ALT 18, Alkaline Phosphatase 43, Total Protein 6.8, Albumin 3.6, Globulin 3.2, Albumin/Globulin Ratio 1.1 08/31/24 15:43: Hgb 11.4 L, Hct 36.5 L 08/31/24 20:50: Hgb 10.4 L, Hct 33.2 L 09/01/24 03:24: WBC 8.0, RBC 3.40 L, Hgb 10.0 L, Hct 30.6 L, MCV 90.0, MCH 29.4, MCHC 32.7, RDW Std Deviation 47.1 H, RDW Coeff of Dolores 14.5, Plt Count 320, MPV 11.0, Immature Gran % (Auto) 0.400, Neut % (Auto) 67.7, Lymph % (Auto) 20.1, [place] % (Auto) 9.0, Eos % (Auto) 2.6, Baso % (Auto) 0.2, Absolute Neuts (auto) 5.4, Absolute Lymphs (auto) 1.62, Nucleated RBC % 0, Sodium 143, Potassium 3.5, Chloride 110 H, Carbon Dioxide 21.5, Anion Gap 12, BUN 25 H, Creatinine 1.08, E stim Creat Clear Calc 39.46 L, Est GFR (MDRD) Non-Af 50 L, BUN/Creatinine Ratio 22.7 H, Glucose 107 H, Calcium 8.3 09/01/24 08:55: Hgb 10.4 L, Hct 33.1 L Microbiology: Microbiology 08/31/24 10:20 Stool Stool Occult Blood (DUSTIN) - Final Radiography Diagnostic Testing: Radiology Impression Abdomen/Pelvis CT 08/31/24 10:30 IMPRESSION: Sigmoid diverticulosis as well as diverticula seen in the right hemicolon. Fatty infiltration of the liver. Moderate-sized hiatal hernia. One or more dose reduction techniques were used (e.g., Automated exposure control, adjustment of the mA and/or kV according to patient size, use of iterative reconstruction technique). Reading Location: [place] [address] D/C Instructions Discharge Diet: No restrictions DC O2, CPAP, BIPAP Needs Home O2 Discharge instructions: No Meaningful Use Info Meaningful Use Meaningful Use Diagnoses (Choose all that apply): None applicable Ischemic Stroke Statin Dosing Therapy Reference: STATIN DOSE THERAPY REFERENCE: * Patients > 75 years receive moderate or high dose statin therapy. * Patients 75 years or YOUNGER should receive HIGH intensity statin dose unless contraindicated. You will be required to document reason for non-treatment if statin daily dose does not meet guidelines. HIGH DOSE STATIN THERAPY DAILY Atorvastatin > than or = to 40 mg Rosuvastatin > than or = to 20 mg Amlodipine + Atorvastatin > than or = to 2.5/40 mg Ezetimibe + Simvastatin 10/80 mg Simvastatin 80mg Discharge Plan Admission Admit Date/Time: 08/31/24 13:00 Primary Reason for Your Visit: GI bleed Attending Provider: Itz Walton Primary Care Provider: Brenda Palmer Instructions Additional Instructions / Restrictions: You had bleeding your colon due to your diverticulosis that was compounded by the fact that you are on Eliquis (apixaban). Your blood count did drop but it has remained stable over the past 24 hours. No need for transfusions and no need for any additional testing at this time. So as we discussed, you will be discharged home and to hold off on your Eliquis for 4 days (resume on the ). Please return to the emergency room if you do have a bleeding like this in the future as it may not stop just by holding Eliquis. The shortness of breath that you are experiencing I think is more residual from the fluid that you recently had. I would suspected that to get better in the coming weeks. If not, you will follow-up with your primary care doctor in the next couple weeks if you are still having those symptoms sugars or not getting better then you may need further evaluation. Discharge Orders/Prescriptions Prescriptions: New dextromethorphan-guaifenesin 10-100 mg/5 mL Syrup 5 ml PO Q4H PRN (Reason: Cough) Qty: 0 0RF Continued fluoxetine 20 mg tablet 20 mg PO DAILY 30 Days Qty: 30 Patient Comments: TAKE ONE TABLET BY MOUTH EVERY DAY acetaminophen 500 mg tablet 500 mg PO Q6H PRN (Reason: Pain) cholecalciferol (vitamin D3) 25 mcg (1,000 unit) tablet 25 mcg PO DAILY calcium carbonate 500 mg calcium (1,250 mg) tablet 500 mg PO DAILY metoprolol tartrate 25 mg tablet 12.5 mg PO BID (DME) handicap placard See Rx Instructions .Route .MEDSUPPLY Qty: 1 0RF Rx Instructions: dx: Debility Expiration date: 04/2028 losartan 100 mg tablet 100 mg PO DAILY Patient Comments: take 1 tablet by mouth once daily fenofibrate 160 mg tablet 145 mg PO DAILY Patient Comments: take 1 tablet by mouth once daily hydroxyzine HCl 10 mg Tablet 10 mg PO TID PRN PRN (Reason: severe anxiety) 14 Days Qty: 30 0RF spironolactone 25 mg tablet 25 mg PO DAILY pantoprazole 40 mg tablet,delayed release (DR/EC) 40 mg PO DAILY bupropion HCl 150 mg tablet extended release 24 hr 150 mg PO DAILY rosuvastatin 10 mg tablet 10 mg PO DAILY doxazosin 2 mg tablet 4 mg PO QHS Qty: 90 3RF furosemide 40 mg tablet 40 mg PO DAILY Qty: 90 3RF amlodipine 5 mg tablet 5 mg PO DAILY Qty: 90 3RF Held Eliquis 5 mg tablet 5 mg PO BID Qty: 60 11RF Hold Instructions: Resume on 09/05/24. Referrals / Follow Up: Brenda Palmer DO [Primary Care Provider] - Within 2 Weeks Disposition Disposition (needs filled in before D/C Order can be placed): Home, Self Care Charges/Coding Visit Charges Inpatient E&M: 60516 Disch Hosp >30min
[2024-09-01 11:40] VITALS: BP 151/74; PULSE 80; RESP 16; TEMP 36.3; O2SAT 91
== END 2024-09-01 11:53 | disposition home or self-care (01) | DRG 378 ==
LOC: ED 13:07 → MS3 14:44
PROVIDERS: Emergency Provider Surgery; PCP Internal Medicine
DX: K57.31 Diverticulosis of large intestine without perforation or abscess with bleeding (principal); D62 Acute posthemorrhagic anemia; I10 Essential (primary) hypertension; I48.0 Paroxysmal atrial fibrillation; E78.5 Hyperlipidemia, unspecified; K21.9 Gastro-esophageal reflux disease without esophagitis; F41.9 Anxiety disorder, unspecified; N28.9 Disorder of kidney and ureter, unspecified; Z79.01 Long term (current) use of anticoagulants; Z79.899 Other long term (current) drug therapy; Z90.49 Acquired absence of other specified parts of digestive tract; T45.515A Adverse effect of anticoagulants, initial encounter
CPT/HCPCS: 36415; 74177; 80048; 80053; 82274; 83605; 85014; 85018; 85025; 97802; 99284; Q9967; A4216

== ENCOUNTER → 2024-09-05 | Outpatient (CLI) | payer MEDICARE, SELFPAY ==
[2024-09-05 15:25] LABS: Hematocrit 32.5 % (37-47); Hemoglobin 10.2 g/dL (12.0-15.0); Mean Corp Hgb Conc 31.4 g/dL (32-36); Mean Corpuscular Hgb 29.7 pg (27.0-32.0); Mean Corpuscular Volume 94.8 fL (81-99); Mean Platelet Vol. 11.4 fl (6.2-12.0); Platelet Count 417 K/mm3 (150-450); RBC Distribution Width CV 15.1 % (11.6-14.6); RBC Distribution Width SD 51.8 fl (35.1-43.9); Red Blood Count 3.43 M/mm3 (4.2-5.4); White Blood Count 8.8 K/mm3 (4.4-11.0)
[2024-09-06 11:01] LABS: Absolute Lymphocyte Count 1.26 X10^3/uL (0.83-4.51); Absolute Neutrophil Count 6.5 X10^3/uL (2.0-7.7); Basophil# 0.03 X10^3/uL; Basophil% 0.3 % (0-1); Eosinophil# 0.08 X10^3/uL; Eosinophils% 0.9 % (0-5); Lymphocyte # 1.26 X10^3/ul (0.83-4.51); Lymphocyte % 14.5 % (19-41); Monocyte# 0.78 X10^3/uL; NRBC Flagged by Analyzer 0 % (0-5); Neutrophil # 6.51 X10^3/uL (2.7-7.7); Neutrophil % 74.7 % (47-70)
== END | disposition home or self-care (01) ==
LOC: LABSPEC 14:46
PROVIDERS: PCP Internal Medicine; Referring Provider Internal Medicine; Visit Provider Internal Medicine
DX: K57.30 Diverticulosis of large intestine without perforation or abscess without bleeding (principal)
CPT/HCPCS: 85025; 85027

== ENCOUNTER → 2024-10-04 | Outpatient (CLI) | payer MEDICARE, SELFPAY ==
--- NOTE | 2024-10-04 15:50 | CT_ITS ---
PROCEDURE: CTA ABD/PELVIS W/WO CONTRAST 10/04/2024 REASON FOR EXAM: CTA ABDOMEN AND PELVIS WITH AND W/O CONTRAST - DIVERTICULOSIS OF TECHNIQUE: CTA abdomen and pelvis was performed with IV contrast. Coronal and sagittal reformats and MIP reconstructions were generated. CONTRAST: ISOVUE 370 VOLUME: 100 mL One or more dose reduction techniques were used (e.g., Automated exposure control, adjustment of the mA and/or kV according to patient size, use of iterative reconstruction technique). RADIATION DOSE SUMMARY: CTDlvol: 35.62+ 22.08 mGy DLP: 1137.82 mGycm COMPARISON: 08/31/2024 FINDINGS: Note evaluation of the abdominopelvic viscera is limited that as the exam is optimized for evaluation of the arterial vasculature. Variable overall mild/moderate motion artifact. Aorta: Mild/moderate atherosclerosis. Celiac artery: Mild stenosis of the origin appears non atherosclerotic and probably related to the diaphragmatic crura. SMA: Patent. RIGHT Renal artery: Nonobstructing atherosclerosis at the origin. LEFT Renal artery: Mild atherosclerotic stenosis at the origin. MELO: Patent. Common iliac arteries: Trace nonobstructing atherosclerosis. External iliac arteries: Patent. Internal iliac arteries: Mild nonobstructing atherosclerosis. Other vascular: Reflux of contrast into the IVC and hepatic veins, suggesting RIGHT heart dysfunction. Other nonvascular: Cardiomegaly with relative dilatation of the atria. At least trace aortic annular calcification. Atelectasis/scarring. Moderate hiatal hernia. Tiny hepatic hypodensity too small to characterize, likely cyst or hemangioma in the absence of known malignancy. Decompressed gallbladder with mild nonspecific wall thickening. Similar mild dilatation of the CBD to 9 mm without visualized obstructing process. Subcentimeter LEFT renal cyst and additional bilateral hypodensities too small to characterize likely a cyst. Punctate 3 mm LEFT renal parenchymal calculus. Transverse duodenal diverticulum. Rectal anastomosis. Diverticulosis. Demineralization. Multilevel spondylosis. Similar focal kyphosis along the lower thoracic spine. CT/CTA Abd/Pelvis W/WO Contrast IMPRESSION: 1. Scattered atherosclerosis without high-grade stenosis. 2. Cardiomegaly with evidence of RIGHT heart dysfunction. 3. Decompressed gallbladder with mild nonspecific wall thickening which may be related to venous congestion given the above cardiac and vascular findings, amongst other possible etiologies. Acute cholec ystitis is unlikely in the absence of distention. 4. Similar mild dilatation of the CBD to 9 mm without visualized obstructing pr ocess. Correlate with serum bilirubin and consider MRCP as indicated. 5. Additional description as above. Reading Location: [id number]
== END | disposition home or self-care (01) ==
LOC: CT 15:50
PROVIDERS: PCP Internal Medicine; Referring Provider Internal Medicine; Visit Provider Internal Medicine
DX: K57.30 Diverticulosis of large intestine without perforation or abscess without bleeding (principal)
CPT/HCPCS: 74174; Q9967

== ENCOUNTER → 2024-12-03 | Outpatient (CLI) | payer MEDICARE, SELFPAY ==
--- NOTE | 2024-12-03 14:53 | ECHOD_ITS ---
Reason For Study Reason For Study: DYSPNEA Procedure This was a 2D Doppler, Color Flow transthoracic echocardiogram. Exam performed in department. Left Ventricle Normal LV size. Left ventricular systolic function is normal. The left ventricular ejection fraction is 70 %. No regional wall motion abnormalities noted. Right Ventricle Normal RV size. Normal systolic function. Atria The left atrium is mildly enlarged. Normal right atrium. Mitral Valve Normal mitral valve. Tricuspid Valve Normal tricuspid valve. Mild (1+) tricuspid valve insufficiency. Pulmonary artery systolic pressure is 46 mmHg. Aortic Valve Trisinus/trileaflet aortic valve. Pulmonic Valve Normal pulmonic valve. Great Vessels Normal aortic root. The pulmonary artery is normal size. Inferior vena cava collapse with respiration. Pericardium/Pleural No pericardial effusion. MMode/2D Measurements & Calculations LVIDd: 3.4 cm IVSd: 0.97 cm LVOT diam: 1.9 cm LVIDs: 2.2 cm LVPWd: 1.0 cm LVOT area: 2.7 cm2 RVDd: 3.1 cm FS: 36.5 % asc Aorta Diam: 2.9 cm LAV(MOD-bp): 69.4 ml LVAd ap4: 14.9 cm2 LAV(MOD-bp) Indexed: 36.1 ml/m2 LVLd ap4: 6.6 cm LAV(MOD-sp2): 75.2 ml EDV(MOD-sp4): 29.0 ml LAV(MOD-sp4): 58.7 ml EDV(sp4-el): 28.9 ml LVAs ap4: 7.0 cm2 LVLs ap4: 5.5 cm ESV(MOD-sp4): 8.2 ml ESV(sp4-el): 7.6 ml EF(MOD-sp4): 71.8 % EF(sp4-el): 73.6 % LVAd ap2: 16.3 cm2 SV(MOD-sp4): 20.8 ml SV(MOD-sp2): 22.7 ml LVLd ap2: 6.5 cm SI(MOD-sp4): 10.8 ml/m2 SI(MOD-sp2): 11.8 ml/m2 EDV(MOD-sp2): 34.7 ml EDV(sp2-el): 35.1 ml LVAs ap2: 8.6 cm2 LVLs ap2: 5.5 cm ESV(MOD-sp2): 12.0 ml ESV(sp2-el): 11.5 ml EF(MOD-sp2): 65.5 % SV(sp4-el): 21.3 ml Ao sinus diam: 2.[address] Junction: 2.1 cm LA dimension(2D): 4.3 cm LA A4 area: 20.9 cm2 RA A4 area: 21.3 cm2 TAPSE: 1.4 cm Time Measurements MV dec time: 0.18 sec Doppler Measurements & Calculations MV E max ten: 125.6 cm/sec Lat Peak E' Ten: 11.6 cm/sec Med Peak E' Ten: 8.1 cm/sec MV A max ten: 37.9 cm/sec E/E' lat: 10.8 E/E' med: 15.4 MV E/A: 3.3 MV dec slope: 684.4 cm/sec2 Ao V2 max: 144.9 cm/sec LV V1 max: 122.5 cm/sec Ao max P.4 mmHg LV V1 max P.0 mmHg Ao V2 mean: 101.8 cm/sec LV V1 mean P.4 mmHg Ao mean P.8 mmHg LV V1 mean: 86.3 cm/sec Ao V2 VTI: 32.0 cm LV V1 VTI: 27.6 cm AV (velocity ratio): 0.86 SILVINA(I,D): 2.3 cm2 SILVINA(V,D): 2.3 cm2 SV(LVOT): 74.7 ml PA V2 max: 81.1 cm/sec TR max ten: 322.1 cm/sec TR max P.5 mmHg ECHO/Echo Complete Interpretation Summary Left ventricular systolic function is normal. Normal LV size. The left ventricular ejection fraction is 70 %. Mild (1+) tricuspid valve insufficiency. Pulmonary artery systolic pressure is 46 mmHg. Ordering Physician: Laxmi Garrett Referring Physician: Brenda Palmer M.D. Performed By: Katherine Camara RDCS
== END | disposition home or self-care (01) ==
LOC: CVS 14:49
PROVIDERS: PCP Internal Medicine; Referring Provider Physician Assistant Medical; Visit Provider Physician Assistant Medical
DX: R06.00 Dyspnea, unspecified (principal)
CPT/HCPCS: 93306

== ENCOUNTER 2025-06-06 16:17 | Emergency (ER) | payer MEDICARE, SELFPAY ==
[2025-06-06 16:19] VITALS: BP 136/83; PULSE 83; RESP 18; TEMP 36.4; O2SAT 99
--- NOTE | 2025-06-06 17:15 | RAD_ITS ---
PROCEDURE: ANKLE MIN 3 VIEWS 06/06/2025 REASON FOR EXAM: Patient states she was sitting too long and her leg fell asleep so she stood up and her ankle made a sound and now it is painful to stand on. TECHNIQUE: Procedure Code: JEFF Modality: DX Procedure: ANKLE MIN 3 VIEWS Laterality: Left COMPARISON: None. FINDINGS: BONES: Linear lucency at the tip of the lateral malleolus, best seen on the oblique view. Small achilles tendon calcification at its distal attachment. JOINTS: No dislocation. The joint spaces are preserved. SOFT TISSUES: Diffuse swelling in the lateral ankle. Vascular calcifications noted. RAD/Ankle min 3 Views IMPRESSION: 1. Findings suggest nondisplaced lateral malleolar tip fracture. 2. Lateral ankle soft tissue swelling. Reading Location: [id number]
--- NOTE | 2025-06-06 18:10 | EX.ED.GENINJ ---
HPI History of Present Illness Chief Complaint: Lower Extremity Injury Detail of Chief Complaint: Injury left ankle, plantar inversion mechanism of injury Informant: patient Onset/Context/Timing Onset: Today and Hours Mechanism/Context: other (Plantar inversion mechanism of injury) Location of pain/injuries: Left ankle Quality of Pain: Dull and Aching Location: Lateral aspect left ankle Current Severity: Mild Maximum Severity: Severe Worsened by: Movement, palpation and especially weightbearing Relieved by: Nothing Associated Symptoms Associated Symptoms: Positive for Inability to ambulate (Difficult to); Negative for Parasthesias, Weakness, Loss of function (Significant discomfort with weightbearing), Loss of consciousness or Amnesia Narrative Narrative: Patient is 89-year-old woman. She planned presents with a plantar inversion mechanism injury to his left ankle. She states she was sitting at the computer kitchen bar. Her leg was asleep. When she got up she had a plain inversion mechanism injury. She felt a pop. She has significant pain with weightbearing. Denies paresthesia, anesthesia medics presently. She has never seen a rn geriatric or orthopedic surgeon. She denies prior injury. She is on apixaban. Prior similar symptoms: No Recent Illness/Hospitalization: No [facility] Medical History Dyspnea Paroxysmal A-fib PSVT (paroxysmal supraventricular tachycardia) Essential (primary) hypertension GERD (gastroesophageal reflux disease) Anxiety Persistent atrial fibrillation with RVR Ectopic cardiac beats Tachycardia Ventricular ectopy Obesity Abdominal pain Incontinence Left arm pain History of anxiety disorder Dyslipidemia Home Medications ?Medication ?Instructions ?Recorded ?Last Taken ?Type rosuvastatin 10 mg tablet 10 mg PO DAILY Cholesterol 10/22/20 06/05/25 History acetaminophen 500 mg tablet 500 mg PO Q6H PRN Pain 10/30/20 01/18/23 19:00 History cholecalciferol (vitamin D3) 25 25 mcg PO DAILY Vit D 02/11/21 06/06/25 History mcg (1,000 unit) tablet calcium carbonate 500 mg PO DAILY Reflux 12/08/22 06/06/25 History handicap placard #1 ea 04/21/23 Unknown Rx amlodipine 5 mg tablet 5 mg PO DAILY BP #90 tabs 06/18/24 06/06/25 Rx bupropion HCl 150 mg 24 hr tablet, 150 mg PO DAILY 08/31/24 06/06/25 History extended release pantoprazole 40 mg tablet,delayed 40 mg PO DAILY 08/31/24 06/06/25 History release apixaban 5 mg tablet (Eliquis) 5 mg PO BID blood thinner #180 tabs 10/01/24 06/06/25 Rx fenofibrate nanocrystallized 145 145 mg PO QDAY 10/23/24 06/06/25 History mg tablet fluoxetine 20 mg capsule 20 mg PO QDAY 10/23/24 06/06/25 History losartan 50 mg tablet 50 mg PO QDAY 10/23/24 06/06/25 History spironolactone 25 mg tablet 25 mg PO DAILY #90 tabs 02/04/25 06/05/25 Rx furosemide 40 mg tablet 40 mg PO DAILY #90 tabs 03/25/25 06/06/25 Rx doxazosin 4 mg tablet 4 mg PO QHS #90 tabs 05/20/25 06/05/25 Rx metoprolol tartrate 25 mg tablet 12.5 mg (1/2 x 25 mg) PO BID HR 06/03/25 06/06/25 Rx #90 tabs hydrocodone-acetaminophen 5-325mg 1 tab PO Q6H PRN PRN Pain 3 days 06/06/25 Unknown Rx 5mg-325mg #10 TABLETS Allergy/AdvReac Type Severity Reaction Status Date / Time codeine AdvReac Vomiting Verified 06/06/25 16:21 lactose (lactose intolerant) AdvReac Abd Verified 06/06/25 16:21 cramps/diarrhea Family History Mother Hypertension Cancer Father Cancer Surgical History History of hemorrhoidectomy History of colectomy Social History Smoking Status: Never smoker alcohol intake: never substance use type: does not use caffeine: Yes Type: coffee Number of servings: 3 ROS ROS ED Musculoskeletal Musculoskeletal: Reports other Details: Swelling left ankle Integumentary Reports other Details: Bruising noted over the lateral malleolus left ankle ; Denies rash Neurologic Neurologic: Denies paresthesias or weakness Hematologic/Lymphatic Hematologic/Lymphatic: Reports easy bleeding and easy bruising EXAM Physical Exam Const Vital Signs: 06/06/25 16:19 Temperature 97.6 F L Temperature Source Temporal Pulse Rate 83 Respiratory Rate 18 Blood Pressure 136/83 H Blood Pressure Mean 100 Pulse Ox 99 Oxygen Delivery Method Room Air Positive well nourished, well developed and obese General Appearance ED: well developed and NAD Nutritional Appearance: obese HEENT atraumatic Eyes PERRL and EOMs intact bilaterally Resp normal respiratory effort Cardio regular rhythm Rate: regular rate Extremity full ROM; Negative for normal to inspection Extremity Narrative: There are significant swelling over the lateral malleolus. There is pain ovation of the lateral malleolus. There is pain to palpation over the anterior talofibular ligament and the calcaneofibular ligament. There is no pain ovation over the medial malleolus or over the deltoid ligament. Patient denies pain to palpation base of the fifth metatarsal. DP pulses palpable. Neuro oriented x3 and CN's II-XII intact bilaterally Sensorium / Orientation: alert Psych mental status grossly normal and thought process normal Skin no rashes or lesions noted and skin turgor normal MDM MDM MDM Narrative Medical decision making narrative: X-ray was obtained to evaluate for fracture versus sprain. Radiography Chest X-Ray - ED: Read by ED Physician (Three-view x-ray of the left ankle reveals a nondisplaced distal lateral malleolus below the joint line, Marie type a with no widening of the mortise. Patient was treated with a walking boot and referred to Dr. Zuniga) Diagnostic Testing: Clinical Impression(s) from Imaging Studies Ankle X-Ray 06/06/25 17:15 IMPRESSION: 1. Findings suggest nondisplaced lateral malleolar tip fracture. 2. Lateral ankle soft tissue swelling. Reading Location: [facility] Treatment and Re-Evaluation Narrative: patient has a ride. She received her first dose of pain medicine in department and prescription was sent to pharmacy. She was referred to Dr. Zuniga. Discharge Plan Triage Chief Complaint: Lower Extremity Injury ED Provider: Wyatt Ye Dx/Rx/DC Orders Clinical Impression: Nondisplaced fracture of lateral malleolus of left fibula, Essential (primary) hypertension, Paroxysmal A-fib, Anticoagulant long-term use Instructions: ED Ankle Fracture, Distal Fibula Prescriptions: New hydrocodone-acetaminophen 5-325 mg tablet 1 tab PO Q6H PRN PRN (Reason: Pain) 3 Days Qty: 10 0RF No Action acetaminophen 500 mg tablet 500 mg PO Q6H PRN (Reason: Pain) cholecalciferol (vitamin D3) 25 mcg (1,000 unit) tablet 25 mcg PO DAILY calcium carbonate 500 mg calcium (1,250 mg) tablet 500 mg PO DAILY (DME) handicap placard See Rx Instructions .Route .MEDSUPPLY Qty: 1 0RF Rx Instructions: dx: Debility Expiration date: 04/2028 fenofibrate nanocrystallized 145 mg tablet 145 mg PO QDAY fluoxetine 20 mg capsule 20 mg PO QDAY losartan 50 mg tablet 50 mg PO QDAY pantoprazole 40 mg tablet,delayed release (DR/EC) 40 mg PO DAILY bupropion HCl 150 mg tablet extended release 24 hr 150 mg PO DAILY rosuvastatin 10 mg tablet 10 mg PO DAILY amlodipine 5 mg tablet 5 mg PO DAILY Qty: 90 3RF Eliquis 5 mg tablet 5 mg PO BID Qty: 180 3RF spironolactone 25 mg tablet 25 mg PO DAILY Qty: 90 3RF furosemide 40 mg tablet 40 mg PO DAILY Qty: 90 3RF doxazosin 4 mg tablet 4 mg PO QHS Qty: 90 3RF metoprolol tartrate 25 mg tablet 12.5 mg PO BID Qty: 90 3RF Primary Care Provider: Brenda Palmer Referrals: Brenda Palmer DO [Primary Care Provider, Internal Medicine] Christo Zuniga DPM [Med Staff - Active Staff, Podiatry] - 5-7 Days Print Language: Norwegian Disposition Disposition: Home, Self Care
[2025-06-06 18:34] VITALS: BMI 34.9
[2025-06-06 18:38] VITALS: BP 175/75; PULSE 71; RESP 16; TEMP 36.6; O2SAT 100
[2025-06-06] MEDS: HYDROcodone Bitartrate/Apap 5/325 Tablet PO (18:39)
== END 2025-06-06 18:47 | disposition home or self-care (01) ==
PROVIDERS: Emergency Provider Emergency Medicine; PCP Internal Medicine; Visit Provider Emergency Medicine
DX: S82.65XA Nondisplaced fracture of lateral malleolus of left fibula, initial encounter for closed fracture (principal); I48.0 Paroxysmal atrial fibrillation; Z79.01 Long term (current) use of anticoagulants; I10 Essential (primary) hypertension; E78.5 Hyperlipidemia, unspecified; X58.XXXA Exposure to other specified factors, initial encounter; Z79.899 Other long term (current) drug therapy; F41.9 Anxiety disorder, unspecified; K21.9 Gastro-esophageal reflux disease without esophagitis; Z90.49 Acquired absence of other specified parts of digestive tract
CPT/HCPCS: 73610; 99283